=== PATIENT | female | born 1970 | race Caucasian/White ===

== ENCOUNTER 2020-02-21 14:09 | Day surgery (SDC) | payer OTHER, SELFPAY ==
[2020-02-14 09:17] VITALS: BMI 43.8
--- NOTE | 2020-02-20 11:11 | HO.ANESPROP2 ---
Documented by User: Alice Magda 02/20/20 11:12 HPI - Anesthesia Eval Consult details Narrative: 49yo F for EGD PMFSH Past Medical History Medical History Anxiety Arthritis Asthma Cancer GERD (gastroesophageal reflux disease) HTN (hypertension) Hx of renal calculi Irritable bowel syndrome Sleep apnea Surgical History Surgical History H/O ventral hernia repair Hx of bilateral oophorectomy Hx of breast biopsy Hx of section Hx of colonoscopy Hx of esophagogastroduodenoscopy Social History Social History Smoking Status: Never smoker Second Hand Smoke Exposure: No Use of substances other than those prescribed or required for medical reasons: No Advance Directives: No Advance Directives Information Provided: Yes Advance Directives on File: No Meds Allergies Allergy/AdvReac Type Severity Reaction Status Date / Time doxycycline [DOXYCYCLINE] Allergy Severe ESOPHAGITIS Unverified 01/23/20 14:48 Sulfa (Sulfonamide Allergy Severe FACIAL Unverified 01/23/20 14:48 Antibiotics) SWELLING codeine [Codeine] Allergy Intermediate RASH Unverified 01/23/20 14:48 lisinopril [Lisinopril] Allergy Intermediate EXTREMITIES Unverified 01/23/20 14:48 SWELLING benzonatate [BENZONATATE] Allergy Unknown ANAPHYLAXIS Unverified 01/23/20 14:48 meperidine [Demerol] Allergy Unknown Verified 06/15/16 00:00 From Demerol Allergy Severe HALLUCINATIONS, Uncoded 01/23/20 14:48 HYPERVENTALATE Home Medications Medication Instructions Recorded Confirmed Type amlodipine 5 mg PO DAILY 02/14/20 02/21/20 History cholecalciferol (vitamin D3) 25 mcg PO DAILY 02/14/20 02/14/20 History [Vitamin D3] citalopram 40 mg PO DAILY 02/14/20 02/21/20 History clonidine HCl 0.3 mg PO BEDTIME 02/14/20 02/14/20 History docusate sodium [Colace] 100 mg PO DAILY 02/14/20 02/14/20 History loratadine [Claritin] 10 mg PO DAILY 02/14/20 02/14/20 History lorazepam 0.5 mg PO BEDTIME PRN 02/14/20 History montelukast [Singulair] 10 mg PO BEDTIME 02/14/20 02/14/20 History Exam Exam Date and Time: February 20, 2020 1111 Height,Weight and Vital Signs: Height 5 ft 1.5 in Weight 107.048 kg Assessment and Plan Assessment Anesthesia Assessment: Chart Reviewed Documented by User: Anuj Moreau MD 02/21/20 14:32 PMFSH Past Medical History Medical History Anxiety Arthritis Asthma Cancer GERD (gastroesophageal reflux disease) HTN (hypertension) Hx of renal calculi Irritable bowel syndrome Sleep apnea Surgical History Surgical History H/O ventral hernia repair Hx of bilateral oophorectomy Hx of breast biopsy Hx of section Hx of colonoscopy Hx of esophagogastroduodenoscopy Social History Social History Smoking Status: Never smoker Second Hand Smoke Exposure: No Use of substances other than those prescribed or required for medical reasons: No Advance Directives: No Advance Directives Information Provided: Yes Advance Directives on File: No Meds Allergies Allergy/AdvReac Type Severity Reaction Status Date / Time doxycycline [DOXYCYCLINE] Allergy Severe ESOPHAGITIS Unverified 01/23/20 14:48 Sulfa (Sulfonamide Allergy Severe FACIAL Unverified 01/23/20 14:48 Antibiotics) SWELLING codeine [Codeine] Allergy Intermediate RASH Unverified 01/23/20 14:48 lisinopril [Lisinopril] Allergy Intermediate EXTREMITIES Unverified 01/23/20 14:48 SWELLING benzonatate [BENZONATATE] Allergy Unknown ANAPHYLAXIS Unverified 01/23/20 14:48 meperidine [Demerol] Allergy Unknown Verified 06/15/16 00:00 From Demerol Allergy Severe HALLUCINATIONS, Uncoded 01/23/20 14:48 HYPERVENTALATE Home Medications Medication Instructions Recorded Confirmed Type amlodipine 5 mg PO DAILY 02/14/20 02/21/20 History cholecalciferol (vitamin D3) 25 mcg PO DAILY 02/14/20 02/14/20 History [Vitamin D3] citalopram 40 mg PO DAILY 02/14/20 02/21/20 History clonidine HCl 0.3 mg PO BEDTIME 02/14/20 02/14/20 History docusate sodium [Colace] 100 mg PO DAILY 02/14/20 02/14/20 History loratadine [Claritin] 10 mg PO DAILY 02/14/20 02/14/20 History lorazepam 0.5 mg PO BEDTIME PRN 02/14/20 History montelukast [Singulair] 10 mg PO BEDTIME 02/14/20 02/14/20 History Exam Airway Mallampati Class: II TM Dist: >3cm Neck ROM: Full Loose/Missing/Broken Teeth: No Heart: rrr Lungs: [id number] Assessment and Plan Assessment Anesthesia Assessment: Anesthesia Plan Discussed, PAT Visit and Chart Reviewed Final Anesthetic Review NPO: Yes ASA Class: III Final Preanesthetic Review: No Changes in Pt Med Stat, Meds/Allgs Chart Reviewed, Consent Obtained/Reviewed and Anes Risks/Benef Reviewed Patient Risk: Intermediate Procedure Risk: Intermediate Anesthetic Plan Anesthetic Plan: MAC: Disposition: Standard PACU
[2020-02-20 12:08] VITALS: BMI 43.8
[2020-02-21 14:26] VITALS: BP 144/65; PULSE 62; RESP 18; TEMP 36.2; O2SAT 98
[2020-02-21] MEDS: Lactated Ringers 1,000 ML 100 ML IVCONT (14:55)
[2020-02-21 16:00] VITALS: BP 143/83; PULSE 93; RESP 16; TEMP 36.6; O2SAT 95
--- NOTE | 2020-02-21 16:01 | PM.OP ---
Brief Operative Note Date of procedure: 02/21/20 Pre-op diagnosis: Dysphagia, Globus Post-op diagnosis: other (Hiatal hernia, R/O Eosinophilic esophagitis) Procedure: EGD with biopsies Surgeon: Hitesh Reed Anesthesia: MAC Estimated blood loss (mL): 2 Pathology: other (A. EG Junction at 35cm B. Esophagus at 25cm) Condition: stable Disposition: PACU
[2020-02-21 16:16] VITALS: BP 150/67; PULSE 68; RESP 16; O2SAT 98
--- NOTE | 2020-02-21 17:16 | OP_ITS ---
SURGEON: Hitesh Reed MD INDICATIONS: The patient presents for evaluation of intermittent sense of dysphagia and some reflux. Full consent has been obtained from her for this, including risks of bleeding and perforation. PREOPERATIVE DIAGNOSIS: POSTOPERATIVE DIAGNOSIS: PROCEDURE PERFORMED: Esophagogastroduodenoscopy with biopsies. ESTIMATED BLOOD LOSS: COMPLICATIONS: ANESTHESIA: Monitored anesthesia care. ASSISTANTS: SPECIMENS: PREOPERATIVE DIAGNOSES: Intermittent dysphagia and abdominal discomfort. POSTOPERATIVE DIAGNOSES: Intermittent dysphagia and abdominal discomfort, hiatal hernia. Rule out eosinophilic esophagitis. DESCRIPTION OF PROCEDURE: The patient was placed in the left lateral decubitus position. The Olympus video gastroscope was passed in the posterior oropharynx and upper esophagus under direct vision. The scope was passed slowly into the distal esophagus. The gastroesophageal junction appeared at 35 cm. There was a very minimal irregularity, but there was no sign of any esophagitis, stricture, ulceration, mass, nor any gross evidence of Mccurdy's mucosa. The scope was easily entered into the stomach. There was a small hiatal hernia. The scope was advanced to pylorus and the duodenum cannulated to the descending portion. The duodenum including the bulb appeared normal without mass or ulceration. The scope was withdrawn back into the stomach. The gastric antrum and body appeared normal with good peristalsis. The scope was retroflexed visualizing the proximal stomach carefully which appeared normal, without any sign of mass or ulceration. The scope was straightened and withdrawn back into the esophagus. Biopsies were obtained at the EG junction at 35 cm. There was no sign of any esophageal stricture nor ring and therefore, no dilation was performed. The scope was slowly withdrawn through the remainder of the esophagus, which appeared normal. There was no sign of any esophageal rings nor other mucosal abnormalities. Biopsies were obtained to 25 cm to rule out eosinophilic esophagitis. The scope was then withdrawn from the patient. She tolerated the procedure well and was returned to the recovery area in stable condition. IMPRESSION: 1. Hiatal hernia, gastroesophageal reflux. 2. Rule out eosinophilic esophagitis. PLAN: The results of the biopsy will be checked. She does report having started omeprazole last week and I did advise her to continue that for the time being to see if that gives her any improvement and relief from her upper GI complaints. She may be having intermittent episodes of esophageal spasm. She was advised to see me in 2 months for a followup visit. MD FERNIE Harris/MAGDALENA / [id number]
== END 2020-02-21 16:45 | disposition home or self-care (01) ==
PROVIDERS: PCP Internal Medicine; Visit Provider Internal Medicine
PROC: 0DJ08ZZ Inspection of Upper Intestinal Tract, Via Natural or Artificial Opening Endoscopic (ICD-10-PCS; CPT 43235; principal; 2020-02-21 14:50)
DX: K21.9 Gastro-esophageal reflux disease without esophagitis (principal); K22.4 Dyskinesia of esophagus; K44.9 Diaphragmatic hernia without obstruction or gangrene; Z80.0 Family history of malignant neoplasm of digestive organs; I10 Essential (primary) hypertension; J45.909 Unspecified asthma, uncomplicated; Z87.442 Personal history of urinary calculi; Z79.51 Long term (current) use of inhaled steroids; Z79.899 Other long term (current) drug therapy; Z88.2 Allergy status to sulfonamides; Z88.8 Allergy status to other drugs, medicaments and biological substances
CPT/HCPCS: 43239; 88305

== ENCOUNTER 2020-06-07 22:29 | Emergency (ER) | payer OTHER, SELFPAY ==
[2020-06-07 22:43] VITALS: BP 184/78; PULSE 67; RESP 18; TEMP 36.9; O2SAT 97; BMI 37.9
--- NOTE | 2020-06-07 23:42 | XR_ITS ---
EXAMINATION: XR CHEST CLINICAL INFORMATION: Chest pressure COMPARISON: 02/28/2017 TECHNIQUE: 2 views of the chest were obtained. FINDINGS: Lung volumes are symmetric. No focal consolidation is seen. No evidence of pneumothorax, pleural effusion, or pulmonary edema. The cardiomediastinal contour is unremarkable. No acute osseous findings are seen. XR/XR chest 2V IMPRESSION: No acute cardiopulmonary findings.
[2020-06-08] VITALS: BP 140/54; PULSE 70; RESP 13; TEMP 36.9; O2SAT 98
--- NOTE | 2020-06-08 00:18 | ED_ITS ---
HPI - Chest Pain General Chief Complaint: Chest Pain Stated Complaint: Chest pressure Time Seen by Provider: 06/07/20 23:42 Source: patient Mode of arrival: ambulatory History of Present Illness HPI narrative: This is a 49-year-old male with past medical history of anxiety and hypertension who comes in with onset of chest pressure that started approximately 10:00 p.m. this evening with associated tingling into her left arm while she was sitting at rest watching television. This was not associated with any headache, dizziness, nausea, diaphoresis and patient denies any recent fevers, chills, cough, sore throat. She denies any association with deep inspiration or movement but does endorse she has a hiatal hernia. No recent history of long car rides or plane trips, hemoptysis, estrogen supplementation, personal history of cancer, recent surgery or bed bound state, calf pain or calf swelling. Currently, patient states that the feeling has gradually decreased. Related Data Home Medications Medication Instructions Recorded Confirmed amlodipine 5 mg PO DAILY 02/14/20 02/21/20 cholecalciferol (vitamin D3) 25 mcg PO DAILY 02/14/20 02/14/20 [Vitamin D3] citalopram 40 mg PO DAILY 02/14/20 02/21/20 clonidine HCl 0.3 mg PO BEDTIME 02/14/20 02/14/20 docusate sodium [Colace] 100 mg PO DAILY 02/14/20 02/14/20 loratadine [Claritin] 10 mg PO DAILY 02/14/20 02/14/20 lorazepam 0.5 mg PO BEDTIME PRN 02/14/20 montelukast [Singulair] 10 mg PO BEDTIME 02/14/20 02/14/20 Allergies Allergy/AdvReac Type Severity Reaction Status Date / Time doxycycline [DOXYCYCLINE] Allergy Severe ESOPHAGITIS Verified 06/08/20 00:44 Sulfa (Sulfonamide Allergy Severe FACIAL Verified 06/08/20 00:44 Antibiotics) SWELLING codeine [Codeine] Allergy Intermediate RASH Verified 06/08/20 00:44 lisinopril [Lisinopril] Allergy Intermediate EXTREMITIES Verified 06/08/20 00:44 SWELLING benzonatate [BENZONATATE] Allergy Unknown ANAPHYLAXIS Verified 06/08/20 00:44 meperidine [Demerol] Allergy Unknown Rash Verified 06/08/20 00:44 From Demerol Allergy Severe HALLUCINATIONS, Uncoded 06/08/20 00:44 HYPERVENTALATE Review of Systems Review of Systems: Pertinent positives and negatives as stated in HPI and 10 point review of systems is otherwise negative. [facility] Past Medical History Source: nursing notes reviewed Medical History Anxiety Arthritis Asthma Cancer GERD (gastroesophageal reflux disease) HTN (hypertension) Hx of renal calculi Irritable bowel syndrome Sleep apnea Surgical History H/O ventral hernia repair Hx of bilateral oophorectomy Hx of breast biopsy Hx of section Hx of colonoscopy Hx of esophagogastroduodenoscopy Social History Social History Smoking Status: Never smoker Second Hand Smoke Exposure: No Use of substances other than those prescribed or required for medical reasons: No Advance Directives: No Advance Directives Information Provided: No Physical Exam Vital Signs: Vital Signs: Last Vital Signs Temp 98.4 F 06/08/20 04:00 Pulse 66 06/08/20 04:00 Resp 18 06/08/20 04:00 BP 110/72 06/08/20 04:00 Pulse Ox 98 06/08/20 04:00 Body Mass Index 37.9 VITAL SIGNS: Reviewed. GENERAL: Well developed, well nourished, in no acute distress. HEAD: Normocephalic/atraumatic, EYES: PERRLA, EOMI NECK: Supple, no adenopathy LUNGS: Normal breath sounds. No adventitious sounds or accessory muscle use. SpO2<98> CARDIOVASCULAR: Regular rate and rhythm without noted murmurs, no JVD or lower extremity edema. ABDOMEN: Obese, Soft, non-tender, non-distended with bowel sounds. NEUROLOGIC: Alert and oriented x 4. Course Course Course Narrative: This is a 49-year-old female with history and clinical presentation suggestive of possible ACS versus anxiety but doubt PE or pneumonia. All investigations were reviewed and there are no acute findings to suggest ACS, pneumonia, and doubt PE. All results and findings were discussed with patient at bedside and she was discharged home in stable condition with instructions to follow-up with her primary care provider for further evaluation. MDM - Chest Pain Lab Data Result diagrams: 06/08/20 00:15 06/08/20 00:15 Labs: Lab Results 06/08/20 06/08/20 06/08/20 Range/Units 00:15 00:15 00:15 WBC 9.4 (4.8-10.8) X10*3/uL RBC 3.92 L (4.20-5.50) X10*6/uL Hgb 12.5 (12.0-16.0) g/dl Hct 36.8 L (37-47) % MCV 93.9 (80-98) fL MCH 31.9 (27.0-33.0) pg MCHC 34.0 (31.0-35.0) g/dl RDW 11.7 (11.0-16.0) % Plt Count 193 (160-400) X10*3/uL MPV 9.0 L (9.4-12.3) fL Immature Gran % (Auto) 0.1 (0.0-0.4) % Neut % (Auto) 51.1 (45-73) % Lymph % (Auto) 39.6 (20-40) % [place] % (Auto) 6.5 (2-11) % Eos % (Auto) 2.3 (0-4) % Baso % (Auto) 0.4 (0-2) % Lymph # (Auto) 3.7 (1.2-4.9) X10*3/uL [place] # (Auto) 0.6 (0.1-1.2) X10*3/uL Eos # (Auto) 0.2 (0.0-0.4) X10*3/uL Baso # (Auto) 0.0 (0.0-0.2) X10*3/uL Abs Immat Gran (auto) 0.01 (0.00-0.03) X10*3/uL Absolute Neuts (auto) 4.8 (2.0-8.3) X10*3/uL Absolute Nucleated RBC 0.000 (0.0-0.012) X10*3/uL Nucleated RBC % (auto) 0.0 (0.0-0.2) /100WBC Sodium 141 (135-145) mmol/L Potassium 3.7 (3.3-5.1) mmol/L Chloride 104 (96-108) mmol/L Carbon Dioxide 28 (22-29) mmol/L Anion Gap 13 (12-20) BUN 17 H (9-16) mg/dL Creatinine 0.73 (0.5-1.4) mg/dL Estim Creat Clear Calc 112.5 Estimated GFR > 60 Random Glucose 134 H (60-115) mg/dL Calcium 8.9 (8.4-10.2) mg/dL Total Bilirubin 0.2 (0.0-1.0) mg/dL AST 23 (5-31) U/L ALT 23 (0-31) U/L Alkaline Phosphatase 75 (39-117) U/L Troponin I High Sens < 3.5 (<3.5-17.0) ng/L Total Protein 6.8 (6.5-8.0) g/dL Albumin 4.2 (3.5-5.0) g/dL 06/08/20 Range/Units 04:10 WBC (4.8-10.8) X10*3/uL RBC (4.20-5.50) X10*6/uL Hgb (12.0-16.0) g/dl Hct (37-47) % MCV (80-98) fL MCH (27.0-33.0) pg MCHC (31.0-35.0) g/dl RDW (11.0-16.0) % Plt Count (160-400) X10*3/uL MPV (9.4-12.3) fL Immature Gran % (Auto) (0.0-0.4) % Neut % (Auto) (45-73) % Lymph % (Auto) (20-40) % [place] % (Auto) (2-11) % Eos % (Auto) (0-4) % Baso % (Auto) (0-2) % Lymph # (Auto) (1.2-4.9) X10*3/uL [place] # (Auto) (0.1-1.2) X10*3/uL Eos # (Auto) (0.0-0.4) X10*3/uL Baso # (Auto) (0.0-0.2) X10*3/uL Abs Immat Gran (auto) (0.00-0.03) X10*3/uL Absolute Neuts (auto) (2.0-8.3) X10*3/uL Absolute Nucleated RBC (0.0-0.012) X10*3/uL Nucleated RBC % (auto) (0.0-0.2) /100WBC Sodium (135-145) mmol/L Potassium (3.3-5.1) mmol/L Chloride (96-108) mmol/L Carbon Dioxide (22-29) mmol/L Anion Gap (12-20) BUN (9-16) mg/dL Creatinine (0.5-1.4) mg/dL Estim Creat Clear Calc Estimated GFR Random Glucose (60-115) mg/dL Calcium (8.4-10.2) mg/dL Total Bilirubin (0.0-1.0) mg/dL AST (5-31) U/L ALT (0-31) U/L Alkaline Phosphatase (39-117) U/L Troponin I High Sens < 3.5 (<3.5-17.0) ng/L Total Protein (6.5-8.0) g/dL Albumin (3.5-5.0) g/dL ECG Data ECG #1: Attestation: I personally reviewed and interpreted this ECG as follows: Prior ECG tracings: available for review (02/28/2017 no acute changes on comparison) Interpretation: Normal sinus rhythm (not junctional rhythm), HR-63, no evidence of acute ischemia, [place]/QRS/QTC are within normal limits. Discharge Plan Discharge Clinical Impression: Atypical chest pain Patient Disposition: Home, Self-Care Instructions: Chest Pain (ED) Additional Instructions: Please resume all home medications as prescribed. Follow-up with your primary care provider in the next 2-3 days. Do not hesitate to return to the emergency department should you experience any acute worsening of her symptoms. Prescriptions: No Action citalopram 40 mg Tablet 40 mg PO DAILY RF: 0 clonidine HCl 0.3 mg Tablet 0.3 mg PO BEDTIME RF: 0 amlodipine 5 mg Tablet 5 mg PO DAILY RF: 0 lorazepam 0.5 mg Tablet 0.5 mg PO BEDTIME PRN (Reason: Anxiety) RF: 0 docusate sodium [Colace] 100 mg Capsule 100 mg PO DAILY RF: 0 montelukast [Singulair] 10 mg Tablet 10 mg PO BEDTIME RF: 0 loratadine [Claritin] 10 mg Tablet 10 mg PO DAILY RF: 0 cholecalciferol (vitamin D3) [Vitamin D3] 25 mcg (1,000 unit) Tablet 25 mcg PO DAILY RF: 0 Referrals: Justin Lawler MD [Primary Care Provider] - 2 days (Re-evaluation outpatient management for atypical chest pain with 2-troponins and no EKG changes.)
--- NOTE | 2020-06-08 00:23 | ECG_ITS ---
Test Reason : CHEST TUGHTNESS Blood Pressure : / mmHG Vent. Rate : 063 BPM Atrial Rate : 031 BPM P-R Int : 000 ms QRS Dur : 096 ms QT Int : 422 ms P-R-T Axes : 000 016 065 degrees QTc Int : 431 ms Poor data quality Normal sinus rhythm Moderate voltage criteria for LVH, may be normal variant Nonspecific ST and T wave abnormality Abnormal ECG When compared to the previous EKG of No significant changes seen Referred By: Yari Gomez Electronically Signed By:KATLYN KOROMA MD
[2020-06-08 00:24] LABS: Basophils Percent Auto 0.4 % (0-2); Eosinophils Absolute Auto 0.2 X10*3/uL (0.0-0.4); Eosinophils Percent Auto 2.3 % (0-4); Hematocrit 36.8 % (37-47); Hemoglobin 12.5 g/dl (12.0-16.0); Imm Gran Abs Auto 0.01 X10*3/uL (0.00-0.03); Imm Gran Pct Auto 0.1 % (0.0-0.4); Lymphocytes Absolute Auto 3.7 X10*3/uL (1.2-4.9); Lymphocytes Percent Auto 39.6 % (20-40); MANUAL DIFF FLAG NO; Mean Corpuscular Hemoglobin 31.9 pg (27.0-33.0); Mean Corpuscular Volume 93.9 fL (80-98); Monocytes Absolute Auto 0.6 X10*3/uL (0.1-1.2); Monocytes Percent Auto 6.5 % (2-11); Neutrophils Absolute Auto 4.8 X10*3/uL (2.0-8.3); Neutrophils Percent Auto 51.1 % (45-73); Platelet Count 193 X10*3/uL (160-400); Red Blood Count 3.92 X10*6/uL (4.20-5.50); Red Cell Distribution Width 11.7 % (11.0-16.0); White Blood Count 9.4 X10*3/uL (4.8-10.8)
[2020-06-08] MEDS: Aspirin 81 MG TAB.CHEW 324 MG PO (00:45)
[2020-06-08 00:47] LABS: Alanine Aminotransferase 23 U/L (0-31); Albumin Level 4.2 g/dL (3.5-5.0); Alkaline Phosphatase 75 U/L (39-117); Anion Gap 13 (12-20); Aspartate Amino Transferase 23 U/L (5-31); Bilirubin Total 0.2 mg/dL (0.0-1.0); Blood Urea Nitrogen 17 mg/dL (9-16); Calcium 8.9 mg/dL (8.4-10.2); Carbon Dioxide 28 mmol/L (22-29); Chloride 104 mmol/L (96-108); Creatinine Clr Calc Pharmacy 112.5; Estimated Glomerular Filt Rate > 60; Glucose Random 134 mg/dL (60-115); Potassium 3.7 mmol/L (3.3-5.1); Sodium 141 mmol/L (135-145); Total Protein 6.8 g/dL (6.5-8.0)
[2020-06-08 00:57] LABS: Troponin-I High Sensitivity < 3.5 ng/L (<3.5-17.0)
[2020-06-08 02:00] VITALS: BP 107/47; PULSE 61; RESP 17; O2SAT 98
[2020-06-08 04:00] VITALS: BP 110/72; PULSE 66; RESP 18; TEMP 36.9; O2SAT 98
[2020-06-08 04:40] LABS: Troponin-I High Sensitivity < 3.5 ng/L (<3.5-17.0)
== END 2020-06-08 05:52 | disposition home or self-care (01) ==
PROVIDERS: Emergency Provider Student in an Organized Health Care Education/Training Program; PCP Internal Medicine
DX: R07.89 Other chest pain (principal); I10 Essential (primary) hypertension; K21.9 Gastro-esophageal reflux disease without esophagitis; Z85.3 Personal history of malignant neoplasm of breast; Z87.442 Personal history of urinary calculi
CPT/HCPCS: 36415; 71046; 80053; 84484; 85025; 93005; 99283; 99285

== ENCOUNTER 2020-07-03 21:25 | Emergency (ER) | payer OTHER, SELFPAY ==
[2020-07-03 21:38] VITALS: TEMP 36.9
[2020-07-03 21:43] VITALS: BP 126/62; BP 146/86; PULSE 80; PULSE 98; RESP 16; TEMP 36.9; O2SAT 96; BMI 45.3
[2020-07-03 22:00] VITALS: BP 130/70; PULSE 88; RESP 20; O2SAT 97
[2020-07-03] MEDS: Ketorolac Tromethamine 60 MG/2 ML VIAL IM (22:45)
[2020-07-03] MEDS: Cyclobenzaprine HCl 10 MG TABLET PO (22:45)
[2020-07-03] MEDS: Lidocaine 4 % Patch ADH..PATCH 1 PATCH TRANSDERMA (22:46)
--- NOTE | 2020-07-03 23:00 | PC.NURSE ---
PT HAD 1 EPISODE OF ANXIETY W/SOME HYPERVENTIATING STATING SHE COULD NOT MOVE HER LEGS, PT WAS REPOSITIONED BY THIS RN & HAND CLOTH EXAMINER W/GOOD EFFECTS. 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 PRIOR TO D/C PT WAS ABLE TO STAND, AMBULATE SLOWLY AND SIT IN WHEELCHAIR COMFORTABLY.
[2020-07-03] MEDS: LORazepam 1 MG TABLET PO (23:26)
--- NOTE | 2020-07-04 01:08 | ED.BACK ---
HPI - Back Pain/Injury General Chief Complaint: Back Pain/Injury Stated Complaint: NON-TRAUMATIC BACK PAIN Time Seen by Provider: 07/03/20 22:21 Source: EMS Mode of arrival: EMS Limitations: no limitations History of Present Illness HPI Narrative: 49-year-old female who reports past medical history significant for status post breast CA, asthma, hypertension, IBS, anxiety, chronic low back pain in the setting of degenerative disc disease and bulging disc for which she sports and Spine and was Ronald she actually had a recent MRI last week that showed arthritis and she was actually given cortisone injections today in the lower back after she felt good however she was doing some ADLs and did not pay attention and she went to turn and felt a pulling sensation in the back. She otherwise denies any fever or chills. No lower extremity weakness. No fall. No abdominal pain nausea vomiting. Similar Symptoms Previously: Yes Exacerbating factors: none Relieving factors: none Associated symptoms: denies other symptoms Work related injury: No Related Data Home Medications Medication Instructions Recorded Confirmed amlodipine 5 mg PO DAILY 02/14/20 02/21/20 cholecalciferol (vitamin D3) 25 mcg PO DAILY 02/14/20 02/14/20 [Vitamin D3] citalopram 40 mg PO DAILY 02/14/20 02/21/20 clonidine HCl 0.3 mg PO BEDTIME 02/14/20 02/14/20 docusate sodium [Colace] 100 mg PO DAILY 02/14/20 02/14/20 loratadine [Claritin] 10 mg PO DAILY 02/14/20 02/14/20 lorazepam 0.5 mg PO BEDTIME PRN 02/14/20 montelukast [Singulair] 10 mg PO BEDTIME 02/14/20 02/14/20 Previous Rx's Medication Instructions Recorded cyclobenzaprine 5 mg PO TID PRN #14 tab 07/04/20 ibuprofen 800 mg PO Q8H PRN #30 tab 07/04/20 lidocaine 1 patch TOPICAL Q24H PRN #15 ea 07/04/20 Allergies Allergy/AdvReac Type Severity Reaction Status Date / Time doxycycline [DOXYCYCLINE] Allergy Severe ESOPHAGITIS Verified 07/03/20 21:37 Sulfa (Sulfonamide Allergy Severe FACIAL Verified 07/03/20 21:37 Antibiotics) SWELLING codeine [Codeine] Allergy Intermediate RASH Verified 07/03/20 21:37 lisinopril [Lisinopril] Allergy Intermediate EXTREMITIES Verified 07/03/20 21:37 SWELLING benzonatate [BENZONATATE] Allergy Unknown ANAPHYLAXIS Verified 07/03/20 21:37 meperidine [Demerol] Allergy Unknown Rash Verified 07/03/20 21:37 From Demerol Allergy Severe HALLUCINATIONS, Uncoded 06/08/20 00:44 HYPERVENTALATE Review of Systems Review of Systems: Constitutional: No Weight loss, No Fever, No Chills, No Night Sweats, No Fatigue, No Malaise ENT/Mouth: No Hearing loss, No Ear Pain, No Nasal Congestion, No Sinus Pain, No Hoarseness, No sore throat, No Rhinorrhea, No Swallowing Difficulty Eyes: No Eye Pain, No Swelling, No Redness, No Foreign Body, No Discharge, No Vision Changes Cardiovascular: No Chest Pain, No SOB, No Dyspnea on Exertion, No Orthopnea, No Edema, No Palpitations Respiratory: No Cough, No Sputum, No Wheezing, No Smoke Exposure, No Dyspnea Gastrointestinal: No Nausea, No Vomiting, No Diarrhea, No Constipation, No abdominal Pain, No Hematochezia, No Melena Genitourinary: No Dysuria, No Urinary Frequency, No Hematuria, No Urinary Incontinence, No Urgency, No Flank Pain, No Urinary Flow Changes, No Hesitancy Musculoskeletal: No joint pain, No Myalgias, No Joint Swelling, back pain as noted per HPI Skin: No Skin Lesions, No rash Neuro: No Weakness, No Numbness, No Paresthesias, No Loss of Consciousness, No Dizziness, No Headache Psych: No Social Issues Heme/Lymph: No Bruising, No Bleeding,No Lymphadenopathy Endocrine: No Polyuria, No Polydipsia, No Temperature Intolerance Yes all other systems are reviewed and are negative [facility] Past Medical History Medical History Anxiety Arthritis Asthma Cancer GERD (gastroesophageal reflux disease) HTN (hypertension) Hx of renal calculi Irritable bowel syndrome Sleep apnea Surgical History H/O ventral hernia repair Hx of bilateral oophorectomy Hx of breast biopsy Hx of section Hx of colonoscopy Hx of esophagogastroduodenoscopy Social History Social History Smoking Status: Never smoker Second Hand Smoke Exposure: No Advance Directives: No Advance Directives Information Provided: Yes Physical Exam Vital Signs: Vital Signs: Last Vital Signs Temp 98.4 F 07/03/20 21:43 Pulse 80 07/03/20 21:43 Resp 16 07/03/20 21:43 BP 126/62 07/03/20 21:43 Pulse Ox 96 07/03/20 21:43 Body Mass Index 45.3 Reviewed Const: General: cooperative and healthy appearing; No acute distress or intoxicated appearing Nutritional Appearance: average body habitus Orientation/consciousness: patient oriented x3 HENMT: Head: Yes normal to inspection Ears: hearing grossly normal bilaterally Eyes: General: appearance normal, both eyes and all related structures Visual Fleming: normal visual fleming by confrontation Neck: Neck: Yes normal visual inspection, No positive Brudzinski's sign, No positive Kernig's sign and No tender Thyroid: Thyroid normal Chest: Chest palpation & inspection: normal inspection of the chest Resp: Effort & Inspection: normal respiratory effort Auscultation: clear to auscultation bilaterally Cardio: Jugular venous distension: no JVD Rhythm: regular rhythm Heart sounds: S1 normal heart sound present and S2 normal heart sound present GI: Inspection: Yes normal to inspection Percussion: Yes normal to percussion Auscultation: normal bowel sounds : General: Yes no CVA tenderness Back/Spine/Pelvis: Other: Able to bend bilateral extremities at the knee. Neurovascular intact. Leg lift negative. Back: no CVA tenderness Thoracic/Lumbar Spine: paraspinal muscle tenderness on the left Skin: General skin exam: no rashes or lesions noted Neuro: General: patient oriented x3 Extrem: General: Yes normal to inspection Course Course Course Narrative: Feels better after IM Toradol Flexeril and lidocaine. Able to get out of bed and ambulate. AP exam consistent with strain type injury to the lumbar paraspinous muscle region. No low back pain red flags. Will discharge home with short course of NSAIDs, muscle relaxant, return and follow-up instructions. Discharge Plan Discharge Clinical Impression: Strain of lumbar region Qualifiers: Encounter type: initial encounter Qualified Code(s): S39.012A - Strain of muscle, fascia and tendon of lower back, initial encounter Patient Disposition: Home, Self-Care Instructions: Low Back Strain (ED), Core Strengthening Exercises (ED) Additional Instructions: Supportive care as discussed Return if any concerns worsening symptoms Prescriptions: New lidocaine 4 % adhesive patch,medicated 1 patch topical Q24H PRN (Reason: pain) Qty: 15 RF: 0 ibuprofen 800 mg tablet 800 mg PO Q8H PRN (Reason: pain) Qty: 30 RF: 0 cyclobenzaprine 5 mg tablet 5 mg PO TID PRN (Reason: muscle spasm) Qty: 14 RF: 0 No Action citalopram 40 mg Tablet 40 mg PO DAILY RF: 0 clonidine HCl 0.3 mg Tablet 0.3 mg PO BEDTIME RF: 0 amlodipine 5 mg Tablet 5 mg PO DAILY RF: 0 lorazepam 0.5 mg Tablet 0.5 mg PO BEDTIME PRN (Reason: Anxiety) RF: 0 docusate sodium [Colace] 100 mg Capsule 100 mg PO DAILY RF: 0 montelukast [Singulair] 10 mg Tablet 10 mg PO BEDTIME RF: 0 loratadine [Claritin] 10 mg Tablet 10 mg PO DAILY RF: 0 cholecalciferol (vitamin D3) [Vitamin D3] 25 mcg (1,000 unit) Tablet 25 mcg PO DAILY RF: 0 Referrals: Justin Lawler MD [Primary Care Provider] - 2 days
== END 2020-07-04 01:20 | disposition home or self-care (01) ==
PROVIDERS: Emergency Provider Emergency Medicine; PCP Internal Medicine
DX: S39.012A Strain of muscle, fascia and tendon of lower back, initial encounter (principal); X50.1XXA Overexertion from prolonged static or awkward postures, initial encounter; F41.9 Anxiety disorder, unspecified; I10 Essential (primary) hypertension; Y93.9 Activity, unspecified; Y92.019 Unspecified place in single-family (private) house as the place of occurrence of the external cause; Y99.9 Unspecified external cause status; Z85.3 Personal history of malignant neoplasm of breast
CPT/HCPCS: 96372; 99284; J1885

== ENCOUNTER 2020-08-14 07:18 | Outpatient (REF) | payer OTHER, SELFPAY ==
[2020-08-14 07:55] LABS: Hematocrit 38.8 % (37-47); Hemoglobin 12.8 g/dl (12.0-16.0); Mean Corpuscular Hemoglobin 31.8 pg (27.0-33.0); Mean Corpuscular Volume 96.3 fL (80-98); Mean Platelet Volume 8.6 fL (9.4-12.3); Platelet Count 209 X10*3/uL (160-400); Red Blood Count 4.03 X10*6/uL (4.20-5.50); Red Cell Distribution Width 12.1 % (11.0-16.0); White Blood Count 6.7 X10*3/uL (4.8-10.8)
[2020-08-14 07:59] LABS: Estimated Average Glucose 114 mg/dL; Hemoglobin A1c % 5.6 %
[2020-08-14 08:10] LABS: Glucose Urine UA NEG (NEG); Leukocyte Esterase Urine TRACE (NEG); Nitrite Urine NEG (NEG); PH 6.5 (5.0-8.0); Specific Gravity - Urine 1.015 (1.005-1.025); Urine Blood NEG (NEG); Urine Ketones NEG (NEG); Urine Protein NEG (NEG-TRACE)
[2020-08-14 08:11] LABS: Appearance Urine HAZY; Color Urine YELLOW
[2020-08-14 08:15] LABS: Alanine Aminotransferase 27 U/L (0-31); Albumin Level 4.4 g/dL (3.5-5.0); Alkaline Phosphatase 70 U/L (39-117); Anion Gap 12 (12-20); Aspartate Amino Transferase 23 U/L (5-31); Bilirubin Total 0.4 mg/dL (0.0-1.0); Blood Urea Nitrogen 20 mg/dL (9-16); Calcium 9.7 mg/dL (8.4-10.2); Carbon Dioxide 32 mmol/L (22-29); Chloride 100 mmol/L (96-108); Cholesterol 230 mg/dL; Estimated Glomerular Filt Rate > 60; Glucose Fasting 101 mg/dL (60-99); HDL Cholesterol 62 mg/dL; LDL Cholesterol Calculated 146 mg/dl; Potassium 4.1 mmol/L (3.3-5.1); Sodium 140 mmol/L (135-145); Total Protein 7.3 g/dL (6.5-8.0); Triglycerides 114 mg/dL
[2020-08-14 08:23] LABS: RBC Urine 0 /HPF (0); Squamous Epithelial Cell Urine 1+ /LPF
[2020-08-14 08:31] LABS: Creatinine Urine 89.65 mg/dL; Microalbum/Creatinine Ratio Ur 11.1 ug/mg cr
[2020-08-14 08:37] LABS: Vitamin D 25-OH Total 50.6 ng/mL (>30)
== END 2020-08-14 07:19 | disposition home or self-care (01) ==
LOC: HO.LAB 07:18
PROVIDERS: PCP Internal Medicine; Visit Provider Internal Medicine
DX: I10 Essential (primary) hypertension (principal); E04.1 Nontoxic single thyroid nodule; G47.30 Sleep apnea, unspecified
CPT/HCPCS: 36415; 80053; 80061; 81001; 82043; 82306; 83036; 85027

== ENCOUNTER → 2020-09-16 23:13 | Emergency (ER) | payer OTHER, SELFPAY | PROVIDERS: PCP Internal Medicine | DX: L50.0 Allergic urticaria (principal) ==

== ENCOUNTER 2020-09-16 23:29 | Emergency (ER) | payer OTHER, SELFPAY ==
[2020-09-16 23:31] VITALS: BP 162/80; PULSE 82; RESP 20; TEMP 36.5; O2SAT 98; BMI 45.3
--- NOTE | 2020-09-17 00:47 | ED.ALLEREA ---
HPI - Allergic Reaction General Chief complaint: Allergic Reaction Stated complaint: allergic reaction Time Seen by Provider: 09/17/20 00:41 Source: patient Mode of arrival: ambulatory Limitations: no limitations History of Present Illness HPI narrative: Patient comes emergency room complaining of an allergic reaction. Patient states that she is allergic to several medications, but has not taking any of the medications that she is allergic to. Patient states around 945 she started noticing hives in her upper and lower extremities, abdomen and back. Patient took 50 mg of Benadryl for the rash started to get worse therefore she came to the emergency room. Patient states that she has a foreign body sensation in her throat, but she does not feel any swelling, no shortness of breath. MD complaint: allergic reaction and hives Related Data Home Medications Medication Instructions Recorded Confirmed cholecalciferol (vitamin D3) 25 mcg PO DAILY 02/14/20 08/13/20 [Vitamin D3] citalopram 40 mg PO DAILY 02/14/20 08/13/20 docusate sodium [Colace] 100 mg PO DAILY 02/14/20 08/13/20 loratadine [Claritin] 10 mg PO DAILY 02/14/20 08/13/20 lorazepam 0.5 mg PO BEDTIME PRN 02/14/20 08/13/20 montelukast [Singulair] 10 mg PO BEDTIME 02/14/20 08/13/20 gabapentin 300 mg capsule 300 mg PO TID 08/13/20 08/13/20 omeprazole 20 mg capsule,delayed 20 mg PO DAILY 08/13/20 08/13/20 release clobetasol 0.05 % topical ointment 1 appl TOPICAL DAILY 08/17/20 ipratropium bromide 21 mcg (0.03 INTRANASAL 08/17/20 %) nasal spray triamcinolone acetonide 0.1 % appl TOPICAL BID 08/17/20 topical cream tizanidine 2 mg capsule 1 mg PO BEDTIME 09/10/20 Previous Rx's Medication Instructions Recorded ibuprofen 800 mg PO Q8H PRN #30 tab 07/04/20 amlodipine 10 mg tablet 10 mg PO DAILY #30 tab 08/14/20 clonidine HCl 0.2 mg tablet 0.2 mg PO BID #180 tab 09/07/20 losartan 50 mg tablet 50 mg PO DAILY #90 tab 05/03/21 clonidine HCl 0.1 mg tablet 0.1 mg PO BID #60 tab 09/10/20 Allergies Allergy/AdvReac Type Severity Reaction Status Date / Time doxycycline [DOXYCYCLINE] Allergy Severe ESOPHAGITIS Verified 09/16/20 23:39 Sulfa (Sulfonamide Allergy Severe FACIAL Verified 09/16/20 23:39 Antibiotics) SWELLING codeine [Codeine] Allergy Intermediate RASH Verified 09/16/20 23:39 lisinopril [Lisinopril] Allergy Intermediate EXTREMITIES Verified 09/16/20 23:39 SWELLING benzonatate [BENZONATATE] Allergy Unknown ANAPHYLAXIS Verified 09/16/20 23:39 meperidine [Demerol] Allergy Unknown Rash Verified 09/16/20 23:39 losartan AdvReac Intermediate swelling Verified 09/16/20 23:39 of hands, From Demerol Allergy Severe HALLUCINATIONS, Uncoded 09/16/20 23:39 HYPERVENTALATE Review of Systems Review of Systems: Constitutional : No Weight loss, No Fever, No Chills, No Night Sweats, No Fatigue, No Malaise ENT/Mouth : No Hearing loss, No Ear Pain, No Nasal Congestion, No Sinus Pain, mild Hoarseness and foreign body sensation in the throat, No sore throat, No Rhinorrhea, No Swallowing Difficulty Eyes: No Eye Pain, No Swelling, No Redness, No Foreign Body, No Discharge, No Vision Changes Cardiovascular : No Chest Pain, No SOB, No Dyspnea on Exertion, No Orthopnea, No Edema, No Palpitations Respiratory : No Cough, No Sputum, No Wheezing, No Smoke Exposure, No Dyspnea Gastrointestinal : No Nausea, No Vomiting, No Diarrhea, No Constipation, No abdominal Pain, No Hematochezia, No Melena Genitourinary : no irregular bleeding, No Dysuria, No Urinary Frequency, No Hematuria, No Urinary Incontinence, No Urgency, No Flank Pain, No Urinary Flow Changes, No Hesitancy Musculoskeletal : No joint pain, No Myalgias, No Joint Swelling Skin : Hives in upper and lower extremities, abdomen and back Neuro : No Weakness, No Numbness, No Paresthesias, No Loss of Consciousness, No Dizziness, No Headache Psych : No Anxiety/Panic, No Depression, No SI/HI/AH/VH, No Social Issues, Heme/Lymph: No Bruising, No Bleeding,No Lymphadenopathy Endocrine : No Polyuria, No Polydipsia, No Temperature Intolerance PMFSH Past Medical History Medical History Anxiety Arthritis Asthma Cancer Chronic low back pain GERD (gastroesophageal reflux disease) HTN (hypertension) Hx of renal calculi Irritable bowel syndrome Normal colonoscopy Obesity Sleep apnea Thyroid nodule Surgical History H/O ventral hernia repair Hx of bilateral oophorectomy Hx of breast biopsy Hx of section Hx of colonoscopy Hx of esophagogastroduodenoscopy Social History Social History (Updated 08/13/20 @ 13:08 by Mia North MD) Household Members Other:: , unemployed, 2 children () Alcohol intake: never Smoking Status: Never smoker Second Hand Smoke Exposure: No Use of substances other than those prescribed or required for medical reasons: No Advance Directives: No Advance Directives Information Provided: No Physical Exam Vital Signs: Vital Signs: Last Vital Signs Temp 98.6 F 09/17/20 00:55 Pulse 75 09/17/20 00:55 Resp 16 09/17/20 00:55 BP 145/53 H 09/17/20 00:55 Pulse Ox 95 09/17/20 00:55 Body Mass Index 45.3 Appearance: Alert. Oriented X3. No acute distress. Eyes: Pupils equal, round and reactive to light. ENT: Pharynx normal. No angioedema Neck: Normal inspection. Neck supple. No lymph nodes noted. No crepitus CVS: Normal heart rate and rhythm. Pulses normal. Normal S1 and S2 Respiratory: No respiratory distress. Breath sounds normal. No Wheezing. No rales Abdomen: Soft and nontender. No rigidity. No distention. good BS x4 Skin: Skin warm and dry. Hives in upper extremities, abdomen back and in the inguinal area Extremities: No lower extremity edema. No lower extremity edema. No Lacerations. No Rash Neuro: Oriented X 3. No motor deficit. No sensory deficit. Moving all extermities. No slurred speech. Course Course Course Narrative: Patient's has resolved. Patient struck to follow up with primary care physician, she may need to be referred to immunology for a skin scratch test. Discharge Plan Discharge Clinical Impression: Allergic reaction Qualifiers: Encounter type: initial encounter Qualified Code(s): T78.40XA - Allergy, unspecified, initial encounter Patient Disposition: Home, Self-Care Instructions: Allergies (ED) Additional Instructions: Please follow-up with her primary care physician, you may need to be referred to immunology for the screen scratch test. Please follow-up with your primary care physician tomorrow. If you have any worsening or new symptoms, please return to the emergency room or call 911 Prescriptions: No Action amlodipine 10 mg tablet 10 mg PO DAILY Qty: 30 RF: 0 losartan 50 mg tablet 50 mg PO DAILY Qty: 90 RF: 0 clonidine HCl 0.2 mg tablet 0.2 mg PO BID Qty: 180 RF: 0 clonidine HCl 0.1 mg tablet 0.1 mg PO BID Qty: 60 RF: 0 citalopram 40 mg Tablet 40 mg PO DAILY RF: 0 lorazepam 0.5 mg Tablet 0.5 mg PO BEDTIME PRN (Reason: Anxiety) RF: 0 docusate sodium [Colace] 100 mg Capsule 100 mg PO DAILY RF: 0 montelukast [Singulair] 10 mg Tablet 10 mg PO BEDTIME RF: 0 loratadine [Claritin] 10 mg Tablet 10 mg PO DAILY RF: 0 cholecalciferol (vitamin D3) [Vitamin D3] 25 mcg (1,000 unit) Tablet 25 mcg PO DAILY RF: 0 ibuprofen 800 mg tablet 800 mg PO Q8H PRN (Reason: pain) Qty: 30 RF: 0 gabapentin 300 mg capsule 300 mg PO TID RF: 0 omeprazole 20 mg capsule,delayed release(DR/EC) 20 mg PO DAILY RF: 0 clobetasol 0.05 % ointment 1 appl topical DAILY RF: 0 ipratropium bromide 21 mcg (0.03 %) spray,non-aerosol intranasal RF: 0 triamcinolone acetonide 0.1 % cream topical BID RF: 0 tizanidine 2 mg capsule 1 mg PO BEDTIME RF: 0
[2020-09-17 00:55] VITALS: BP 145/53; PULSE 75; RESP 16; TEMP 37; O2SAT 95
[2020-09-17] MEDS: methylPREDNISolone Sod Succ 125 MG/2 ML VIAL IVPUSH (01:21)
[2020-09-17] MEDS: diphenhydrAMINE HCL 50 MG/ML VIAL IVPUSH (01:25)
[2020-09-17] MEDS: Famotidine/PF 20 MG/2 ML VIAL IVPUSH (01:26)
[2020-09-17] MEDS: ondansetron HCL 4 MG/2 ML VIAL IVPUSH (02:00)
== END 2020-09-17 02:31 | disposition home or self-care (01) ==
PROVIDERS: Emergency Provider Emergency Medicine; PCP Internal Medicine
DX: T78.40XA Allergy, unspecified, initial encounter (principal); L50.9 Urticaria, unspecified; X58.XXXA Exposure to other specified factors, initial encounter; I10 Essential (primary) hypertension; Z79.899 Other long term (current) drug therapy
CPT/HCPCS: 96374; 96375; 99284; J1200; J2405; J2930

== ENCOUNTER → 2020-10-12 13:38 | Outpatient (BNVA) | payer OTHER, SELFPAY | PROVIDERS: PCP Internal Medicine; Visit Provider Internal Medicine ==

== ENCOUNTER → 2020-10-13 07:23 | Outpatient (REF) | payer OTHER, SELFPAY ==
--- NOTE | 2020-10-13 07:26 | CA_ITS ---
Transthoracic Echocardiogram Patient (Last, First, Middle): Roma Cortez M Gender: Female Date of : 1970 Age: 50 Procedure Date: 10/13/2020 Procedure Type: Transthoracic Echocardiogram Location: OP Height: 154.94 cm Weight: 112.49 kg BSA: 2.07 m2 Heart Rate: bpm BP: 158 / 80 mmHg Intensive Care Unit Nurse: Wojciech MD: Mia North MD Comfort Filler: Chandu Nash MD Symptoms: R01.1 - Cardiac murmur, unspecified Study Quality: Good ECG Rhythm: Sinus Conclusions: - 1. Normal LV systolic and diastolic function 2. Fibrocalcific aortic valve changes noted with mildly increased gradient across aortic valve suggestive of early aortic stenosis 3. No gross pericardial effusion Findings Left Ventricle Normal left ventricular size, thickness, and systolic function. The visually estimated ejection fraction is between 60-65%. There is no evidence of regional wall motion abnormalities. Spectral Doppler is indicative of a normal filling pattern. Right Ventricle Normal right ventricular cavity size and systolic function. Atria The left atrium is likely dilated. There is no evidence of interatrial shunt. The right atrium is normal in size. Aortic Valve There is mild calcification of the aortic valve. The peak aortic gradient is 17 mmHg.The mean gradient is 9 mmHg. There is no aortic valve regurgitation. Mitral Valve Normal mitral valve structure and function. There is trace mitral valve regurgitation. There is no mitral valve stenosis. Pulmonic Valve The pulmonic valve was not well visualized. Tricuspid Valve Likely normal tricuspid valve structure and function. Tricuspid regurgitation envelope is inadequate for calculation of right ventricular systolic pressure. Great Vessels All visible segments of the aorta are normal in size. The pulmonary artery was not well visualized. Venous The inferior vena cava is normal in size and collapses greater than 50% with inspiration. Pericardium/Pleural There is no evidence of pericardial effusion. Prior Study Comparison No previous study in the last 5 years for comparison Measurements 2D Linear Measurements RVIDd: 3.45 RVIDd Index: 1.67 IVSd: 0.80 0.6-0.9/0.6-1.0 cm LVIDd: 5.39 3.9-5.3/4.2-5.9 cm LVIDd Index: 2.60 2.4-3.2/2.2-3.1 cm/m2 LVIDs: 3.84 2.0-3.6 cm LVPWd: 1.08 0.7-1.1 cm Ao Root: 3.10 2.1-3.5 cm LA Diam: 4.30 2.7-3.8/3.0-4.0 cm LAIDs Index: 2.08 1.5-2.3 cm/m2 LV Mass: 236.59 67-162/88-224 g LV Mass Index: 114.30 43-95/49-115 g/m2 LVOT Diam: 2.00 3.0+(-)1.3 cm 2D Systolic Function EF 4C: 63.60 >55% EF 2C: 55.80 >55% EF BiP: 59.20 >55% Mitral Valve MV Pk E: 0.79 MV PK A: 0.86 MV Decel Time: 212.00 E/A: 0.90 E'Lateral: 9.14 E'Medial: 6.20 E/E' Med: 12.80 E/E' Lat: 8.70 Aortic Valve AoV Pk Sagar: 2.09 AoV Mn Sagar: 1.41 AoV VTI: 0.44 AoV Pk Grad: 17.00 Aov Mn Grad: 9.00 HEIDY Cont.VTI: 2.01 LVOT LVOT Pk Sagar: 1.17 LVOT Mn Sagar: 0.84 LVOT VTI: 0.28 LVOT Pk Grad: 5.00 LVOT Mn Grad: 3.00 LVOT Diam: 2.00 LVOT Area: 3.14 Diastolic Function MV Pk E: 0.79 MV Pk A: 0.86 E/A: 0.90 E'Medial: 6.20 E/E' Med: 12.80 E' Laterial: 9.14 E/E' Lat: 8.70 Tricuspid Valve RA Press: 3.00 Great Vessels Aorta Ao Root-2D: 3.10 2.0-3.7 cm Ao Asc: 3.10 2.1-3.4 cm Ao Arch: 2.90 Updated in Other Vendor System with Status of Final Chandu Nash MD electronically signed on 10/13/2020 5:20:55 PM with status of Final
== END ==
LOC: HO.CARD 07:23
PROVIDERS: Visit Provider Internal Medicine
DX: R01.1 Cardiac murmur, unspecified (principal)
CPT/HCPCS: 93306

== ENCOUNTER 2020-11-16 11:40 | Outpatient (REF) | payer OTHER, SELFPAY ==
[2020-11-16 12:41] LABS: Anion Gap 14 (12-20); Blood Urea Nitrogen 14 mg/dL (9-16); Carbon Dioxide 27 mmol/L (22-29); Chloride 101 mmol/L (96-108); Estimated Glomerular Filt Rate > 60; Glucose Random 125 mg/dL (60-115); Sodium 138 mmol/L (135-145)
[2020-11-16 13:00] LABS: Glucose Urine UA NEG (NEG); Leukocyte Esterase Urine NEG (NEG); Nitrite Urine NEG (NEG); PH 6.5 (5.0-8.0); Specific Gravity - Urine <= 1.005 (1.005-1.025); Urine Blood NEG (NEG); Urine Ketones NEG (NEG); Urine Protein NEG (NEG-TRACE)
[2020-11-16 13:03] LABS: Appearance Urine CLEAR; Color Urine YELLOW
[2020-11-16 13:17] LABS: RBC Urine 0-2 /HPF (0); Squamous Epithelial Cell Urine TRACE /LPF; WBC Urine 0-2 /HPF (0-4)
== END 2020-11-16 11:41 | disposition home or self-care (01) ==
LOC: HO.LAB 11:40
PROVIDERS: PCP Internal Medicine; Visit Provider Internal Medicine
DX: E04.1 Nontoxic single thyroid nodule (principal); G47.30 Sleep apnea, unspecified; I10 Essential (primary) hypertension
CPT/HCPCS: 36415; 80048; 81001

== ENCOUNTER 2020-11-19 12:15 | Outpatient (REF) | payer OTHER, SELFPAY ==
--- NOTE | ~2020-11-19 | XR_ITS ---
EXAMINATION: XR RIBS, LEFT CLINICAL INFORMATION: Pleurodynia. COMPARISON: Chest radiograph dated 06/07/2020 TECHNIQUE: PA view of the chest as well as 3 views of the left ribs. FINDINGS: The lungs are clear. No airspace consolidation. No pleural effusion or pneumothorax. Stable cardiomediastinal silhouette. Acute, mildly displaced lateral left 10th rib fracture. No additional displaced fracture. No lytic or blastic osseous lesion. No abnormal soft tissue calcification. XR/XR ribs LT min 3V w CXR1V IMPRESSION: Mildly displaced lateral left 10th rib fracture.
== END 2020-11-19 12:16 | disposition home or self-care (01) ==
LOC: HO.HMGCX 12:15
PROVIDERS: PCP Internal Medicine; Visit Provider Internal Medicine
DX: R07.81 Pleurodynia (principal); I10 Essential (primary) hypertension; E78.5 Hyperlipidemia, unspecified; R73.9 Hyperglycemia, unspecified
CPT/HCPCS: 71101

== ENCOUNTER → 2020-12-02 20:26 | Outpatient (REF) | payer OTHER, SELFPAY | LOC: HO.SL 20:26 | PROVIDERS: PCP Internal Medicine; Visit Provider Internal Medicine | DX: G47.33 Obstructive sleep apnea (adult) (pediatric) (principal); R06.83 Snoring; E66.9 Obesity, unspecified | CPT/HCPCS: 95811 ==

== ENCOUNTER → 2020-12-04 08:55 | Outpatient (BNVA) | payer OTHER, SELFPAY | PROVIDERS: PCP Internal Medicine; Visit Provider Internal Medicine ==

== ENCOUNTER 2020-12-14 18:42 | Emergency (ER) | payer OTHER, SELFPAY ==
--- NOTE | ~2020-12-14 | CT_ITS ---
EXAMINATION: CT ABDOMEN AND PELVIS WITH CONTRAST CLINICAL INFORMATION: Left lower quadrant pain COMPARISON: 12/07/2018 TECHNIQUE: Multidetector volumetric images were obtained from the superior aspect of the liver through the pubic symphysis following administration 85 mL of Omnipaque 350 intravenous contrast. Sagittal and coronal reformatted images were obtained on the technologist's workstation. Oral contrast: No This CT examination was performed using dose optimization techniques as appropriate, variously including the following: *Automated exposure control *Adjustment of mA and/or kV according to patient size (this includes techniques or standardized protocols for targeted exams where dose is matched to indication/reason for exam; i.e. extremities or head) *Use of iterative reconstruction technique DLP: 868 mGy-cm FINDINGS: LUNG BASES: The visualized lung bases are unremarkable. LIVER, GALLBLADDER, AND BILIARY TREE: The liver is normal in size and shape with decreased attenuation. No focal hepatic lesion or biliary ductal dilatation is present. The gallbladder is unremarkable with no evidence of radiopaque gallstones, gallbladder wall thickening, or obvious pericholecystic inflammatory changes. PANCREAS: Unremarkable. SPLEEN: Unremarkable. ADRENAL GLANDS: Unremarkable. KIDNEYS AND URETERS: The kidneys are normal in size, shape, and attenuation. No hydronephrosis, hydroureter, or calculi seen. No perinephric stranding. BLADDER: Unremarkable. GASTROINTESTINAL TRACT: The stomach is unremarkable. Normal caliber of small bowel. There is no obstruction. Normal appendix. Scattered diverticulosis without diverticulitis. No colonic wall thickening or inflammation. ABDOMINAL WALL: No significant hernia is appreciated. LYMPH NODES: Normal. VASCULAR: Normal caliber aorta with mild atherosclerotic calcification. PELVIC VISCERA: The uterus and adnexa are unremarkable. OSSEOUS STRUCTURES: No acute or suspicious osseous abnormality. CT/CT abdomen pelvis w con IMPRESSION: No acute findings in the abdomen or pelvis. Colonic diverticulosis without diverticulitis.
--- NOTE | ~2020-12-14 | XR_ITS ---
EXAMINATION: XR CHEST, 2 VIEWS CLINICAL INFORMATION: Left rib pain with inhalation. Old left 10th rib fracture. COMPARISON: 06/07/2020 TECHNIQUE: PA and lateral views of the chest were obtained. FINDINGS: Multiple surgical clips overlie the left breast. Lungs are clear. No consolidation, pneumothorax, or pleural effusion. Cardiac and mediastinal contours are normal. Pulmonary vasculature is unremarkable. Trachea is midline. Degenerative disc disease is present in the thoracic spine. No acute rib fractures are identified. XR/XR chest 2V IMPRESSION: No acute pulmonary findings
[2020-12-14 19:01] VITALS: BP 169/99; PULSE 71; RESP 18; TEMP 36.8; O2SAT 96; BMI 47.6
[2020-12-14 21:16] LABS: MANUAL DIFF FLAG NO
[2020-12-14 21:17] LABS: Basophils Absolute Auto 0.1 X10*3/uL (0.0-0.2); Basophils Percent Auto 0.6 % (0-2); Eosinophils Absolute Auto 0.3 X10*3/uL (0.0-0.4); Eosinophils Percent Auto 3.7 % (0-4); Glucose Urine UA NEG (NEG); Hematocrit 37.5 % (37-47); Hemoglobin 12.8 g/dl (12.0-16.0); Imm Gran Abs Auto 0.03 X10*3/uL (0.00-0.03); Imm Gran Pct Auto 0.3 % (0.0-0.4); Leukocyte Esterase Urine 1+ (NEG); Lymphocytes Percent Auto 34.3 % (20-40); Mean Corpuscular HGB Conc 34.1 g/dl (31.0-35.0); Mean Corpuscular Hemoglobin 32.2 pg (27.0-33.0); Mean Corpuscular Volume 94.5 fL (80-98); Mean Platelet Volume 9.1 fL (9.4-12.3); Monocytes Absolute Auto 0.5 X10*3/uL (0.1-1.2); Monocytes Percent Auto 5.7 % (2-11); Neutrophils Absolute Auto 4.9 X10*3/uL (2.0-8.3); Neutrophils Percent Auto 55.4 % (45-73); Nitrite Urine NEG (NEG); Platelet Count 210 X10*3/uL (160-400); Red Blood Count 3.97 X10*6/uL (4.20-5.50); Red Cell Distribution Width 11.9 % (11.0-16.0); Specific Gravity - Urine <= 1.005 (1.005-1.025); UACC Culture Trigger YES; Urine Blood NEG (NEG); Urine Ketones NEG (NEG); Urine Protein NEG (NEG-TRACE); White Blood Count 8.8 X10*3/uL (4.8-10.8)
[2020-12-14 21:19] LABS: Appearance Urine CLEAR; Color Urine YELLOW
[2020-12-14 21:29] LABS: RBC Urine 0-2 /HPF (0); Squamous Epithelial Cell Urine TRACE /LPF; WBC Clumps Urine NOTED
[2020-12-14 21:47] LABS: Alanine Aminotransferase 40 U/L (0-31); Albumin Level 4.7 g/dL (3.5-5.0); Alkaline Phosphatase 78 U/L (39-117); Anion Gap 15 (12-20); Aspartate Amino Transferase 36 U/L (5-31); Bilirubin Total 0.3 mg/dL (0.0-1.0); Blood Urea Nitrogen 13 mg/dL (9-16); Calcium 9.9 mg/dL (8.4-10.2); Carbon Dioxide 27 mmol/L (22-29); Chloride 103 mmol/L (96-108); Creatinine Clr Calc Pharmacy 101.7; Estimated Glomerular Filt Rate > 60; Glucose Random 101 mg/dL (60-115); Potassium 4.2 mmol/L (3.3-5.1); Sodium 141 mmol/L (135-145); Total Protein 7.7 g/dL (6.5-8.0)
--- NOTE | 2020-12-15 01:02 | ED_ITS ---
HPI - Abdominal Pain General Chief Complaint: Abdominal Pain Stated Complaint: DIFF INHALING Time Seen by Provider: 12/15/20 00:41 Source: patient Mode of arrival: ambulatory Limitations: no limitations History of Present Illness HPI narrative: 50-year-old female with a past medical history of hypertension, asthma, sleep apnea, obesity, depression, hyperlipidemia here with complaints of left upper abdominal pain since this morning. No associated nausea, vomiting, diarrhea, fevers, chills, urinary symptoms, shortness of breath or cough. Pain is worsened with deep breathing and position changes. No unilateral leg swelling or pain. Patient did recently travel and the car from [place]. No recent illness. History of left rib fracture diagnosed on x-ray November 19. This was secondary to seeing her chiropractor. No recent falls or injuries Related Data Home Medications Medication Instructions Recorded Confirmed cholecalciferol (vitamin D3) 25 25 mcg PO DAILY 02/14/20 11/19/20 mcg (1,000 unit) tablet (Vitamin D3) docusate sodium 100 mg capsule 100 mg PO DAILY 02/14/20 11/19/20 (Colace) montelukast 10 mg tablet 10 mg PO BEDTIME 02/14/20 11/19/20 (Singulair) gabapentin 300 mg capsule 300 mg PO TID 08/13/20 11/19/20 omeprazole 20 mg capsule,delayed 20 mg PO DAILY 08/13/20 11/19/20 release clobetasol 0.05 % topical ointment 1 appl TOPICAL DAILY 08/17/20 11/19/20 triamcinolone acetonide 0.1 % appl TOPICAL BID 08/17/20 11/19/20 topical cream albuterol sulfate 90 mcg/actuation 2 puff INHALATION Q4H PRN 11/19/20 11/19/20 aerosol inhaler cetirizine 10 mg capsule (Zyrtec) 10 mg PO DAILY PRN 11/19/20 11/19/20 epinephrine 0.3 mg/0.3 mL 0.3 mg IM ONCE PRN 11/19/20 11/19/20 injection, auto-injector Previous Rx's Medication Instructions Recorded ibuprofen 800 mg tablet 800 mg PO Q8H PRN #30 tab 07/04/20 amlodipine 10 mg tablet 10 mg PO DAILY #30 tab 08/14/20 citalopram 40 mg tablet 40 mg PO DAILY #90 tab 10/08/20 lorazepam 0.5 mg tablet 0.5 mg PO BEDTIME PRN #30 tab 10/08/20 pravastatin 20 mg tablet 20 mg PO DAILY #90 tab 11/19/20 triamterene 37.5 1 cap PO DAILY #90 cap 12/02/20 mg-hydrochlorothiazide 25 mg capsule Allergies Allergy/AdvReac Type Severity Reaction Status Date / Time doxycycline [DOXYCYCLINE] Allergy Severe ESOPHAGITIS Verified 12/14/20 19:01 Sulfa (Sulfonamide Allergy Severe FACIAL Verified 12/14/20 19:01 Antibiotics) SWELLING codeine [Codeine] Allergy Intermediate RASH Verified 12/14/20 19:01 lisinopril [Lisinopril] Allergy Intermediate EXTREMITIES Verified 12/14/20 19:01 SWELLING benzonatate [BENZONATATE] Allergy Unknown ANAPHYLAXIS Verified 12/14/20 19:01 meperidine [Demerol] Allergy Unknown Rash Verified 12/14/20 19:01 losartan AdvReac Intermediate swelling Verified 12/14/20 19:01 of hands, Review of Systems Review of Systems Yes all other systems are reviewed and are negative Constitutional: Reports no additional constitutional complaints, Denies body ache(s), Denies chills, Denies fever(s), Denies headache(s) and Denies weakness Eyes: Reports no additional eye complaints and Denies change in vision Reports system reviewed and no additional complaints, except as documented, Denies dizziness, Denies headache(s), Denies nasal congestion, Denies nasal discharge and Denies neck pain Cardiovascular: Reports no additional cardiovascular complaints, Denies chest pain, Denies leg edema and Denies dyspnea Respiratory: Reports no additional respiratory complaints, Denies cough and Denies dyspnea Gastrointestinal: Reports no additional gastrointestinal complaints, Reports abdominal pain, Denies diarrhea, Denies nausea and Denies vomiting Genitourinary: Reports no additional female genitourinary complaints and Denies urinary incontinence Musculoskeletal: Reports no additional musculoskeletal complaints, Denies back pain, Denies arthralgias, Denies joint swelling, Denies neck pain, Denies nu mbness and Denies tingling Skin/Breast: Reports system reviewed and no additional complaints, except as docu and Denies rash Reports system reviewed and no additional complaints, except as documented, Denies dizziness, Denies headache(s), Denies numbness, Denies tingling and Denies weakness Physical Exam Vital Signs: Vital Signs: Last Vital Signs Temp 98.8 F 12/15/20 01:03 Pulse 67 12/15/20 01:03 Resp 18 12/15/20 01:03 BP 142/71 H 12/15/20 01:03 Pulse Ox 96 12/15/20 01:03 Body Mass Index 47.6 Const: General: cooperative, healthy appearing, comfortable and no acute di stress Orientation/consciousness: patient oriented x3 Limitations: no limitations HENMT: Head: Yes normal to inspection Ears: hearing grossly normal bilaterally General nose exam: Normal external nose present Face and sinus : Yes normal facial exam Mouth: Normal oral and palatal mucosa present Throat: Yes posterior oropharynx normal Eyes: General: appearance normal, both eyes and all related structures Pupils: Equal, round and reactive pupils present Neck: Neck: Yes normal visual inspection and Yes no lymphadenopathy Chest: Chest palpation & inspection: normal inspection of the chest Resp: Effort & Inspection: normal respiratory effort Auscultation: clear to auscultation bilaterally Cardio: Rate: regular rate Rhythm: regular rhythm Peripheral pulses: Peripheral pulses 2+ throughout GI: Inspection: Yes normal to inspection Palpation (GI): Soft to palpation and Tenderness to palpation present (GI) (Left upper quadrant, left mid abdomen) Negative for with no rebound tenderness Auscultation: normal bowel sounds Back/Spine/Pelvis: Thoracic/Lumbar Spine: thoracic and lumbar spine normal to inspection Skin: General skin exam: no rashes or lesions noted Neuro: General: patient oriented x3 and moves all extremities Cranial nerves: Yes Equal, round and reactive pupils present Cognition (Neuro): normal cognition Extrem: General: Yes normal to inspection, Yes no pedal edema and Yes no calf tenderness Course Course Course Narrative: 50-year-old female here with complaints of left upper abdominal pain since this morning which is worsened with deep breathing and movement. No other associated symptoms. On exam patient has tenderness the left upper quadrant and over the left mid abdomen with no rebound or guarding. Hemodynamically stable. Will need labs, chest x-ray, EKG. Will place PIV and provide pain control 0150-troponin negative. EKG shows no ischemic changes. Labs are unremarkable with exception of mildly elevated AST and ALT which are likely secondary to fatty liver. Will check CT to rule out underlying diverticulitis 0200-sign out to Dr. Davenport pending above MDM - Abdominal Pain MDM Narrative Medical decision making narrative: PUD, gastritis, PE, diverticulitis Differential Diagnosis Differential diagnosis: Likely pancreatitis Medical Records Attestation: I reviewed the patient's medical records. Lab Data Attestation: I reviewed the patient's lab results. Result diagrams: 12/14/20 21:09 12/14/20 21:09 Labs: Lab Results 12/14/20 12/14/20 12/14/20 Range/Units 21: 21:09 21:09 WBC 8.8 (4.8-10.8) X10*3/uL RBC 3.97 L (4.20-5.50) X10*6/uL Hgb 12.8 (12.0-16.0) g/dl Hct 37.5 (37-47) % MCV 94.5 (80-98) fL MCH 32.2 (27.0-33.0) pg MCHC 34.1 (31.0-35.0) g/dl RDW 11.9 (11.0-16.0) % Plt Count 210 (160-400) X10*3/uL MPV 9.1 L (9.4-12.3) fL Immature Gran % (Auto) 0.3 (0.0-0.4) % Neut % (Auto) 55.4 (45-73) % Lymph % (Auto) 34.3 (20-40) % [place] % (Auto) 5.7 (2-11) % Eos % (Auto) 3.7 (0-4) % Baso % (Auto) 0.6 (0-2) % Lymph # (Auto) 3.0 (1.2-4.9) X10*3/uL [place] # (Auto) 0.5 (0.1-1.2) X10*3/uL Eos # (Auto) 0.3 (0.0-0.4) X10*3/uL Baso # (Auto) 0.1 (0.0-0.2) X10*3/uL Abs Immat Gran (auto) 0.03 (0.00-0.03) X10*3/uL Absolute Neuts (auto) 4.9 (2.0-8.3) X10*3/uL Absolute Nucleated RBC 0.000 (0.0-0.012) X10*3/uL Nucleated RBC % (auto) 0.0 (0.0-0.2) /100WBC PT (9.9-13.0) SEC INR (0.9-1.1) D-Dimer NG/ML Sodium 141 (135-145) mmol/L Potassium 4.2 (3.3-5.1) mmol/L Chloride 103 (96-108) mmol/L Carbon Dioxide 27 (22-29) mmol/L Anion Gap 15 (12-20) BUN 13 (9-16) mg/dL Creatinine 0.76 (0.5-1.4) mg/dL Estim Creat Clear Calc 101.7 Estimated GFR > 60 Random Glucose 101 (60-115) mg/dL Calcium 9.9 (8.4-10.2) mg/dL Total Bilirubin 0.3 (0.0-1.0) mg/dL AST 36 H D (5-31) U/L ALT 40 H (0-31) U/L Alkaline Phosphatase 78 (39-117) U/L Troponin I High Sens (<3.5-17.0) ng/L Total Protein 7.7 (6.5-8.0) g/dL Albumin 4.7 (3.5-5.0) g/dL Lipase (8-78) U/L Urine Color YELLOW Urine Appearance CLEAR Urine pH 6.0 (5.0-8.0) Ur Specific [place] <= 1.005 (1.005-1.025) Urine Protein NEG (NEG-TRACE) MG/DL Urine Glucose (UA) NEG (NEG) MG/DL Urine Ketones NEG (NEG) MG/DL Urine Blood NEG (NEG) Urine Nitrite NEG (NEG) Ur Leukocyte Esterase 1+ H (NEG) Urine RBC 0-2 (0) /HPF Urine WBC 5-9 H (0-4) /HPF Urine WBC Clumps NOTED Ur Squamous Epith Cells TRACE /LPF Urine Bacteria NONE /LPF 12/15/20 12/15/20 12/15/20 Range/Units 01:14 01:14 01:14 WBC (4.8-10.8) X10*3/uL RBC (4.20-5.50) X10*6/uL Hgb (12.0-16.0) g/dl Hct (37-47) % MCV (80-98) fL MCH (27.0-33.0) pg MCHC (31.0-35.0) g/dl RDW (11.0-16.0) % Plt Count (160-400) X10*3/uL MPV (9.4-12.3) fL Immature Gran % (Auto) (0.0-0.4) % Neut % (Auto) (45-73) % Lymph % (Auto) (20-40) % [place] % (Auto) (2-11) % Eos % (Auto) (0-4) % Baso % (Auto) (0-2) % Lymph # (Auto) (1.2-4.9) X10*3/uL [place] # (Auto) (0.1-1.2) X10*3/uL Eos # (Auto) (0.0-0.4) X10*3/uL Baso # (Auto) (0.0-0.2) X10*3/uL Abs Immat Gran (auto) (0.00-0.03) X10*3/uL Absolute Neuts (auto) (2.0-8.3) X10*3/uL Absolute Nucleated RBC (0.0-0.012) X10*3/uL Nucleated RBC % (auto) (0.0-0.2) /100WBC PT 11.9 (9.9-13.0) SEC INR 1.0 (0.9-1.1) D-Dimer < 200 NG/ML Sodium (135-145) mmol/L Potassium (3.3-5.1) mmol/L Chloride (96-108) mmol/L Carbon Dioxide (22-29) mmol/L Anion Gap (12-20) BUN (9-16) mg/dL Creatinine (0.5-1.4) mg/dL Estim Creat Clear Calc Estimated GFR Random Glucose (60-115) mg/dL Calcium (8.4-10.2) mg/dL Total Bilirubin (0.0-1.0) mg/dL AST (5-31) U/L ALT (0-31) U/L Alkaline Phosphatase (39-117) U/L Troponin I High Sens 3.6 (<3.5-17.0) ng/L Total Protein (6.5-8.0) g/dL Albumin (3.5-5.0) g/dL Lipase 11 (8-78) U/L Urine Color Urine Appearance Urine pH (5.0-8.0) Ur Specific [place] (1.005-1.025) Urine Protein (NEG-TRACE) MG/DL Urine Glucose (UA) (NEG) MG/DL Urine Ketones (NEG) MG/DL Urine Blood (NEG) Urine Nitrite (NEG) Ur Leukocyte Esterase (NEG) Urine RBC (0) /HPF Urine WBC (0-4) /HPF Urine WBC Clumps Ur Squamous Epith Cells /LPF Urine Bacteria /LPF Imaging Data Chest x-ray: Attestation: I personally reviewed and interpreted this imaging study as follows: Radiologist's impression: EXAMINATION: XR CHEST, 2 VIEWS CLINICAL INFORMATION: Left rib pain with inhalation. Old left 10th rib fracture. COMPARISON: 06/07/2020 TECHNIQUE: PA and lateral views of the chest were obtained. FINDINGS: Multiple surgical clips overlie the left breast. Lungs are clear. No consolidation, pneumothorax, or pleural effusion. Cardiac and mediastinal contours are normal. Pulmonary vasculature is unremarkable. Trachea is midline. Degenerative disc disease is present in the thoracic spine. No acute rib fractures are identified. XR/XR chest 2V IMPRESSION: No acute pulmonary findings ECG Data Attestation: I personally reviewed and interpreted this ECG as follows: ECG interpretation date: 12/15/20 ECG interpretation time: 01:32 Interpretation: nsr with rate 68, normal pr, normal qrs, normal qtc Discharge Plan Discharge Clinical Impression: Abdominal pain Prescriptions: No Action amlodipine 10 mg tablet 10 mg PO DAILY Qty: 30 RF: 0 triamterene-hydrochlorothiazid 37.5-25 mg capsule 1 cap PO DAILY Qty: 90 RF: 3 docusate sodium [Colace] 100 mg Capsule 100 mg PO DAILY RF: 0 montelukast [Singulair] 10 mg Tablet 10 mg PO BEDTIME RF: 0 cholecalciferol (vitamin D3) [Vitamin D3] 25 mcg (1,000 unit) Tablet 25 mcg PO DAILY RF: 0 ibuprofen 800 mg tablet 800 mg PO Q8H PRN (Reason: pain) Qty: 30 RF: 0 gabapentin 300 mg capsule 300 mg PO TID RF: 0 omeprazole 20 mg capsule,delayed release(DR/EC) 20 mg PO DAILY RF: 0 clobetasol 0.05 % ointment 1 appl topical DAILY RF: 0 triamcinolone acetonide 0.1 % cream topical BID RF: 0 lorazepam 0.5 mg tablet 0.5 mg PO BEDTIME PRN (Reason: Anxiety) Qty: 30 RF: 0 citalopram 40 mg tablet 40 mg PO DAILY Qty: 90 RF: 3 Zyrtec 10 mg capsule 10 mg PO DAILY PRNRF: 0 albuterol sulfate 90 mcg/actuation HFA aerosol inhaler 2 puff inhalation Q4H PRNRF: 0 epinephrine 0.3 mg/0.3 mL auto-injector 0.3 mg IM ONCE PRNRF: 0 pravastatin 20 mg tablet 20 mg PO DAILY Qty: 90 RF: 2 PMFSH Past Medical History Attestation statement: The following information was validated with the patient. Source: old records reviewed and nursing notes reviewed Medical History Anxiety Arthritis Asthma Cancer Chronic low back pain Depression GERD (gastroesophageal reflux disease) Heart murmur HTN (hypertension) Hx of renal calculi Hyperglycemia Hyperlipemia Irritable bowel syndrome Lumbar and sacral spondyloarthritis Morbid obesity Normal colonoscopy Obesity Rib fracture Rib pain on left side Sleep apnea Thyroid nodule Surgical History H/O ventral hernia repair Hx of bilateral oophorectomy Hx of breast biopsy Hx of section Hx of colonoscopy Hx of esophagogastroduodenoscopy Social History Social History Household Members Other:: , unemployed, 2 children () Housing: House Alcohol intake: never Patient Tobacco Use Status: Never used Tobacco e-Cigarette/Vaping Use: Never Used Second Hand Smoke Exposure: No Advance Directives: No Advance Directives Information Provided: No Patient : No service: No Current occupational status: unemployed
[2020-12-15 01:03] VITALS: BP 142/71; PULSE 67; RESP 18; TEMP 37.1; O2SAT 96
--- NOTE | 2020-12-15 01:03 | ECG_ITS ---
Test Reason : ABDOMINAL PAIN Blood Pressure : / mmHG Vent. Rate : 068 BPM Atrial Rate : 068 BPM P-R Int : 156 ms QRS Dur : 098 ms QT Int : 436 ms P-R-T Axes : 039 014 026 degrees QTc Int : 463 ms Normal sinus rhythm Septal infarct , age undetermined Abnormal ECG When compared with ECG of 07-JUN-2020 22:38, ST no longer depressed in Anterior leads Referred By: Jayleen Mills Electronically Signed By:KATLYN KOROMA MD
[2020-12-15] MEDS: Ketorolac Tromethamine 15 MG/ML VIAL 30 MG IVPUSH (01:15)
[2020-12-15 01:29] LABS: Prothrombin Time 11.9 SEC (9.9-13.0)
[2020-12-15 01:34] LABS: D Dimer < 200 NG/ML
[2020-12-15 01:45] LABS: Troponin-I High Sensitivity 3.6 ng/L (<3.5-17.0)
[2020-12-15 01:47] LABS: Lipase 11 U/L (8-78)
[2020-12-15] MEDS: iohexoL 350 MG/ML 100 ML INFUS..BTL 85 ML IV (02:11)
[2020-12-15 02:49] VITALS: BP 114/52; PULSE 71; RESP 16; O2SAT 96
--- NOTE | 2020-12-15 02:50 | PC.NURSE ---
PT RESTING IN BED, ABDOMINAL PAIN 5/10 WHICH HAS IMPTOVED FROM 8/10. NO NAUSEA OR VOMITING. PT AMBULATORY TO BATHROOM WITH STEADY GAIT.
== END 2020-12-15 05:37 | disposition home or self-care (01) ==
PROVIDERS: Nurse Practitioner Family; Emergency Provider Internal Medicine; PCP Internal Medicine
DX: R10.9 Unspecified abdominal pain (principal); K57.92 Diverticulitis of intestine, part unspecified, without perforation or abscess without bleeding; I10 Essential (primary) hypertension; Z79.899 Other long term (current) drug therapy
CPT/HCPCS: 36415; 71046; 74177; 80053; 81001; 83690; 84484; 85025; 85379; 85610; 87086; 93005; 96374; 99284; J1885; Q9967

== ENCOUNTER → 2020-12-21 15:00 | Outpatient (BNVA) | payer OTHER, SELFPAY | PROVIDERS: PCP Internal Medicine; Visit Provider Internal Medicine ==

== ENCOUNTER 2020-12-28 11:39 | Outpatient (REF) | payer OTHER, SELFPAY ==
--- NOTE | ~2020-12-28 | XR_ITS ---
EXAMINATION: XR RIBS, LEFT CLINICAL INFORMATION: Pain anterior left chest underneath breast. Prior history left 10th rib fracture. COMPARISON: CT abdomen 12/15/2020, chest radiographs 12/14/2020, radiographs left ribs 11/19/2020. TECHNIQUE: Frontal view of the chest and 3 views of the left ribs are obtained for a total of 4 views. FINDINGS: The lungs are clear. There is no airspace consolidation, pneumothorax, pleural reaction, or effusion. The costophrenic sulci are well-defined. The heart is normal in size. The hilar and mediastinal contours are normal. There is no free air beneath the diaphragm. Again, there is soft tissue asymmetry in region of left breast with associated surgical clips overlying the left lung base. There are multilevel degenerative changes thoracic spine. There is no visible left rib fracture or rib destructive process. 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 XR/XR ribs LT min 3V w CXR1V IMPRESSION: No acute intrathoracic disease. No visible rib fracture or rib destructive process. Lungs clear.
== END 2020-12-28 11:40 | disposition home or self-care (01) ==
LOC: HO.HMGCX 11:39
PROVIDERS: PCP Internal Medicine; Visit Provider Internal Medicine
DX: S22.39XA Fracture of one rib, unspecified side, initial encounter for closed fracture (principal)
CPT/HCPCS: 71101

== ENCOUNTER 2020-12-30 06:17 | Outpatient (REF) | payer OTHER, SELFPAY ==
--- NOTE | ~2020-12-30 | FL_ITS ---
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 TECHNIQUE: Fluoroscopy performed by Dr. Anuj Moreau. Fluoroscopy time: 0.4 minutes DAP: 7.16 Gycm2 Images: 2 FINDINGS: There are spinal needles overlying the outer right L3, L4, and L5 neural foramen. There is contrast seen in the respective nerve sheaths. Some early transforaminal epidural extension is suggested. No visible vascular communication. FL/FL guidance in treatment room IMPRESSION: Fluoroscopy for pain management procedures.
== END 2020-12-30 06:18 | disposition home or self-care (01) ==
LOC: HO.RADIR 06:17
PROVIDERS: Visit Provider Internal Medicine
DX: M47.817 Spondylosis without myelopathy or radiculopathy, lumbosacral region (principal)
CPT/HCPCS: Q9967

== ENCOUNTER → 2021-01-01 10:20 | Outpatient (BNVA) | payer OTHER, SELFPAY | PROVIDERS: PCP Internal Medicine; Visit Provider Internal Medicine ==

== ENCOUNTER → 2021-01-25 10:18 | Outpatient (BNVA) | payer OTHER, SELFPAY | PROVIDERS: PCP Internal Medicine; Referring Provider Internal Medicine; Visit Provider Internal Medicine ==

== ENCOUNTER → 2021-02-02 09:00 | Outpatient (BNVA) | payer OTHER, SELFPAY | PROVIDERS: PCP Internal Medicine; Visit Provider Internal Medicine ==

== ENCOUNTER 2021-02-09 09:22 | Emergency (ER) | payer OTHER, SELFPAY ==
--- NOTE | ~2021-02-09 | CT_ITS ---
EXAMINATION: CT BRAIN AND CT CERVICAL SPINE WITHOUT CONTRAST. CLINICAL INFORMATION: Posterior head pain. Status post fall. COMPARISON: None TECHNIQUE: 5 mm thin axial and reformatted 2 mm thin sagittal and coronal images of brain were obtained. Subsequently axial 3 mm thin and reformatted 2 mm thin sagittal coronal images of cervical spine were obtained. DLP 1379. FINDINGS: Brain: There is no acute intra-axial, extra-axial bleed, masses, collection or midline shift. There is no acute infarction evolution. Both lateral ventricles are somewhat similar but not enlarged. The harding to white matter differentiation is maintained. Bone windows reveal no calvarial abnormality. There is no scalp soft tissue abnormality. There is mild mucoperiosteal thickening right maxillary sinus. Rest the paranasal sinuses and mastoid air cells are well-aerated. Cervical spine: On sagittal reconstructed images there is normal cervical lordosis. The vertebral heights, alignment and disc heights are normal. The craniovertebral junction and the C1-C2 alignment is normal. There is normal symmetry of SI joints. No visible acute fracture, dislocation or subluxation seen. There is no posterior scalp soft tissue swelling. The prevertebral and paravertebral soft tissues are normal. Bilateral thyroid lobes, submandibular and parotid glands are normal and symmetrical. CT/CT head/brain wo con IMPRESSION: No acute intracranial process seen. Especially no abnormality seen in the posterior head region. No scalp hematoma or fracture. No acute fracture, dislocation or subluxation seen in cervical spine.
--- NOTE | ~2021-02-09 | CT_ITS ---
EXAMINATION: CT BRAIN AND CT CERVICAL SPINE WITHOUT CONTRAST. CLINICAL INFORMATION: Posterior head pain. Status post fall. COMPARISON: None TECHNIQUE: 5 mm thin axial and reformatted 2 mm thin sagittal and coronal images of brain were obtained. Subsequently axial 3 mm thin and reformatted 2 mm thin sagittal coronal images of cervical spine were obtained. DLP 1379. FINDINGS: Brain: There is no acute intra-axial, extra-axial bleed, masses, collection or midline shift. There is no acute infarction evolution. Both lateral ventricles are somewhat similar but not enlarged. The harding to white matter differentiation is maintained. Bone windows reveal no calvarial abnormality. There is no scalp soft tissue abnormality. There is mild mucoperiosteal thickening right maxillary sinus. Rest the paranasal sinuses and mastoid air cells are well-aerated. Cervical spine: On sagittal reconstructed images there is normal cervical lordosis. The vertebral heights, alignment and disc heights are normal. The craniovertebral junction and the C1-C2 alignment is normal. There is normal symmetry of SI joints. No visible acute fracture, dislocation or subluxation seen. There is no posterior scalp soft tissue swelling. The prevertebral and paravertebral soft tissues are normal. Bilateral thyroid lobes, submandibular and parotid glands are normal and symmetrical. CT/CT cervical spine wo con IMPRESSION: No acute intracranial process seen. Especially no abnormality seen in the posterior head region. No scalp hematoma or fracture. No acute fracture, dislocation or subluxation seen in cervical spine.
[2021-02-09 09:48] VITALS: BP 158/80; PULSE 81; RESP 18; TEMP 36.8; O2SAT 98; BMI 45.9
--- NOTE | 2021-02-09 10:24 | ED.HEATRA ---
HPI - Head Injury General Chief complaint: Head Injury Stated complaint: head injury - fall Time Seen by Provider: 02/09/21 10:08 Source: patient Mode of arrival: ambulatory Limitations: no limitations History of Present Illness HPI Narrative: 50-year-old female with history of obesity, vertigo, chronic lower back pain, hypertension, hyperlipidemia, PATRICIA on CPAP, mild aortic stenosis who is presenting to the ER complaining of posterior head pain and swelling as well as forehead pain after she fell while trying to get up out of bed morning. She reports waking up at 06:15 and sitting at the edge of the bed. She when she went to stand up she feels like her left leg did not work and she was pulled to the side as she tried to stand. She fell and hit her head on the floor. Unclear if she lost consciousness. She was slightly dizzy prior to the fall, said it felt like her prior vertigo. Her witnessed the fall and said she looked out of it. Unclear if she lost consciousness. She says she went on with her day on . She continued to have intermittent headaches, dizziness, and pain in the back of her head on the right side. She is not on anticoagulation. She was seen at urgent care this morning who encouraged her to come to the emergency room for further evaluation. MD Complaint: head injury, head pain and fall Onset (ago): day(s) (5) Mechanism of Injury: unsure Place: home Loss of Consciousness: unsure Location of injury: face Severity: moderate Quality: aching Radiation: none Associated symptoms: vertigo and other (Headache) Related Data Home Medications Medication Instructions Recorded Confirmed cholecalciferol (vitamin D3) 25 25 mcg PO DAILY 02/14/20 01/26/21 mcg (1,000 unit) tablet (Vitamin D3) docusate sodium 100 mg capsule 100 mg PO DAILY 02/14/20 01/26/21 (Colace) montelukast 10 mg tablet 10 mg PO BEDTIME 02/14/20 01/26/21 (Singulair) albuterol sulfate 90 mcg/actuation 2 puff INHALATION Q4H PRN 11/19/20 01/26/21 aerosol inhaler epinephrine 0.3 mg/0.3 mL 0.3 mg IM ONCE PRN 11/19/20 01/26/21 injection, auto-injector omeprazole 20 mg capsule,delayed 20 mg PO DAILY PRN 01/25/21 01/26/21 release gabapentin 400 mg capsule 400 mg PO TID 01/26/21 01/26/21 duloxetine 60 mg capsule,delayed 60 mg PO DAILY 02/02/21 release Previous Rx's Medication Instructions Recorded amlodipine 10 mg tablet 10 mg PO DAILY #30 tab 08/14/20 lorazepam 0.5 mg tablet 0.5 mg PO BEDTIME PRN #30 tab 10/08/20 pravastatin 20 mg tablet 20 mg PO DAILY #90 tab 11/19/20 triamterene 37.5 1 cap PO DAILY #90 cap 12/02/20 mg-hydrochlorothiazide 25 mg capsule Allergies Allergy/AdvReac Type Severity Reaction Status Date / Time doxycycline [DOXYCYCLINE] Allergy Severe ESOPHAGITIS Verified 02/09/21 09:48 Sulfa (Sulfonamide Allergy Severe FACIAL Verified 02/09/21 09:48 Antibiotics) SWELLING codeine [Codeine] Allergy Intermediate RASH Verified 02/09/21 09:48 lisinopril [Lisinopril] Allergy Intermediate EXTREMITIES Verified 02/09/21 09:48 SWELLING benzonatate [BENZONATATE] Allergy Unknown ANAPHYLAXIS Verified 02/09/21 09:48 meperidine [Demerol] Allergy Unknown Rash Verified 02/09/21 09:48 losartan AdvReac Intermediate swelling Verified 02/09/21 09:48 of hands, Review of Systems Review of Systems: Constitutional: No Fever, No Chills ENT/Mouth: No sore throat, No Rhinorrhea, No Swallowing Difficulty Eyes: No Eye Pain, No Swelling, No Redness, No vision changes Cardiovascular: No Chest Pain, No SOB, No Orthopnea, No Edema Respiratory: No Cough, No Sputum, No Wheezing, No dyspnea Gastrointestinal: No Nausea, No Vomiting, No Diarrhea, No abdominal Pain Genitourinary: No Dysuria, No Urinary Frequency, No Hematuria Musculoskeletal: No joint pain, No Myalgias Skin: No Skin Lesions, No rash Neuro: + Weakness, No Numbness, + Dizziness, + Headache Psych: + Anxiety/Panic, No Depression Heme/Lymph: No Bruising, No Lymphadenopathy Endocrine: No Polyuria, No Polydipsia PMFSH Past Medical History Medical History (Updated 02/09/21 @ 13:15 by MONICA Sharma) Anxiety Arthritis (aortic stenosis) Asthma Cancer Chronic low back pain Depression GERD (gastroesophageal reflux disease) Heart murmur HTN (hypertension) Hx of renal calculi Hyperglycemia Hyperlipemia Irritable bowel syndrome Lumbar and sacral spondyloarthritis Morbid obesity Morbid obesity Normal colonoscopy Obesity Rib fracture Rib pain on left side Sleep apnea Thyroid nodule Surgical History H/O ventral hernia repair Hx of bilateral oophorectomy Hx of breast biopsy Hx of section Hx of colonoscopy Hx of esophagogastroduodenoscopy Family History Family History (Updated 02/09/21 @ 08:26 by Fatou Saucedo [employer]ESS[employer]) Mother No problems noted. Father No problems noted. Social History Social History Household Members Other:: , unemployed, 2 children () Housing: House Alcohol intake: never Patient Tobacco Use Status: Never used Tobacco e-Cigarette/Vaping Use: Never Used Second Hand Smoke Exposure: No Advance Directives: No Patient : No service: No Current occupational status: unemployed Physical Exam Vital Signs: Vital Signs: Last Vital Signs Temp 98.6 F 02/09/21 13:35 Pulse 88 02/09/21 13:35 Resp 18 02/09/21 13:35 BP 155/84 H 02/09/21 13:35 Pulse Ox 91 L 02/09/21 13:35 Body Mass Index 45.9 Appearance: Alert. Oriented X3. No acute distress. Head: Atraumatic normocephalic, right posterior scalp with some soft tissue tenderness no palpable or appreciated swelling. No palpable skull fracture. Eyes: Pupils equal, round and reactive to light. EOMI, no pain with movement. No nystagmus ENT: Pharynx normal. Neck: Normal inspection. Neck supple. No cervical spinal tenderness CVS: Normal heart rate and rhythm. Systolic murmur noted. Pulses normal. Respiratory: No respiratory distress. Breath sounds normal. Abdomen: obese, soft and nontender. +BS x4 Skin: Skin warm and dry. Normal skin color. Normal skin turgor. No rashes. Extremities: No lower extremity edema. Neuro: Oriented X 3. No motor deficit. No sensory deficit. Slow but steady gait. No dizziness at this time. Normal speech. Equal and symmetrical strength throughout. Course Course Course Narrative: 50-year-old female with multiple medical problems presenting to the ER for evaluation of dizziness and a fall that happened 5 days ago. At this time she has no further dizziness and is neurologically intact. She was sent in for CT scan of the head which has been ordered. If she had a stroke it will be present on CT scan. She is nonfocal on exam at this time. Reevaluation(s) Reevaluation #1: CT scan showed no acute intracranial abnormality. She continues to appear well and has no dizziness at this time and her presentation is not consistent with CVA. Doubt cardiac etiology such as her aortic stenosis as this is mild and her symptoms were dizziness prior to falling. She was not exerting herself. She just saw Dr. Blackmon last month. has no chest pain or shortness of breath. She is stable for discharge home with plan for outpatient follow-up. She has been doing cognitive therapy for ongoing issues and following up with her primary care doctor regularly. Discharge Plan Discharge Clinical Impression: Vertigo Closed head injury Qualifiers: Encounter type: initial encounter Qualified Code(s): S09.90XA - Unspecified injury of head, initial encounter Patient Disposition: Home, Self-Care Instructions: Head Injury (ED), Dizziness (ED) Additional Instructions: Your CT scan today did not show any acute injuries. Recommend following up with your doctor for further workup. Take the prescribed meclizine as needed for vertigo. If you develop feeling like going to pass out where exerting herself, this is concerning for worsening aortic stenosis, and you should call your doctor CHARMAINE or come into the ER for further evaluation. Rest and stay hydrated. When changing positions do so slowly. If you develop new or worsening symptoms call 911 or come back to the ER for further evaluation. Prescriptions: No Action amlodipine 10 mg tablet 10 mg PO DAILY Qty: 30 RF: 0 triamterene-hydrochlorothiazid 37.5-25 mg capsule 1 cap PO DAILY Qty: 90 RF: 3 docusate sodium [Colace] 100 mg Capsule 100 mg PO DAILY RF: 0 montelukast [Singulair] 10 mg Tablet 10 mg PO BEDTIME RF: 0 cholecalciferol (vitamin D3) [Vitamin D3] 25 mcg (1,000 unit) Tablet 25 mcg PO DAILY RF: 0 omeprazole 20 mg capsule,delayed release(DR/EC) 20 mg PO DAILY PRNRF: 0 lorazepam 0.5 mg tablet 0.5 mg PO BEDTIME PRN (Reason: Anxiety) Qty: 30 RF: 0 albuterol sulfate 90 mcg/actuation HFA aerosol inhaler 2 puff inhalation Q4H PRNRF: 0 epinephrine 0.3 mg/0.3 mL auto-injector 0.3 mg IM ONCE PRNRF: 0 pravastatin 20 mg tablet 20 mg PO DAILY Qty: 90 RF: 2 gabapentin 400 mg capsule 400 mg PO TID RF: 0 duloxetine 60 mg capsule,delayed release(DR/EC) 60 mg PO DAILY RF: 0 Interventions: ED Discharge Assessment Last Done: 02/09/21 13:41 Discharge Date/Time: 02/09/21 13:41
[2021-02-09 13:35] VITALS: BP 155/84; PULSE 88; RESP 18; TEMP 37; O2SAT 91
== END 2021-02-09 13:41 | disposition home or self-care (01) ==
PROVIDERS: Emergency Provider Emergency Medicine; PCP Internal Medicine
DX: S09.90XA Unspecified injury of head, initial encounter (principal); R42 Dizziness and giddiness; M54.2 Cervicalgia; G44.309 Post-traumatic headache, unspecified, not intractable; W18.30XA Fall on same level, unspecified, initial encounter; Y93.9 Activity, unspecified; Y92.9 Unspecified place or not applicable; Y99.9 Unspecified external cause status; Z79.899 Other long term (current) drug therapy
CPT/HCPCS: 70450; 72125; 99282; 99283; 99284

== ENCOUNTER 2021-02-18 08:47 | Outpatient (RCR) | payer OTHER, SELFPAY ==
--- NOTE | 2021-02-18 11:25 | MHC.PT.EP ---
[facility] [place] Office [place] Office [place] Office [address] [phone] F: [phone] F: [phone] F: [phone] F: [phone] Physical Therapy Plan of Care Date of Evaluation: Date of Surgery: Diagnosis: vertigo Assessment: The patient was negative for BPPV. She has minor symptoms of vestibular hypofunction. However most notable today the patient was positive during a vertebral artery screen. Maximal right rotation causes dizziness, double vision. right rotation with cervical extension caused disorientation, dizziness, slight nausea, double vision. I immediately brought her back to the middle. I educated her about avoiding right rotation and right extension unless she gets screen properly. The patient was given a HEP for balance and VOR which can be done safely in a corner at home. She was asked to return if her symptoms do not improve. Frequency and Duration: The patient will be seen Short Term Goals: Pt will be referred back to MD for f/u on (+) VBI test. Pt independent with HEP for balance/VOR. Goal met Usp Goals: Treatment Plan: Modalities to reduce pain, spasms and effusion. Manual therapy to restore motion and function. Therapeutic exercise to improve strength and flexibility. Neuromuscular re-education for posture and balance. Therapeutic activities to return to functional activities of daily living. Electronically signed by: Palma Cardoso PT DPT Please sign and return to therapist. Thank you for your referral.
--- NOTE | 2021-09-09 14:23 | MHC.PT.DC ---
[facility] [place] Office [place] Office [place] Office [address] Jose Mercado [address] [phone] F: [phone] F: [phone] F: [phone] F: [phone] Physical Therapy Discharge Report Diagnosis: vertigo Date of Surgery: Date of Evaluation: 02/18/21 Date of Discharge: 09/09/21 Treatments to Date: 1 Cancellations to Date: No Shows to Date: Discharge Status: Discharge Summary: The patient was negative for BPPV. She has minor symptoms of vestibular hypofunction. However most notable today the patient was positive during a vertebral artery screen. Maximal right rotation causes dizziness, double vision. right rotation with cervical extension caused disorientation, dizziness, slight nausea, double vision. I immediately brought her back to the middle. I educated her about avoiding right rotation and right extension unless she gets screen properly. The patient was given a HEP for balance and VOR which can be done safely in a corner at home. She was asked to return if her symptoms do not improve. DC to HEP Electronically signed by: Leonie Rios PT Please sign and return to therapist. Thank you for your referral.
== END 2021-09-09 14:23 | disposition home or self-care (01) ==
LOC: HO.PT 08:47
PROVIDERS: PCP Internal Medicine; Visit Provider Internal Medicine
DX: R42 Dizziness and giddiness (principal)
CPT/HCPCS: 97112; 97162

== ENCOUNTER 2021-03-02 13:45 | Outpatient (REF) | payer OTHER, SELFPAY ==
--- NOTE | ~2021-03-02 | US_ITS ---
EXAMINATION: US EXTRACRANIAL CAROTID DUPLEX, BILATERAL CLINICAL INFORMATION: This is a 50-year-old female with history of dizziness and giddiness. Possible vertebral stenosis or carotid artery disease. COMPARISON: Comparison is made to a report of a study dated 08/05/2010 which appeared normal. TECHNIQUE: Real-time ultrasound and Doppler techniques (integrating B-mode 2-D vascular images, Doppler spectral analysis and color-flow Doppler imaging) were utilized to interrogate the extracranial carotid arteries, the vertebral arteries and proximal subclavian arteries bilaterally. The degree of stenosis is determined by criteria similar to NASCET. FINDINGS: Right Side: 1. There is minimal atherosclerotic plaque seen in the bifurcation/proximal ICA region. 2. The common carotid artery PSV proximally is 99 cm/s and distally 89 cm/s. 3. The proximal internal carotid artery velocities are 65 cm/s systolic and 25 cm/s diastolic. 4. The proximal external carotid artery PSV is 126 cm/s. 5. The vertebral artery shows antegrade flow. 6. The subclavian artery waveforms are normal. Left Side: 1. There is minimal atherosclerotic plaque seen in the bifurcation/proximal ICA region. 2. The common carotid artery PSV proximally is 138 cm/s and distally 80 cm/s. 3. The proximal internal carotid artery velocities are 84 cm/s systolic and 28 cm/s diastolic. 4. The proximal external carotid artery PSV is 115 cm/s. 5. The vertebral artery shows antegrade flow. 6. The subclavian artery waveforms are normal. US/US carotid duplex BI IMPRESSION: 1. RIGHT: Minimal, non-hemodynamically significant stenosis of the proximal right internal carotid artery corresponding to a 0-49% stenosis by velocity criteria. 2. LEFT: Minimal, non-hemodynamically significant stenosis of the proximal left internal carotid artery corresponding to a 0-49% stenosis by velocity criteria. 3. No vertebral artery stenosis is seen. 4. There is increase in the category severity of disease when compared to the previous study dated 08/05/2010.
== END 2021-03-02 13:46 | disposition home or self-care (01) ==
LOC: HO.HMGCX 13:45
PROVIDERS: PCP Internal Medicine; Visit Provider Internal Medicine
DX: R42 Dizziness and giddiness (principal)
CPT/HCPCS: 93880

== ENCOUNTER → 2021-03-29 12:04 | Outpatient (BNVA) | payer OTHER, SELFPAY | PROVIDERS: PCP Internal Medicine; Visit Provider Internal Medicine ==

== ENCOUNTER 2021-03-30 13:57 | Outpatient (REF) | payer OTHER, SELFPAY ==
[2021-03-30 15:24] LABS: Vitamin B12 426 pg/mL (200-900)
== END 2021-03-30 13:58 | disposition home or self-care (01) ==
LOC: HO.LAB 13:57
PROVIDERS: PCP Internal Medicine; Visit Provider Psychiatry & Neurology Neurology
DX: G31.84 Mild cognitive impairment of uncertain or unknown etiology (principal)
CPT/HCPCS: 36415; 82607

== ENCOUNTER 2021-04-29 11:32 | Outpatient (REF) | payer OTHER, SELFPAY ==
--- NOTE | ~2021-04-29 | XR_ITS ---
EXAMINATION: XR BILATERAL HIPS WITH AP PELVIS CLINICAL INFORMATION: Pain in the left hip. COMPARISON: CT dated 12/15/2020 TECHNIQUE: AP and frog-leg lateral views of each hip and an AP view of the pelvis. FINDINGS: No fracture. Mild osteoarthritis in the SI joints bilaterally. Hip joints appear well preserved. Pubic symphysis is normal. No abnormal soft tissue calcifications. XR/XR hip BI w PEL1V IMPRESSION: Mild osteoarthritis in the SI joints. Hip joints are well preserved. No acute osseous findings.
== END 2021-04-29 11:33 | disposition home or self-care (01) ==
LOC: HO.XRAY 11:32
PROVIDERS: PCP Internal Medicine; Visit Provider Internal Medicine
DX: M25.552 Pain in left hip (principal)
CPT/HCPCS: 73521

== ENCOUNTER 2021-05-12 05:51 | Outpatient (REF) | payer OTHER, SELFPAY ==
--- NOTE | ~2021-05-12 | FL_ITS ---
EXAMINATION: XR FL WITH IMAGES CLINICAL INFORMATION: Spondylosis with myelopathy or radiculopathy. COMPARISON: 12/30/2020 TECHNIQUE: Fluoroscopy performed by Nolvia Sarmiento. Fluoroscopy Time: 0.6 minutes. DAP: 6.47 Gycm2. Images: 6. FINDINGS: 6 C-arm intraoperative images available. Niotaze with contrast are seen in the regions of the L4, L5, and S1 pedicle/facets. FL/FL guidance in treatment room IMPRESSION: Spinal injections C4 through S1 bilaterally.
== END 2021-05-12 05:52 | disposition home or self-care (01) ==
LOC: HO.RADIR 05:51
PROVIDERS: Visit Provider Internal Medicine
DX: M47.817 Spondylosis without myelopathy or radiculopathy, lumbosacral region (principal)
CPT/HCPCS: 64493; 64494; 64495; Q9967

== ENCOUNTER → 2021-05-14 09:13 | Outpatient (BNVA) | payer OTHER, SELFPAY | PROVIDERS: PCP Internal Medicine; Visit Provider Internal Medicine ==

== ENCOUNTER 2021-05-26 12:00 | Outpatient (RCR) | payer OTHER, SELFPAY | END 2021-06-17 15:53 | disposition home or self-care (01) | LOC: HO.PT 12:00 | PROVIDERS: PCP Internal Medicine; Visit Provider Internal Medicine | DX: M25.552 Pain in left hip (principal) | CPT/HCPCS: 97110; 97112; 97140; 97162 ==

== ENCOUNTER → 2021-06-02 09:51 | Outpatient (BNVA) | payer OTHER, SELFPAY | PROVIDERS: PCP Internal Medicine; Visit Provider Internal Medicine ==

== ENCOUNTER 2021-07-01 07:42 | Outpatient (REF) | payer OTHER, SELFPAY ==
[2021-07-01 08:37] LABS: Estimated Average Glucose 126 mg/dL
[2021-07-01 08:48] LABS: Alanine Aminotransferase 31 U/L (0-31); Albumin Level 4.3 g/dL (3.5-5.0); Alkaline Phosphatase 69 U/L (39-117); Anion Gap 13 (12-20); Aspartate Amino Transferase 28 U/L (5-31); Bilirubin Total 0.5 mg/dL (0.0-1.0); Blood Urea Nitrogen 16 mg/dL (9-16); Calcium 9.9 mg/dL (8.4-10.2); Carbon Dioxide 30 mmol/L (22-29); Chloride 100 mmol/L (96-108); Cholesterol 170 mg/dL; Estimated Glomerular Filt Rate > 60; Glucose Fasting 107 mg/dL (60-99); HDL Cholesterol 52 mg/dL; LDL Cholesterol Calculated 88 mg/dl; Potassium 4.2 mmol/L (3.3-5.1); Sodium 139 mmol/L (135-145); Total Protein 7.2 g/dL (6.5-8.0); Triglycerides 151 mg/dL
== END 2021-07-01 07:43 | disposition home or self-care (01) ==
LOC: HO.LAB 07:42
PROVIDERS: PCP Internal Medicine; Visit Provider Internal Medicine
DX: E66.01 Morbid (severe) obesity due to excess calories (principal); E78.5 Hyperlipidemia, unspecified; I10 Essential (primary) hypertension; R73.9 Hyperglycemia, unspecified
CPT/HCPCS: 36415; 80053; 80061; 83036

== ENCOUNTER 2021-08-25 19:00 | Emergency (ER) | payer OTHER, SELFPAY ==
--- NOTE | ~2021-08-25 | US_ITS ---
EXAMINATION: US VENOUS ULTRASOUND WITH DOPPLER LOWER EXTREMITY, RIGHT CLINICAL INFORMATION: Calf pain, swelling COMPARISON: None TECHNIQUE: Ultrasound of the deep veins is performed from the hip to the calf with compression sonography and color and pulse Doppler assessment. Spectral analysis with color-flow imaging is performed. FINDINGS: There is normal venous compression and respiratory variation and augmented flow. The visualized common femoral vein, superficial femoral vein, profunda femoral vein, popliteal vein, and the trifurcation region shows no evidence of deep venous thrombosis. There is no significant popliteal fossa cyst. If the patient's symptoms persist, followup ultrasound in 5 days 7 days might be of value to exclude proximal propagation from a non-visualized calf vein. US/US venous duplex LE RT IMPRESSION: No DVT demonstrated in the right lower extremity.
[2021-08-25 19:34] VITALS: BP 181/81; PULSE 80; RESP 20; TEMP 36.7; O2SAT 97; BMI 48.7
[2021-08-25 19:57] LABS: MANUAL DIFF FLAG NO
[2021-08-25 19:58] LABS: Basophils Percent Auto 0.3 % (0-2); Eosinophils Absolute Auto 0.3 X10*3/uL (0.0-0.4); Eosinophils Percent Auto 3.8 % (0-4); Hematocrit 39.3 % (37.0-47.0); Hemoglobin 13.2 g/dl (12.0-16.0); Imm Gran Abs Auto 0.03 X10*3/uL (0.00-0.03); Imm Gran Pct Auto 0.4 % (0.0-0.4); Lymphocytes Absolute Auto 3.4 X10*3/uL (1.2-4.9); Lymphocytes Percent Auto 42.5 % (20-40); Mean Corpuscular HGB Conc 33.6 g/dl (31.0-35.0); Mean Corpuscular Hemoglobin 31.5 pg (27.0-33.0); Mean Corpuscular Volume 93.8 fL (80.0-98.0); Mean Platelet Volume 8.9 fL (9.4-12.3); Monocytes Absolute Auto 0.4 X10*3/uL (0.1-1.2); Monocytes Percent Auto 4.9 % (2-11); Neutrophils Absolute Auto 3.8 x10*3/uL (2.0-8.3); Neutrophils Percent Auto 48.1 % (45-73); Platelet Count 227 X10*3/uL (160-400); Red Blood Count 4.19 X10*6/uL (4.20-5.50); Red Cell Distribution Width 12.4 % (11.0-16.0); White Blood Count 7.9 X10*3/uL (4.8-10.8)
[2021-08-25 20:14] LABS: Alanine Aminotransferase 52 U/L (0-31); Albumin Level 4.3 g/dL (3.5-5.0); Alkaline Phosphatase 81 U/L (39-117); Anion Gap 10 (12-20); Aspartate Amino Transferase 50 U/L (5-31); Bilirubin Total 0.3 mg/dL (0.0-1.0); Blood Urea Nitrogen 13 mg/dL (9-16); Calcium 9.7 mg/dL (8.4-10.2); Carbon Dioxide 31 mmol/L (22-29); Chloride 101 mmol/L (96-108); Creatinine Clr Calc Pharmacy 110.4; Estimated Glomerular Filt Rate > 60; Glucose Random 181 mg/dL (60-115); Potassium 3.4 mmol/L (3.3-5.1); Sodium 139 mmol/L (135-145); Total Protein 7.3 g/dL (6.5-8.0)
[2021-08-25 20:26] LABS: D Dimer High Sensitivity < 150 NG/ML
--- NOTE | 2021-08-25 21:42 | ED.EXTPRO ---
HPI - Extremity Problem General Chief complaint: Extremity Problem Stated complaint: possible blood clot in R calf Time Seen by Provider: 08/25/21 20:36 Source: patient Mode of arrival: ambulatory Limitations: no limitations History of Present Illness HPI Narrative: 50 y/o female presents to the ER for evaluation of a possible blood clot in her leg. She reports being on 4 flights in the last 5 days and having new right calf soreness and swelling that started yesterday. She reports new onset of swelling of both of her lower extremities but only has pain in the right calf that started yesterday. She denies any shortness of breath but she does report some new onset of chest heaviness that started earlier this morning. She denies any radiation of pain, denies any diaphoresis or nausea. She states it is very mild and is associated with generalized fatigue that she attributed to traveling. She denies any fever or chills. No vomiting or abdominal pain. No headaches or vision changes. She rides to the ER interval pressure is elevated 181 systolic. She is on 3 antihypertensives and has been compliant. MD Complaint: extremity pain and extremity swelling Onset (ago): day(s) (1) Pain Consistency: constant Location: right and lower extremity Severity scale (1-10): 3 Radiation: none Relieving factors: immobilization Exacerbating factors: weight bearing and palpation Associated symptoms: denies other symptoms Context: recent travel Related Data Home Medications Medication Instructions Recorded Confirmed cholecalciferol (vitamin D3) 25 25 mcg PO DAILY 02/14/20 07/05/21 mcg (1,000 unit) tablet (Vitamin D3) docusate sodium 100 mg capsule 100 mg PO DAILY 02/14/20 07/05/21 (Colace) albuterol sulfate 90 mcg/actuation 2 puff INHALATION Q4H PRN 11/19/20 07/05/21 aerosol inhaler epinephrine 0.3 mg/0.3 mL 0.3 mg IM ONCE PRN 11/19/20 07/05/21 injection, auto-injector citalopram 10 mg tablet 10 mg PO DAILY 06/02/21 07/05/21 pregabalin 50 mg capsule 50 mg PO BID 06/02/21 07/05/21 Previous Rx's Medication Instructions Recorded lorazepam 0.5 mg tablet 0.5 mg PO BEDTIME PRN #30 tab 10/08/20 triamterene 37.5 1 cap PO DAILY #90 cap 12/02/20 mg-hydrochlorothiazide 25 mg capsule amlodipine 10 mg tablet 10 mg PO DAILY #90 tab 02/24/21 montelukast 10 mg tablet 10 mg PO BEDTIME #90 tab 04/22/21 (Singulair) pravastatin 20 mg tablet 20 mg PO DAILY #90 tab 05/31/21 hydralazine 10 mg tablet 10 mg PO BID #180 tab 07/05/21 Allergies Allergy/AdvReac Type Severity Reaction Status Date / Time doxycycline [DOXYCYCLINE] Allergy Severe ESOPHAGITIS Verified 07/05/21 12:23 Sulfa (Sulfonamide Allergy Severe FACIAL Verified 07/05/21 12:23 Antibiotics) SWELLING codeine [Codeine] Allergy Intermediate RASH Verified 07/05/21 12:23 lisinopril [Lisinopril] Allergy Intermediate EXTREMITIES Verified 07/05/21 12:23 SWELLING benzonatate [BENZONATATE] Allergy Unknown ANAPHYLAXIS Verified 07/05/21 12:23 meperidine [Demerol] Allergy Unknown Rash Verified 07/05/21 12:23 losartan AdvReac Intermediate swelling Verified 07/05/21 12:23 of hands, Review of Systems Review of Systems: Constitutional: No Fever, No Chills, Fatigue ENT/Mouth: No sore throat, No Rhinorrhea, No Swallowing Difficulty Eyes: No vision changes Cardiovascular: + Chest Pain, No SOB, No Orthopnea, + Edema Respiratory: No Cough, No Sputum, No Wheezing, No dyspnea Gastrointestinal: No Nausea, No Vomiting, No Diarrhea, No abdominal Pain Genitourinary: No Dysuria, No Urinary Frequency, No Hematuria Musculoskeletal: No joint pain, No Myalgias Skin: No Skin Lesions, No rash Neuro: No Weakness, No Numbness, No Dizziness, No Headache Psych: + Anxiety/Panic, No Depression Heme/Lymph: No Bruising, No Lymphadenopathy PMFSH Past Medical History Medical History (Updated 08/25/21 @ 22:19 by MONICA Sharma) Anxiety Arthritis (aortic stenosis) Asthma Asthma Cancer Chronic low back pain Depression GERD (gastroesophageal reflux disease) Heart murmur HTN (hypertension) Hx of renal calculi Hyperglycemia Hyperlipemia Irritable bowel syndrome Lumbar and sacral spondyloarthritis Memory deficit Morbid obesity Morbid obesity Normal colonoscopy Obesity Rib fracture Rib pain on left side Sleep apnea Thyroid nodule Surgical History H/O ventral hernia repair Hx of bilateral oophorectomy Hx of breast biopsy Hx of section Hx of colonoscopy Hx of esophagogastroduodenoscopy Family History Family History Mother No problems noted. Father No problems noted. Social History Social History Household Members Other:: , unemployed, 2 children () Housing: House Alcohol intake: current Alcohol intake frequency: holidays/special occasions only Alcohol type: beer Patient Tobacco Use Status: Never used Tobacco e-Cigarette/Vaping Use: Never Used Second Hand Smoke Exposure: No Use of substances other than those prescribed or required for medical reasons: No Advance Directives: No Advance Directives Information Provided: No Patient : No service: No Current occupational status: unemployed Physical Exam Vital Signs: Vital Signs: Last Vital Signs Temp 98.7 F 08/25/21 22:11 Pulse 67 08/25/21 22:11 Resp 17 08/25/21 22:11 BP 150/67 H 08/25/21 22:11 Pulse Ox 95 08/25/21 22:11 BMI result Body Mass Index 48.7 Appearance: Alert. Oriented X3. No acute distress. HEENT: normal external inspection Neck: Normal inspection. Neck supple. CVS: Normal heart rate and rhythm. Pulses normal. Respiratory: No respiratory distress. Breath sounds normal. Abdomen: Obese, Soft and nontender. +BS x4 Skin: Skin warm and dry. Normal skin color. Normal skin turgor. No rashes. Extremities: 2+ lower extremity edema of the lower legs, with calf tenderness on the right only. Feet warm and well perfused, 2+ dp pulses. Neuro: Oriented X 3. No motor deficit. No sensory deficit. Course Course Course Narrative: 50-year-old female presents to the ER with lower extremity swelling and right calf pain that started yesterday. This is in the setting of recent flying to [place]. She denies a history of pitting edema in the past. She denies any shortness of breath but reports slight amount of chest heaviness that started earlier today very mild and is associated with some generalized fatigue that she attributed to traveling. Blood pressure on arrival is elevated 180 systolic. She reports being on 3 antihypertensives at home and she has been compliant. She denies any headache or vision changes. Lab workup and lower extremity Dopplers are pending. Will add EKG and troponin given report of some mild chest discomfort and heaviness. Reevaluation(s) Reevaluation #1: Repeat blood pressure without intervention is 150/67. She was due for her hydralazine this evening which has been ordered. Her lab workup is unremarkable including lower extremity Dopplers that are negative. Still awaiting BNP and troponin. Reevaluation #2: Troponin is 3.6. BNP less than 10. EKG is without ischemic changes. Blood pressure improved 149/77. At this time patient is stable for discharge home with plan to follow up with her doctor. Encourage to repeat ultrasound as an outpatient if she has ongoing right calf pain. She monitor her BP at home and follow-up with her PCP. Stable for DC home. MDM - Extremity (Nontraumatic) Lab Data Result diagrams: 08/25/21 19:52 08/25/21 19:52 Labs: Lab Results 08/25/21 08/25/21 08/25/21 Range/Units 19:52 19:52 19:52 WBC 7.9 (4.8-10.8) X10*3/uL RBC 4.19 L (4.20-5.50) X10*6/uL Hgb 13.2 (12.0-16.0) g/dl Hct 39.3 (37.0-47.0) % MCV 93.8 (80.0-98.0) fL MCH 31.5 (27.0-33.0) pg MCHC 33.6 (31.0-35.0) g/dl RDW 12.4 (11.0-16.0) % Plt Count 227 (160-400) X10*3/uL MPV 8.9 L (9.4-12.3) fL Immature Gran % (Auto) 0.4 (0.0-0.4) % Neut % (Auto) 48.1 (45-73) % Lymph % (Auto) 42.5 H (20-40) % [place] % (Auto) 4.9 (2-11) % Eos % (Auto) 3.8 (0-4) % Baso % (Auto) 0.3 (0-2) % Lymph # (Auto) 3.4 (1.2-4.9) X10*3/uL [place] # (Auto) 0.4 (0.1-1.2) X10*3/uL Eos # (Auto) 0.3 (0.0-0.4) X10*3/uL Baso # (Auto) 0.0 (0.0-0.2) X10*3/uL Abs Immat Gran (auto) 0.03 (0.00-0.03) X10*3/uL Absolute Neuts (auto) 3.8 (2.0-8.3) x10*3/uL Absolute Nucleated RBC 0.000 (0.0-0.012) X10*3/uL Nucleated RBC % (auto) 0.0 (0.0-0.2) /100WBC D-Dimer High Sensitivty < 150 NG/ML Sodium 139 (135-145) mmol/L Potassium 3.4 (3.3-5.1) mmol/L Chloride 101 (96-108) mmol/L Carbon Dioxide 31 H (22-29) mmol/L Anion Gap 10 L (12-20) BUN 13 (9-16) mg/dL Creatinine 0.71 (0.5-1.4) mg/dL Estim Creat Clear Calc 110.4 Estimated GFR > 60 Random Glucose 181 H (60-115) mg/dL Calcium 9.7 (8.4-10.2) mg/dL Total Bilirubin 0.3 (0.0-1.0) mg/dL AST 50 H D (5-31) U/L ALT 52 H (0-31) U/L Alkaline Phosphatase 81 (39-117) U/L Troponin I High Sens (<3.5-17.0) ng/L B-Natriuretic Peptide (<100) pg/mL Total Protein 7.3 (6.5-8.0) g/dL Albumin 4.3 (3.5-5.0) g/dL 08/25/21 Range/Units 19:52 WBC (4.8-10.8) X10*3/uL RBC (4.20-5.50) X10*6/uL Hgb (12.0-16.0) g/dl Hct (37.0-47.0) % MCV (80.0-98.0) fL MCH (27.0-33.0) pg MCHC (31.0-35.0) g/dl RDW (11.0-16.0) % Plt Count (160-400) X10*3/uL MPV (9.4-12.3) fL Immature Gran % (Auto) (0.0-0.4) % Neut % (Auto) (45-73) % Lymph % (Auto) (20-40) % [place] % (Auto) (2-11) % Eos % (Auto) (0-4) % Baso % (Auto) (0-2) % Lymph # (Auto) (1.2-4.9) X10*3/uL [place] # (Auto) (0.1-1.2) X10*3/uL Eos # (Auto) (0.0-0.4) X10*3/uL Baso # (Auto) (0.0-0.2) X10*3/uL Abs Immat Gran (auto) (0.00-0.03) X10*3/uL Absolute Neuts (auto) (2.0-8.3) x10*3/uL Absolute Nucleated RBC (0.0-0.012) X10*3/uL Nucleated RBC % (auto) (0.0-0.2) /100WBC D-Dimer High Sensitivty NG/ML Sodium (135-145) mmol/L Potassium (3.3-5.1) mmol/L Chloride (96-108) mmol/L Carbon Dioxide (22-29) mmol/L Anion Gap (12-20) BUN (9-16) mg/dL Creatinine (0.5-1.4) mg/dL Estim Creat Clear Calc Estimated GFR Random Glucose (60-115) mg/dL Calcium (8.4-10.2) mg/dL Total Bilirubin (0.0-1.0) mg/dL AST (5-31) U/L ALT (0-31) U/L Alkaline Phosphatase (39-117) U/L Troponin I High Sens 3.6 (<3.5-17.0) ng/L B-Natriuretic Peptide < 10 (<100) pg/mL Total Protein (6.5-8.0) g/dL Albumin (3.5-5.0) g/dL ECG Data Attestation EKG: I personally reviewed and interpreted this ECG as follows: ECG interpretation date: 08/25/21 ECG interpretation time: 22:38 Interpretation: Normal sinus rhythm, heart rate 78 beats per minute, normal [place] interval, normal QRS, normal QTC, no ST segment elevations or depressions. Critical Care Time Critical Care Time Critical Care Time: No Discharge Plan Discharge Clinical Impression: Acute pain of right lower extremity, Bilateral edema of lower extremity, Essential hypertension Patient Disposition: Home, Self-Care Instructions: Leg Edema (ED), Hypertension (ED) Additional Instructions: Your ultrasound today was negative for blood clot. Your lab workup was unremarkable. If you have persistent pain in the right calf, recommend follow-up with your primary care doctor to arrange for an outpatient repeat ultrasound in the 7-10 days. Recommend elevating her legs whenever possible. Limit your salt intake as able. Monitor your blood pressure 2 times a day at home and keep track for your primary care doctor. If you develop new or worsening symptoms call 911 or come back to the ER for further evaluation. Prescriptions: No Action triamterene-hydrochlorothiazid 37.5-25 mg capsule 1 cap PO DAILY Qty: 90 3RF amlodipine 10 mg tablet 10 mg PO DAILY Qty: 90 3RF montelukast [Singulair] 10 mg tablet 10 mg PO BEDTIME Qty: 90 3RF pravastatin 20 mg tablet 20 mg PO DAILY Qty: 90 3RF docusate sodium [Colace] 100 mg Capsule 100 mg PO DAILY 0RF cholecalciferol (vitamin D3) [Vitamin D3] 25 mcg (1,000 unit) Tablet 25 mcg PO DAILY 0RF lorazepam 0.5 mg tablet 0.5 mg PO BEDTIME PRN (Reason: Anxiety) Qty: 30 0RF albuterol sulfate 90 mcg/actuation HFA aerosol inhaler 2 puff inhalation Q4H PRN0RF epinephrine 0.3 mg/0.3 mL auto-injector 0.3 mg IM ONCE PRN0RF hydralazine 10 mg tablet 10 mg PO BID Qty: 180 3RF pregabalin 50 mg capsule 50 mg PO BID 0RF citalopram 10 mg tablet 10 mg PO DAILY 0RF Referrals: Mia North MD [Primary Care Provider] - 1 week (Lower extremity edema status post traveling, right calf pain, lower extremity Doppler negative, htn)
--- NOTE | 2021-08-25 21:58 | ECG_ITS ---
Test Reason : LEG SWELLING Blood Pressure : / mmHG Vent. Rate : 078 BPM Atrial Rate : 078 BPM P-R Int : 156 ms QRS Dur : 092 ms QT Int : 406 ms P-R-T Axes : 039 003 014 degrees QTc Int : 462 ms Normal sinus rhythm Moderate voltage criteria for LVH, may be normal variant ( R in aVL , Offerman product ) Borderline ECG When compared with ECG of 15-DEC-2020 01:32, No significant change was found Referred By: Norah Siddiqui Electronically Signed By:KATLYN KOROMA MD
[2021-08-25 22:11] VITALS: BP 150/67; PULSE 67; RESP 17; TEMP 37.1; O2SAT 95
[2021-08-25] MEDS: hydrALAZINE HCl 25 MG TABLET PO (22:15)
[2021-08-25 22:29] LABS: B Type Natriuretic Peptide < 10 pg/mL (<100); Troponin-I High Sensitivity 3.6 ng/L (<3.5-17.0)
== END 2021-08-25 22:57 | disposition home or self-care (01) ==
PROVIDERS: Physician Assistant; Emergency Provider Emergency Medicine Emergency Medical Services; PCP Internal Medicine
DX: M79.604 Pain in right leg (principal); R60.0 Localized edema; I10 Essential (primary) hypertension; J45.909 Unspecified asthma, uncomplicated; Z79.899 Other long term (current) drug therapy
CPT/HCPCS: 36415; 80053; 83880; 84484; 85025; 85379; 93005; 93971; 99284

== ENCOUNTER → 2021-09-17 11:31 | Outpatient (BNVA) | payer OTHER, SELFPAY | PROVIDERS: PCP Internal Medicine; Visit Provider Internal Medicine | DX: Z13.89 Encounter for screening for other disorder (principal) ==

== ENCOUNTER 2021-10-07 15:14 | Outpatient (REF) | payer OTHER, SELFPAY ==
[2021-10-07 16:16] LABS: Rheumatoid Factor 16.5 IU/mL (<15.0)
[2021-10-07 16:25] LABS: Erythrocyte Sedimentation Rate 14 MM/HR (0-20)
[2021-10-07 16:38] LABS: Thyroid Stimulating Hormone 2.12 uIU/mL (0.32-4.0)
[2021-10-09 09:06] LABS: Lyme Abs Screen <0.90 index
[2021-10-11 09:47] LABS: Anti Nuclear Antibody Screen NEGATIVE (NEGATIVE)
== END 2021-10-07 15:15 | disposition home or self-care (01) ==
LOC: HO.LAB 15:14
PROVIDERS: PCP Internal Medicine; Visit Provider Psychiatry & Neurology Neurology
DX: G62.9 Polyneuropathy, unspecified (principal); E66.9 Obesity, unspecified
CPT/HCPCS: 36415; 82550; 84443; 85652; 86038; 86039; 86431; 86617; 86618

== ENCOUNTER 2021-10-14 18:06 | Outpatient (REF) | payer OTHER, SELFPAY ==
--- NOTE | ~2021-10-14 | MR_ITS ---
EXAMINATION: MRI OF THE BRAIN WITH AND WITHOUT IV CONTRAST MRI OF THE CERVICAL SPINE WITHOUT IV CONTRAST MRI OF THE LUMBAR SPINE WITHOUT IV CONTRAST INDICATION: Encephalopathy and spondylosis. COMPARISON: Brain MRI 08/06/2010. Head CT 02/09/2021. TECHNIQUE: Multiplanar multisequence MR imaging of the brain was obtained without and following the administration of 10 mL of Gadavist without complication. Additionally, noncontrast MRI of the cervical and lumbar spine obtained. FINDINGS: BRAIN MRI: There is no pathologic intracranial enhancement. Mild T2 signal changes concentrated within the bifrontal subcortical white matter are nonspecific though can be seen in the setting of migraine headaches. There is no hydrocephalus, extra-axial surface collection, or herniation. The major flow voids at the skull base are preserved. There is no acute infarct on diffusion-weighted imaging. There is no intracranial hemorrhage on the gradient recalled echo acquisition. The midline structures are normal. The cerebellar tonsils are normally positioned. The cerebellum and brainstem are normal. The craniocervical junction is normal. Osseous marrow signal intensity is homogenous. The visualized soft tissues are unremarkable. CERVICAL SPINE MRI: Slight anterior subluxation of C3 on C4 and C4 on C5. Cervical alignment is otherwise normal. The vertebral body heights are maintained. Disc volumes are preserved. There is no bone marrow edema. There are no acute fractures. Craniocervical junction is unremarkable. Cervical arterial flow voids are maintained. There are no significant extraspinal soft tissue findings. There are no cord signal changes. C2-C3: Disc contour is normal. No central canal stenosis and no foraminal stenosis. C3-C4: Slight anterior subluxation. Uncovertebral joint spurring and facet arthropathy result in mild bilateral foraminal encroachment. C4-C5: Slight anterior subluxation. Bilateral facet arthropathy. No central canal stenosis and no foraminal stenosis. C5-C6: Uncovertebral joint spurring and facet arthropathy result in mild left-sided foraminal encroachment. No central canal and no right foraminal stenosis. C6-C7: Disc contour is normal. No central canal stenosis and no foraminal stenosis. C7-T1: Disc contour is normal. No central canal stenosis and no foraminal stenosis. LUMBAR SPINE MRI: There are 5 nonrib-bearing lumbar-type vertebral bodies. There is grade 1 degenerative anterolisthesis of L4 on L5. There is bone marrow edema within the L4 and L5 facets bilaterally that is most likely degenerative or inflammatory. Intraosseous hemangiomas within the T11 and T12 vertebral bodies. No additional bone marrow edema. No acute fractures. Vertebral body heights are maintained. Disc volumes are preserved. Partial disc desiccation at all lumbar levels the exception of L5-S1. The conus terminates at L1. No significant extraspinal soft tissue findings. L1-L2: Disc contour is normal. Mild bilateral facet arthropathy. No central canal stenosis and no foraminal stenosis. L2-L3: Slight annular disc bulge with a superimposed left lateral disc osteophyte protrusion that compresses the exiting left L2 nerve root within the left extraforaminal zone. Moderate bilateral facet arthropathy and ligamentum flavum thickening. Mild to moderate left foraminal stenosis. No central canal and no right foraminal stenosis. L3-L4: Diffuse annular disc bulge and moderate bilateral hypertrophic facet arthropathy and ligamentum flavum thickening. No central canal stenosis and no foraminal stenosis. L4-L5: Grade 1 degenerative anterolisthesis in the setting of severe bilateral hypertrophic facet arthropathy. There is ligamentum flavum thickening. No central canal stenosis. Mild to moderate bilateral foraminal stenosis. L5-S1: Small annular disc bulge and moderate bilateral hypertrophic facet arthropathy. No central canal stenosis. Mild foraminal encroachment bilaterally. MR/MR cervical spine wo con IMPRESSION: - No acute intracranial findings. Mild T2 signal changes concentrated within the bifrontal subcortical white matter are nonspecific though can be seen in the setting of migraine headaches. No pathologic enhancement intracranially. - There is mild cervical spondylosis. No severe central canal stenosis and no severe foraminal stenosis within the cervical spine. - At L2-L3, a left lateral disc osteophyte protrusion compresses the exiting left L2 nerve root within the left extraforaminal zone. - At L4-L5, there is grade 1 degenerative anterolisthesis in the setting of severe bilateral hypertrophic facet arthropathy that along with additional spondylitic changes results in mild to moderate bilateral foraminal stenosis. There is bone marrow edema within the L4-L5 posterior elements bilaterally that is most likely degenerative or inflammatory.
== END 2021-10-14 18:07 | disposition home or self-care (01) ==
LOC: HO.MRI 18:06
PROVIDERS: Visit Provider Internal Medicine
DX: M47.817 Spondylosis without myelopathy or radiculopathy, lumbosacral region (principal); M54.50 Low back pain, unspecified; R29.898 Other symptoms and signs involving the musculoskeletal system; M47.816 Spondylosis without myelopathy or radiculopathy, lumbar region
CPT/HCPCS: 70553; 72141; 72148; A9585

== ENCOUNTER 2021-11-04 08:52 | Outpatient (REF) | payer OTHER, SELFPAY ==
[2021-11-04 09:57] LABS: Hematocrit 36.8 % (37.0-47.0); Hemoglobin 12.5 g/dl (12.0-16.0); Mean Corpuscular Hemoglobin 31.5 pg (27.0-33.0); Mean Corpuscular Volume 92.7 fL (80.0-98.0); Mean Platelet Volume 9.5 fL (9.4-12.3); Platelet Count 200 X10*3/uL (160-400); Red Blood Count 3.97 X10*6/uL (4.20-5.50); Red Cell Distribution Width 12.3 % (11.0-16.0); White Blood Count 6.4 X10*3/uL (4.8-10.8)
[2021-11-04 10:36] LABS: Alanine Aminotransferase 43 U/L (0-31); Albumin Level 4.3 g/dL (3.5-5.0); Alkaline Phosphatase 62 U/L (39-117); Anion Gap 13 (12-20); Aspartate Amino Transferase 35 U/L (5-31); Bilirubin Total 0.4 mg/dL (0.0-1.0); Blood Urea Nitrogen 16 mg/dL (9-16); Calcium 9.5 mg/dL (8.4-10.2); Carbon Dioxide 27 mmol/L (22-29); Chloride 101 mmol/L (96-108); Cholesterol 151 mg/dL; Estimated Glomerular Filt Rate > 60; Glucose Fasting 111 mg/dL (60-99); HDL Cholesterol 34 mg/dL; LDL Cholesterol Calculated 67 mg/dl; Potassium 3.7 mmol/L (3.3-5.1); Sodium 137 mmol/L (135-145); Triglycerides 251 mg/dL
[2021-11-04 10:59] LABS: Vitamin D 25-OH Total 50.1 ng/mL (>30)
== END 2021-11-04 08:53 | disposition home or self-care (01) ==
LOC: HO.LAB 08:52
PROVIDERS: PCP Internal Medicine; Visit Provider Internal Medicine
DX: I10 Essential (primary) hypertension (principal); R73.9 Hyperglycemia, unspecified; E78.5 Hyperlipidemia, unspecified
CPT/HCPCS: 36415; 80053; 80061; 82306; 85027

== ENCOUNTER → 2021-11-05 08:34 | Outpatient (BNVA) | payer OTHER, SELFPAY | PROVIDERS: PCP Internal Medicine; Visit Provider Internal Medicine | DX: M75.101 Unspecified rotator cuff tear or rupture of right shoulder, not specified as traumatic (principal); M47.817 Spondylosis without myelopathy or radiculopathy, lumbosacral region; M54.16 Radiculopathy, lumbar region | CPT/HCPCS: 20610 ==

== ENCOUNTER 2021-11-19 06:10 | Outpatient (REF) | payer OTHER, SELFPAY ==
--- NOTE | ~2021-11-19 | FL_ITS ---
EXAMINATION: XR FLUOROSCOPY WITH IMAGES CLINICAL INFORMATION: Bilateral L3, L4, and L5 branch blocks. COMPARISON: 05/12/2021 TECHNIQUE: Fluoroscopy performed by Dr. Anuj Moreau. FLUOROSCOPY TIME: 26.6 seconds DAP: 20.42 uGy-cm2 FLUOROSCOPIC IMAGES: 1 FINDINGS: Imaging demonstrates needles and contrast bilaterally overlying the region of the L3-C4 and L4-C5 facet joints. FL/FL guidance in treatment room IMPRESSION: Fluoroscopy for pain management procedure.
--- NOTE | ~2021-11-19 | FL_ITS ---
EXAMINATION: XR FLUOROSCOPY WITH IMAGES CLINICAL INFORMATION: Right shoulder injection. COMPARISON: None. TECHNIQUE: Fluoroscopy performed by Dr. Anuj Moreau. FLUOROSCOPY TIME: 26.5 seconds DAP: 10.41 uGy-cm2 FLUOROSCOPIC IMAGES: 1 FINDINGS: There is contrast with the needle positioned medial to the coracoid process. The glenohumeral joint space is not well visualized. No fracture or lytic process. FL/FL guidance in treatment room IMPRESSION: Fluoroscopy guidance was provided to referring physician for right shoulder injection.
== END 2021-11-19 06:11 | disposition home or self-care (01) ==
LOC: HO.RADIR 06:10
PROVIDERS: Visit Provider Internal Medicine
DX: M47.817 Spondylosis without myelopathy or radiculopathy, lumbosacral region (principal); M25.511 Pain in right shoulder
CPT/HCPCS: 64493; 64494; J2795

== ENCOUNTER 2021-11-26 12:04 | Outpatient (REF) | payer OTHER, SELFPAY ==
[2021-11-26 12:33] LABS: Appearance Urine HAZY; Color Urine YELLOW; Glucose Urine UA NEG (NEG); Leukocyte Esterase Urine 3+ (NEG); Nitrite Urine NEG (NEG); Specific Gravity - Urine <= 1.005 (1.005-1.025); UACC Culture Trigger YES; Urine Blood 3+ (NEG); Urine Ketones NEG (NEG); Urine Protein TRACE MG/DL (NEG-TRACE)
[2021-11-26 14:54] LABS: WBC Urine TNTC /HPF (0-4)
[2021-11-26 14:55] LABS: Bacteria Urine 2+ /LPF; RBC Urine 30-49 /HPF (0); Squamous Epithelial Cell Urine TRACE /LPF
== END 2021-11-26 12:05 | disposition home or self-care (01) ==
LOC: HO.LNP 12:04
PROVIDERS: Visit Provider Physician Assistant Medical
DX: R30.0 Dysuria (principal)
CPT/HCPCS: 81001; 87086; 87088; 87186

== ENCOUNTER 2021-11-29 08:23 | Emergency (ER) | payer OTHER, SELFPAY ==
[2021-11-29 08:46] VITALS: BP 168/88; PULSE 89; RESP 18; TEMP 37.7; O2SAT 94; BMI 49.1
[2021-11-29 09:35] LABS: MANUAL DIFF FLAG NO
[2021-11-29 09:36] LABS: Appearance Urine CLEAR; Color Urine YELLOW; Glucose Urine UA NEG (NEG); Leukocyte Esterase Urine NEG (NEG); Nitrite Urine NEG (NEG); Specific Gravity - Urine 1.025 (1.005-1.025); Urine Blood NEG (NEG); Urine Ketones NEG (NEG); Urine Protein TRACE MG/DL (NEG-TRACE)
[2021-11-29 09:37] LABS: Basophils Percent Auto 0.3 % (0-2); Eosinophils Absolute Auto 0.1 X10*3/uL (0.0-0.4); Eosinophils Percent Auto 1.5 % (0-4); Hematocrit 39.6 % (37.0-47.0); Hemoglobin 13.1 g/dl (12.0-16.0); Imm Gran Abs Auto 0.02 X10*3/uL (0.00-0.03); Imm Gran Pct Auto 0.3 % (0.0-0.4); Lymphocytes Absolute Auto 1.3 X10*3/uL (1.2-4.9); Lymphocytes Percent Auto 19.2 % (20-40); Mean Corpuscular HGB Conc 33.1 g/dl (31.0-35.0); Mean Corpuscular Hemoglobin 31.1 pg (27.0-33.0); Mean Corpuscular Volume 94.1 fL (80.0-98.0); Mean Platelet Volume 8.9 fL (9.4-12.3); Monocytes Absolute Auto 0.5 X10*3/uL (0.1-1.2); Monocytes Percent Auto 7.8 % (2-11); Neutrophils Absolute Auto 4.7 x10*3/uL (2.0-8.3); Neutrophils Percent Auto 70.9 % (45-73); Platelet Count 176 X10*3/uL (160-400); Red Blood Count 4.21 X10*6/uL (4.20-5.50); Red Cell Distribution Width 12.3 % (11.0-16.0); White Blood Count 6.7 X10*3/uL (4.8-10.8)
[2021-11-29 10:01] LABS: Alanine Aminotransferase 43 U/L (0-31); Albumin Level 4.4 g/dL (3.5-5.0); Alkaline Phosphatase 77 U/L (39-117); Anion Gap 11 (12-20); Aspartate Amino Transferase 32 U/L (5-31); Bilirubin Direct < 0.2 mg/dL (0.0-0.5); Bilirubin Total < 0.2 mg/dL (0.0-1.0); Blood Urea Nitrogen 16 mg/dL (9-16); Calcium 9.7 mg/dL (8.4-10.2); Carbon Dioxide 30 mmol/L (22-29); Chloride 102 mmol/L (96-108); Creatinine Clr Calc Pharmacy 106.7; Estimated Glomerular Filt Rate > 60; Glucose Random 130 mg/dL (60-115); Lipase 19 U/L (8-78); Potassium 3.7 mmol/L (3.3-5.1); Sodium 139 mmol/L (135-145); Total Protein 7.3 g/dL (6.5-8.0)
--- NOTE | 2021-11-29 12:29 | ED.GENADULT ---
HPI - General Adult General Chief complaint: Abdominal Pain Stated complaint: UTI/Fever Time Seen by Provider: 11/29/21 12:21 Source: patient Mode of arrival: ambulatory Limitations: no limitations History of Present Illness HPI narrative: Patient comes to the emergency room complaining of lower back pain bilaterally. Patient states that she does have chronic back pain, but she was recently diagnosed with a UTI. Patient states that she can not tell if this back pain is new or not. Initially, patient was diagnosed with a UTI, prescribed Macrobid, then her cultures came back, she was told by her PCP that she has resistance to Macrobid, switched to levofloxacin. Patient is on her 2nd dose. Patient states that she feels a bit better, concerned that she had 100.7 fever today. Patient states that the suprapubic discomfort has improved in the last couple of days. Related Data Home Medications Medication Instructions Recorded Confirmed cholecalciferol (vitamin D3) 25 25 mcg PO DAILY 02/14/20 11/10/21 mcg (1,000 unit) tablet (Vitamin D3) docusate sodium 100 mg capsule 100 mg PO DAILY 02/14/20 11/10/21 (Colace) albuterol sulfate 90 mcg/actuation 2 puff inhalation Q4H PRN 11/19/20 11/10/21 aerosol inhaler epinephrine 0.3 mg/0.3 mL 0.3 mg IM ONCE PRN 11/19/20 11/10/21 injection, auto-injector citalopram 20 mg tablet 20 mg PO DAILY 09/07/21 11/10/21 pregabalin 100 mg capsule 100 mg PO BID 11/05/21 11/10/21 Previous Rx's Medication Instructions Recorded lorazepam 0.5 mg tablet 0.5 mg PO BEDTIME PRN Anxiety #30 10/08/20 tabs amlodipine 10 mg tablet 10 mg PO DAILY #90 tabs 02/24/21 montelukast 10 mg tablet 10 mg PO BEDTIME #90 tabs 04/22/21 (Singulair) pravastatin 20 mg tablet 20 mg PO DAILY #90 tabs 05/31/21 hydralazine 25 mg tablet 25 mg PO BID #180 tabs 09/07/21 triamterene 37.5 1 cap PO DAILY #90 caps 10/05/21 mg-hydrochlorothiazide 25 mg capsule nitrofurantoin 100 mg PO Q12H 5 days #10 caps 11/26/21 monohydrate/macrocrystals 100 mg capsule (Macrobid) ondansetron 4 mg disintegrating 4 mg PO Q6H PRN nausea and 11/29/21 tablet vomiting #10 tabs Allergies Allergy/AdvReac Type Severity Reaction Status Date / Time doxycycline [DOXYCYCLINE] Allergy Severe ESOPHAGITIS Verified 11/26/21 08:17 Sulfa (Sulfonamide Allergy Severe FACIAL Verified 11/26/21 08:17 Antibiotics) SWELLING codeine [Codeine] Allergy Intermediate RASH Verified 11/26/21 08:17 lisinopril [Lisinopril] Allergy Intermediate EXTREMITIES Verified 11/26/21 08:17 SWELLING benzonatate [BENZONATATE] Allergy Unknown ANAPHYLAXIS Verified 11/26/21 08:17 meperidine [Demerol] Allergy Unknown Rash Verified 11/26/21 08:17 losartan AdvReac Intermediate swelling Verified 11/26/21 08:17 of hands, Review of Systems Review of Systems: Constitutional : No Weight loss, No Fever, No Chills, No Night Sweats, No Fatigue, No Malaise ENT/Mouth : No Hearing loss, No Ear Pain, No Nasal Congestion, No Sinus Pain, No Hoarseness, No sore throat, No Rhinorrhea, No Swallowing Difficulty Eyes: No Eye Pain, No Swelling, No Redness, No Foreign Body, No Discharge, No Vision Changes Cardiovascular : No Chest Pain, No SOB, No Dyspnea on Exertion, No Orthopnea, No Edema, No Palpitations Respiratory : No Cough, No Sputum, No Wheezing, No Smoke Exposure, No Dyspnea Gastrointestinal : No Nausea, No Vomiting, No Diarrhea, No Constipation, No abdominal Pain, No Hematochezia, No Melena Genitourinary : no irregular bleeding, No Dysuria, No Urinary Frequency, No Hematuria, No Urinary Incontinence, No Urgency, complaining of bilateral flank pain/back pain, patient unsure if this is new versus chronic., No Urinary Flow Changes, No Hesitancy Musculoskeletal : No joint pain, No Myalgias, No Joint Swelling Skin : No Skin Lesions, No rash Neuro : No Weakness, No Numbness, No Paresthesias, No Loss of Consciousness, No Dizziness, No Headache Psych : No Anxiety/Panic, No Depression, No SI/HI/AH/VH, No Social Issues, Heme/Lymph: No Bruising, No Bleeding,No Lymphadenopathy Endocrine : No Polyuria, No Polydipsia, No Temperature Intolerance [facility] Past Medical History Medical History Anxiety Arthritis Asthma Asthma Cancer Chronic low back pain Depression GERD (gastroesophageal reflux disease) Heart murmur HTN (hypertension) Hx of renal calculi Hyperglycemia Hyperlipemia Irritable bowel syndrome Lumbar and sacral spondyloarthritis Memory deficit Morbid obesity Morbid obesity Normal colonoscopy Obesity Rib fracture Rib pain on left side Sleep apnea Thyroid nodule Surgical History H/O ventral hernia repair Hx of bilateral oophorectomy Hx of breast biopsy Hx of section Hx of colonoscopy Hx of esophagogastroduodenoscopy Family History Family History Mother No problems noted. Father No problems noted. Social History Social History Household Members Other:: , unemployed, 2 children () Housing: House Alcohol intake: current Alcohol intake frequency: holidays/special occasions only Alcohol type: beer Patient Tobacco Use Status: Never used Tobacco e-Cigarette/Vaping Use: Never Used Second Hand Smoke Exposure: No service: No Current occupational status: unemployed Cognitive needs: No Hearing needs: No Vision needs: Yes Physical Exam ED Vital Signs: Vital Signs - 24 hr 11/29/21 08:46 Temperature 99.8 F Pulse Rate 89 Respiratory Rate 18 Blood Pressure 168/88 H Pulse Oximetry 94 Oxygen Delivery Method Room Air BMI result Body Mass Index 49.1 Const Other: Appearance: Alert. Oriented X3. No acute distress. Well-appearing Eyes: Pupils equal, round and reactive to light. ENT: Pharynx normal. Neck: Normal inspection. Neck supple. No lymph nodes noted. No crepitus CVS: Normal heart rate and rhythm. Pulses normal. Normal S1 and S2 Respiratory: No respiratory distress. Breath sounds normal. No Wheezing. No rales Abdomen: Soft and nontender. No rigidity. No distention. Back: No CVA tenderness, mild bilateral lower back pain Skin: Skin warm and dry. Normal skin color. Normal skin turgor. Extremities: No lower extremity edema. No Lacerations. No Rash Neuro: Oriented X 3. No motor deficit. No sensory deficit. Moving all extremities. No slurred speech. CN 2 through 12 grossly intact Psych: calm, cooperative, normal affect Course Course Course Narrative: I discussed with the patient that her white blood cell count is normal, urinalysis is negative today. Seems that the levofloxacin that she is taking is working. Patient states that the medication may be making her nauseous, I discussed with the patient that we will go ahead and prescribe her Zofran which can be taken before medication. Medical Decision Making Lab Data Result diagrams: 11/29/21 09:15 11/29/21 09:15 Labs: Lab Results 11/29/21 11/29/21 11/29/21 Range/Units 09:15 09:15 09:15 WBC 6.7 (4.8-10.8) X10*3/uL RBC 4.21 (4.20-5.50) X10*6/uL Hgb 13.1 (12.0-16.0) g/dl Hct 39.6 (37.0-47.0) % MCV 94.1 (80.0-98.0) fL MCH 31.1 (27.0-33.0) pg MCHC 33.1 (31.0-35.0) g/dl RDW 12.3 (11.0-16.0) % Plt Count 176 (160-400) X10*3/uL MPV 8.9 L (9.4-12.3) fL Immature Gran % (Auto) 0.3 (0.0-0.4) % Neut % (Auto) 70.9 (45-73) % Lymph % (Auto) 19.2 L (20-40) % [place] % (Auto) 7.8 (2-11) % Eos % (Auto) 1.5 (0-4) % Baso % (Auto) 0.3 (0-2) % Lymph # (Auto) 1.3 (1.2-4.9) X10*3/uL [place] # (Auto) 0.5 (0.1-1.2) X10*3/uL Eos # (Auto) 0.1 (0.0-0.4) X10*3/uL Baso # (Auto) 0.0 (0.0-0.2) X10*3/uL Abs Immat Gran (auto) 0.02 (0.00-0.03) X10*3/uL Absolute Neuts (auto) 4.7 (2.0-8.3) x10*3/uL Absolute Nucleated RBC 0.000 (0.0-0.012) X10*3/uL Nucleated RBC % (auto) 0.0 (0.0-0.2) /100WBC Sodium 139 (135-145) mmol/L Potassium 3.7 (3.3-5.1) mmol/L Chloride 102 (96-108) mmol/L Carbon Dioxide 30 H (22-29) mmol/L Anion Gap 11 L (12-20) BUN 16 (9-16) mg/dL Creatinine 0.73 (0.5-1.4) mg/dL Estim Creat Clear Calc 106.7 Estimated GFR > 60 Random Glucose 130 H (60-115) mg/dL Calcium 9.7 (8.4-10.2) mg/dL Total Bilirubin < 0.2 (0.0-1.0) mg/dL Direct Bilirubin < 0.2 (0.0-0.5) mg/dL AST 32 H (5-31) U/L ALT 43 H (0-31) U/L Alkaline Phosphatase 77 D (39-117) U/L Total Protein 7.3 (6.5-8.0) g/dL Albumin 4.4 (3.5-5.0) g/dL Lipase 19 (8-78) U/L Urine Color YELLOW Urine Appearance CLEAR Urine pH 6.0 (5.0-8.0) Ur Specific [place] 1.025 (1.005-1.025) Urine Protein TRACE (NEG-TRACE) MG/DL Urine Glucose (UA) NEG (NEG) MG/DL Urine Ketones NEG (NEG) MG/DL Urine Blood NEG (NEG) Urine Nitrite NEG (NEG) Ur Leukocyte Esterase NEG (NEG) Discharge Plan Discharge Clinical Impression: Bilateral flank pain Patient Disposition: Home, Self-Care Instructions: Flank Pain (ED) Additional Instructions: Continue taking levofloxacin as prescribed. Please follow-up with your primary care physician tomorrow. If you have any worsening or new symptoms, please return to the emergency room or call 911 Prescriptions: New ondansetron 4 mg tablet,disintegrating 4 mg PO Q6H PRN (Reason: nausea and vomiting) Qty: 10 0RF No Action amlodipine 10 mg tablet 10 mg PO DAILY Qty: 90 3RF montelukast [Singulair] 10 mg tablet 10 mg PO BEDTIME Qty: 90 3RF pravastatin 20 mg tablet 20 mg PO DAILY Qty: 90 3RF triamterene-hydrochlorothiazid 37.5-25 mg capsule 1 cap PO DAILY Qty: 90 0RF docusate sodium [Colace] 100 mg Capsule 100 mg PO DAILY cholecalciferol (vitamin D3) [Vitamin D3] 25 mcg (1,000 unit) Tablet 25 mcg PO DAILY lorazepam 0.5 mg tablet 0.5 mg PO BEDTIME PRN (Reason: Anxiety) Qty: 30 0RF albuterol sulfate 90 mcg/actuation HFA aerosol inhaler 2 puff inhalation Q4H PRN epinephrine 0.3 mg/0.3 mL auto-injector 0.3 mg IM ONCE PRN citalopram 20 mg tablet 20 mg PO DAILY hydralazine 25 mg tablet 25 mg PO BID Qty: 180 1RF nitrofurantoin monohyd/m-cryst [Macrobid] 100 mg capsule 100 mg PO Q12H 5 Days Qty: 10 0RF Rx Instructions: must administer with a meal/food pregabalin 100 mg capsule 100 mg PO BID
[2021-11-29 12:50] VITALS: BP 158/85; PULSE 83; RESP 20; TEMP 37.1; O2SAT 95
== END 2021-11-29 12:54 | disposition home or self-care (01) ==
PROVIDERS: Emergency Provider Emergency Medicine; PCP Internal Medicine
DX: N39.0 Urinary tract infection, site not specified (principal); R50.9 Fever, unspecified; R10.9 Unspecified abdominal pain; Z79.899 Other long term (current) drug therapy
CPT/HCPCS: 36415; 80048; 80076; 81003; 83690; 85025; 99283

== ENCOUNTER 2022-02-27 18:16 | Emergency (ER) | payer OTHER, SELFPAY ==
--- NOTE | ~2022-02-27 | XR_ITS ---
EXAMINATION: XR RIBS, RIGHT CLINICAL INFORMATION: Pain after fall COMPARISON: X-ray December 2020 TECHNIQUE: 3 views of the right ribs including frontal view of the chest PA were obtained. FINDINGS: Lungs are clear. No consolidation, pneumothorax, or pleural effusion. The cardiomediastinal silhouette and pulmonary vasculature are normal. Osseous structures are unremarkable. Ribs are intact. No fractures are identified. XR/XR ribs RT min 3V w CXR1V IMPRESSION: Unremarkable examination.
--- NOTE | ~2022-02-27 | XR_ITS ---
EXAMINATION: XR HIP, RIGHT pelvis CLINICAL INFORMATION: Pain after fall COMPARISON: Prior x-rays of the pelvis and hips April 2021 TECHNIQUE: Two views of the right hip. FINDINGS: Bones and soft tissues are normal. No fracture. Alignment is anatomic. Hip joint space is maintained. XR/XR hip RT w PEL1V IMPRESSION: Normal right hip.
--- NOTE | ~2022-02-27 | XR_ITS ---
EXAMINATION: XR SHOULDER, RIGHT CLINICAL INFORMATION: Pain after fall COMPARISON: None TECHNIQUE: AP external rotation, Grashey, scapular Y, and axillary views of the right shoulder. FINDINGS: The bones and soft tissues are normal. No fracture. Glenohumeral and acromioclavicular alignment is anatomic with normal joint space. No abnormal soft tissue calcifications. XR/XR shoulder RT min 2V IMPRESSION: Normal right shoulder.
[2022-02-27 19:45] VITALS: BP 163/78; PULSE 84; RESP 20; TEMP 36.9; O2SAT 97; BMI 50.5
[2022-02-27] MEDS: Acetaminophen 325 MG TABLET 650 MG PO (19:55)
[2022-02-27 23:40] VITALS: BP 168/77; PULSE 75; RESP 20; TEMP 36.6; O2SAT 96
--- NOTE | 2022-02-28 00:16 | ED.FALL ---
HPI - Fall General Chief Complaint: Fall Stated Complaint: fall Time Seen by Provider: 02/28/22 00:07 Source: patient Mode of arrival: ambulatory Limitations: no limitations History of Present Illness HPI Narrative: Patient was walking on the street tripped and fell over pylon with hand on right breast complaining of pain in right shoulder right chest which increases on deep breaths able to ambulate also complaining of pain in the right hip area no head injury no loss of consciousness no neck pain Related Data Home Medications Medication Instructions Recorded Confirmed cholecalciferol (vitamin D3) 25 25 mcg PO DAILY 02/14/20 11/10/21 mcg (1,000 unit) tablet (Vitamin D3) docusate sodium 100 mg capsule 100 mg PO DAILY 02/14/20 11/10/21 (Colace) albuterol sulfate 90 mcg/actuation 2 puff inhalation Q4H PRN 11/19/20 11/10/21 aerosol inhaler epinephrine 0.3 mg/0.3 mL 0.3 mg IM ONCE PRN 11/19/20 11/10/21 injection, auto-injector pregabalin 100 mg capsule 150 mg PO DAILY 12/20/21 Previous Rx's Medication Instructions Recorded lorazepam 0.5 mg tablet 0.5 mg PO BEDTIME PRN Anxiety #30 10/08/20 tabs amlodipine 10 mg tablet 10 mg PO DAILY #90 tabs 02/24/21 montelukast 10 mg tablet 10 mg PO BEDTIME #90 tabs 04/22/21 (Singulair) pravastatin 20 mg tablet 20 mg PO DAILY #90 tabs 05/31/21 ondansetron 4 mg disintegrating 4 mg PO Q6H PRN nausea and 11/29/21 tablet vomiting #10 tabs hydralazine 25 mg tablet 25 mg PO BID #180 tabs 01/24/22 triamterene 37.5 1 cap PO DAILY #90 caps 01/24/22 mg-hydrochlorothiazide 25 mg capsule citalopram 20 mg tablet 20 mg PO DAILY #90 tabs 02/08/22 nirmatrelvir 300 mg (150 mg See Rx Instructions PO .COMPLEX 02/16/22 x2)-ritonavir 100 mg tablet,dose #30 ea pack(EUA) (Paxlovid) oxycodone-acetaminophen 5 mg-325 1 tab PO Q6H PRN pain #20 tabs 10/24/22 mg tablet (Percocet) Allergies Allergy/AdvReac Type Severity Reaction Status Date / Time doxycycline [DOXYCYCLINE] Allergy Severe ESOPHAGITIS Verified 02/27/22 19:45 Sulfa (Sulfonamide Allergy Severe FACIAL Verified 02/27/22 19:45 Antibiotics) SWELLING codeine [Codeine] Allergy Intermediate RASH Verified 02/27/22 19:45 lisinopril [Lisinopril] Allergy Intermediate EXTREMITIES Verified 02/27/22 19:45 SWELLING benzonatate [BENZONATATE] Allergy Unknown ANAPHYLAXIS Verified 02/27/22 19:45 meperidine [Demerol] Allergy Unknown Rash Verified 02/27/22 19:45 losartan AdvReac Intermediate swelling Verified 02/27/22 19:45 of hands, Review of Systems Review of Systems: Yes all other systems are reviewed and are negative PMFSH Past Medical History Medical History Anxiety Arthritis Asthma Asthma Cancer Chronic low back pain Depression GERD (gastroesophageal reflux disease) Heart murmur HTN (hypertension) Hx of renal calculi Hyperglycemia Hyperlipemia Irritable bowel syndrome Lumbar and sacral spondyloarthritis Memory deficit Morbid obesity Morbid obesity Normal colonoscopy Obesity Rib fracture Rib pain on left side Sleep apnea Thyroid nodule Surgical History H/O ventral hernia repair Hx of bilateral oophorectomy Hx of breast biopsy Hx of section Hx of colonoscopy Hx of esophagogastroduodenoscopy Family History Family History Mother No problems noted. Father No problems noted. Social History Social History Household Members Other:: , unemployed, 2 children () Housing: House Alcohol intake: current Alcohol intake frequency: holidays/special occasions only Alcohol type: beer Patient Tobacco Use Status: Never used Tobacco e-Cigarette/Vaping Use: Never Used Second Hand Smoke Exposure: No Advance Directives: No Advance Directives Information Provided: No service: No Current occupational status: unemployed Cognitive needs: No Hearing needs: No Vision needs: Yes Physical Exam Vital Signs: Vital Signs: Last Vital Signs Temp 97.9 F 02/27/22 23:40 Pulse 75 02/27/22 23:40 Resp 20 02/27/22 23:40 BP 168/77 H 02/27/22 23:40 Pulse Ox 96 02/27/22 23:40 O2 Del Method 02/27/22 23:40 BMI result Body Mass Index 50.5 Appearance: Alert. Oriented X3. No acute distress. HEENT: Pharynx normal. Oral Mucosa moist atraumatic normocephalic Neck: Normal inspection. Neck supple. No midline tenderness CVS: Normal heart rate and rhythm. Pulses normal. Respiratory: No respiratory distress. Equal air entry bilateral, no wheezing/rales/rhonchi right chest wall tenderness anteriorly no bruising noticed Abdomen: Soft and nontender. Bowel sounds are present, no mass palpable, no CVA tenderness Skin: Skin warm and dry. Normal skin color. Normal skin turgor. Extremities: No lower extremity edema. No calf tenderness pelvis stable Neuro: Oriented X 3. MDM - Fall MDM Narrative Medical decision making narrative: X-ray of right ribs right shoulder pelvis negative for fracture patient ambulate in the ER will discharge patient home on pain management likely has rib contusion Lab Data Attestation: I reviewed the patient's lab results. Discharge Plan Discharge Clinical Impression: Contusion of chest wall Patient Disposition: Home, Self-Care Instructions: Rib Contusion (ED) Additional Instructions: Apply ice pack Pain medication as prescribed Report to ER if increased shortness of breath /worsening of chest pain Prescriptions: New oxycodone-acetaminophen [Percocet] 5-325 mg tablet 1 tab PO Q6H PRN (Reason: pain) Qty: 20 0RF Rx Instructions: Partial Fill upon patient request. No Action amlodipine 10 mg tablet 10 mg PO DAILY Qty: 90 3RF montelukast [Singulair] 10 mg tablet 10 mg PO BEDTIME Qty: 90 3RF pravastatin 20 mg tablet 20 mg PO DAILY Qty: 90 3RF triamterene-hydrochlorothiazid 37.5-25 mg capsule 1 cap PO DAILY Qty: 90 0RF hydralazine 25 mg tablet 25 mg PO BID Qty: 180 1RF citalopram 20 mg tablet 20 mg PO DAILY Qty: 90 3RF Paxlovid (EUA) 300 mg (150 mg x 2)-100 mg tablets,dose pack See Rx Instructions PO .COMPLEX Qty: 30 0RF Rx Instructions: take TWO 150 mg tablets of nirmatrelvir with ONE 100 mg tablet of ritonavir twice daily for 5 days PO docusate sodium [Colace] 100 mg Capsule 100 mg PO DAILY cholecalciferol (vitamin D3) [Vitamin D3] 25 mcg (1,000 unit) Tablet 25 mcg PO DAILY ondansetron 4 mg tablet,disintegrating 4 mg PO Q6H PRN (Reason: nausea and vomiting) Qty: 10 0RF lorazepam 0.5 mg tablet 0.5 mg PO BEDTIME PRN (Reason: Anxiety) Qty: 30 0RF albuterol sulfate 90 mcg/actuation HFA aerosol inhaler 2 puff inhalation Q4H PRN epinephrine 0.3 mg/0.3 mL auto-injector 0.3 mg IM ONCE PRN pregabalin 100 mg capsule 150 mg PO DAILY Interventions: ED Discharge Assessment Last Done: 02/28/22 00:30 Discharge Date/Time: 02/28/22 00:31
[2022-02-28] MEDS: oxyCODONE HCl Immed Release 5 MG TABLET 10 MG PO (00:26)
== END 2022-02-28 00:31 | disposition home or self-care (01) ==
PROVIDERS: Emergency Provider Internal Medicine
DX: S20.213A Contusion of bilateral front wall of thorax, initial encounter (principal); R07.81 Pleurodynia; M25.552 Pain in left hip; M25.551 Pain in right hip; W01.0XXA Fall on same level from slipping, tripping and stumbling without subsequent striking against object, initial encounter; Y93.9 Activity, unspecified; Y92.410 Unspecified street and highway as the place of occurrence of the external cause; Y99.9 Unspecified external cause status; Z79.899 Other long term (current) drug therapy
CPT/HCPCS: 71101; 73030; 73502; 99284

== ENCOUNTER 2022-03-15 07:16 | Inpatient (IN) | payer OTHER, SELFPAY ==
[2022-03-15] VITALS (9 sets, daily range): BP systolic 134–168; BP diastolic 62–85; PULSE 92–111; RESP 16–24; TEMP 37–38.2; O2SAT 88–95; BMI 42.2
--- NOTE | 2022-03-15 | ECG_ITS ---
Test Reason : SOB/CHEST PAIN Blood Pressure : / mmHG Vent. Rate : 112 BPM Atrial Rate : 112 BPM P-R Int : 162 ms QRS Dur : 094 ms QT Int : 328 ms P-R-T Axes : 069 007 067 degrees QTc Int : 447 ms Sinus tachycardia Minimal voltage criteria for LVH, may be normal variant ( [place] product ) Nonspecific ST and T wave abnormality Abnormal ECG When compared with ECG of 15-MAR-2022 07:45, Nonspecific T wave abnormality, worse in Lateral leads Referred By: Annie Hebert Electronically Signed By:RED NAVARRO MD
--- NOTE | 2022-03-15 | ECG_ITS ---
Test Reason : SOB Blood Pressure : / mmHG Vent. Rate : 099 BPM Atrial Rate : 099 BPM P-R Int : 150 ms QRS Dur : 094 ms QT Int : 350 ms P-R-T Axes : 028 002 028 degrees QTc Int : 449 ms Normal sinus rhythm Moderate voltage criteria for LVH, may be normal variant ( R in aVL , [employer] product ) Borderline ECG When compared with ECG of 25-AUG-2021 22:04, Heart rate has increased Referred By: Generic ED Physician Electronically Signed By:RED NAVARRO MD
--- NOTE | ~2022-03-15 | XR_ITS ---
EXAMINATION: XR CHEST CLINICAL INFORMATION: Fever. Bilateral chest pain. COMPARISON: Right rib x-rays including frontal chest 02/27/2022 TECHNIQUE: 2 views of the chest were obtained. FINDINGS: Cardiac silhouette is normal in size. The lungs are well aerated. There is no lobar consolidation. No pleural effusion or pneumothorax. Mild degenerative changes of the spine. Surgical clips of the left breast. XR/XR chest 2V IMPRESSION: No acute pulmonary pathology.
--- NOTE | ~2022-03-15 | CT_ITS ---
EXAMINATION: CT ANGIOGRAM OF THE CHEST WITH CONTRAST (CT PULMONARY ANGIOGRAM FOR PE) CLINICAL INFORMATION: Shortness of breath, tachycardia, hypoxia COMPARISON: CXR from 03/15/2022 TECHNIQUE: Prior to contrast administration, noncontrast localization images were obtained. Subsequently, multidetector volumetric imaging was performed from the thoracic inlet to below the diaphragms following the administration of 65 mL Omnipaque 350 intravenous contrast. No contrast reaction reported. Sagittal, coronal, and MIP oblique sagittal reformatted images were obtained on the CT workstation, uploaded to PACS, and reviewed. This CT examination was performed using dose optimization techniques as appropriate, variously including the following: *Automated exposure control *Adjustment of mA and/or kV according to patient size (this includes techniques or standardized protocols for targeted exams where dose is matched to indication/reason for exam; i.e. extremities or head) *Use of iterative reconstruction technique DLP: Total exam dose-length product 474 mGy-cm FINDINGS: LUNGS AND PLEURA: Lungs are well expanded. Mild atelectasis in dependent aspect of each lower lobe. No focal airspace disease. No evidence of pulmonary edema, pleural effusion or pneumothorax. QUALITY OF STUDY/CONTRAST BOLUS: Satisfactory. CARDIOVASCULAR: The pulmonary arteries are normal in size. No embolic filling defects are identified within the main, lobar or segmental vessels. The heart size is normal. No inward bowing of the interventricular septum. No pericardial effusion. Mild atherosclerotic calcification of the thoracic aorta without aneurysm or dissection. MEDIASTINUM/LOWER NECK: No mediastinal mass. The esophagus is unremarkable. The right thyroid lobe is absent. LYMPHATICS: No pathologic sized axillary, hilar or mediastinal lymph nodes. UPPER ABDOMEN: Diffuse hepatic steatosis. No reflux of contrast into the inferior vena cava. No acute findings in the visualized portion of the upper abdomen. OSSEOUS STRUCTURES: No suspicious bone lesions. Mild multilevel discovertebral degenerative change of the thoracic spine. Surgical clips and scarring in left breast overlying the left pectoralis major muscle. CT/CT angio chest PE protocol IMPRESSION: * No acute pulmonary findings. No evidence of pulmonary embolism. * Diffuse hepatic steatosis.
[2022-03-15] MEDS: Ibuprofen 600 MG TABLET PO (07:52)
[2022-03-15 08:01] LABS: MANUAL DIFF FLAG NO
[2022-03-15 08:03] LABS: Basophils Percent Auto 0.5 % (0-2); Eosinophils Percent Auto 0.1 % (0-4); Hematocrit 36.1 % (37.0-47.0); Hemoglobin 12.3 g/dl (12.0-16.0); Imm Gran Abs Auto 0.02 X10*3/uL (0.00-0.03); Imm Gran Pct Auto 0.3 % (0.0-0.4); Lymphocytes Absolute Auto 1.3 X10*3/uL (1.2-4.9); Lymphocytes Percent Auto 16.6 % (20-40); Mean Corpuscular HGB Conc 34.1 g/dl (31.0-35.0); Mean Corpuscular Hemoglobin 31.6 pg (27.0-33.0); Mean Corpuscular Volume 92.8 fL (80.0-98.0); Mean Platelet Volume 8.7 fL (9.4-12.3); Monocytes Absolute Auto 0.6 X10*3/uL (0.1-1.2); Neutrophils Absolute Auto 5.8 x10*3/uL (2.0-8.3); Neutrophils Percent Auto 74.5 % (45-73); Platelet Count 163 X10*3/uL (160-400); Red Blood Count 3.89 X10*6/uL (4.20-5.50); Red Cell Distribution Width 12.8 % (11.0-16.0); White Blood Count 7.8 X10*3/uL (4.8-10.8)
[2022-03-15 08:19] LABS: IDNOW Serial# 9DB6401D; Influenza A Negative (Negative); Influenza B2 Negative (Negative)
[2022-03-15 08:23] LABS: COVID-19 Test Negative (Negative); IDNOW Serial# 55D5AD1C
[2022-03-15 08:43] LABS: Creatinine Clr Calc Pharmacy 100.4; Estimated Glomerular Filt Rate > 60
[2022-03-15 08:44] LABS: Anion Gap 18 (12-20); Blood Urea Nitrogen 11 mg/dL (9-16); Carbon Dioxide 25 mmol/L (22-29); Chloride 99 mmol/L (96-108); Glucose Random 139 mg/dL (60-115); Sodium 138 mmol/L (135-145)
[2022-03-15 08:45] LABS: Calcium 9.5 mg/dL (8.4-10.2)
--- NOTE | 2022-03-15 09:04 | ED_ITS ---
HPI - General Adult General Chief complaint: General Medical Stated complaint: Fever/Chest pain/Headache Time Seen by Provider: 03/15/22 08:33 Source: patient Mode of arrival: ambulatory Limitations: no limitations History of Present Illness HPI narrative: Patient is a 51-year-old female who presents to the emergency department for evaluation of fever, headache, diffuse body aches, chest pain, mild nausea, without vomiting, and hematuria. She states that her symptoms began yesterday, but she feels significantly worse today. She took Tylenol this morning without significant improvement in her fever or headache. She states that she tested positive for COVID-19 02/16/2022, and had negative testing with resolution of symptoms by 02/20/2022. She reports a history of sepsis in the past due to pyelonephritis. Denies ear pain, nasal congestion, sore throat, cough, vomiting, abdominal pain, diarrhea, constipation, urinary frequency, dysuria, numbness or tingling of her extremities. Related Data Home Medications Medication Instructions Recorded Confirmed cholecalciferol (vitamin D3) 25 25 mcg PO DAILY 02/14/20 03/04/22 mcg (1,000 unit) tablet (Vitamin D3) docusate sodium 100 mg capsule 100 mg PO DAILY 02/14/20 03/04/22 (Colace) albuterol sulfate 90 mcg/actuation 2 puff inhalation Q4H PRN 11/19/20 03/04/22 aerosol inhaler epinephrine 0.3 mg/0.3 mL 0.3 mg IM ONCE PRN 11/19/20 03/04/22 injection, auto-injector pregabalin 100 mg capsule 150 mg PO DAILY 12/20/21 03/04/22 Previous Rx's Medication Instructions Recorded lorazepam 0.5 mg tablet 0.5 mg PO BEDTIME PRN Anxiety #30 10/08/20 tabs amlodipine 10 mg tablet 10 mg PO DAILY #90 tabs 02/24/21 montelukast 10 mg tablet 10 mg PO BEDTIME #90 tabs 04/22/21 (Singulair) pravastatin 20 mg tablet 20 mg PO DAILY #90 tabs 05/31/21 hydralazine 25 mg tablet 25 mg PO BID #180 tabs 01/24/22 triamterene 37.5 1 cap PO DAILY #90 caps 01/24/22 mg-hydrochlorothiazide 25 mg capsule citalopram 20 mg tablet 20 mg PO DAILY #90 tabs 02/08/22 oxycodone-acetaminophen 5 mg-325 1 tab PO Q6H PRN pain #20 tabs 02/28/22 mg tablet (Percocet) meloxicam 15 mg tablet 15 mg PO DAILY #14 tabs 03/04/22 Allergies Allergy/AdvReac Type Severity Reaction Status Date / Time doxycycline [DOXYCYCLINE] Allergy Severe ESOPHAGITIS Verified 03/04/22 11:15 Sulfa (Sulfonamide Allergy Severe FACIAL Verified 03/04/22 11:15 Antibiotics) SWELLING codeine [Codeine] Allergy Intermediate RASH Verified 03/04/22 11:15 lisinopril [Lisinopril] Allergy Intermediate EXTREMITIES Verified 03/04/22 11:15 SWELLING benzonatate [BENZONATATE] Allergy Unknown ANAPHYLAXIS Verified 03/04/22 11:15 meperidine [Demerol] Allergy Unknown Rash Verified 03/04/22 11:15 losartan AdvReac Intermediate swelling Verified 03/04/22 11:15 of hands, Review of Systems Review of Systems: Constitutional: Positive fever. Positive chills. Positive weakness. Positive fatigue. ENT/ Mouth: No Ear Pain, no Nasal Congestion, no sore throat, No Rhinorrhea, No Swallowing Difficulty Skin: No rash or itching. Cardiovascular: No chest pain. No palpitations. Respiratory: No shortness of breath. No cough. No sputum production. Gastrointestinal: Positive nausea. No vomiting. No diarrhea. No abdominal pain. Genitourinary: No burning micturition. No urinary frequency. Positive hematuria, positive urgency Neurologic: Positive headache. No dizziness. No syncope. No numbness or tingling in the extremities. Musculoskeletal: Positive body aches. No back pain. Yes all other systems are reviewed and are negative [facility] Past Medical History Attestation statement: The following information was validated with the patient. Source: old records reviewed Medical History (Updated 03/15/22 @ 16:28 by Fatou Masters CNP) Anxiety Arthritis Asthma Cancer Chronic low back pain Depression GERD (gastroesophageal reflux disease) Heart murmur HTN (hypertension) Hx of renal calculi Hyperglycemia Hyperlipemia Irritable bowel syndrome Lumbar and sacral spondyloarthritis Memory deficit Morbid obesity PATRICIA on CPAP Rib fracture Thyroid nodule Surgical History H/O ventral hernia repair Hx of bilateral oophorectomy Hx of breast biopsy Hx of section Hx of colonoscopy Hx of esophagogastroduodenoscopy Family History Family History Mother No problems noted. Father No problems noted. Social History Social History Household Members Other:: , unemployed, 2 children () Housing: House Alcohol intake: current Alcohol intake frequency: holidays/special occasions only Alcohol type: beer Patient Tobacco Use Status: Never used Tobacco e-Cigarette/Vaping Use: Never Used Second Hand Smoke Exposure: No Advance Directives: No Advance Directives Information Provided: No service: No Current occupational status: unemployed Cognitive needs: No Hearing needs: No Vision needs: Yes Physical Exam ED Vital Signs: Vital Signs - 24 hr 03/15/22 07:40 03/15/22 09:46 03/15/22 10:01 Temperature 100.7 F H 100.4 F Pulse Rate 107 H 101 H Respiratory Rate 22 H 20 Blood Pressure 161/62 H 136/68 Pulse Oximetry 95 88 L Oxygen Delivery Method Room Air Room Air 03/15/22 11:52 03/15/22 12:00 03/15/22 14:53 Temperature 98.6 F 100.2 F Pulse Rate 92 93 Respiratory Rate 24 H 18 20 Blood Pressure 134/67 158/74 H Pulse Oximetry 93 92 Oxygen Delivery Method Room Air Room Air BMI result Body Mass Index 42.2 Appearance: Alert.?Oriented to person, place and time. No acute distress.?Normal affect. Eyes: Pupils equal, round and reactive to light.? EOMI. No nystagmus ENT: Pharynx normal.??TM normal bilaterally Neck: Normal inspection.? Neck supple.??No neck stiffness CVS: Heart sounds normal. Normal heart rate and rhythm.? Pulses normal.?? Respiratory: No respiratory distress.? Lung sounds clear to auscultation bilaterally?? Abdomen: Soft and non-tender. Normoactive bowel sounds. No pulsatile mass. No CVA tenderness?? Skin: Skin warm and dry.? Skin appears pale.? Extremities: No lower extremity edema.? No calf ttp? Neuro: Moves all extremities spontaneously. Sensation intact bilaterally. CN II- XII intact. No focal neuro deficits. Course Course Course Narrative: Patient is a 51-year-old female with a past medical history of obstructive sleep apnea, asthma, history of breast cancer status post lumpectomy on the left and radiation, history of sepsis, hypertension, aortic stenosis, GERD, history of renal calculi, IBS, hyperlipidemia who presents emergency department today for evaluation of fever, headache, body aches. At the time of examination she appears fatigued, pale. She is hypertensive, febrile, tachycardic, tachypneic, without hypoxia. No meningismus, no neck pain or neck stiffness, low suspicion for meningitis. Abdominal examination is benign. Will obtain CBC to evaluate for leukocytosis/ anemia, CMP and lipase to evaluate for abnormal electrolytes /abnormal renal function/ abnormal hepatic/biliary function, EKG and troponin to evaluate for ischemia/ACS. Chest x-ray to evaluate for consolidation/ infiltrate/ mass/ pulmonary congestion and Urinalysis. Patient meeting SIRS criteria, will obtain blood cultures x2, lactic acid, given recent COVID-19 infection, suspect respiratory etiology, although she has had a history of reported urosepsis, will cover with ceftriaxone at this time, and give 1 L normal saline IV fluid. Reevaluation(s) Reevaluation #1: Received report from nursing staff that patient noted to become hypoxic at rest on room air with O2 saturation down to 88%, patient expressing shortness of breath when this was noted. COVID-19 and influenza testing are negative. CBC without leukocytosis, or anemia. CMP is overall unremarkable, there is mildly elevated AST and ALT which is consistent with prior labs. Lactic acid within normal limits 1.2. Troponin 6.5, EKG reveals normal sinus rhythm, without acute ischemic findings. Urinalysis with moderate pyuria, urine bacteria seen as well there is additionally squamous epithelial cells present which may be consistent with urogenital contamination however given her expressed concerns of hematuria and urinary urgency would consider treatment for urinary tract infection and follow culture. Has no CVA tenderness, no abdominal pain, low suspicion for pyelonephritis. Chest x-ray without acute cardiopulmonary process, no pleural effusions or consolidation. Given hypoxia, tachycardia, and tachypnea will obtain CT angio of the chest to exclude pulmonary embolism given recent COVID-19 infection, as well as to further evaluate for potential pneumonia Time: 11:45 Reevaluation #2: CT angio of the chest without acute pulmonary findings, no evidence of pulmonary embolism. Incidental noting of diffuse hepatic steatosis. Discussed the signs patient at this time. Will attempt ambulation trial, to evaluate for hypoxia significant tachycardia or tachypnea. Time: 14:04 Reevaluation #3: Upon ambulation trial, patient with O2 saturation down to 88% at the lowest while on room air, at that time had expressed feeling lightheaded and short of breath. Spoke with hospitalist Service, patient accepted for admission to medicine, Ellen MURRELL, for acute hypoxic respiratory failure with sepsis, and urinary tract infection. Patient understands plan of care and is agreeable. Time: 14:24 Medications Administered Discontinued Medications Generic Name Dose Route Start Last Admin Trade Name Freq PRN Reason Stop Dose Admin Acetaminophen 975 mg 03/15/22 10:05 03/15/22 10:26 Acetaminophen 325 Mg Tablet PO 03/15/22 10:06 975 mg ONCE ONE Administration Diphenhydramine HCl 25 mg 03/15/22 14:36 03/15/22 14:49 Diphenhydramine Hcl 50 Mg/Ml Vial IVPUSH 03/15/22 14:37 25 mg ONCE ONE Administration Ceftriaxone Sodium 1 gm/ 50 mls @ 100 mls/hr 03/15/22 09:26 03/15/22 10:26 Sodium Chloride IV 03/15/22 09:55 Infused ONCE ONE Infusion Sodium Chloride 1,000 mls @ 999 mls/hr 03/15/22 09:30 03/15/22 12:30 Ns IV 03/15/22 10:30 Infused .Q1H1M DIANNA Infusion Ibuprofen 600 mg 03/15/22 07:49 03/15/22 07:52 Ibuprofen 600 Mg Tablet PO 03/15/22 07:50 600 mg ONCE ONE Administration Iohexol 100 ml 03/15/22 12:11 03/15/22 12:11 Iohexol 350 Mg/Ml 100 Ml Infus..Btl IV 03/15/22 12:12 65 ml ONCE ONE Administration Ketorolac Tromethamine 15 mg 03/15/22 14:36 03/15/22 14:49 Ketorolac Tromethamine 15 Mg/Ml Vial IVPUSH 03/15/22 14:37 15 mg ONCE ONE Administration Metoclopramide HCl 10 mg 03/15/22 14:36 03/15/22 14:49 Metoclopramide Hcl 10 Mg/2 Ml Vial IVPUSH 03/15/22 14:37 10 mg ONCE ONE Administration Ondansetron HCl 4 mg 03/15/22 09:35 03/15/22 09:42 Ondansetron Hcl 4 Mg/2 Ml Vial IVPUSH 03/15/22 09:36 4 mg ONCE ONE Administration Medical Decision Making Medical Records Medical records reviewed: Yes I reviewed the patient's medical records. Lab Data Lab results reviewed: Yes I reviewed the patient's lab results. Result diagrams: 03/15/22 07:56 03/15/22 07:56 Labs: Lab Results 03/15/22 03/15/22 03/15/22 Range/Units 07:56 07:56 07:56 WBC 7.8 (4.8-10.8) X10*3/uL RBC 3.89 L (4.20-5.50) X10*6/uL Hgb 12.3 (12.0-16.0) g/dl Hct 36.1 L (37.0-47.0) % MCV 92.8 (80.0-98.0) fL MCH 31.6 (27.0-33.0) pg MCHC 34.1 (31.0-35.0) g/dl RDW 12.8 (11.0-16.0) % Plt Count 163 (160-400) X10*3/uL MPV 8.7 L (9.4-12.3) fL Immature Gran % (Auto) 0.3 (0.0-0.4) % Neut % (Auto) 74.5 H (45-73) % Lymph % (Auto) 16.6 L (20-40) % [place] % (Auto) 8.0 (2-11) % Eos % (Auto) 0.1 (0-4) % Baso % (Auto) 0.5 (0-2) % Lymph # (Auto) 1.3 (1.2-4.9) X10*3/uL [place] # (Auto) 0.6 (0.1-1.2) X10*3/uL Eos # (Auto) 0.0 (0.0-0.4) X10*3/uL Baso # (Auto) 0.0 (0.0-0.2) X10*3/uL Abs Immat Gran (auto) 0.02 (0.00-0.03) X10*3/uL Absolute Neuts (auto) 5.8 (2.0-8.3) x10*3/uL Absolute Nucleated RBC 0.000 (0.0-0.012) X10*3/uL Nucleated RBC % (auto) 0.0 (0.0-0.2) /100WBC Sodium 138 (135-145) mmol/L Potassium 4.0 (3.3-5.1) mmol/L Chloride 99 (96-108) mmol/L Carbon Dioxide 25 (22-29) mmol/L Anion Gap 18 (12-20) BUN 11 (9-16) mg/dL Creatinine 0.68 (0.5-1.4) mg/dL Estim Creat Clear Calc 100.4 Estimated GFR > 60 Random Glucose 139 H (60-115) mg/dL Lactic Acid (0.5-2.0) mmol/L Calcium 9.5 (8.4-10.2) mg/dL Total Bilirubin 0.3 (0.0-1.0) mg/dL Direct Bilirubin < 0.2 (0.0-0.5) mg/dL AST 34 H (5-31) U/L ALT 41 H (0-31) U/L Alkaline Phosphatase 74 (39-117) U/L Troponin I High Sens 6.5 D (<3.5-17.0) ng/L B-Natriuretic Peptide 18 (<100) pg/mL Total Protein 7.2 (6.5-8.0) g/dL Albumin 4.2 (3.5-5.0) g/dL Lipase 13 (8-78) U/L Urine Color Urine Appearance Urine pH (5.0-9.0) Ur Specific [place] (1.005-1.025) Urine Protein (Neg-Trace) mg/dL Urine Glucose (UA) (Negative) mg/dL Urine Ketones (Negative) mg/dL Urine Blood (Negative) Urine Nitrite (Negative) Ur Leukocyte Esterase (Negative) Urine RBC (0-2) /HPF Urine WBC (0-5) /HPF Ur Squamous Epith Cells (0-2) /HPF Urine Bacteria (None Seen) Hyaline Casts (0-2) /LPF COVID-19 (MANA) (Negative) COVID-19 Clin Com Influenza Type A (CONNIE) (Negative) Influenza Type B (CONNIE) (Negative) Influenza A & B Note 03/15/22 03/15/22 03/15/22 Range/Units 07:56 07:56 09:03 WBC (4.8-10.8) X10*3/uL RBC (4.20-5.50) X10*6/uL Hgb (12.0-16.0) g/dl Hct (37.0-47.0) % MCV (80.0-98.0) fL MCH (27.0-33.0) pg MCHC (31.0-35.0) g/dl RDW (11.0-16.0) % Plt Count (160-400) X10*3/uL MPV (9.4-12.3) fL Immature Gran % (Auto) (0.0-0.4) % Neut % (Auto) (45-73) % Lymph % (Auto) (20-40) % [place] % (Auto) (2-11) % Eos % (Auto) (0-4) % Baso % (Auto) (0-2) % Lymph # (Auto) (1.2-4.9) X10*3/uL [place] # (Auto) (0.1-1.2) X10*3/uL Eos # (Auto) (0.0-0.4) X10*3/uL Baso # (Auto) (0.0-0.2) X10*3/uL Abs Immat Gran (auto) (0.00-0.03) X10*3/uL Absolute Neuts (auto) (2.0-8.3) x10*3/uL Absolute Nucleated RBC (0.0-0.012) X10*3/uL Nucleated RBC % (auto) (0.0-0.2) /100WBC Sodium (135-145) mmol/L Potassium (3.3-5.1) mmol/L Chloride (96-108) mmol/L Carbon Dioxide (22-29) mmol/L Anion Gap (12-20) BUN (9-16) mg/dL Creatinine (0.5-1.4) mg/dL Estim Creat Clear Calc Estimated GFR Random Glucose (60-115) mg/dL Lactic Acid 1.2 (0.5-2.0) mmol/L Calcium (8.4-10.2) mg/dL Total Bilirubin (0.0-1.0) mg/dL Direct Bilirubin (0.0-0.5) mg/dL AST (5-31) U/L ALT (0-31) U/L Alkaline Phosphatase (39-117) U/L Troponin I High Sens (<3.5-17.0) ng/L B-Natriuretic Peptide (<100) pg/mL Total Protein (6.5-8.0) g/dL Albumin (3.5-5.0) g/dL Lipase (8-78) U/L Urine Color Urine Appearance Urine pH (5.0-9.0) Ur Specific [place] (1.005-1.025) Urine Protein (Neg-Trace) mg/dL Urine Glucose (UA) (Negative) mg/dL Urine Ketones (Negative) mg/dL Urine Blood (Negative) Urine Nitrite (Negative) Ur Leukocyte Esterase (Negative) Urine RBC (0-2) /HPF Urine WBC (0-5) /HPF Ur Squamous Epith Cells (0-2) /HPF Urine Bacteria (None Seen) Hyaline Casts (0-2) /LPF COVID-19 (MANA) Negative (Negative) COVID-19 Clin Com See Note Influenza Type A (CONNIE) Negative (Negative) Influenza Type B (CONNIE) Negative (Negative) Influenza A & B Note See Note 03/15/22 Range/Units 10:01 WBC (4.8-10.8) X10*3/uL RBC (4.20-5.50) X10*6/uL Hgb (12.0-16.0) g/dl Hct (37.0-47.0) % MCV (80.0-98.0) fL MCH (27.0-33.0) pg MCHC (31.0-35.0) g/dl RDW (11.0-16.0) % Plt Count (160-400) X10*3/uL MPV (9.4-12.3) fL Immature Gran % (Auto) (0.0-0.4) % Neut % (Auto) (45-73) % Lymph % (Auto) (20-40) % [place] % (Auto) (2-11) % Eos % (Auto) (0-4) % Baso % (Auto) (0-2) % Lymph # (Auto) (1.2-4.9) X10*3/uL [place] # (Auto) (0.1-1.2) X10*3/uL Eos # (Auto) (0.0-0.4) X10*3/uL Baso # (Auto) (0.0-0.2) X10*3/uL Abs Immat Gran (auto) (0.00-0.03) X10*3/uL Absolute Neuts (auto) (2.0-8.3) x10*3/uL Absolute Nucleated RBC (0.0-0.012) X10*3/uL Nucleated RBC % (auto) (0.0-0.2) /100WBC Sodium (135-145) mmol/L Potassium (3.3-5.1) mmol/L Chloride (96-108) mmol/L Carbon Dioxide (22-29) mmol/L Anion Gap (12-20) BUN (9-16) mg/dL Creatinine (0.5-1.4) mg/dL Estim Creat Clear Calc Estimated GFR Random Glucose (60-115) mg/dL Lactic Acid (0.5-2.0) mmol/L Calcium (8.4-10.2) mg/dL Total Bilirubin (0.0-1.0) mg/dL Direct Bilirubin (0.0-0.5) mg/dL AST (5-31) U/L ALT (0-31) U/L Alkaline Phosphatase (39-117) U/L Troponin I High Sens (<3.5-17.0) ng/L B-Natriuretic Peptide (<100) pg/mL Total Protein (6.5-8.0) g/dL Albumin (3.5-5.0) g/dL Lipase (8-78) U/L Urine Color Yellow Urine Appearance Clear Urine pH 6.0 (5.0-9.0) Ur Specific [place] 1.020 (1.005-1.025) Urine Protein Trace (Neg-Trace) mg/dL Urine Glucose (UA) Negative (Negative) mg/dL Urine Ketones Negative (Negative) mg/dL Urine Blood Small (1+) H (Negative) Urine Nitrite Negative (Negative) Ur Leukocyte Esterase Moderate (2+) H (Negative) Urine RBC 11-20 H (0-2) /HPF Urine WBC 21-50 H (0-5) /HPF Ur Squamous Epith Cells 3-5 (0-2) /HPF Urine Bacteria 3+ (None Seen) Hyaline Casts 0-2 (0-2) /LPF COVID-19 (MANA) (Negative) COVID-19 Clin Com Influenza Type A (CONNIE) (Negative) Influenza Type B (CONNIE) (Negative) Influenza A & B Note Imaging Data Chest x-ray: Radiologist's impression: XR/XR chest 2V IMPRESSION: No acute pulmonary pathology. CT scan - chest: Radiologist's impression: CT/CT angio chest PE protocol IMPRESSION: *? No acute pulmonary findings. No evidence of pulmonary embolism. *? Diffuse hepatic steatosis. ECG Data Attestation: I personally reviewed and interpreted this ECG as follows: Prior ECG tracings: available for review Interpretation: Rate: 99 Rhythm:? Normal sinus rhythm [place]:? Normal Normal P waves.? Normal AYSHA.?? Normal QRS complex.?? ST T wave :??No ST elevation, no ST depression, no T-wave inversions qTC: 449 prior studies:? August 2021 The study has been interpreted contemporaneously by me. Discharge Plan Discharge Clinical Impression: Acute and chronic respiratory failure with hypoxia, Urinary tract infection Patient Disposition: Admitted As Inpatient
[2022-03-15 09:24] LABS: Lactic Acid 1.2 mmol/L (0.5-2.0)
[2022-03-15 09:35] LABS: Alanine Aminotransferase 41 U/L (0-31); Albumin Level 4.2 g/dL (3.5-5.0); Aspartate Amino Transferase 34 U/L (5-31); Bilirubin Total 0.3 mg/dL (0.0-1.0); Total Protein 7.2 g/dL (6.5-8.0)
[2022-03-15 09:36] LABS: Alkaline Phosphatase 74 U/L (39-117); Lipase 13 U/L (8-78)
[2022-03-15] MEDS: cefTRIAXone sodium 1 GM in 0.9 % Sodium Chloride 50 ML IV (09:41)
[2022-03-15] MEDS: 0.9 % Sodium Chloride 1,000 ML 999 ML IV (09:42)
[2022-03-15] MEDS: ondansetron HCL 4 MG/2 ML VIAL IVPUSH ×2 (09:42→20:40)
[2022-03-15 09:45] LABS: Bilirubin Direct < 0.2 mg/dL (0.0-0.5)
[2022-03-15 09:47] LABS: Troponin-I High Sensitivity 6.5 ng/L (<3.5-17.0)
--- NOTE | 2022-03-15 10:09 | PC.NURSE ---
Pt oxygen between 88-93% at rest. Now on nasal cannula at 2L at 95-96%.
[2022-03-15 10:22] LABS: Appearance Urine Clear; Color Urine Yellow; Glucose Urine UA Negative (Negative); Leukocyte Esterase Urine Moderate (2+) (Negative); Nitrite Urine Negative (Negative); UMIC TRIGGER UACC YES; Urine Blood Small (1+) (Negative); Urine Ketones Negative (Negative); Urine Protein Trace mg/dL (Neg-Trace)
[2022-03-15] MEDS: Acetaminophen 325 MG TABLET 975 MG PO (10:26)
[2022-03-15 10:28] LABS: Bacteria Urine 3+ (None Seen); Hyaline Casts Urine 0-2 /LPF (0-2); UACC Culture Trigger YES; WBC Urine 21-50 /HPF (0-5)
[2022-03-15] MEDS: iohexoL 350 MG/ML 100 ML INFUS..BTL IV (12:11)
[2022-03-15 12:44] LABS: B Type Natriuretic Peptide 18 pg/mL (<100)
[2022-03-15] MEDS: diphenhydrAMINE HCL 50 MG/ML VIAL 25 MG IVPUSH (14:49)
[2022-03-15] MEDS: Ketorolac Tromethamine 15 MG/ML VIAL IVPUSH (14:49)
[2022-03-15] MEDS: Metoclopramide HCl 10 MG/2 ML VIAL IVPUSH (14:49)
--- NOTE | 2022-03-15 14:53 | PC.NURSE ---
Pt continues to complain of 10 out of 10 head pain, medicated per the MAR.
--- NOTE | 2022-03-15 15:06 | PM.IMHP ---
History of Present Illness Date of Service: 03/15/22 Chief Complaint: SOB 51-year-old woman presented to the ER with complaints of worsening shortness of breath especially with dyspnea and dry cough. She reported some discomfort to her chest as well especially when she coughs and feels like she can not take a deep enough breath. She reported fever, chills, nausea. Denied vomiting, diarrhea, sick contacts, recent travel. She was diagnosed with COVID-19 approximately 1 month ago at the same time had the same symptoms. Today she was tested for COVID in fluid for both negative. She also had a CT which was negative for PE or consolidation. She did have some noted low oxygen saturation in the high 80s she was placed on oxygen with good effect. Urinalysis was also noted to be positive, blood cultures pending. The ER she received a dose of ibuprofen, Rocephin, normal saline, Zofran, Tylenol, Toradol, Reglan, Benadryl. She will be admitted for further management and treatment of acute hypoxic respiratory failure with sepsis secondary to UTI Review of Systems Review of Systems: Denies any recent fever chills or decrease in appetite respiratory See HPI cardiovascular Denies chest pain gastrointestinal denies any dysphagia abdominal pain nausea vomiting or diarrhea genitourinary denies any dysuria frequency or hematuria musculoskeletal denies any joint pain or swelling neuropsych denies any weakness or seizures all other systems reviewed are negative [facility] Medical History (Updated 03/15/22 @ 16:28 by Fatou Masters CNP) Anxiety Arthritis Asthma Cancer Chronic low back pain Depression GERD (gastroesophageal reflux disease) Heart murmur HTN (hypertension) Hx of renal calculi Hyperglycemia Hyperlipemia Irritable bowel syndrome Lumbar and sacral spondyloarthritis Memory deficit Morbid obesity PATRICIA on CPAP Rib fracture Thyroid nodule Family History Mother No problems noted. Father No problems noted. Surgical History H/O ventral hernia repair Hx of bilateral oophorectomy Hx of breast biopsy Hx of section Hx of colonoscopy Hx of esophagogastroduodenoscopy Social History Household Members Other:: , unemployed, 2 children () Housing: House Alcohol intake: current Alcohol intake frequency: holidays/special occasions only Alcohol type: beer Patient Tobacco Use Status: Never used Tobacco e-Cigarette/Vaping Use: Never Used Second Hand Smoke Exposure: No Advance Directives: No Advance Directives Information Provided: No service: No Current occupational status: unemployed Cognitive needs: No Hearing needs: No Vision needs: Yes Meds Allergies Allergy/AdvReac Type Severity Reaction Status Date / Time doxycycline [DOXYCYCLINE] Allergy Severe ESOPHAGITIS Verified 03/04/22 11:15 Sulfa (Sulfonamide Allergy Severe FACIAL Verified 03/04/22 11:15 Antibiotics) SWELLING codeine [Codeine] Allergy Intermediate RASH Verified 03/04/22 11:15 lisinopril [Lisinopril] Allergy Intermediate EXTREMITIES Verified 03/04/22 11:15 SWELLING benzonatate [BENZONATATE] Allergy Unknown ANAPHYLAXIS Verified 03/04/22 11:15 meperidine [Demerol] Allergy Unknown Rash Verified 03/04/22 11:15 losartan AdvReac Intermediate swelling Verified 03/04/22 11:15 of hands, Home Medications Medication Instructions Recorded Confirmed Last Taken Type docusate sodium 100 mg capsule 100 mg PO BID 02/14/20 03/15/22 03/14/22 History (Colace) albuterol sulfate 90 mcg/actuation 2 puff inhalation Q4H PRN Wheezing 11/19/20 03/15/22 03/14/22 History aerosol inhaler epinephrine 0.3 mg/0.3 mL 0.3 mg IM ONCE PRN Anaphylaxis 11/19/20 03/15/22 Unknown History injection, auto-injector cholecalciferol (vitamin D3) 125 125 mcg PO DAILY 03/15/22 03/15/22 03/14/22 History mcg (5,000 unit) tablet pregabalin 150 mg capsule 150 mg PO DAILY@2100 03/15/22 03/15/22 03/14/22 History trazodone 50 mg tablet 0.5 - 1 tab PO BEDTIME PRN insomnia 03/15/22 03/15/22 03/14/22 History Physical Exam Vital Signs and Narrative: Vital Signs: Last Vital Signs Temp 100.2 F 03/15/22 14:53 Pulse 93 03/15/22 12:00 Resp 20 03/15/22 14:53 BP 158/74 H 03/15/22 12:00 Pulse Ox 92 03/15/22 12:00 O2 Del Method 03/15/22 12:00 BMI result Body Mass Index 42.2 Appearing in no acute distress head is normocephalic atraumatic eyes pupils are PERRLA sclera is anicteric mouth throat mucous membranes are intact and moist neck is supple no lymphadenopathy, no JVD noted lung sounds are clear to auscultation heart regular rate rhythm, clear S1, S2 positive bowel sounds, abdomen is soft, nontender, obese neuro patient is alert x3, no focal deficits Results Labs CBC and Chem 7: 03/16/22 06:07 03/16/22 06:07 Labs: Laboratory Results - last 24 hr 03/15/22 03/15/22 03/15/22 07:56 07:56 07:56 MCV 92.8 MCH 31.6 MCHC 34.1 RDW 12.8 Plt Count 163 MPV 8.7 L Immature Gran % (Auto) 0.3 Neut % (Auto) 74.5 H Lymph % (Auto) 16.6 L [place] % (Auto) 8.0 Eos % (Auto) 0.1 Baso % (Auto) 0.5 Lymph # (Auto) 1.3 [place] # (Auto) 0.6 Eos # (Auto) 0.0 Baso # (Auto) 0.0 Abs Immat Gran (auto) 0.02 Absolute Neuts (auto) 5.8 Absolute Nucleated RBC 0.000 Nucleated RBC % (auto) 0.0 Anion Gap 18 Estim Creat Clear Calc 100.4 Estimated GFR > 60 Random Glucose 139 H Lactic Acid Calcium 9.5 Total Bilirubin 0.3 Direct Bilirubin < 0.2 AST 34 H ALT 41 H Alkaline Phosphatase 74 Troponin I High Sens 6.5 D B-Natriuretic Peptide 18 Total Protein 7.2 Albumin 4.2 Lipase 13 Urine Color Urine Appearance Urine pH Ur Specific [place] Urine Protein Urine Glucose (UA) Urine Ketones Urine Blood Urine Nitrite Ur Leukocyte Esterase Urine RBC Urine WBC Ur Squamous Epith Cells Urine Bacteria Hyaline Casts COVID-19 (MANA) COVID-19 Clin Com Influenza Type A (CONNIE) Influenza Type B (CONNIE) Influenza A & B Note 03/15/22 03/15/22 03/15/22 07:56 07:56 09:03 MCV MCH MCHC RDW Plt Count MPV Immature Gran % (Auto) Neut % (Auto) Lymph % (Auto) [place] % (Auto) Eos % (Auto) Baso % (Auto) Lymph # (Auto) [place] # (Auto) Eos # (Auto) Baso # (Auto) Abs Immat Gran (auto) Absolute Neuts (auto) Absolute Nucleated RBC Nucleated RBC % (auto) Anion Gap Estim Creat Clear Calc Estimated GFR Random Glucose Lactic Acid 1.2 Calcium Total Bilirubin Direct Bilirubin AST ALT Alkaline Phosphatase Troponin I High Sens B-Natriuretic Peptide Total Protein Albumin Lipase Urine Color Urine Appearance Urine pH Ur Specific [place] Urine Protein Urine Glucose (UA) Urine Ketones Urine Blood Urine Nitrite Ur Leukocyte Esterase Urine RBC Urine WBC Ur Squamous Epith Cells Urine Bacteria Hyaline Casts COVID-19 (MANA) Negative COVID-19 Clin Com See Note Influenza Type A (CONNIE) Negative Influenza Type B (CONNIE) Negative Influenza A & B Note See Note 03/15/22 10:01 MCV MCH MCHC RDW Plt Count MPV Immature Gran % (Auto) Neut % (Auto) Lymph % (Auto) [place] % (Auto) Eos % (Auto) Baso % (Auto) Lymph # (Auto) [place] # (Auto) Eos # (Auto) Baso # (Auto) Abs Immat Gran (auto) Absolute Neuts (auto) Absolute Nucleated RBC Nucleated RBC % (auto) Anion Gap Estim Creat Clear Calc Estimated GFR Random Glucose Lactic Acid Calcium Total Bilirubin Direct Bilirubin AST ALT Alkaline Phosphatase Troponin I High Sens B-Natriuretic Peptide Total Protein Albumin Lipase Urine Color Yellow Urine Appearance Clear Urine pH 6.0 Ur Specific [place] 1.020 Urine Protein Trace Urine Glucose (UA) Negative Urine Ketones Negative Urine Blood Small (1+) H Urine Nitrite Negative Ur Leukocyte Esterase Moderate (2+) H Urine RBC 11-20 H Urine WBC 21-50 H Ur Squamous Epith Cells 3-5 Urine Bacteria 3+ Hyaline Casts 0-2 COVID-19 (MANA) COVID-19 Clin Com Influenza Type A (CONNIE) Influenza Type B (CONNIE) Influenza A & B Note Imaging Radiologist's Impressions: Impressions Chest X-Ray 03/15/22 09:17 IMPRESSION: No acute pulmonary pathology. Chest CTA 03/15/22 12:15 IMPRESSION: * No acute pulmonary findings. No evidence of pulmonary embolism. * Diffuse hepatic steatosis. Assessment and Plan (1) Urinary tract infection: Status: Acute Plan 51-year-old woman admitted with acute respiratory failure and sepsis secondary to UTI Acute hypoxic respiratory failure unknown etiology at this time, possible viral cause Oxygen saturation in the high 80s especially with ambulation better with oxygen Chest CT negative for PE, consolidation no wheezing, negative COVID or flu Check respiratory pathogen panel for possible RSV or other viral illness Sepsis secondary to urinary tract infection Fever, tachycardia, tachypnea, normal lactic acid Continue Rocephin Follow urine culture chest discomfort worse with coughing seems pleuritic negative troponin check EKG Try NSAIDS PATRICIA Likely also has a degree of obesity hypoventilation syndrome May use CPAP at night Hypertension with elevated blood pressure readings Continue home medications Mental health Continue home medications Hyperlipidemia Continue statin Morbid obesity. BMI 42.2 Discussed importance of weight management as this may be contributing to worsening of other comorbidities DVT prophylaxis with Lovenox Attending Dr. Hughes Full code Patient likely requires 2 inpatient midnights in the hospital due to sepsis requiring IV antibiotics, hypoxia requiring oxygen and close monitoring Quality Stroke Does the patient have a stroke diagnosis?: No VTE Prior VTE?: No VTE Risk Level:: Medical - moderate - high VTE Device Contraindication: Treatment Not Indicated VTE Drug Contraindication: N/A - Med Ordered
--- NOTE | 2022-03-15 15:33 | PC.NURSE ---
hospitalist at bedside for evaluation
--- NOTE | 2022-03-15 16:36 | PHA.MEDREC ---
Pharmacy Consult ? Medication Reconciliation Pharmacy has completed the medication reconciliation. OF NOTE: patient has not started trazodone yet.
[2022-03-15] MEDS: 0.9 % Sodium Chloride Flush 3 ML SYRINGE IVFLUSH (17:34)
[2022-03-15] MEDS: Acetaminophen 325 MG TABLET 650 MG PO (20:40)
[2022-03-15] MEDS: Enoxaparin Sodium 40 MG/0.4 ML SYRINGE SUBCUT (20:40)
[2022-03-15] MEDS: Ketorolac Tromethamine 30 MG/ML VIAL IVPUSH (20:40)
[2022-03-15] MEDS: guaiFENesin LA 600 MG TAB.ER.12H PO (20:41)
--- NOTE | 2022-03-15 23:25 | PC.NURSE ---
Hospital bed provided for patient comfort. Patient using own CPAP from home. She is independent with it's use. Hospitalist Dr. Gonzalez aware and will write order for use. Patient states her back pain is improved once off the stretcher.
[2022-03-16] VITALS (7 sets, daily range): BP systolic 107–154; BP diastolic 39–73; PULSE 80–104; RESP 13–24; TEMP 36.9–39.1; O2SAT 91–94
[2022-03-16] MEDS: 0.9 % Sodium Chloride Flush 3 ML SYRINGE IVFLUSH ×4 (01:29→20:13)
[2022-03-16] MEDS: Ibuprofen 600 MG TABLET PO ×3 (02:42→20:11)
[2022-03-16] MEDS: Acetaminophen 325 MG TABLET 650 MG PO ×3 (02:43→17:16)
[2022-03-16] MEDS: traMADoL HCL 50 MG TABLET PO ×2 (04:45→18:16)
--- NOTE | 2022-03-16 05:44 | PC.NURSE ---
Patient up crying off/on during the night d/t intense throbbing headache, medicated (see MAR) several times with minimal effect. Patient was finally able to sleep after dose of tramadol. Patient also spiked a fever at TMAX 102. Ice packs provided at patient request and she applied them to her neck, back and groin. Hospitalist in to evaluate patient x2.
[2022-03-16 06:54] LABS: MANUAL DIFF FLAG NO
[2022-03-16 06:57] LABS: Basophils Percent Auto 0.3 % (0-2); Hematocrit 32.3 % (37.0-47.0); Imm Gran Abs Auto 0.05 X10*3/uL (0.00-0.03); Imm Gran Pct Auto 0.5 % (0.0-0.4); Lymphocytes Absolute Auto 1.8 X10*3/uL (1.2-4.9); Lymphocytes Percent Auto 18.3 % (20-40); Mean Corpuscular HGB Conc 34.1 g/dl (31.0-35.0); Mean Corpuscular Hemoglobin 31.4 pg (27.0-33.0); Mean Corpuscular Volume 92.3 fL (80.0-98.0); Mean Platelet Volume 9.3 fL (9.4-12.3); Monocytes Percent Auto 10.1 % (2-11); Neutrophils Percent Auto 70.8 % (45-73); Platelet Count 148 X10*3/uL (160-400); Red Cell Distribution Width 12.8 % (11.0-16.0); White Blood Count 9.9 X10*3/uL (4.8-10.8)
[2022-03-16 07:12] LABS: Anion Gap 17 (12-20); Blood Urea Nitrogen 11 mg/dL (9-16); Calcium 8.7 mg/dL (8.4-10.2); Carbon Dioxide 26 mmol/L (22-29); Chloride 100 mmol/L (96-108); Creatinine Clr Calc Pharmacy 110.1; Estimated Glomerular Filt Rate > 60; Glucose Random 124 mg/dL (60-115); Potassium 3.3 mmol/L (3.3-5.1); Sodium 140 mmol/L (135-145)
[2022-03-16] MEDS: cefTRIAXone sodium 1 GM in 0.9 % Sodium Chloride 50 ML IV (08:12)
[2022-03-16] MEDS: Docusate Sodium 100 MG CAPSULE PO ×2 (08:13→20:11)
[2022-03-16] MEDS: hydrALAZINE HCl 25 MG TABLET PO (08:13)
[2022-03-16] MEDS: Pravastatin Sodium 20 MG TABLET PO (08:13)
[2022-03-16] MEDS: amLODIPine Besylate 10 MG TABLET PO (08:13)
[2022-03-16] MEDS: guaiFENesin LA 600 MG TAB.ER.12H PO ×2 (08:13→20:11)
[2022-03-16] MEDS: Cholecalciferol (Vitamin D3) 25 MCG TABLET 125 MCG PO (08:15)
[2022-03-16] MEDS: Escitalopram Oxalate 10 MG TABLET PO (08:15)
[2022-03-16] MEDS: Triamterene/HCTZ 37.5/25 TABLET 1 TAB PO (08:22)
[2022-03-16 08:51] LABS: Adenovirus PCR Not Detected (Not Detect.); Bordetella parapertussis PCR Not Detected (Not Detect.); Bordetella pertussis PCR Not Detected (Not Detect.); Chlamydia pneumoniae PCR Not Detected (Not Detect.); Coronavirus 229E PCR Not Detected (Not Detect.); Coronavirus HKU1 PCR Not Detected (Not Detect.); Coronavirus NL63 PCR Not Detected (Not Detect.); Coronavirus OC43 PCR Not Detected (Not Detect.); Human metapneumovirus PCR Not Detected (Not Detect.); Influenza A PCR Not Detected (Not Detect.); Influenza B PCR Not Detected (Not Detect.); Mycoplasma pneumoniae PCR Not Detected (Not Detect.); Parainfluenza 1 PCR Not Detected (Not Detect.); Parainfluenza 2 PCR Not Detected (Not Detect.); Parainfluenza 3 PCR Not Detected (Not Detect.); Parainfluenza 4 PCR Not Detected (Not Detect.); RSV PCR Not Detected (Not Detect.); Rhino/Enterovirus PCR Not Detected (Not Detect.); SARS-CoV-2 PCR Not Detected (Not Detect.)
--- NOTE | 2022-03-16 11:04 | P.PNIM_ITS ---
Subjective Subjective Date of Service: 03/16/22 Interval History: f/u sepsis d/t UTI had a temp of 102 this morning, headache has chronic headache worst with fever Review of Systems +fever, so sob, no urinary symptoms Physical Exam Vital Signs: Vital Signs: Last Vital Signs Temp 98.5 F 03/16/22 07:29 Pulse 83 03/16/22 07:29 Resp 13 03/16/22 07:29 BP 130/56 L 03/16/22 07:29 Pulse Ox 94 03/16/22 07:29 O2 Del Method 03/16/22 07:29 BMI result Body Mass Index 42.2 Const: Other: General: AO X 3, no acute distress Resp: CTA bilateral CVS: S1,S2,RRR GI: +BS, NT, no distention Skin: No rash Neuro: motor grossly intact Psych: appropriate affect Objective Data Active Medications Acetaminophen (Acetaminophen 325 Mg Tablet) 650 mg PO Q6H PRN PRN Reason: Pain, Mild (Pain Scale 1-3) Last Admin: 03/16/22 08:55 Dose: 650 mg Documented By: JOHAN Albuterol Sulfate (Albuterol Sulfate 90 Mcg 8 Gm Inhaler) 2 puff INHALE Q4H PRN PRN Reason: Wheezing Amlodipine Besylate (Amlodipine Besylate 10 Mg Tablet) 10 mg PO DAILY REPLACED BY [facility]; Protocol Last Admin: 03/16/22 08:13 Dose: 10 mg Documented By: JOHAN Docusate Sodium (Docusate Sodium 100 Mg Capsule) 100 mg PO BID REPLACED BY [facility] Last Admin: 03/16/22 08:13 Dose: 100 mg Documented By: JOHAN Enoxaparin Sodium (Enoxaparin Sodium 40 Mg/0.4 Ml Syringe) 40 mg SUBCUT Q24H REPLACED BY [facility] Last Admin: 03/15/22 20:40 Dose: 40 mg Documented By: JAMES Escitalopram Oxalate (Escitalopram Oxalate 10 Mg Tablet) 10 mg PO DAILY REPLACED BY [facility] Last Admin: 03/16/22 08:15 Dose: 10 mg Documented By: JOHAN Guaifenesin (Guaifenesin La 600 Mg Tab.Er.12h) 600 mg PO BID REPLACED BY [facility] Last Admin: 03/16/22 08:13 Dose: 600 mg Documented By: JOHAN Hydralazine HCl (Hydralazine Hcl 25 Mg Tablet) 25 mg PO BID REPLACED BY [facility]; Protocol Last Admin: 03/16/22 08:13 Dose: 25 mg Documented By: JOHAN Ceftriaxone Sodium 1 gm/ (Sodium Chloride) 50 mls @ 100 mls/hr IV Q24H DIANNA Last Admin: 03/16/22 08:12 Dose: 100 mls/hr Documented By: JOHAN Ibuprofen (Ibuprofen 600 Mg Tablet) 600 mg PO Q8H PRN PRN Reason: pain Last Admin: 03/16/22 02:42 Dose: 600 mg Documented By: JAMES Lorazepam (Lorazepam 0.5 Mg Tablet) 0.5 mg PO BEDTIME PRN PRN Reason: Anxiety Montelukast Sodium (Montelukast Sodium 10 Mg Tablet) 10 mg PO BEDTIME DIANNA Ondansetron HCl (Ondansetron Hcl 4 Mg/2 Ml Vial) 4 mg IVPUSH Q8H PRN PRN Reason: Nausea and Vomiting Last Admin: 03/15/22 20:40 Dose: 4 mg Documented By: JAMES Pharmacy Consult (Consult Rx Perform Med Rec) 1 each MISCELLANE ONCE PRN PRN Reason: Consult order Pravastatin Sodium (Pravastatin Sodium 20 Mg Tablet) 20 mg PO DAILY REPLACED BY [facility] Last Admin: 03/16/22 08:13 Dose: 20 mg Documented By: JOHAN Pregabalin (Pregabalin 150 Mg Capsule) 150 mg PO DAILY@2100 REPLACED BY [facility] Sodium Chloride (0.9 % Sodium Chloride Flush 3 Ml Syringe) 3 ml IVFLUSH QSHIFT REPLACED BY [facility] Last Admin: 03/16/22 08:46 Dose: 3 ml Documented By: JOHAN Trazodone HCl (Trazodone Hcl 25 Mg Halftab) 25 mg PO BEDTIME PRN PRN Reason: insomnia Triamterene/Hydrochlorothiazide (Triamterene/Hctz 37.5/25 Tablet) 1 tab PO DAILY REPLACED BY [facility]; Protocol Last Admin: 03/16/22 08:22 Dose: 1 tab Documented By: JOHAN Vitamin D (Cholecalciferol (Vitamin D3) 25 Mcg Tablet) 125 mcg PO DAILY REPLACED BY [facility] Last Admin: 03/16/22 08:15 Dose: 125 mcg Documented By: JOHAN Labs CBC & Chem 7: 03/16/22 06:07 03/16/22 06:07 Labs: Laboratory Results - last 24 hr 11/08/22 11/08/22 11/09/22 07:56 20:26 06:07 MCV 92.3 MCH 31.4 MCHC 34.1 RDW 12.8 Plt Count 148 L MPV 9.3 L Immature Gran % (Auto) 0.5 H Neut % (Auto) 70.8 Lymph % (Auto) 18.3 L [place] % (Auto) 10.1 Eos % (Auto) 0.0 Baso % (Auto) 0.3 Lymph # (Auto) 1.8 [place] # (Auto) 1.0 Eos # (Auto) 0.0 Baso # (Auto) 0.0 Abs Immat Gran (auto) 0.05 H Absolute Neuts (auto) 7.0 Absolute Nucleated RBC 0.000 Nucleated RBC % (auto) 0.0 Anion Gap Estim Creat Clear Calc Estimated GFR Random Glucose Calcium B-Natriuretic Peptide 18 Respiratory Panel [place] See Note Adenovirus (Rapid PCR) Not Detected B.pert (TEM-PCR) Not Detected B.parapertussis DNA PCR Not Detected C. pneumoniae DNA (PCR) Not Detected Coronavirus OC43 (PCR) Not Detected Coronavirus HKU1 (PCR) Not Detected Coronavirus 229E (PCR) Not Detected Coronavirus NL63 (PCR) Not Detected Human Metapneumovir PCR Not Detected Influenza A (RT-PCR) Not Detected Influenza B (RT-PCR) Not Detected M. pneumoniae (PCR) Not Detected Parainfluenza 1 (PCR) Not Detected Parainfluenza 2 (PCR) Not Detected Parainfluenza 3 (PCR) Not Detected Parainfluenza 4 (PCR) Not Detected RSV (PCR) Not Detected Entero/Rhino (PCR) Not Detected SARS-CoV-2 RNA (RT-PCR) Not Detected 03/16/22 06:07 MCV MCH MCHC RDW Plt Count MPV Immature Gran % (Auto) Neut % (Auto) Lymph % (Auto) [place] % (Auto) Eos % (Auto) Baso % (Auto) Lymph # (Auto) [place] # (Auto) Eos # (Auto) Baso # (Auto) Abs Immat Gran (auto) Absolute Neuts (auto) Absolute Nucleated RBC Nucleated RBC % (auto) Anion Gap 17 Estim Creat Clear Calc 110.1 Estimated GFR > 60 Random Glucose 124 H Calcium 8.7 D B-Natriuretic Peptide Respiratory Panel [place] Adenovirus (Rapid PCR) B.pert (TEM-PCR) B.parapertussis DNA PCR C. pneumoniae DNA (PCR) Coronavirus OC43 (PCR) Coronavirus HKU1 (PCR) Coronavirus 229E (PCR) Coronavirus NL63 (PCR) Human Metapneumovir PCR Influenza A (RT-PCR) Influenza B (RT-PCR) M. pneumoniae (PCR) Parainfluenza 1 (PCR) Parainfluenza 2 (PCR) Parainfluenza 3 (PCR) Parainfluenza 4 (PCR) RSV (PCR) Entero/Rhino (PCR) SARS-CoV-2 RNA (RT-PCR) Assessment and Plan (1) Urinary tract infection: Status: Acute (2) Sepsis: Status: Acute Plan 51-year-old woman admitted with acute respiratory failure and sepsis secondary to UTI Acute hypoxic respiratory failure, unclear cause, CXR nl, CTA negative for PE, negative respiratory panel ? hypoventilation vs viral proces, O2 PRN and wean Sepsis secondary to urinary tract infection Fever, tachycardia, tachypnea, normal lactic acid Continue Rocephin D2 Follow urine and blood culture chest discomfort worse with coughing seems pleuritic negative troponin check EKG Try NSAIDS PATRICIA Likely also has a degree of obesity hypoventilation syndrome May use CPAP at night Hypertension with elevated blood pressure readings Continue home medications Mental health Continue home medications Hyperlipidemia Continue statin Morbid obesity. BMI 42.2 Discussed importance of weight management as this may be contributing to worsening of other comorbidities Headache--APAP, ultram or motrin DVT prophylaxis with Lovenox Attending Dr. Hughes Full code Patient likely requires 2 inpatient midnights in the hospital due to sepsis requiring IV antibiotics, hypoxia requiring oxygen and close monitoring Quality Stroke Does the patient have a stroke diagnosis?: No VTE Prior VTE?: No VTE Risk Level:: Medical - moderate - high VTE Device Contraindication: Treatment Not Indicated VTE Drug Contraindication: N/A - Med Ordered
--- NOTE | 2022-03-16 11:40 | MHC.CM.PN ---
Attempted to meet with patient in regards to discharge planning. Patient not in room. No family present. Will attempt to meet again. Continue to monitor for d/c needs.
[2022-03-16] MEDS: ondansetron HCL 4 MG/2 ML VIAL IVPUSH (16:30)
[2022-03-16] MEDS: Enoxaparin Sodium 40 MG/0.4 ML SYRINGE SUBCUT (17:18)
[2022-03-16] MEDS: Pregabalin 150 MG CAPSULE PO (20:11)
[2022-03-16] MEDS: Montelukast Sodium 10 MG TABLET PO (20:11)
[2022-03-17] VITALS: BP 138/75; PULSE 75; RESP 16; TEMP 37; O2SAT 96
[2022-03-17 03:43] VITALS: BP 109/55; PULSE 96; RESP 16; TEMP 37.1; O2SAT 95
[2022-03-17] MEDS: traMADoL HCL 50 MG TABLET PO (04:12)
[2022-03-17] MEDS: polyethylene glycoL 3350 17 GM POWD.PACK PO (06:48)
[2022-03-17 07:43] VITALS: BP 131/63; PULSE 82; RESP 18; TEMP 36.6; O2SAT 92
--- NOTE | 2022-03-17 09:36 | MHC.CM.PN ---
Patient reports that she came [place] [facility] [place] C/O SOB, body aches and pains as well as a headache x 4 days. She lives with her and Son. She is independent with all functional mobility. She uses a CPAP at night. A HCP was documented and paced on the chart. She has received 3 covid vaccinations. DP home no services. Patients will provide transportation home at discharge.
[2022-03-17] MEDS: Escitalopram Oxalate 10 MG TABLET PO (09:51)
[2022-03-17] MEDS: Pravastatin Sodium 20 MG TABLET PO (09:51)
[2022-03-17] MEDS: Cholecalciferol (Vitamin D3) 25 MCG TABLET 125 MCG PO (09:51)
[2022-03-17] MEDS: Triamterene/HCTZ 37.5/25 TABLET 1 TAB PO (09:51)
[2022-03-17] MEDS: amLODIPine Besylate 10 MG TABLET PO (09:51)
[2022-03-17] MEDS: Docusate Sodium 100 MG CAPSULE PO (09:52)
[2022-03-17] MEDS: Ibuprofen 600 MG TABLET PO (09:52)
[2022-03-17] MEDS: hydrALAZINE HCl 25 MG TABLET PO (09:52)
[2022-03-17] MEDS: guaiFENesin LA 600 MG TAB.ER.12H PO (09:52)
[2022-03-17] MEDS: 0.9 % Sodium Chloride Flush 3 ML SYRINGE IVFLUSH ×2 (09:55→15:45)
[2022-03-17 11:17] VITALS: BP 136/72; PULSE 86; RESP 18; TEMP 37.1; O2SAT 89
[2022-03-17] MEDS: cefTRIAXone sodium 1 GM in 0.9 % Sodium Chloride 50 ML IV (11:17)
[2022-03-17] MEDS: Loratadine 10 MG TABLET PO (11:17)
--- NOTE | 2022-03-17 11:54 | MHC.CM.PN ---
Addendum entered by Beatris Spencer 03/17/22 15:18: Patient is discharged today to home selfcare. She will follow up out patient with Dr Lewis. She will discharge with PO ABX for UTI. Patient has arranged for family transport home. Original Note: Per MD rounds Patient may discharge today. AB Infectious disease consult is ordered. She will receive the consult prior to discharge.
--- NOTE | 2022-03-17 13:16 | HO.PM.IMPN ---
Subjective Subjective Date of Service: 03/17/22 Interval History: Seen for follow up on UTI and hypoxia Interval history: Reports constant occipital/bilateral parietal headache pulsing in nature ongoing since admission with associated blurred vision, photophobia, and intermittent nausea. States only thing that has helped headache was migraine cocktail in ED (torodol, reglan, and benadryl). Ibuprofen, tramadol, tylenol not helping. No history migraine headaches. Also still has FARIAS described as breathlessness. No sob at rest. Has been ongoing since COVID 19 dx one month ago. Complaining of fungal rash of abdominal pannus. Has history cutaneous candidiasis in this location. No associated lightheadedness, palps, or chest pain. No diplopia, weakness, paresthesias. Review of Systems Review of Systems: Yes all other systems are reviewed and are negative Physical Exam Vital Signs: Vital Signs: Last Vital Signs Temp 98.7 F 03/17/22 11:17 Pulse 86 03/17/22 11:17 Resp 18 03/17/22 11:17 BP 136/72 03/17/22 11:17 Pulse Ox 89 L 03/17/22 11:17 O2 Del Method 03/17/22 11:17 BMI result Body Mass Index 42.2 Constitutional - Awake and Alert, No apparent distress Eyes - PERRLA, EOMI Cardiovascular - S1S2, RRR, No edema Respiratory - Normal lung expansion, Normal respiratory effort, No respiratory distress, CTA bilaterally Gastrointestinal - NT / ND; +BS; No rebound or guarding Extremities - no calf tenderness bilaterally, no swelling Musculoskeletal - Normal inspection, normal ROM Skin - Warm/Dry. Beefy red patches coalesced under the abdominal pannus. No warmth, fluctuance, purulence Neurological - Alert & oriented x3, CN II-XII in tact, 5/5 strength BUE and BLE Psychological - Appropriate affect Objective Data Active Medications Acetaminophen (Acetaminophen 325 Mg Tablet) 650 mg PO Q6H PRN PRN Reason: Pain, Mild (Pain Scale 1-3) Last Admin: 03/16/22 17:16 Dose: 650 mg Documented By: YUKI Albuterol Sulfate (Albuterol Sulfate 90 Mcg 8 Gm Inhaler) 2 puff INHALE Q4H PRN PRN Reason: Wheezing Amlodipine Besylate (Amlodipine Besylate 10 Mg Tablet) 10 mg PO DAILY DIANNA; Protocol Last Admin: 03/17/22 09:51 Dose: 10 mg Documented By: LINDA Docusate Sodium (Docusate Sodium 100 Mg Capsule) 100 mg PO BID [facility] Last Admin: 03/17/22 09:52 Dose: 100 mg Documented By: LINDA Enoxaparin Sodium (Enoxaparin Sodium 40 Mg/0.4 Ml Syringe) 40 mg SUBCUT Q24H [facility] Last Admin: 03/16/22 17:18 Dose: 40 mg Documented By: YUKI Escitalopram Oxalate (Escitalopram Oxalate 10 Mg Tablet) 10 mg PO DAILY [facility] Last Admin: 03/17/22 09:51 Dose: 10 mg Documented By: LINDA Guaifenesin (Guaifenesin La 600 Mg Tab.Er.12h) 600 mg PO BID [facility] Last Admin: 03/17/22 09:52 Dose: 600 mg Documented By: LINDA Hydralazine HCl (Hydralazine Hcl 25 Mg Tablet) 25 mg PO BID [facility]; Protocol Last Admin: 03/17/22 09:52 Dose: 25 mg Documented By: LINDA Ceftriaxone Sodium 1 gm/ (Sodium Chloride) 50 mls @ 100 mls/hr IV Q24H [facility] Last Infusion: 03/17/22 12:02 Dose: 0 mls/hr Documented By: LINDA Ibuprofen (Ibuprofen 600 Mg Tablet) 600 mg PO Q8H PRN PRN Reason: pain Last Admin: 03/17/22 09:52 Dose: 600 mg Documented By: LINDA Loratadine (Loratadine 10 Mg Tablet) 10 mg PO DAILY [facility] Last Admin: 03/17/22 11:17 Dose: 10 mg Documented By: LINDA Lorazepam (Lorazepam 0.5 Mg Tablet) 0.5 mg PO BEDTIME PRN PRN Reason: Anxiety Montelukast Sodium (Montelukast Sodium 10 Mg Tablet) 10 mg PO BEDTIME [facility] Last Admin: 03/16/22 20:11 Dose: 10 mg Documented By: YUKI Nystatin (Nystatin Powder 15 Gm Bottle) 1 appl TOPICAL TID [facility]; Protocol Ondansetron HCl (Ondansetron Hcl 4 Mg/2 Ml Vial) 4 mg IVPUSH Q8H PRN PRN Reason: Nausea and Vomiting Last Admin: 03/16/22 16:30 Dose: 4 mg Documented By: JACQUELYN Pharmacy Consult (Consult Rx Perform Med Rec) 1 each MISCELLANE ONCE PRN PRN Reason: Consult order Pravastatin Sodium (Pravastatin Sodium 20 Mg Tablet) 20 mg PO DAILY [facility] Last Admin: 03/17/22 09:51 Dose: 20 mg Documented By: LINDA Pregabalin (Pregabalin 150 Mg Capsule) 150 mg PO DAILY@2100 [facility] Last Admin: 03/16/22 20:11 Dose: 150 mg Documented By: YUKI Sodium Chloride (0.9 % Sodium Chloride Flush 3 Ml Syringe) 3 ml IVFLUSH QSHIFT [facility] Last Admin: 03/17/22 09:55 Dose: 3 ml Documented By: LINDA Sumatriptan Succinate (Sumatriptan Succinate 50 Mg Tablet) 50 mg PO DAILY MRX1 PRN PRN Reason: Migraine Headache Tramadol HCl (Tramadol Hcl 50 Mg Tablet) 50 mg PO Q6H PRN PRN Reason: Headache Last Admin: 03/17/22 04:12 Dose: 50 mg Documented By: LAURAORRShon Trazodone HCl (Trazodone Hcl 25 Mg Halftab) 25 mg PO BEDTIME PRN PRN Reason: insomnia Triamterene/Hydrochlorothiazide (Triamterene/Hctz 37.5/25 Tablet) 1 tab PO DAILY [facility]; Protocol Last Admin: 03/17/22 09:51 Dose: 1 tab Documented By: LINDA Vitamin D (Cholecalciferol (Vitamin D3) 25 Mcg Tablet) 125 mcg PO DAILY [facility] Last Admin: 03/17/22 09:51 Dose: 125 mcg Documented By: LINDA Labs CBC & Chem 7: 03/16/22 06:07 03/16/22 06:07 Microbiology Microbiology Results: Microbiology 03/15/22 09:39 Blood Culture - Preliminary Blood - Venous No growth after 48 hours. 03/15/22 09:03 Blood Culture - Preliminary Blood - Venous No growth after 48 hours. 03/15/22 00:00 Urine Culture - Final Urine clean catch - Urine harding top Proteus mirabilis Assessment and Plan (1) Urinary tract infection: Status: Acute (2) Sepsis: Status: Acute Plan 51-year-old woman admitted with acute respiratory failure and sepsis secondary to UTI Acute hypoxic respiratory failure, unclear cause, CXR nl, CTA negative for PE, negative respiratory panel ? hypoventilation vs viral proces, O2 PRN and wean Sepsis secondary to urinary tract infection - resolved Fever, tachycardia, tachypnea, normal lactic acid Urine culture growing proteus sensitive to ceftriaxone Continue Rocephin D3. Acute hypxemic respiratory failure- most likely post COVID dyspnea complicated by obesity related hypoventilation syndrome CXR and CTA chest unremarkable except for bibasilar atelectasis Resp panel negative Ambulated patient during exam with oximetry 90-95% Migraine headache Sumatriptan Intertriginous candidiasis Nystatin powder chest discomfort- resolved worse with coughing seems pleuritic negative troponin check EKG Try NSAIDS PATRICIA Likely also has a degree of obesity hypoventilation syndrome May use CPAP at night Hypertension with elevated blood pressure readings Continue home medications Mental health Continue home medications Hyperlipidemia Continue statin Morbid obesity. BMI 42.2 Discussed importance of weight management as this may be contributing to worsening of other comorbidities Headache--APAP, ultram or motrin DVT prophylaxis with Lovenox Attending Dr. Hughes Full code Reason for continued inpatient stay: UTI with sepsis on IV abx and hypoxia Quality Stroke Does the patient have a stroke diagnosis?: No VTE Prior VTE?: No VTE Risk Level:: Medical - moderate - high VTE Device Contraindication: Treatment Not Indicated VTE Drug Contraindication: N/A - Med Ordered
--- NOTE | 2022-03-17 14:13 | PM.DS ---
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 She reported some discomfort to her chest as well especially when she coughs and feels like she can not take a deep enough breath.? She reported fever, chills, nausea.? Denied vomiting, diarrhea, sick contacts, recent travel.? She was diagnosed with COVID-19 approximately 1 month ago at the same time had the same symptoms.? Today she was tested for COVID in fluid for both negative.? She also had a CT which was negative for PE or consolidation.? She did have some noted low oxygen saturation in the high 80s she was placed on oxygen with good effect.? Urinalysis was also noted to be positive, blood cultures pending.? The ER she received a dose of ibuprofen, Rocephin, normal saline, Zofran, Tylenol, Toradol, Reglan, Benadryl.? She will be admitted for further management and treatment of acute hypoxic respiratory failure with sepsis secondary to UTI Hospital course: Patient admitted for acute hypoxic respiratory failure with URI complaints ongoing since COVID-19 diagnosis one month ago. CTA chest negative, CXR with bibasilar . Patient placed on 2L O2 via NC. Oximetry intermittently dropping to 88%, especially when ambulating. HYpoxia improved with oximetry 90-95% with ambulation today. There was no evidence of focal consolidation and patient was respiratory viral panel was negative. She needs to follow up with pulmonology outpatient for further assessment and management of suspected post-covid dyspnea complicated by obesity hypoventilation syndrome. She was indidentally found to have UTI with UC growing proteus sensitive to ceftriaxone, received 3 doses. pt with migraine headache during admission treated with ketorolac, reglan, and benagryl initially and sumatriptan which she will be discharged with. Discharging with ceftin 250mg BID x 4 days to complete 7 day treatment. Follow up with Dr. Grey in pulmonology and PCP in 1 week. Time spent discussing smoking cessation with patient: more than 10 minutes Time Spent with Patient Time attestation: Total time spent providing and/or coordinating discharge services: Discharge coordination time: Greater than 30 minutes Quality: Safe Use of Opioids Does Pt have an Active Cancer Diagnosis on the Problem List?: No Quality: Stroke Does the patient have a stroke diagnosis?: No Physical Exam Vital Signs: Vital Signs: Last Vital Signs Temp 98.7 F 03/17/22 11:17 Pulse 86 03/17/22 11:17 Resp 18 03/17/22 11:17 BP 136/72 03/17/22 11:17 Pulse Ox 89 L 03/17/22 11:17 O2 Del Method 03/17/22 11:17 BMI result Body Mass Index 42.2 Constitutional - Awake and Alert, No apparent distress Eyes - PERRLA, EOMI Cardiovascular - S1S2, RRR, No edema Respiratory - Normal lung expansion, Normal respiratory effort, No respiratory distress, CTA bilaterally Gastrointestinal - NT / ND; +BS; No rebound or guarding Extremities - no calf tenderness bilaterally, no swelling Musculoskeletal - Normal inspection, normal ROM Skin - Warm/Dry. Beefy red patches coalesced under the abdominal pannus. No warmth, fluctuance, purulence Neurological - Alert & oriented x3, CN II-XII in tact, 5/5 strength BUE and BLE Psychological - Appropriate affect DS: Data Data Completed and Pending Labs on day of discharge: Preliminary micro results at discharge 03/15/22 09:39 Blood Culture - Preliminary Blood - Venous No growth after 48 hours. 03/15/22 09:03 Blood Culture - Preliminary Blood - Venous No growth after 48 hours. Discharge Plan Discharge Anticipated Discharge Date/Time: 03/17/22 13:58 Patient Disposition: Home, Self-Care Discharge Diagnosis: UTI with sepsis, post COVID dyspnea Referrals: Mia North MD [Primary Care Provider] - 1 Week Discharge Medications: New cefuroxime axetil 250 mg tablet 250 mg PO BID Qty: 8 0RF sumatriptan succinate 50 mg tablet 50 mg PO Q2-4H PRN (Reason: migraine headache) Qty: 10 0RF Rx Instructions: do not exceed 4 doses per 24 hrs nystatin 100,000 unit/gram powder 1 appl topical TID 7 Days Qty: 15 0RF Continued amlodipine 10 mg tablet 10 mg PO DAILY Qty: 90 3RF montelukast [Singulair] 10 mg tablet 10 mg PO BEDTIME Qty: 90 3RF pravastatin 20 mg tablet 20 mg PO DAILY Qty: 90 3RF triamterene-hydrochlorothiazid 37.5-25 mg capsule 1 cap PO DAILY Qty: 90 0RF hydralazine 25 mg tablet 25 mg PO BID Qty: 180 1RF citalopram 20 mg tablet 20 mg PO DAILY Qty: 90 3RF docusate sodium [Colace] 100 mg Capsule 100 mg PO BID trazodone 50 mg tablet 0.5 - 1 tab PO BEDTIME PRN (Reason: insomnia) pregabalin 150 mg Capsule 150 mg PO DAILY@2100 cholecalciferol (vitamin D3) 125 mcg (5,000 unit) Tablet 125 mcg PO DAILY cetirizine [Zyrtec] 10 mg Tablet 10 mg PO DAILY lorazepam 0.5 mg tablet 0.5 mg PO BEDTIME PRN (Reason: Anxiety) Qty: 30 0RF albuterol sulfate 90 mcg/actuation HFA aerosol inhaler 2 puff inhalation Q4H PRN (Reason: Wheezing) epinephrine 0.3 mg/0.3 mL auto-injector 0.3 mg IM ONCE PRN (Reason: Anaphylaxis) Discharge Orders: Discharge Order (Routine); Ordered 03/17/22 Ordered By: Amy Paige Diet: Regular diet Activity on Discharge: As tolerated Stand Alone Forms: Patient Portal Discharge page Care Plan Goals: Resolve UTI Improve shortness of breath with exertion Health Concerns: UTI Sepsis- resolved Post COVID dyspnea/hypoxia with obesity hypoventilation syndrome Morbid obesity Intertriginous candidiasis (fungal infection) Plan of Treatment: UTI- continue oral cefuroxime twice daily x5 days without missing doses to complete treatment of UTI Post COVID dyspnea/hypoxia with exertion with probable underlying hypoventilation syndrome related to obesity- follow up with DR. grey outpatient for further assessment and management and possible pulmonary function testing Morbid obesity- work with PCP on weight loss plan with decreased caloric intake with rich sources of lean protein and lower intake of processed foods and carbohydrates. Increase exercise Intertriginous candidiasis (fungal infection)- use nystatin 3 times daily x 1 week and as needed Follow up with PCP in 1 week. Assessment: You were admitted to the hospital due to UTI with sepsis. Sepsis is the immune's system response to severe infection that causes injury to the body's tissues and organs as a result of the response. You were given 3 doses of cetriaxone which is an IV antibiotic, to treat your UTI with good effect. Your fever broke and vital signs normalized. You should continue cefuroxime for the next 4 days to complete treatment for the UTI. You did have intermittent episodes of hypoxia, low oxygen levels, while exerting yourself. This is likely related to post-COVID syndrome with obesity hypoventilation syndrome as discussed. Your should follow up with Dr. Grey and your PCP. Patient Instructions: Cefuroxime (By mouth), Nystatin (On the skin), Sumatriptan (By mouth)
[2022-03-17] MEDS: SUMAtriptan succinate 50 MG TABLET PO ×2 (14:22→16:13)
[2022-03-17] MEDS: Nystatin Powder 15 GM BOTTLE 1 APPL TOPICAL (14:29)
[2022-03-17 15:18] VITALS: BP 126/59; PULSE 73; RESP 18; TEMP 36.7; O2SAT 93
[2022-03-17 16:59] VITALS: BP 145/70; PULSE 75; RESP 20; O2SAT 97
== END 2022-03-17 17:44 | disposition home or self-care (01) | DRG 690 ==
LOC: HO.ED 10:03 → HO.EDOVER 16:14 → HO.IMC 03-16 15:38
PROVIDERS: Nurse Practitioner Family; Admitting Provider Nurse Practitioner Acute Care; Emergency Provider Emergency Medicine Emergency Medical Services; PCP Internal Medicine; Visit Provider Internal Medicine
DX: N39.0 Urinary tract infection, site not specified (principal); E66.2 Morbid (severe) obesity with alveolar hypoventilation; Z68.41 Body mass index [BMI] 40.0-44.9, adult; R31.9 Hematuria, unspecified; Z20.822 Contact with and (suspected) exposure to COVID-19; R06.00 Dyspnea, unspecified; G43.909 Migraine, unspecified, not intractable, without status migrainosus; I10 Essential (primary) hypertension; B37.2 Candidiasis of skin and nail; U09.9 Post COVID-19 condition, unspecified; B96.4 Proteus (mirabilis) (morganii) as the cause of diseases classified elsewhere; Z92.3 Personal history of irradiation; Z85.3 Personal history of malignant neoplasm of breast; Z87.892 Personal history of anaphylaxis; Z88.1 Allergy status to other antibiotic agents; Z88.2 Allergy status to sulfonamides; Z88.8 Allergy status to other drugs, medicaments and biological substances; Z79.899 Other long term (current) drug therapy
CPT/HCPCS: 36415; 71046; 71275; 80048; 80076; 81001; 83605; 83690; 83880; 84484; 85025; 87040; 87086; 87088; 87186; 87502; 87633; 87635; 93005; 99285; J0696; J1200; J1650; J1885; J2405; J2765; Q9967

== ENCOUNTER 2022-03-22 09:03 | Outpatient (REF) | payer OTHER, SELFPAY ==
[2022-03-22 10:46] LABS: Estimated Average Glucose 131 mg/dL; Hemoglobin A1c % 6.2 %
[2022-03-22 11:43] LABS: Alanine Aminotransferase 67 U/L (0-31); Albumin Level 4.4 g/dL (3.5-5.0); Alkaline Phosphatase 83 U/L (39-117); Anion Gap 18 (12-20); Aspartate Amino Transferase 52 U/L (5-31); Bilirubin Total 0.3 mg/dL (0.0-1.0); Blood Urea Nitrogen 11 mg/dL (9-16); Calcium 9.8 mg/dL (8.4-10.2); Carbon Dioxide 25 mmol/L (22-29); Chloride 103 mmol/L (96-108); Cholesterol 144 mg/dL; Estimated Glomerular Filt Rate > 60; Glucose Fasting 110 mg/dL (60-99); HDL Cholesterol 27 mg/dL; LDL Cholesterol Calculated 75 mg/dl; Potassium 4.6 mmol/L (3.3-5.1); Sodium 141 mmol/L (135-145); TSH reflex Free T4 2.67 uIU/mL (0.32-4.0); Total Protein 7.6 g/dL (6.5-8.0); Triglycerides 211 mg/dL
== END 2022-03-22 09:04 | disposition home or self-care (01) ==
LOC: HO.LAB 09:03
PROVIDERS: PCP Internal Medicine; Visit Provider Internal Medicine
DX: Z00.00 Encounter for general adult medical examination without abnormal findings (principal); R73.9 Hyperglycemia, unspecified; E78.5 Hyperlipidemia, unspecified
CPT/HCPCS: 36415; 80053; 80061; 83036; 84443

== ENCOUNTER 2022-03-25 17:00 | Outpatient (REF) | payer OTHER, SELFPAY | END 2022-03-25 17:01 | disposition home or self-care (01) | LOC: HO.LNP 17:00 | PROVIDERS: Visit Provider Internal Medicine | DX: N39.0 Urinary tract infection, site not specified (principal) | CPT/HCPCS: 87086 ==

== ENCOUNTER → 2022-04-08 14:42 | Outpatient (REF) | payer OTHER, SELFPAY ==
--- NOTE | 2022-04-08 14:44 | CA_ITS ---
Transthoracic Echocardiogram Patient (Last, First, Middle): Roma Cortez M Gender: Female Date of : 1970 Age: 51 Procedure Date: 04/08/2022 Procedure Type: Transthoracic Echocardiogram Location: OP Height: 154.94 cm Weight: 115.21 kg BSA: 2.09 m2 Heart Rate: 72 bpm BP: 165 / [address] Attendant: THOMAS Referring MD: Mia North MD Symptoms: I35.0 - Nonrheumatic aortic (valve) stenosis Study Quality: Good ECG Rhythm: Sinus Conclusions: - Normal left ventricular size and systolic function. There is mildly increased left ventricular wall thickness. The visually estimated ejection fraction is between 55-60%. - Normal right ventricular cavity size and systolic function. - There is no aortic valve stenosis. - There is mild dilatation of the ascending aorta measuring 3.40 cm. Findings Left Ventricle Normal left ventricular size and systolic function. There is mildly increased left ventricular wall thickness. The visually estimated ejection fraction is between 55-60%. There is no evidence of regional wall motion abnormalities. Diastolic function is normal for age. Right Ventricle Normal right ventricular cavity size and systolic function. Atria The left atrium is likely dilated. The right atrium is normal in size. Aortic Valve There is a normal trileaflet aortic valve. There is mild calcification of the aortic valve. There is no aortic valve stenosis. The peak aortic velocity is 1.83 m/s. The aortic valve area is 2.62 cm2. There is no aortic valve regurgitation. Mitral Valve The mitral valve appears normal. There is no mitral valve regurgitation. There is no mitral valve stenosis. Pulmonic Valve The pulmonic valve is likely normal. Tricuspid Valve Normal tricuspid valve structure. There is no tricuspid valve regurgitation. Tricuspid regurgitation envelope is inadequate for calculation of right ventricular systolic pressure. Normal right atrial pressure. Great Vessels There is mild dilatation of the ascending aorta measuring 3.40 cm. The visualized portions of the pulmonary artery and branches are normal. Venous The inferior vena cava is normal in size and collapses greater than 50% with inspiration. Pericardium/Pleural There is no evidence of pericardial effusion. Prior Study Comparison Changes noted compared to prior study dated: 10/13/2020. No significant . Mild dilation of ascending aorta. Measurements 2D Linear Measurements IVSd: 1.30 0.6-0.9/0.6-1.0 cm LVIDd: 4.23 3.9-5.3/4.2-5.9 cm LVIDd Index: 2.02 2.4-3.2/2.2-3.1 cm/m2 LVIDs: 2.93 2.0-3.6 cm LVPWd: 1.19 0.7-1.1 cm LA Diam: 4.00 2.7-3.8/3.0-4.0 cm LAIDs Index: 1.91 1.5-2.3 cm/m2 LV Mass: 236.89 67-162/88-224 g LV Mass Index: 113.34 43-95/49-115 g/m2 LVOT Diam: 2.10 3.0+(-)1.3 cm 2D Systolic Function EF 4C: 56.30 >55% EF 2C: 59.60 >55% EF BiP: 57.60 >55% Mitral Valve MV Pk E: 0.90 MV PK A: 1.05 MV Decel Time: 226.00 E/A: 0.90 E'Lateral: 7.18 E'Medial: 7.29 E/E' Med: 12.30 E/E' Lat: 12.50 PHT: 66.00 MVA PHT: 3.33 Decel [place]: 3.97 Aortic Valve AoV Pk Sagar: 1.83 AoV Mn Asgar: 1.31 AoV VTI: 0.41 AoV Pk Grad: 13.00 Aov Mn Grad: 8.00 HEIDY Cont.VTI: 2.62 LVOT LVOT Pk Sagar: 1.40 LVOT Mn Sagar: 0.99 LVOT VTI: 0.31 LVOT Pk Grad: 8.00 LVOT Mn Grad: 4.00 LVOT Diam: 2.10 LVOT Area: 3.46 Diastolic Function MV Pk E: 0.90 MV Pk A: 1.05 E/A: 0.90 E'Medial: 7.29 E/E' Med: 12.30 E' Laterial: 7.18 E/E' Lat: 12.50 Right Ventricle TAPSE (mm): 29.50 TVS' Sagar: 12.40 Tricuspid Valve RA Press: 3.00 Great Vessels Aorta Sinus of Valsalva: 3.10 2.0-3.5 cm Ao Asc: 3.40 2.1-3.4 cm Pulmonary Valve PV Pk Sagar: 1.09 Peak PV Grad: 5.00 Updated in Other Vendor System with Status of Final Howard Mcguire MD electronically signed on 04/10/2022 6:25:41 PM with status of Final
== END ==
LOC: HO.CARD 14:42
PROVIDERS: PCP Internal Medicine; Visit Provider Internal Medicine
DX: I35.0 Nonrheumatic aortic (valve) stenosis (principal)
CPT/HCPCS: 93306

== ENCOUNTER 2022-05-10 15:52 | Outpatient (REF) | payer OTHER, SELFPAY ==
--- NOTE | 2022-05-10 17:40 | PFT_ITS ---
INDICATION: Dyspnea. SPIROMETRY: FEV1 to FVC 86% with an FEV1 of 2.76 L, which is 115% predicted; an FVC of 3.23 L, which is 105% predicted. No significant response to bronchodilators noted. Maximum voluntary ventilation 112% predicted. LUNG VOLUMES: Total lung capacity 106% predicted. DIFFUSION CAPACITY: DLCO 128% predicted. Flow volume loop is completely normal. COMPARISONS: None. INTERPRETATION: No obstructive nor restrictive ventilatory defects identified. No significant response to bronchodilators noted. Normal maximum voluntary ventilation. Lung volumes are normal except for decrease in the expiratory reserve volume secondary to an elevated BMI. The patient also has elevated diffusion capacity, which is reassuring, although need to also consider exogenous exposure to carbon monoxide. Please check home carbon monoxide alarms and also make sure there is not any secondary smoking exposure. Clinical correlation warranted. MD MARCO ANTONIO Deleon/MAGDALENA / [phone]
== END 2022-05-10 15:53 | disposition home or self-care (01) ==
LOC: HO.RESP 15:52
PROVIDERS: PCP Internal Medicine; Visit Provider Internal Medicine
DX: J96.21 Acute and chronic respiratory failure with hypoxia (principal); J45.909 Unspecified asthma, uncomplicated; G47.33 Obstructive sleep apnea (adult) (pediatric); E66.01 Morbid (severe) obesity due to excess calories
CPT/HCPCS: 94060; 94727; 94729

== ENCOUNTER 2022-05-11 06:06 | Outpatient (REF) | payer OTHER, SELFPAY ==
--- NOTE | ~2022-05-11 | FL_ITS ---
EXAMINATION: XR FLUOROSCOPY WITH IMAGES CLINICAL INFORMATION: Spondylosis without myelopathy or radiculopathy COMPARISON: None. TECHNIQUE: Fluoroscopy Supervised By: Nolvia. Fluoroscopy Time: 0.3. Cumulative Dose: 32.2 mGy. DAP: 2.29 Gycm2. Images: 2. FINDINGS: There are needles overlying the L4-L5 and L5-S1 right facet joints. Visualized L4-L5 vertebral heights and intervening disc heights are normal. FL/FL guidance in treatment room IMPRESSION: Fluoroscopy was provided to referrer for pain management.
== END 2022-05-11 06:07 | disposition home or self-care (01) ==
LOC: CF 06:06
PROVIDERS: Visit Provider Internal Medicine
DX: M47.817 Spondylosis without myelopathy or radiculopathy, lumbosacral region (principal)
CPT/HCPCS: 64493; 64494; J1020; J1040; J3301

== ENCOUNTER → 2022-06-21 09:20 | Outpatient (BNVA) | payer OTHER, SELFPAY | PROVIDERS: PCP Internal Medicine; Visit Provider Internal Medicine | DX: Z13.89 Encounter for screening for other disorder (principal) ==

== ENCOUNTER → 2022-07-01 08:44 | Outpatient (BNVA) | payer OTHER, SELFPAY | PROVIDERS: PCP Internal Medicine; Visit Provider Internal Medicine | DX: Z13.89 Encounter for screening for other disorder (principal) ==

== ENCOUNTER 2022-07-22 14:54 | Outpatient (REF) | payer OTHER, SELFPAY ==
--- NOTE | ~2022-07-22 | US_ITS ---
EXAMINATION: US SOFT TISSUE NECK CLINICAL INFORMATION: Localized swelling, mass and lump back of the neck. COMPARISON: None available. TECHNIQUE: Ultrasound imaging through the back of neck was performed FINDINGS: Imaging through the back of the right neck reveals no evidence of mass or lump or cyst. US/US soft tiss head and/or neck IMPRESSION: Imaging through the right posterior neck reveals no focal mass or lesion.
== END 2022-07-22 14:55 | disposition home or self-care (01) ==
LOC: HO.HMGCX 14:54
PROVIDERS: Visit Provider Nurse Practitioner Family
DX: R22.1 Localized swelling, mass and lump, neck (principal)
CPT/HCPCS: 76536

== ENCOUNTER 2022-09-22 14:11 | Outpatient (REF) | payer OTHER, SELFPAY ==
--- NOTE | ~2022-09-22 | US_ITS ---
EXAMINATION: Ultrasound extremity nonvascular CLINICAL INFORMATION: swelling mass or lump left upper arm COMPARISON: None. TECHNIQUE: Grayscale and color evaluation of the soft tissues of the left upper arm FINDINGS: There is a subcutaneous oval shaped isoechoic to hyperechoic mass measuring 4 x 1.5 x 3 cm. This appears avascular. Ultrasound appearance is suggestive of a lipoma. US/US extremity nonvascular IMPRESSION: Left upper arm lipoma.
== END 2022-09-22 14:12 | disposition home or self-care (01) ==
LOC: HO.US 14:11
PROVIDERS: PCP Internal Medicine; Visit Provider Internal Medicine
DX: R22.32 Localized swelling, mass and lump, left upper limb (principal)
CPT/HCPCS: 76882

== ENCOUNTER 2022-10-12 12:39 | Outpatient (REF) | payer OTHER, SELFPAY ==
--- NOTE | ~2022-10-12 | US_ITS ---
EXAMINATION: US VENOUS WITH DOPPLER UPPER EXTREMITY, LEFT CLINICAL INFORMATION: Pain and swelling left upper extremity. Assess for occult DVT. COMPARISON: Nonvascular ultrasound left upper extremity 09/22/2022. TECHNIQUE: Ultrasound of the upper extremity is performed using compression sonography and color and pulse Doppler flow with assessment of augmentation of flow. There is also imaging and Doppler assessment of the jugular and subclavian veins. Spectral analysis with color-flow imaging is performed. FINDINGS: Respiratory variation, normal compression, and augmented flow are noted throughout the upper extremity including the axillary, brachial, cubital, and radial and ulnar veins. There is normal flow in the internal jugular and subclavian veins. There is no visible deep or superficial thrombophlebitis. US/US venous duplex UE LT IMPRESSION: No DVT demonstrated in the left upper extremity
== END 2022-10-12 12:40 | disposition home or self-care (01) ==
LOC: HO.US 12:39
PROVIDERS: PCP Internal Medicine; Visit Provider Physician Assistant
DX: R60.0 Localized edema (principal)
CPT/HCPCS: 93971

== ENCOUNTER 2022-12-12 08:49 | Emergency (ER) | payer OTHER, SELFPAY ==
--- NOTE | ~2022-12-12 | XR_ITS ---
EXAMINATION: XR CHEST CLINICAL INFORMATION: Chest pain. COMPARISON: 03/15/2022 chest radiographs. TECHNIQUE: 2 views of the chest were obtained. FINDINGS: The lungs are clear. There are no pleural effusions. The heart and mediastinal structures are unremarkable. Surgical clips overlie the left inferior chest. XR/XR chest 2V IMPRESSION: No acute cardiopulmonary process.
--- NOTE | 2022-12-12 08:50 | ECG_ITS ---
Test Reason : chest pain Blood Pressure : / mmHG Vent. Rate : 074 BPM Atrial Rate : 074 BPM P-R Int : 164 ms QRS Dur : 094 ms QT Int : 404 ms P-R-T Axes : 033 -07 057 degrees QTc Int : 448 ms Normal sinus rhythm Moderate voltage criteria for LVH, may be normal variant ( R in aVL , Nagi product ) Septal infarct , age undetermined Abnormal ECG When compared with ECG of 15-MAR-2022 17:29, Vent. rate has decreased BY 38 BPM Septal infarct is now Present Referred By: Generic ED Physician Electronically Signed By:Howard Mcguire
[2022-12-12 08:54] VITALS: BP 184/79; PULSE 73; RESP 16; TEMP 35.9; O2SAT 95; BMI 51.0
--- NOTE | 2022-12-12 09:03 | MHC.EDTECH ---
Labs collected and sent
[2022-12-12 09:04] LABS: MANUAL DIFF FLAG NO
[2022-12-12 09:05] LABS: Basophils Absolute Auto 0.1 X10*3/uL (0.0-0.2); Basophils Percent Auto 0.7 % (0-2); Eosinophils Absolute Auto 0.2 X10*3/uL (0.0-0.4); Hematocrit 38.3 % (37.0-47.0); Hemoglobin 13.1 g/dl (12.0-16.0); Imm Gran Abs Auto 0.04 X10*3/uL (0.00-0.03); Imm Gran Pct Auto 0.6 % (0.0-0.4); Lymphocytes Absolute Auto 2.4 X10*3/uL (1.2-4.9); Lymphocytes Percent Auto 34.5 % (20-40); Mean Corpuscular HGB Conc 34.2 g/dl (31.0-35.0); Mean Corpuscular Hemoglobin 31.4 pg (27.0-33.0); Mean Corpuscular Volume 91.8 fL (80.0-98.0); Mean Platelet Volume 8.8 fL (9.4-12.3); Monocytes Absolute Auto 0.5 X10*3/uL (0.1-1.2); Monocytes Percent Auto 6.8 % (2-11); Neutrophils Absolute Auto 3.7 x10*3/uL (2.0-8.3); Neutrophils Percent Auto 54.4 % (45-73); Platelet Count 204 X10*3/uL (160-400); Red Blood Count 4.17 X10*6/uL (4.20-5.50); Red Cell Distribution Width 12.2 % (11.0-16.0); White Blood Count 6.9 X10*3/uL (4.8-10.8)
[2022-12-12 09:27] LABS: Anion Gap 16 (12-20); Blood Urea Nitrogen 13 mg/dL (9-16); Calcium 9.8 mg/dL (8.4-10.2); Carbon Dioxide 24 mmol/L (22-29); Chloride 103 mmol/L (96-108); Creatinine Clr Calc Pharmacy 115.9; Estimated Glomerular Filt Rate > 60; Glucose Random 159 mg/dL (60-115); Potassium 3.8 mmol/L (3.3-5.1); Sodium 139 mmol/L (135-145)
[2022-12-12 09:33] LABS: Troponin-I High Sensitivity 3.3 ng/L (<3.5-17.0)
--- NOTE | 2022-12-12 10:56 | ED_ITS ---
HPI - Chest Pain General Chief Complaint: Chest Pain Stated Complaint: Chest pain Time Seen by Provider: 12/12/22 10:48 Source: patient Mode of arrival: ambulatory Limitations: no limitations History of Present Illness HPI narrative: Patient is a 52-year-old female with history of T2DM, aortic stenosis, PATRICIA treated with BiPAP, asthma, HTN, aortic valve stenosis, HLD presenting to the emergency department with midsternal chest pain radiating to left arm which began upon waking this morning. Reports her pain has been constant since that time, rate currently at 6/10. States she finished a course of cefdinir for a UTI, last dose was last night. Also reports epigastric abdominal pain. Denies nausea, vomiting, diarrhea, constipation. Denies fevers. Denies cough or shortness of breath. Denies lightheadedness/dizziness. Denies calf pain/swelling. MD complaint: chest pain Pertinent past history: asthma Onset (ago): hour(s) Timing of current episode: constant Onset: during rest Pain location: substernal and epigastric Pain radiation: left arm Severity: moderate Pain scale (0-10): 6 Relieving factors: nothing Exacerbating factors: palpation Context: new medications (just finished cefdinir) Treatment prior to arrival: none Related Data Home Medications Medication Instructions Recorded Confirmed docusate sodium 100 mg capsule 100 mg PO BID 02/14/20 07/14/22 (Colace) albuterol sulfate 90 mcg/actuation 2 puff inhalation Q4H PRN Wheezing 11/19/20 07/14/22 aerosol inhaler epinephrine 0.3 mg/0.3 mL 0.3 mg IM ONCE PRN Anaphylaxis 11/19/20 07/14/22 injection, auto-injector cholecalciferol (vitamin D3) 125 125 mcg PO DAILY 03/15/22 07/14/22 mcg (5,000 unit) tablet pregabalin 150 mg capsule 150 mg PO DAILY@2100 03/15/22 07/14/22 cetirizine 10 mg tablet (Zyrtec) 10 mg PO DAILY 03/17/22 07/14/22 Previous Rx's Medication Instructions Recorded lorazepam 0.5 mg tablet 0.5 mg PO BEDTIME PRN Anxiety #30 10/08/20 tabs citalopram 20 mg tablet 20 mg PO DAILY #90 tabs 02/08/22 nystatin 100,000 unit/gram topical 1 appl topical TID 7 days #15 grams 03/17/22 powder sumatriptan succinate 50 mg tablet 50 mg PO Q2-4H PRN migraine 03/17/22 headache #10 tabs amlodipine 10 mg tablet 10 mg PO DAILY #90 tabs 03/18/22 montelukast 10 mg tablet 10 mg PO BEDTIME #90 tabs 05/17/22 (Singulair) pravastatin 20 mg tablet 20 mg PO DAILY #90 tabs 06/30/22 hydralazine 25 mg tablet 25 mg PO BID #180 tabs 08/12/22 triamcinolone acetonide 0.1 % 1 appl topical DAILY #80 grams 10/05/22 topical cream triamterene 37.5 1 cap PO DAILY #90 caps 10/10/22 mg-hydrochlorothiazide 25 mg capsule amoxicillin 875 mg-potassium 1 tab PO BID 10 days #20 tabs 10/12/22 clavulanate 125 mg tablet prednisone 20 mg tablet 40 mg PO DAILY 5 days #10 tabs 10/12/22 Allergies Allergy/AdvReac Type Severity Reaction Status Date / Time doxycycline [DOXYCYCLINE] Allergy Severe ESOPHAGITIS Verified 10/12/22 11:00 Sulfa (Sulfonamide Allergy Severe FACIAL Verified 10/12/22 11:00 Antibiotics) SWELLING codeine [Codeine] Allergy Intermediate RASH Verified 10/12/22 11:00 lisinopril [Lisinopril] Allergy Intermediate EXTREMITIES Verified 10/12/22 11:00 SWELLING benzonatate [BENZONATATE] Allergy Unknown ANAPHYLAXIS Verified 10/12/22 11:00 meperidine [Demerol] Allergy Unknown Rash Verified 10/12/22 11:00 dulaglutide [From Trulicity] AdvReac Intermediate itchy Verified 10/12/22 11:00 throat losartan AdvReac Intermediate swelling Verified 10/12/22 11:00 of hands, Review of Systems Review of Systems: As per HPI. Yes all other systems are reviewed and are negative Constitutional: Constitutional: Reports as per HPI COUNT INCLUDES THE [facility] Past Medical History Medical History Allergic rhinitis Anxiety Arthritis Asthma Cancer Chronic low back pain Depression GERD (gastroesophageal reflux disease) Heart murmur HTN (hypertension) Hx of renal calculi Hyperglycemia Hyperlipemia Irritable bowel syndrome Lumbar and sacral spondyloarthritis Memory deficit Morbid obesity Morbid obesity PATRICIA on CPAP PATRICIA treated with BiPAP Post covid-19 condition, unspecified Rib fracture Thyroid nodule Surgical History H/O ventral hernia repair Hx of bilateral oophorectomy Hx of breast biopsy Hx of section Hx of colonoscopy Hx of esophagogastroduodenoscopy Family History Family History Mother No problems noted. Father No problems noted. Social History Social History Household Members: Family Household Members Other:: , unemployed, 2 children () Housing: House Do you presently have visiting nurse or other home services: No Alcohol intake: current Alcohol intake frequency: holidays/special occasions only Alcohol type: beer Patient Tobacco Use Status: Never used Tobacco e-Cigarette/Vaping Use: Never Used Second Hand Smoke Exposure: No Advance Directives: Yes Advance Directives on File: Yes Advance Directives Date on File: 03/18/22 service: No Current occupational status: unemployed Cognitive needs: No Hearing needs: No Vision needs: Yes Physical Exam Vital Signs: Vital Signs: Last Vital Signs Temp 98.6 F 12/12/22 12:52 Pulse 72 12/12/22 12:52 Resp 16 12/12/22 12:52 BP 144/68 H 12/12/22 12:52 Pulse Ox 96 12/12/22 12:52 O2 Del Method Room Air 12/12/22 12:52 BMI result Body Mass Index 51.0 Vital signs have been reviewed and appear to be correct. Blood pressure elevated. Heart rate normal. Respiratory rate normal. Temperature normal. Oxygen saturation normal. Const: General: cooperative, healthy appearing and no acute distress Or ientation/consciousness: oriented to person, oriented to place, oriented to time and patient oriented x3 Limitations: no limitations HEENT: Head: Yes normocephalic and Yes atraumatic Ears: external ears normal General nose exam: Normal external nose present Face and sinus: Yes face symmetric Mouth: oropharynx normal and moist mucous membranes Throat: Yes uvula midline Eyes: Pupils: Equal, round and reactive pupils present Neck: Neck: Yes normal visual inspection and Yes supple Chest: Chest palpation & inspection: normal inspection of the chest and tenderness sternum Resp: Effort & Inspection: normal respiratory effort and able to speak in complete sentences Auscultation: clear to auscultation bilaterally Cardio: Rate: regular rate Rhythm: regular rhythm Heart sounds: S1 normal heart sound present and S2 normal heart sound present GI: Inspection: Yes normal to inspection Palpation (GI): Soft to palpation and Tenderness to palpation present (GI) in the epigastrum Auscultation: normoactive bowel sounds : General: Yes no CVA tenderness Back/Spine/Pelvis: Back: no CVA tenderness Skin: General skin exam: elasticity normal and turgor normal Neuro: General: oriented to person, oriented to place, oriented to time, patient oriented x3, moves all extremities, no focal motor deficits and CN's II- XI intact bilaterally Cranial nerves: Yes Equal, round and reactive pupils present Cognition (Neuro): normal cognition Extrem: General: Yes full ROM, Yes no pedal edema and Yes no calf tenderness Psych: Mental Status: mental status grossly normal Affect: normal affect Thought process: Normal thought process present Medical Decision Making Medical Decision Making MDM Narrative: Patient is a 52-year-old female with history of T2DM, aortic stenosis, PATRICIA treated with BiPAP, asthma, HTN, aortic valve stenosis, HLD presenting to the emergency department with midsternal chest pain radiating to left arm which began upon waking this morning. On exam patient is awake, A+Ox3, hypertensive, VS otherwise WNL, afebrile, normal neurological exam without focal deficits, RRR, LS CTA throughout, sternum and epigastrum tender to palpation. Given reported symptoms and physical exam findings, initial differential includes ACS, GERD, gastritis related to recent antibiotic use, pneumonia, pneumothorax. Do not suspect sepsis. Unlikely PE, Wells score 0. Unlikely aortic dissection, AAA rupture. 11:15 Labs notable for negative troponin, no leukocytosis, no electrolyte abnormalities. X-ray notable for no acute abnormalities. EKG normal sinus rhythm. HEART score of 4. My interpretation is in agreement with the radiologist's interpretation. Will obtain delta trop as symptoms less than 6 hours. 13:06 No delta on repeat troponin. Feel symptoms are likely related to gastritis as pain is reproducible with palpation, possibly related to recent antibiotics. Advised patient to begin using a probiotic for the next two weeks. Can also use OTC medications such as famotidine or Tums for symptoms. Instructed patient to follow up with PCP. Return precautions discussed at bedside. Patient and verbalized understanding of and agreement with plan. Differential Diagnosis Differential Diagnoses: The differential diagnosis associated with the presentation includes As per MDM. Admission/Observation Consideration of admission/observation: Escalation of care including admission/observation considered Lab Data [facility] Lab Attestation statement: I reviewed the patient's lab results. As per MDM. 12/12/22 09:01 12/12/22 09:01 Labs: Lab Results 12/12/22 12/12/22 12/12/22 Range/Units 09:01 09:01 09:01 WBC 6.9 (4.8-10.8) X10*3/uL RBC 4.17 L (4.20-5.50) X10*6/uL Hgb 13.1 (12.0-16.0) g/dl Hct 38.3 (37.0-47.0) % MCV 91.8 (80.0-98.0) fL MCH 31.4 (27.0-33.0) pg MCHC 34.2 (31.0-35.0) g/dl RDW 12.2 (11.0-16.0) % Plt Count 204 D (160-400) X10*3/uL MPV 8.8 L (9.4-12.3) fL Immature Gran % (Auto) 0.6 H (0.0-0.4) % Neut % (Auto) 54.4 (45-73) % Lymph % (Auto) 34.5 (20-40) % [place] % (Auto) 6.8 (2-11) % Eos % (Auto) 3.0 (0-4) % Baso % (Auto) 0.7 (0-2) % Lymph # (Auto) 2.4 (1.2-4.9) X10*3/uL [place] # (Auto) 0.5 (0.1-1.2) X10*3/uL Eos # (Auto) 0.2 (0.0-0.4) X10*3/uL Baso # (Auto) 0.1 (0.0-0.2) X10*3/uL Abs Immat Gran (auto) 0.04 H (0.00-0.03) X10*3/uL Absolute Neuts (auto) 3.7 (2.0-8.3) x10*3/uL Absolute Nucleated RBC 0.000 (0.0-0.012) X10*3/uL Nucleated RBC % (auto) 0.0 (0.0-0.2) /100WBC Sodium 139 (135-145) mmol/L Potassium 3.8 (3.3-5.1) mmol/L Chloride 103 (96-108) mmol/L Carbon Dioxide 24 (22-29) mmol/L Anion Gap 16 (12-20) BUN 13 (9-16) mg/dL Creatinine 0.68 (0.5-1.4) mg/dL Estim Creat Clear Calc 115.9 Estimated GFR > 60 Random Glucose 159 H (60-115) mg/dL Calcium 9.8 (8.4-10.2) mg/dL Troponin I High Sens 3.3 (<3.5-17.0) ng/L 12/12/22 Range/Units 12:30 WBC (4.8-10.8) X10*3/uL RBC (4.20-5.50) X10*6/uL Hgb (12.0-16.0) g/dl Hct (37.0-47.0) % MCV (80.0-98.0) fL MCH (27.0-33.0) pg MCHC (31.0-35.0) g/dl RDW (11.0-16.0) % Plt Count (160-400) X10*3/uL MPV (9.4-12.3) fL Immature Gran % (Auto) (0.0-0.4) % Neut % (Auto) (45-73) % Lymph % (Auto) (20-40) % [place] % (Auto) (2-11) % Eos % (Auto) (0-4) % Baso % (Auto) (0-2) % Lymph # (Auto) (1.2-4.9) X10*3/uL [place] # (Auto) (0.1-1.2) X10*3/uL Eos # (Auto) (0.0-0.4) X10*3/uL Baso # (Auto) (0.0-0.2) X10*3/uL Abs Immat Gran (auto) (0.00-0.03) X10*3/uL Absolute Neuts (auto) (2.0-8.3) x10*3/uL Absolute Nucleated RBC (0.0-0.012) X10*3/uL Nucleated RBC % (auto) (0.0-0.2) /100WBC Sodium (135-145) mmol/L Potassium (3.3-5.1) mmol/L Chloride (96-108) mmol/L Carbon Dioxide (22-29) mmol/L Anion Gap (12-20) BUN (9-16) mg/dL Creatinine (0.5-1.4) mg/dL Estim Creat Clear Calc Estimated GFR Random Glucose (60-115) mg/dL Calcium (8.4-10.2) mg/dL Troponin I High Sens 3.7 (<3.5-17.0) ng/L Independent Interpretation I performed an independent interpretation of an: EKG and Plain X-Ray Interpretation: EKG: Normal sinus rhythm, rate 74bpm, normal SC and QT intervals CXR: No acute abnormality. Radiology Impression Discussion of test interpretation with radiology: I have reviewed the radiologist's reading. Radiologist Impression: XR/XR chest 2V IMPRESSION: No acute cardiopulmonary process. External Record Review External record reviewed: Inpatient record, Office record and Outpatient record Chronic Conditions Patient?s care impacted by: Diabetes and Hypertension Scores Heart Score History: -0- slightly suspicious ECG: -1- non specific repolarization disturbance Age: -1- >45 - <65 Risk factory: -2- 3 or more risk factors or treated atherosclerosis Troponin: -0- < or = normal limit Score: 4 Risk: 16.6% Discharge Plan Discharge Clinical Impression: Chest pain, Gastritis Patient Disposition: Home, Self-Care Instructions: Chest Pain (DC), Gastritis (DC) Additional Instructions: You were evaluated in the emergency department today for chest pain. Your evaluation has shown no signs of medical conditions requiring emergent intervention at this time, however we recommend that you follow-up with your primary care physician or your engineering operations leader as soon as possible for further testing as an outpatient. Your pain could be related to recent antibiotic use. Please begin using a probiotic for the next 1-2 weeks. You can also use OTC medicines such as famotidine or Tums as needed. Return to the emergency department if you experience worsening or uncontrolled chest pain, shortness of breath, lightheadedness, feeling faint, loss of consciousness, nausea, vomiting, or any other concerning symptoms. Prescriptions: No Action citalopram 20 mg tablet 20 mg PO DAILY Qty: 90 3RF amlodipine 10 mg tablet 10 mg PO DAILY Qty: 90 3RF montelukast [Singulair] 10 mg tablet 10 mg PO BEDTIME Qty: 90 3RF pravastatin 20 mg tablet 20 mg PO DAILY Qty: 90 3RF hydralazine 25 mg tablet 25 mg PO BID Qty: 180 3RF triamcinolone acetonide 0.1 % cream 1 appl topical DAILY Qty: 80 1RF triamterene-hydrochlorothiazid 37.5-25 mg capsule 1 cap PO DAILY Qty: 90 3RF docusate sodium [Colace] 100 mg Capsule 100 mg PO BID pregabalin 150 mg Capsule 150 mg PO DAILY@2100 cholecalciferol (vitamin D3) 125 mcg (5,000 unit) Tablet 125 mcg PO DAILY cetirizine [Zyrtec] 10 mg Tablet 10 mg PO DAILY sumatriptan succinate 50 mg tablet 50 mg PO Q2-4H PRN (Reason: migraine headache) Qty: 10 0RF Rx Instructions: do not exceed 4 doses per 24 hrs nystatin 100,000 unit/gram powder 1 appl topical TID 7 Days Qty: 15 0RF lorazepam 0.5 mg tablet 0.5 mg PO BEDTIME PRN (Reason: Anxiety) Qty: 30 0RF albuterol sulfate 90 mcg/actuation HFA aerosol inhaler 2 puff inhalation Q4H PRN (Reason: Wheezing) epinephrine 0.3 mg/0.3 mL auto-injector 0.3 mg IM ONCE PRN (Reason: Anaphylaxis) amoxicillin-pot clavulanate 875-125 mg tablet 1 tab PO BID 10 Days Qty: 20 0RF prednisone 20 mg tablet 40 mg PO DAILY 5 Days Qty: 10 0RF Referrals: [facility] [Provider Group]
[2022-12-12 11:24] VITALS: BP 138/64; PULSE 68; RESP 16; TEMP 36.7; O2SAT 94
--- NOTE | 2022-12-12 11:47 | PC.NURSE ---
Repeat blood pressure 138/64. Patient denies chest pain.
[2022-12-12 12:52] VITALS: BP 144/68; PULSE 72; RESP 16; TEMP 37; O2SAT 96
[2022-12-12 13:02] LABS: Troponin-I High Sensitivity 3.7 ng/L (<3.5-17.0)
--- NOTE | 2022-12-12 14:04 | PC.NURSE ---
Patient is independent and Ambulatory. Patient is cleared for discharge. Discharge education completed w/ pt. No complaints at discharge.
== END 2022-12-12 13:57 | disposition home or self-care (01) ==
PROVIDERS: Registered Nurse Emergency; Emergency Provider Emergency Medicine; PCP Internal Medicine
DX: R07.9 Chest pain, unspecified (principal); K29.70 Gastritis, unspecified, without bleeding; E11.9 Type 2 diabetes mellitus without complications; I10 Essential (primary) hypertension; E78.5 Hyperlipidemia, unspecified; E66.9 Obesity, unspecified; Z68.43 Body mass index [BMI] 50.0-59.9, adult
CPT/HCPCS: 36415; 71046; 80048; 84484; 85025; 93005; 99283; 99284

== ENCOUNTER → 2022-12-12 08:50 | Outpatient (BNV) | payer OTHER, SELFPAY | PROVIDERS: Emergency Provider Emergency Medicine; PCP Internal Medicine; Visit Provider Internal Medicine Cardiovascular Disease | DX: R94.31 Abnormal electrocardiogram [ECG] [EKG] (principal); R07.9 Chest pain, unspecified | CPT/HCPCS: 93010 ==

== ENCOUNTER 2022-12-29 11:04 | Outpatient (AMB) | payer OTHER, SELFPAY ==
--- NOTE | 2022-12-29 13:01 | MHC.OFFWIV ---
Intake Vital Signs 12/29/22 13:10 Weight 123.377 kg BP 136/80 Blood Pressure Location Rt brachial Position Sitting Pulse 93 Pulse Source Pulse Oximeter Temp 97.7 F Temp Source Temporal Artery Scan Pulse Oximetry (%) 97 Oxygen Delivery Method Room Air Intake Visit Reasons: EP, itchiness all over body [phone] Intake Note: Patient here for bumps on arms and legs which she believes is an allergic reaction-she does have a new hot tub which is the only that is new. Patient Tobacco Use Status: Never used Tobacco Allergies doxycycline [DOXYCYCLINE] Allergy (Severe, Verified 12/29/22 13:02) ESOPHAGITIS Sulfa (Sulfonamide Antibiotics) Allergy (Severe, Verified 12/29/22 13:02) FACIAL SWELLING codeine [Codeine] Allergy (Intermediate, Verified 12/29/22 13:02) RASH lisinopril [Lisinopril] Allergy (Intermediate, Verified 12/29/22 13:02) EXTREMITIES SWELLING benzonatate [BENZONATATE] Allergy (Unknown, Verified 12/29/22 13:02) ANAPHYLAXIS meperidine [Demerol] Allergy (Unknown, Verified 12/29/22 13:02) Rash dulaglutide [From Trulicity] Adverse Reaction (Intermediate, Verified 12/29/22 13:02) itchy throat losartan Adverse Reaction (Intermediate, Verified 12/29/22 13:02) swelling of hands, Do you need a note to return to daycare/school/sports/work: No HPI HPI Comments History of Present Illness Details 1315 52-year-old female presents for evaluation of itchy rash throughout body, patient reports it has been going on for the past few days, to Benadryl with little to no relief. Patient does report that she recently got a hot tub which she uses new chemicals in and she is wondering if this is what she is reacting to. Patient carries an EpiPen for several anaphylactic reactions she has. Patient denies shortness of breath, nausea, vomiting, abdominal pain, headache, vision changes, dizziness, chest pain. Physical exam with maculopapular rash to upper and lower extremities and trunk sparing palms and soles & membranes. Likely irritant contact dermatitis versus allergic reaction. No signs of anaphylaxis, SJS, [place], syphilis, [id number]. Plan Atarax, prednisone. [facility] Medical History Allergic rhinitis Anxiety Arthritis Asthma Cancer Chronic low back pain Depression GERD (gastroesophageal reflux disease) Heart murmur HTN (hypertension) Hx of renal calculi Hyperglycemia Hyperlipemia Irritable bowel syndrome Lumbar and sacral spondyloarthritis Memory deficit Morbid obesity Morbid obesity PATRICIA on CPAP PATRICIA treated with BiPAP Post covid-19 condition, unspecified Rib fracture Thyroid nodule Surgical History H/O ventral hernia repair Hx of bilateral oophorectomy Hx of breast biopsy Hx of section Hx of colonoscopy Hx of esophagogastroduodenoscopy Family History Mother No problems noted. Father No problems noted. Social History Household Members: Family Household Members Other:: , unemployed, 2 children () Housing: House Do you presently have visiting nurse or other home services: No Alcohol intake: current Alcohol intake frequency: holidays/special occasions only Alcohol type: beer Patient Tobacco Use Status: Never used Tobacco e-Cigarette/Vaping Use: Never Used Second Hand Smoke Exposure: No Advance Directives Date on File: 03/18/22 service: No Current occupational status: unemployed Cognitive needs: No Hearing needs: No Vision needs: Yes Review of Systems Const Details: Constitutional : No Weight loss, No Fever, No Chills, No Fatigue, No Malaise ENT/Mouth : No sore throat, No Rhinorrhea Eyes: No Eye Pain, No Swelling, No Redness Cardiovascular : No Chest Pain, No SOB, No Dyspnea on Exertion, No Orthopnea, No Edema, No Palpitations Respiratory : No Cough, No Sputum, No Wheezing Gastrointestinal : No Nausea, No Vomiting, No Diarrhea, No Constipation, No abdominal Pain, No Hematochezia, No Melena Genitourinary : No Dysuria, No Urinary Frequency, No Hematuria, Musculoskeletal : No joint pain, No Myalgias, No Joint Swelling Skin : No Skin Lesions, + rash Neuro : No Weakness, No Numbness, No Dizziness, No Headache Psych : No Anxiety/Panic, No Depression All other systems reviewed and are negative All systems reviewed & are unremarkable except as noted in HPI and below Physical Exam Vital Signs: Last Vital Signs Temp 97.7 F 12/29/22 13:10 Pulse 93 12/29/22 13:10 BP 136/80 12/29/22 13:10 Pulse Ox 97 12/29/22 13:10 Oxygen Delivery Method Room Air 12/29/22 13:10 vss Appearance: Alert.? Oriented X3.? No acute distress.? Head: Normocephalic, atraumatic, no step-offs or deformities Throat: Patent airway uvula midline speaking in full sentences controlling secretions well Eyes: Pupils equal, round and reactive to light.? CVS: Normal heart rate and rhythm.? Pulses normal.? Respiratory: No respiratory distress.? Breath sounds normal.? Abdomen: Soft and nontender.? Skin: Skin warm and dry.? Normal skin color.? Normal skin turgor.?maculopapular rash to upper and lower extremities and trunk sparing palms and soles & membranes. Extremities: No lower extremity edema.? No calf ttp. 5/5 strength to bilateral upper and lower extremities Neuro: Oriented X 3.? No motor deficit.? No sensory deficit. CN 2-12 intact Assessment & Plan Assessment & Plan (1) Allergic reaction: Code(s): T78.40XA - Allergy, unspecified, initial encounter Plan Take your medications as prescribed. If you were prescribed antibiotics today, it is important that you take your medication to their entirety, do not skip any doses, do not finish them early. Follow-up with your primary care provider this week. Return to the emergency department with new or worsening symptoms. Such as fevers, chills, chest pain, shortness of breath, nausea, vomiting, dizziness, headache, vision changes, lethargy In case of emergency call 911 Medications: New prednisone 40 mg (2 x 20 mg) PO DAILY 5 days 10 tabs 0RF hydroxyzine HCl 25 mg PO BID PRN 14 tabs 0RF itching Coding Level of Care Code Est Pt Level 3 (24125) Diagnoses Allergic reaction T78.40XA
[2022-12-29 13:10] VITALS: BP 136/80; PULSE 93; TEMP 36.5; O2SAT 97
== END 2022-12-29 14:05 | disposition home or self-care (01) ==
PROVIDERS: PCP Internal Medicine; Visit Provider Physician Assistant
DX: T78.40XA Allergy, unspecified, initial encounter (principal)
CPT/HCPCS: 99213

== ENCOUNTER → 2023-01-12 08:46 | Outpatient (REF) | payer OTHER, SELFPAY ==
--- NOTE | 2023-01-12 08:48 | CA_ITS ---
Transthoracic Echocardiogram Patient (Last, First, Middle): Roma Cortez M Gender: Female Date of : 1970 Age: 52 Procedure Date: 01/12/2023 Procedure Type: Transthoracic Echocardiogram Location: OP Height: 154.94 cm Weight: 120.66 kg BSA: 2.13 m2 Heart Rate: bpm BP: 150 / 90 mmHg Cold Press Loader: TO Referring MD: Juarez Blackmon MD [employer] Checkout Technician: Chandu Nash MD Symptoms: I35.0 - Nonrheumatic aortic (valve) stenosis Study Quality: Fair ECG Rhythm: Sinus Conclusions: - 1. Normal LV ejection fraction of 60 65% with impaired relaxation filling pattern 2. Fibrocalcific aortic valve changes noted with mildly elevated gradient but without any significant stenosis 3. No gross pericardial effusion Findings Left Ventricle Normal left ventricular size, thickness, and systolic function. The visually estimated ejection fraction is between 60-65%. Spectral Doppler is indicative of an impaired relaxation filling pattern. E/E prime ratio is between 8 and 15 consistent with indeterminate filling pressures. There is mild septal asymmetric hypertrophy. Right Ventricle Normal right ventricular cavity size and systolic function. Atria The left atrium is likely dilated. There is no evidence of interatrial shunt. The right atrium is normal in size. Aortic Valve There is mild calcification of the aortic valve. There is mild thickening of the aortic valve. There is no aortic valve stenosis. There is no aortic valve regurgitation. Mitral Valve There is mild anterior and posterior mitral leaflet thickening. There is trace mitral valve regurgitation. There is no mitral valve stenosis. Pulmonic Valve The pulmonic valve is likely normal. Tricuspid Valve Likely normal tricuspid valve structure and function. Tricuspid regurgitation envelope is inadequate for calculation of right ventricular systolic pressure. Normal right atrial pressure. Great Vessels All visible segments of the aorta are normal in size. The pulmonary artery was not well visualized. Small plaque is seen in the sino tubular ridge. Venous The inferior vena cava is normal in size and collapses greater than 50% with inspiration. Pericardium/Pleural There is no evidence of pericardial effusion. Measurements 2D Linear Measurements IVSd: 1.30 0.6-0.9/0.6-1.0 cm LVIDd: 4.00 3.9-5.3/4.2-5.9 cm LVIDd Index: 1.88 2.4-3.2/2.2-3.1 cm/m2 LVIDs: 2.50 2.0-3.6 cm LVPWd: 1.00 0.7-1.1 cm LA Diam: 4.00 2.7-3.8/3.0-4.0 cm LAIDs Index: 1.88 1.5-2.3 cm/m2 LV Mass: 193.49 67-162/88-224 g LV Mass Index: 90.84 43-95/49-115 g/m2 LVOT Diam: 2.10 3.0+(-)1.3 cm 2D Systolic Function EF 4C: 62.50 >55% EF 2C: 55.20 >55% EF BiP: 59.00 >55% Mitral Valve MV Pk E: 0.54 MV PK A: 0.70 MV Decel Time: 222.00 E/A: 0.80 E'Lateral: 4.79 E'Medial: 5.00 E/E' Med: 10.80 E/E' Lat: 11.30 PHT: 65.00 MVA PHT: 3.38 Decel Mccurtain: 2.43 Aortic Valve AoV Pk Sagar: 1.70 AoV Mn Sagar: 1.29 AoV VTI: 0.34 AoV Pk Grad: 12.00 Aov Mn Grad: 7.00 HEIDY Cont.VTI: 2.54 LVOT LVOT Pk Sagar: 1.17 LVOT Mn Sagar: 0.87 LVOT VTI: 0.25 LVOT Pk Grad: 5.00 LVOT Mn Grad: 3.00 LVOT Diam: 2.10 LVOT Area: 3.46 Diastolic Function MV Pk E: 0.54 MV Pk A: 0.70 E/A: 0.80 E'Medial: 5.00 E/E' Med: 10.80 E' Laterial: 4.79 E/E' Lat: 11.30 Right Ventricle TAPSE (mm): 27.40 TVS' Sagar: 13.60 Great Vessels Aorta Sinus of Valsalva: 3.40 2.0-3.[address] Ridge: 2.40 1.7-3.4 cm Ao Asc: 3.40 2.1-3.4 cm Updated in Other Vendor System with Status of Final Chandu Nash MD electronically signed on 01/13/2023 12:45:24 PM with status of Final
== END ==
LOC: HO.CARD 08:46
PROVIDERS: PCP Internal Medicine; Visit Provider Internal Medicine
DX: I35.0 Nonrheumatic aortic (valve) stenosis (principal)
CPT/HCPCS: 93306

== ENCOUNTER → 2023-01-12 08:48 | Outpatient (BNV) | payer OTHER, SELFPAY | PROVIDERS: PCP Internal Medicine; Visit Provider Internal Medicine Cardiovascular Disease | DX: I35.8 Other nonrheumatic aortic valve disorders (principal); I34.89 Other nonrheumatic mitral valve disorders | CPT/HCPCS: 93306 ==

== ENCOUNTER 2023-01-23 10:03 | Outpatient (AMB) | payer OTHER, SELFPAY ==
[2023-01-23 10:05] VITALS: BP 158/82; PULSE 89; TEMP 37.1; O2SAT 94; BMI 52.1
--- NOTE | 2023-01-23 10:05 | AM.OFFWIN_ITS ---
Intake Vital Signs 01/23/23 10:05 Height 5 ft 1 in Weight 276 lb BMI 52.1 BP 158/82 H Blood Pressure Location Lt brachial Position Sitting Pulse 89 Pulse Source Pulse Oximeter Temp 98.7 F Temp Source Oral Pulse Oximetry (%) 94 Oxygen Delivery Method Room Air Intake Visit Reasons: EP Rash after ?insect Bite Intake Note: Patient is here today for bug bite from last wk, patient states now has a rash all over. Patient Tobacco Use Status: Never used Tobacco Allergies doxycycline [DOXYCYCLINE] Allergy (Severe, Verified 01/23/23 10:47) ESOPHAGITIS Sulfa (Sulfonamide Antibiotics) Allergy (Severe, Verified 01/23/23 10:47) FACIAL SWELLING codeine [Codeine] Allergy (Intermediate, Verified 01/23/23 10:47) RASH lisinopril [Lisinopril] Allergy (Intermediate, Verified 01/23/23 10:47) EXTREMITIES SWELLING benzonatate [BENZONATATE] Allergy (Unknown, Verified 01/23/23 10:47) ANAPHYLAXIS meperidine [Demerol] Allergy (Unknown, Verified 01/23/23 10:47) Rash dulaglutide [From Trulicity] Adverse Reaction (Intermediate, Verified 01/23/23 10:47) itchy throat losartan Adverse Reaction (Intermediate, Verified 01/23/23 10:47) swelling of hands, HPI EP Rash after ?insect Bite HPI Details 52-year-old female presents to the [facility] for a sick visit. Last week patient reports that she could have been bitten. She cannot remember if it was it take or an insect. Patient is now complaining of a rash over abdomen and upper arms. She is reporting symptoms of itchiness and discomfort. Also she is complaining of nonspecific joint pains. No fevers or chills. [facility] Medical History Allergic rhinitis Anxiety Arthritis Asthma Cancer Chronic low back pain Depression GERD (gastroesophageal reflux disease) Heart murmur HTN (hypertension) Hx of renal calculi Hyperglycemia Hyperlipemia Irritable bowel syndrome Lumbar and sacral spondyloarthritis Memory deficit Morbid obesity Morbid obesity PATRICIA on CPAP PATRICIA treated with BiPAP Post covid-19 condition, unspecified Rib fracture Thyroid nodule Surgical History H/O ventral hernia repair Hx of bilateral oophorectomy Hx of breast biopsy Hx of section Hx of colonoscopy Hx of esophagogastroduodenoscopy Family History Mother No problems noted. Father No problems noted. Social History Household Members: Family Household Members Other:: , unemployed, 2 children () Housing: House Do you presently have visiting nurse or other home services: No Alcohol intake: current Alcohol intake frequency: holidays/special occasions only Alcohol type: beer Patient Tobacco Use Status: Never used Tobacco e-Cigarette/Vaping Use: Never Used Second Hand Smoke Exposure: No Advance Directives Date on File: 03/18/22 service: No Current occupational status: unemployed Cognitive needs: No Hearing needs: No Vision needs: Yes Physical Exam Vital Signs: Last Vital Signs Temp 98.7 F 01/23/23 10:05 Pulse 89 01/23/23 10:05 BP 158/82 H 01/23/23 10:05 Pulse Ox 94 01/23/23 10:05 Oxygen Delivery Method Room Air 01/23/23 10:05 BMI result Body Mass Index 52.1 Const General: cooperative and healthy appearing Nutritional Appearance: well nourished Orientation/consciousness: patient oriented x3 Limitations: no limitations HEENT Head: Yes normal to inspection Eyes General: appearance normal, both eyes and all related structures Neck Neck: Yes normal visual inspection Chest Chest palpation & inspection: normal palpation of entire chest wall Resp Effort & Inspection: normal respiratory effort Skin Other: Abdomen: Erythematous rash, scattered papular rash. Few lesions in the upper arms. Neuro General: patient oriented x3 Assessment & Plan Assessment & Plan (1) Rash: Code(s): R21 - Rash and other nonspecific skin eruption Plan: Patient was informed that this rash does not represent Lyme disease. Blood work to confirm the presence of the disease done. If the test is negative, it will be repeated in 3 weeks. Prednisone was offered for treatment and patient refused. Orders: Orders Lyme IgG/IgM w/reflex to WB Today R21 - Rash and other nonspecific skin eruption Erythrocyte Sedimentation Rate Today R21 - Rash and other nonspecific skin eruption Coding Level of Care Code Est Pt Level 3 (33844) Diagnoses Rash R21
== END 2023-01-23 10:45 | disposition home or self-care (01) ==
PROVIDERS: PCP Internal Medicine; Visit Provider Internal Medicine
DX: R21 Rash and other nonspecific skin eruption (principal)
CPT/HCPCS: 99213

== ENCOUNTER 2023-01-23 10:44 | Outpatient (REF) | payer OTHER, SELFPAY ==
[2023-01-23 15:09] LABS: Erythrocyte Sedimentation Rate 20 MM/HR (0-20)
[2023-01-24 22:34] LABS: Lyme Abs Screen <0.90 index
== END 2023-01-23 10:45 | disposition home or self-care (01) ==
LOC: HO.HMGCLDS 10:44
PROVIDERS: PCP Internal Medicine; Visit Provider Internal Medicine
DX: R21 Rash and other nonspecific skin eruption (principal)
CPT/HCPCS: 36415; 85652; 86617; 86618

== ENCOUNTER 2023-01-24 10:26 | Outpatient (AMB) | payer OTHER, SELFPAY ==
[2023-01-24 10:30] VITALS: BP 124/82; PULSE 84; O2SAT 95; BMI 51.0
--- NOTE | 2023-01-24 10:30 | A.OFFVIS_ITS ---
Intake Vital Signs 01/24/23 10:30 Height 5 ft 1 in Weight 270 lb BMI 51.0 BP 124/82 Blood Pressure Location Lt brachial Position Sitting Pulse 84 Pulse Source Pulse Oximeter Pulse Oximetry (%) 95 Oxygen Delivery Method Room Air Intake Visit Reasons: Obstructive sleep apnea Intake Note: pt is here for follow up of PATRICIA and state using cpap everynight and doing well, pt did have covid for 2nd time, no hospital, just home. Fire Code Inspector Required: No Allergies doxycycline [DOXYCYCLINE] Allergy (Severe, Verified 01/24/23 10:47) ESOPHAGITIS Sulfa (Sulfonamide Antibiotics) Allergy (Severe, Verified 01/24/23 10:47) FACIAL SWELLING codeine [Codeine] Allergy (Intermediate, Verified 01/24/23 10:47) RASH lisinopril [Lisinopril] Allergy (Intermediate, Verified 01/24/23 10:47) EXTREMITIES SWELLING benzonatate [BENZONATATE] Allergy (Unknown, Verified 01/24/23 10:47) ANAPHYLAXIS meperidine [Demerol] Allergy (Unknown, Verified 01/24/23 10:47) Rash dulaglutide [From Trulicity] Adverse Reaction (Intermediate, Verified 01/24/23 10:47) itchy throat losartan Adverse Reaction (Intermediate, Verified 01/24/23 10:47) swelling of hands, Medication List - Last Reconciled 01/24/23 by Carlos Lewis MD albuterol sulfate 90 mcg/actuation 2 puffs inhalation Q4H PRN amlodipine 10 mg PO DAILY cetirizine (Zyrtec) 10 mg PO DAILY cholecalciferol (vitamin D3) 125 mcg PO DAILY citalopram 20 mg PO DAILY docusate sodium (Colace) 100 mg PO BID epinephrine 0.3 mg IM ONCE PRN hydralazine 25 mg PO BID hydroxyzine HCl 25 mg PO BID PRN lorazepam 0.5 mg PO BEDTIME PRN montelukast (Singulair) 10 mg PO BEDTIME nystatin 1 appl topical TID 7 days pravastatin 20 mg PO DAILY pregabalin 150 mg PO DAILY@2100 sumatriptan succinate 50 mg PO Q2-4H PRN triamcinolone acetonide 0.1% 1 appl topical DAILY triamterene-hydrochlorothiazid 37.5-25 mg 1 cap PO DAILY Do you need a note to return to daycare/school/sports/work: No HPI Obstructive sleep apnea HPI Details 52 YEARS OLD FEMALE WITH MORBID OBESITY, AND OBSTRUCTIVE SLEEP APNEA, COMES AFTER 6 MONTHS FOR FOLLOW-UP. SHE IS ON BIPAP THERAPY WITH PRESSURE SETTING 18/14 CMs SHE IS TOTALLY DEPENDENT UPON THE BIPAP, CANNOT SLEEP WITHOUT IT. SHE LOVES TO USE IT EVERY NIGHT AND SLEEPS MORE THAN 8 HOURS PER NIGHT. . DENIES ANY DAYTIME SLEEPINESS SHE WAS HAVING SOME AIR LEAK BUT JUST RECENTLY GOT NEW SUPPLIES AND NOW THE MASK FITS BETTER SO THERE IS NOT MUCH AIR LEAK. CPAP DEVICE IS WORKING FINE. TRYING TO LOSE WEIGHT SLOWLY BY HERSELF AND THERE IS EVIDENCE OF ABOUT 6 LB LOSS SINCE LAST VISIT. [facility] Medical History Allergic rhinitis Anxiety Arthritis Asthma Cancer Chronic low back pain Depression GERD (gastroesophageal reflux disease) Heart murmur HTN (hypertension) Hx of renal calculi Hyperglycemia Hyperlipemia Irritable bowel syndrome Lumbar and sacral spondyloarthritis Memory deficit Morbid obesity Morbid obesity PATRICIA on CPAP PATRICIA treated with BiPAP Post covid-19 condition, unspecified Rib fracture Thyroid nodule Surgical History H/O ventral hernia repair Hx of bilateral oophorectomy Hx of breast biopsy Hx of section Hx of colonoscopy Hx of esophagogastroduodenoscopy Family History Mother No problems noted. Father No problems noted. Social History Household Members: Family Household Members Other:: , unemployed, 2 children () Housing: House Do you presently have visiting nurse or other home services: No Alcohol intake: current Alcohol intake frequency: holidays/special occasions only Alcohol type: beer Patient Tobacco Use Status: Never used Tobacco e-Cigarette/Vaping Use: Never Used Second Hand Smoke Exposure: No Advance Directives Date on File: 03/18/22 service: No Current occupational status: unemployed Cognitive needs: No Hearing needs: No Vision needs: Yes Review of Systems Const All systems reviewed & are unremarkable except as noted in HPI and below Eyes Reports no additional complaints ENT Reports nasal congestion (Mild off and on) Card Denies chest pain, Denies irregular heart rhythm and Denies leg edema Resp Reports as per HPI GI Reports no additional complaints Reports no additional complaints Musc Reports back pain Skin/Breast Reports system reviewed and no additional complaints, except as documented Neuro Reports no additional complaints Psych Reports no additional complaints Physical Exam Vital Signs: Last Vital Signs Pulse 84 01/24/23 10:30 BP 124/82 01/24/23 10:30 Pulse Ox 95 01/24/23 10:30 Oxygen Delivery Method Room Air 01/24/23 10:30 BMI result Body Mass Index 51.0 Const General: healthy appearing (EXCEPT FOR BEING OVERWEIGHT), comfortable, no acute distress, alert and awake Orientation/consciousness: patient oriented x3 HEENT Head: Yes normal to inspection General nose exam: No nasal polyps present and No nasal discharge present Face and sinus: Yes sinuses nontender Mouth: oropharynx normal Throat: Yes posterior oropharynx normal Eyes General: appearance normal, both eyes and all related structures Neck Neck: Yes normal visual inspection, Yes no lymphadenopathy, Yes trachea midline and Yes no JVD Thyroid: Thyroid normal Chest Chest palpation & inspection: normal inspection of the chest, normal palpation of entire chest wall and no tenderness Resp Other: Percussion note resonant in the upper parts of the chest and somewhat dull over the basilar areas. Breath sounds are decreased over the basilar areas but equal. On both sides Today she was able to take deep breaths without any cough. No wheezes rhonchi or crepitations are heard. Cardio Palpation: normal PMI Rate: regular rate Rhythm: regular rhythm Heart sounds: no gallops and no murmurs GI Palpation (GI): Soft to palpation, nontender, No hepatosplenomegaly present and no masses Auscultation: normal bowel sounds Back/Spine/Pelvis Thoracic/Lumbar Spine: thoracic and lumbar spine normal to inspection and thoraco-lumbar ROM limited Skin General skin exam: no rashes or lesions noted Neuro General: patient oriented x3 and no focal motor deficits Cranial nerves: Yes CN's II-XII intact bilaterally Extrem General: Yes normal to inspection, Yes no clubbing, cyanosis or edema and Yes no calf tenderness Psych Appearance: grossly normal and well kempt Speech and movement: Normal speech and movement present Results Reviewed Results Reviewed: COMPLIANCE REPORT FOR THE LAST 30 NIGHTS IS REVIEWED. SHE HAS USED 30/30 NIGHTS, 100%. AVERAGE USE PER NIGHT 8 HOURS 43 MINUTES. PRESSURE SETTING 18/14 CM. MILD AIR LEAK MAXIMUM 64. RESIDUAL AHI 3.0 Assessment & Plan Assessment & Plan (1) Morbid obesity: Comment: Patient continues to be Morbidly obese She is fully aware of this issue. She is trying her best to lose weight by watching diet, but cannot do much exercise. . Code(s): E66.01 - Morbid (severe) obesity due to excess calories (2) PATRICIA treated with BiPAP: Comment: Patient does have longstanding history of obstructive sleep apnea with hypoventilation. Currently on BiPAP therapy with pressure 18/14 cm . Compliance is excellent, and she is actually fully dependent on the use of BiPAP at night. No issues noted and she will continue to use BiPAP regularly. Code(s): G47.33 - Obstructive sleep apnea (adult) (pediatric) (3) Allergic rhinitis: Comment: CHRONIC AROUND THE YEAR, NASAL ALLERGIES. FULLY CONTROLLED WITH USE OF ZYRTEC 10 MG DAILY AND SINGULAIR 10 MG DAILY WHICH WILL BE CONTINUED. PULMONARY FUNCTION TEST IS NORMAL, NO EVIDENCE OF BRONCHIAL ASTHMA. Code(s): J30.9 - Allergic rhinitis, unspecified Coding Level of Care Code Est Pt Level 3 (86212) Diagnoses Morbid obesity E66.01 PATRICIA treated with BiPAP G47.33 Allergic rhinitis J30.9
== END 2023-01-24 10:54 | disposition home or self-care (01) ==
PROVIDERS: PCP Internal Medicine; Visit Provider Internal Medicine
DX: E66.01 Morbid (severe) obesity due to excess calories (principal); G47.33 Obstructive sleep apnea (adult) (pediatric); J30.9 Allergic rhinitis, unspecified
CPT/HCPCS: 99213

== ENCOUNTER → 2023-01-24 10:26 | Outpatient (BNVA) | payer OTHER, SELFPAY | PROVIDERS: PCP Internal Medicine; Visit Provider Internal Medicine ==

== ENCOUNTER 2023-02-03 09:56 | Outpatient (AMB) | payer OTHER, SELFPAY ==
--- NOTE | 2023-02-03 10:03 | AM.OFFWIN_ITS ---
Intake Vital Signs 02/03/23 10:04 Height 5 ft 1 in Weight 269 lb 7 oz BMI 50.9 BP 130/70 Blood Pressure Location Rt brachial Position Sitting Pulse 96 Pulse Source Pulse Oximeter Temp 96.2 F L Temp Source Temporal Artery Scan Pulse Oximetry (%) 100 Oxygen Delivery Method Room Air Intake Visit Reasons: EP, cough, congestion ([phone]) Intake Note: Pt is simon c/o bad cough and chest congestion. Patient Tobacco Use Status: Never used Tobacco Allergies doxycycline [DOXYCYCLINE] Allergy (Severe, Verified 02/03/23 10:04) ESOPHAGITIS Sulfa (Sulfonamide Antibiotics) Allergy (Severe, Verified 02/03/23 10:04) FACIAL SWELLING codeine [Codeine] Allergy (Intermediate, Verified 02/03/23 10:04) RASH lisinopril [Lisinopril] Allergy (Intermediate, Verified 02/03/23 10:04) EXTREMITIES SWELLING benzonatate [BENZONATATE] Allergy (Unknown, Verified 02/03/23 10:04) ANAPHYLAXIS meperidine [Demerol] Allergy (Unknown, Verified 02/03/23 10:04) Rash dulaglutide [From Trulicity] Adverse Reaction (Intermediate, Verified 02/03/23 10:04) itchy throat losartan Adverse Reaction (Intermediate, Verified 02/03/23 10:04) swelling of hands, Do you need a note to return to daycare/school/sports/work: No HPI HPI Comments History of Present Illness Details This is a 52-year-old female with a past medical history of hypertension, seasonal allergies and asthma presenting for evaluation of sinus congestion and a cough. Patient states she has had sinus congestion for the past 4 days and developed a cough last night. Patient denies having any fevers, chills, ear pain, sore throat, difficulty swallowing, chest pain or shortness of breath. Patient has not needed to use her albuterol inhaler and has not taken any other medication for treatment of her symptoms. Of note, patient states that she was diagnosed with COVID-19 approximately 4 weeks ago. [facility] Medical History Allergic rhinitis PATRICIA treated with BiPAP Morbid obesity Post covid-19 condition, unspecified Memory deficit Morbid obesity PATRICIA on CPAP Lumbar and sacral spondyloarthritis Rib fracture Hyperglycemia Hyperlipemia Depression Heart murmur Chronic low back pain Thyroid nodule Hx of renal calculi Irritable bowel syndrome Anxiety GERD (gastroesophageal reflux disease) Arthritis Cancer HTN (hypertension) Asthma Surgical History H/O ventral hernia repair Hx of bilateral oophorectomy Hx of breast biopsy Hx of section Hx of colonoscopy Hx of esophagogastroduodenoscopy Family History Mother No problems noted. Father No problems noted. Social History Household Members: Family Household Members Other:: , unemployed, 2 children () Housing: House Do you presently have visiting nurse or other home services: No Alcohol intake: current Alcohol intake frequency: holidays/special occasions only Alcohol type: beer Patient Tobacco Use Status: Never used Tobacco e-Cigarette/Vaping Use: Never Used Second Hand Smoke Exposure: No Advance Directives Date on File: 03/18/22 service: No Current occupational status: unemployed Cognitive needs: No Hearing needs: No Vision needs: Yes Review of Systems Const Denies chills, Denies fatigue, Denies fever(s) and Denies weakness Card Reports as per HPI and Denies dyspnea Resp Reports as per HPI, Reports cough, Denies pain with cough and Denies dyspnea Skin/Breast Reports system reviewed and no additional complaints, except as documented Neuro Denies weakness Endo Denies fatigue Physical Exam Vital Signs: Last Vital Signs Temp 96.2 F L 02/03/23 10:04 Pulse 96 02/03/23 10:04 BP 130/70 02/03/23 10:04 Pulse Ox 100 02/03/23 10:04 Oxygen Delivery Method Room Air 02/03/23 10:04 BMI result Body Mass Index 50.9 Const General: cooperative, healthy appearing, comfortable, no acute distress, alert, awake and other (afebrile) Nutritional Appearance: well nourished Orientation/consciousness: patient oriented x3 Limitations: no limitations HEENT Head: Yes normal to inspection Ears: hearing grossly normal bilaterally, external ears normal and TM's normal bilaterally General nose exam: Normal external nose present Face and sinus: Yes normal facial exam and Yes sinuses nontender Mouth: Normal oral and palatal mucosa present, lip normal, tongue normal and oropharynx normal Throat: Yes posterior oropharynx normal (mild postnasal drip only) Eyes General: appearance normal, both eyes and all related structures Conjunctivae: conjunctivae normal EOM: EOMs intact bilaterally Resp Effort & Inspection: normal respiratory effort, able to speak in complete sentences, no audible wheezes, Actively coughing, not labored and no respiratory distress Auscultation: clear to auscultation bilaterally Cardio Rate: regular rate Rhythm: regular rhythm Skin General skin exam: no rashes or lesions noted Neuro General: patient oriented x3 Psych Appearance: grossly normal Mental Status: mental status grossly normal Insight: Good insight present (Psych) Judgement: Good judgement present (Psych) Assessment & Plan Assessment & Plan (1) Upper respiratory infection: Code(s): J06.9 - Acute upper respiratory infection, unspecified Plan: Patient will take Mucinex [id number] any increase her fluid intake daily. Patient is instructed to return to the walk.in for any shortness of breath or if she develops a fever. Coding Level of Care Code Est Pt Level 3 (81390) Diagnoses Upper respiratory infection J06.9 Time Spent (min) 15
[2023-02-03 10:04] VITALS: BP 130/70; PULSE 96; TEMP 35.7; O2SAT 100; BMI 50.9
== END 2023-02-03 11:31 | disposition home or self-care (01) ==
PROVIDERS: PCP Internal Medicine; Visit Provider Physician Assistant
DX: J06.9 Acute upper respiratory infection, unspecified (principal)
CPT/HCPCS: 99213

== ENCOUNTER 2023-02-14 12:10 | Outpatient (REF) | payer OTHER, SELFPAY ==
[2023-02-16 01:14] LABS: Lyme Abs Screen <0.90 index
== END 2023-02-14 12:11 | disposition home or self-care (01) ==
LOC: HO.LAB 12:10
PROVIDERS: PCP Internal Medicine; Visit Provider Internal Medicine
DX: R21 Rash and other nonspecific skin eruption (principal)
CPT/HCPCS: 36415; 86617; 86618

== ENCOUNTER 2023-02-16 08:35 | Outpatient (AMB) | payer OTHER, SELFPAY ==
[2023-02-16 08:43] VITALS: BP 132/80; PULSE 74; BMI 50.4
--- NOTE | 2023-02-16 08:43 | A.OFFVIS_ITS ---
Intake Vital Signs 02/16/23 08:43 Height 5 ft 1 in Weight 267 lb BMI 50.4 BP 132/80 Blood Pressure Location Lt brachial Position Sitting Pulse 74 Pulse Source Pulse Oximeter Intake Visit Reasons: follow up echo Intake Note: f/u after echo Allergies doxycycline [DOXYCYCLINE] Allergy (Severe, Verified 02/16/23 08:45) ESOPHAGITIS Sulfa (Sulfonamide Antibiotics) Allergy (Severe, Verified 02/16/23 08:45) FACIAL SWELLING codeine [Codeine] Allergy (Intermediate, Verified 02/16/23 08:45) RASH lisinopril [Lisinopril] Allergy (Intermediate, Verified 02/16/23 08:45) EXTREMITIES SWELLING benzonatate [BENZONATATE] Allergy (Unknown, Verified 02/16/23 08:45) ANAPHYLAXIS meperidine [Demerol] Allergy (Unknown, Verified 02/16/23 08:45) Rash dulaglutide [From Trulicity] Adverse Reaction (Intermediate, Verified 02/16/23 08:45) itchy throat losartan Adverse Reaction (Intermediate, Verified 02/16/23 08:45) swelling of hands, Medication List - Last Reconciled 02/16/23 by Jennifer Juares NP-C albuterol sulfate 90 mcg/actuation 2 puffs inhalation Q4H PRN amlodipine 10 mg PO DAILY cetirizine (Zyrtec) 10 mg PO DAILY cholecalciferol (vitamin D3) 125 mcg PO DAILY citalopram 20 mg PO DAILY docusate sodium (Colace) 100 mg PO BID epinephrine 0.3 mg IM ONCE PRN hydralazine 25 mg PO BID lorazepam 0.5 mg PO BEDTIME PRN montelukast (Singulair) 10 mg PO BEDTIME pravastatin 20 mg PO DAILY pregabalin 150 mg PO DAILY@2100 sumatriptan succinate 50 mg PO Q2-4H PRN triamcinolone acetonide 0.1% 1 appl topical DAILY triamterene-hydrochlorothiazid 37.5-25 mg 1 cap PO DAILY HPI follow up echo HPI Details Roma is a 52-year-old female with past medical history of hypertension, hyperlipidemia, obesity, aortic stenosis, obstructive sleep apnea with CPAP use who presents for follow-up after recent echo. Today she reports she has been feeling generally well over the last few years. Her last prior visit to our office was 01/25/2021. She denies any chest discomfort at rest or with activity. No concerning shortness of breath, palpitations, presyncope, syncope, PND, orthopnea. She will get some mild swelling in her legs at times. Her activity is limited by low back pain. She takes her meds as directed. [facility] Medical History Allergic rhinitis PATRICIA treated with BiPAP Morbid obesity Post covid-19 condition, unspecified Memory deficit Morbid obesity PATRICIA on CPAP Lumbar and sacral spondyloarthritis Rib fracture Hyperglycemia Hyperlipemia Depression Heart murmur Chronic low back pain Thyroid nodule Hx of renal calculi Irritable bowel syndrome Anxiety GERD (gastroesophageal reflux disease) Arthritis Cancer HTN (hypertension) Asthma Surgical History H/O ventral hernia repair Hx of bilateral oophorectomy Hx of breast biopsy Hx of section Hx of colonoscopy Hx of esophagogastroduodenoscopy Family History Mother No problems noted. Father No problems noted. Social History Household Members: Family Household Members Other:: , unemployed, 2 children () Housing: House Do you presently have visiting nurse or other home services: No Alcohol intake: current Alcohol intake frequency: holidays/special occasions only Alcohol type: beer Patient Tobacco Use Status: Never used Tobacco e-Cigarette/Vaping Use: Never Used Second Hand Smoke Exposure: No Advance Directives Date on File: 03/18/22 service: No Current occupational status: unemployed Cognitive needs: No Hearing needs: No Vision needs: Yes Review of Systems Const All systems reviewed & are unremarkable except as noted in HPI and below ENT Denies dizziness Card Denies chest pain, Denies chest pain at rest, Denies chest pain with activity, Denies rapid heart rate, Denies pedal edema, Denies edema, Denies leg edema, Denies lightheadedness, Denies palpitations, Denies dyspnea, Denies dyspnea on exertion and Denies orthopnea Resp Denies cough, Denies dyspnea and Denies dyspnea on exertion GI Denies hematochezia and Denies change in stool character Musc Details: Low back pain Denies abnormal gait, Reports limited range of motion, Denies muscle cramps, Denies muscle weakness, Denies numbness, Denies radiating pain into limb, Denies stiffness and Denies tingling Neuro Denies abnormal gait, Denies dizziness, Denies numbness and Denies tingling Endo Denies palpitations Physical Exam Vital Signs: Last Vital Signs Pulse 74 02/16/23 08:43 BP 132/80 02/16/23 08:43 BMI result Body Mass Index 50.4 Const Other: Morbidly obese General: cooperative, comfortable and no acute distress Orientation/consciousness: patient oriented x3 Neck Neck: Yes normal visual inspection Resp Effort & Inspection: normal respiratory effort Auscultation: clear to auscultation bilaterally, no crackles, no rales, no rhonchi and no wheezes Cardio Jugular venous distension: no JVD Rate: regular rate Rhythm: regular rhythm Heart sounds: S1 normal heart sound present, S2 normal heart sound present, Murmur heart sound present (Systolic murmur left sternal border) and no rubs Neuro General: patient oriented x3 Extrem General: Yes normal to inspection Psych Appearance: grossly normal Mental Status: mental status grossly normal Speech and movement: Normal speech and movement present Assessment & Plan Assessment & Plan (1) Aortic stenosis: Comment: Echocardiogram 04/27, mild aortic calcification, started on statin Code(s): I35.0 - Nonrheumatic aortic (valve) stenosis Qualifiers: Cardiac valve disease etiology: nonrheumatic Qualified Code(s): I35.0 - Nonrheumatic aortic (valve) stenosis Plan: Heart murmur present on examination, loudest at left sternal border, systolic. Echocardiogram from 10/2020 showed mild aortic calcification, no stenosis. She was started on statin therapy around that time. Her echocardiogram done 01/12/2023 shows EF 60-65%, fibrocalcific aortic valve with mildly elevated gradient but no significant stenosis. Reviewed findings with her. Continue with good cholesterol control. She is currently on pravastatin and last LDL 75 on 03/22/2022. Orders are in place for repeat lipid profile. Followed by her PCP. Will plan for repeat echocardiogram in 2 years. Cardiology follow-up 2 years, sooner if needed (2) Morbid obesity: Comment: Patient is well aware of this problem and she is trying to lose weight . She has joined weight watchers program. And actually has lost about 10 lb of weight. Code(s): E66.01 - Morbid (severe) obesity due to excess calories Plan: Benefits of weight loss reviewed. She needs to increase physical activity as tolerated. (3) Essential hypertension: Code(s): I10 - Essential (primary) hypertension Plan: Well controlled at present time. No med changes made (4) PATRICIA treated with BiPAP: Comment: Patient does have longstanding history of obstructive sleep apnea with hypoventilation. Currently on BiPAP therapy with pressure 18/14 cm . Compliance is excellent, and she is actually fully dependent on the use of BiPAP at night. No issues noted and she will continue to use BiPAP regularly. Code(s): G47.33 - Obstructive sleep apnea (adult) (pediatric) Plan: She reports nightly compliance with her CPAP. (5) Heart murmur: Code(s): R01.1 - Cardiac murmur, unspecified Plan: Noted on examination Coding Level of Care Code Est Pt Level 3 (91156) Diagnoses Nonrheumatic aortic valve stenosis I35.0 Cardiac valve disease etiology: nonrheumatic Morbid obesity E66.01 Essential hypertension I10 PATRICIA treated with BiPAP G47.33 Heart murmur R01.1 Time Spent (min) 22
== END 2023-02-16 09:17 | disposition home or self-care (01) ==
PROVIDERS: PCP Internal Medicine; Visit Provider Nurse Practitioner Family
DX: I35.0 Nonrheumatic aortic (valve) stenosis (principal); E66.01 Morbid (severe) obesity due to excess calories; I10 Essential (primary) hypertension; G47.33 Obstructive sleep apnea (adult) (pediatric); R01.1 Cardiac murmur, unspecified
CPT/HCPCS: 99213

== ENCOUNTER → 2023-02-16 08:35 | Outpatient (BNVA) | payer OTHER, SELFPAY | PROVIDERS: PCP Internal Medicine; Visit Provider Nurse Practitioner Family ==

== ENCOUNTER 2023-03-16 08:28 | Outpatient (AMB) | payer OTHER, SELFPAY ==
[2023-03-16 08:30] VITALS: BP 126/64; PULSE 73; O2SAT 95; BMI 50.8
--- NOTE | 2023-03-16 08:30 | MHC.PC.OV ---
Vital Signs 03/16/23 08:30 Height 5 ft 1 in Weight 269 lb 2 oz BMI 50.8 BP 126/64 Blood Pressure Location Lt brachial Position Sitting Pulse 73 Pulse Source Pulse Oximeter Pulse Oximetry (%) 95 Oxygen Delivery Method Room Air Intake Visit Reasons: PE Intake Note: Pt is here today for PE. Allergies doxycycline [DOXYCYCLINE] Allergy (Severe, Verified 03/16/23 08:32) ESOPHAGITIS Sulfa (Sulfonamide Antibiotics) Allergy (Severe, Verified 03/16/23 08:32) FACIAL SWELLING codeine [Codeine] Allergy (Intermediate, Verified 03/16/23 08:32) RASH lisinopril [Lisinopril] Allergy (Intermediate, Verified 03/16/23 08:32) EXTREMITIES SWELLING benzonatate [BENZONATATE] Allergy (Unknown, Verified 03/16/23 08:32) ANAPHYLAXIS meperidine [Demerol] Allergy (Unknown, Verified 03/16/23 08:32) Rash dulaglutide [From Trulicity] Adverse Reaction (Intermediate, Verified 03/16/23 08:32) itchy throat losartan Adverse Reaction (Intermediate, Verified 03/16/23 08:32) swelling of hands, Medication List - Last Reconciled 03/16/23 by Mia North MD albuterol sulfate 90 mcg/actuation 2 puffs inhalation Q4H PRN amlodipine 10 mg PO DAILY cetirizine (Zyrtec) 10 mg PO DAILY cholecalciferol (vitamin D3) 125 mcg PO DAILY citalopram 20 mg PO DAILY docusate sodium (Colace) 100 mg PO BID epinephrine 0.3 mg IM ONCE PRN hydralazine 25 mg PO BID lorazepam 0.5 mg PO BEDTIME PRN pravastatin 20 mg PO DAILY pregabalin 150 mg PO DAILY@2100 sumatriptan succinate 50 mg PO Q2-4H PRN triamcinolone acetonide 0.1% 1 appl topical DAILY triamterene-hydrochlorothiazid 37.5-25 mg 1 cap PO DAILY Tobacco use date assessed: 03/16/23 Dental Screening Dental Screen Date: 03/16/23 Did you have a dental visit in the last 12 months?: Yes Did you have a dental problem in the last 6 months where you did not have access to dental care?: No Was dental information given to patient?: Patient has dentist HPI PE HPI Details Pt presents for PE. HTN and hyperlipid, are stable on meds. 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 She follows up with weight management program for morbid obesity. 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 She has been following ADA diet for borderline diabetes. [facility] Medical History (Updated 03/16/23 @ 09:13 by Mia North MD) PATRICIA treated with BiPAP Morbid obesity PATRICIA on CPAP Lumbar and sacral spondyloarthritis Hyperlipemia Depression Thyroid nodule Hx of renal calculi Irritable bowel syndrome GERD (gastroesophageal reflux disease) Arthritis Cancer Surgical History H/O ventral hernia repair Hx of bilateral oophorectomy Hx of breast biopsy Hx of section Hx of colonoscopy Hx of esophagogastroduodenoscopy Family History (Updated 03/16/23 @ 08:35 by Faith Rodriguez [facility]) Mother No problems noted. Father Substance use disorder Brother Substance use disorder Sister Substance use disorder Social History Household Members: Family Household Members Other:: , unemployed, 2 children () Housing: House Do you presently have visiting nurse or other home services: No Alcohol intake: current Alcohol intake frequency: holidays/special occasions only Alcohol type: beer Patient Tobacco Use Status: Never used Tobacco e-Cigarette/Vaping Use: Never Used Second Hand Smoke Exposure: No Advance Directives Date on File: 03/18/22 service: No Current occupational status: unemployed Cognitive needs: No Hearing needs: No Vision needs: Yes Questionnaire Thrive Questionnaire Date Thrive assessed: 07/05/21 I am a: Patient What is your living situation today?: I have a steady place to live Within the past 12 months, did the food you bought not last and you didn't have the money to get more?: Never true Within the past 12 months, did you worry whether your food would run out before you got money to buy more?: Never true Please select the resources that you would like help with: None AUDIT C Alcohol Use Questionnaire (AUDIT-C) 1. How often do you have a drink containing alcohol?: 2-4 times a month 2. How many drinks containing alcohol do you have on a typical day when you are drinking?: 1 or 2 3. How often do you have six or more drinks on one occasion?: Never Total Score: 2 HARRIET-7 AMB Questionnaire HARRIET-7 Date HARRIET - 7 assessed: 07/05/21 Feeling nervous, anxious, or on edge: 1 = Several days Not being able to stop or control worryin = Not at all Worrying too much about different things: 1 = Several days Trouble relaxin = Several days Being so restless that it is hard to sit still: 0 = Not at all Becoming easily annoyed or irritable: 1 = Several days Feeling afraid as if something awful might happen: 0 = Not at all Total HARRIET-7 score (0-4 normal; 5-9 mild; 10-14 moderate; 15-21 severe): 4 Source: Developed by Drs. Hitesh Bowden, Vero Owens, Micheal Cedillo and colleagues, with an educational bert from [employer]. Review of Systems Const All systems reviewed & are unremarkable except as noted in HPI and below Reports no additional complaints Eyes Reports no additional complaints ENT Reports no additional complaints Card Reports no additional complaints Resp Reports no additional complaints GI Reports no additional complaints Reports no additional complaints Physical exam (Primary Care) Vital Signs: Last Vital Signs Pulse 73 03/16/23 08:30 BP 126/64 03/16/23 08:30 Pulse Ox 95 03/16/23 08:30 Oxygen Delivery Method Room Air 03/16/23 08:30 BMI result Body Mass Index 50.8 Tobacco/Smoking Status: Tobacco use Status Tobacco use date assessed 03/16/23 03/16/23 08:36 Patient Tobacco Use Status Never used Tobacco 03/16/23 08:36 e-Cigarette/Vaping Use Never Used 03/16/23 08:36 Thrive Assessment: Date of Thrive Assessment Date Thrive assessed 07/05/21 03/16/23 08:36 Const General: no acute distress HENMT Head: Yes normal to inspection Ears: hearing grossly normal bilaterally General nose exam: Normal external nose present Face and sinus: Yes normal facial exam Throat: Yes posterior oropharynx normal Eyes General: appearance normal, both eyes and all related structures Neck Neck: Yes no lymphadenopathy and Yes supple Resp Effort & Inspection: normal respiratory effort Auscultation: clear to auscultation bilaterally Cardio Rhythm: regular rhythm Heart sounds: S1 normal heart sound present and S2 normal heart sound present GI Inspection: Yes normal to inspection Palpation (GI): Soft to palpation Percussion: Yes normal to percussion Auscultation: normal bowel sounds Office Procedures Flu Questionnaire Does the patient have a severe egg allergy?: No Does the patient have severe life threatening allergies?: No Does the patient have a fever or illness today?: No Has the patient ever had Guillain-[place] Syndrome?: No Has the patient ever had any past reaction to a flu shot?: No Immunizations flu vacc [id number] 6mos up(PF) 60 mcg(15 mcgx4)/0.5 mL IM syringe Performing Provider: Mia North MD Performing Location: [facility] Administered by: EMILIANO Huitron on 03/16/23 08:42 Dose Route Admin Location Dispensed Lot Number Expiration Date [employer] Behavior[employer] Scientist 0.5 mL IM Left Deltoid 0.5 mL [id number] 11/05/23 94812-373-02 [employer] VIS Given Date VIS Provided VIS Publication Date 03/16/23 Single Vaccine 20 Eligibility Eligibility Date Funding Source Not VF Eligible 03/16/23 Private Assessment and Plan Assessment & Plan (1) DM2 (diabetes mellitus, type 2): Comment: A1C 6.2, 2022, diet controlled, intolerant to Trulicity Code(s): E11.9 - Type 2 diabetes mellitus without complications Plan: Continue ADA diet increase physical activity weight loss discussed with the patient she will return for fasting blood work including A1c. If A1c is above 6 patient is willing to start monitoring her fasting blood glucose and will need a glucometer and test strips sent to the pharmacy (2) PATRICIA treated with BiPAP: Comment: Patient does have longstanding history of obstructive sleep apnea with hypoventilation. Currently on BiPAP therapy with pressure 18/14 cm . Compliance is excellent, and she is actually fully dependent on the use of BiPAP at night. Code(s): G47.33 - Obstructive sleep apnea (adult) (pediatric) (3) Morbid obesity: Comment: . Code(s): E66.01 - Morbid (severe) obesity due to excess calories Plan: Weight loss discussed with the patient (4) Annual physical exam: Code(s): Z00.00 - Encounter for general adult medical examination without abnormal findings Plan: Well-balanced diet regular physical activity weight loss discussed with the patient. She is up-to-date with mammogram Pap smear by executive casino host. Patient will be referred to GI for colonoscopy (5) Essential hypertension: Code(s): I10 - Essential (primary) hypertension Plan: Continue current medications (6) Hyperlipemia: Code(s): E78.5 - Hyperlipidemia, unspecified Plan: Continue statin (7) Depression: Comment: Follows up with psychiatrist and counselor Code(s): F32.9 - Major depressive disorder, single episode, unspecified Plan: Continue citalopram. return in 6 months with fasting labs before Orders: Orders Comprehensive Madeline. Panel Fast Today E11.9 - Type 2 diabetes mellitus without complications, J96.21 - Acute and chronic respiratory failure with hypoxia Complete Blood Count Auto Diff Today E11.9 - Type 2 diabetes mellitus without complications, J96.21 - Acute and chronic respiratory failure with hypoxia Hemoglobin A1c Today E11.9 - Type 2 diabetes mellitus without complications, J96.21 - Acute and chronic respiratory failure with hypoxia Comprehensive Madeline. Panel Fast 6 Months E11.9 - Type 2 diabetes mellitus without complications, E78.5 - Hyperlipidemia, unspecified, I10 - Essential (primary) hypertension Complete Blood Count Auto Diff 6 Months E11.9 - Type 2 diabetes mellitus without complications, E78.5 - Hyperlipidemia, unspecified, I10 - Essential (primary) hypertension Lipid Panel 6 Months E11.9 - Type 2 diabetes mellitus without complications, E78.5 - Hyperlipidemia, unspecified, I10 - Essential (primary) hypertension Microalbumin, Random (w Creat) 6 Months E11.9 - Type 2 diabetes mellitus without complications, E78.5 - Hyperlipidemia, unspecified, I10 - Essential (primary) hypertension Influenza [id number] Immunization Today Z23 - Encounter for immunization Lipid Panel Today E11.9 - Type 2 diabetes mellitus without complications, J96.21 - Acute and chronic respiratory failure with hypoxia TSH reflex Free T4 Today E11.9 - Type 2 diabetes mellitus without complications, J96.21 - Acute and chronic respiratory failure with hypoxia Microalbumin, Random (w Creat) Today E11.9 - Type 2 diabetes mellitus without complications, J96.21 - Acute and chronic respiratory failure with hypoxia Hemoglobin A1c 6 Months E11.9 - Type 2 diabetes mellitus without complications, E78.5 - Hyperlipidemia, unspecified, I10 - Essential (primary) hypertension Referrals Gastroenterology Referral Z00.00 - Encounter for general adult medical examination without abnormal findings Coding Level of Care Code Est Pt Prev Care 40-64y(36055) Diagnoses DM2 (diabetes mellitus, type 2) E11.9 PATRICIA treated with BiPAP G47.33 Morbid obesity E66.01 Annual physical exam Z00.00 Essential hypertension I10 Hyperlipemia E78.5 Depression F32.9
== END 2023-03-16 09:05 | disposition home or self-care (01) ==
PROVIDERS: PCP Internal Medicine; Visit Provider Internal Medicine
DX: Z00.00 Encounter for general adult medical examination without abnormal findings (principal); E11.9 Type 2 diabetes mellitus without complications; E66.01 Morbid (severe) obesity due to excess calories; Z68.43 Body mass index [BMI] 50.0-59.9, adult; G47.33 Obstructive sleep apnea (adult) (pediatric); I10 Essential (primary) hypertension; E78.5 Hyperlipidemia, unspecified; F32.9 Major depressive disorder, single episode, unspecified; Z23 Encounter for immunization
CPT/HCPCS: 90471; 90686; 99396

== ENCOUNTER 2023-04-11 09:43 | Outpatient (REF) | payer OTHER, SELFPAY ==
[2023-04-11 10:00] LABS: MANUAL DIFF FLAG NO
[2023-04-11 10:19] LABS: Basophils Percent Auto 0.5 % (0-2); Eosinophils Absolute Auto 0.2 X10*3/uL (0.0-0.4); Hematocrit 38.6 % (37.0-47.0); Hemoglobin 13.1 g/dl (12.0-16.0); Imm Gran Abs Auto 0.01 X10*3/uL (0.00-0.03); Imm Gran Pct Auto 0.2 % (0.0-0.4); Lymphocytes Percent Auto 34.3 % (20-40); Mean Corpuscular HGB Conc 33.9 g/dl (31.0-35.0); Mean Corpuscular Hemoglobin 31.3 pg (27.0-33.0); Mean Corpuscular Volume 92.3 fL (80.0-98.0); Mean Platelet Volume 9.5 fL (9.4-12.3); Monocytes Absolute Auto 0.4 X10*3/uL (0.1-1.2); Monocytes Percent Auto 7.2 % (2-11); Neutrophils Absolute Auto 3.1 x10*3/uL (2.0-8.3); Neutrophils Percent Auto 53.8 % (45-73); Platelet Count 189 X10*3/uL (160-400); Red Blood Count 4.18 X10*6/uL (4.20-5.50); White Blood Count 5.7 X10*3/uL (4.8-10.8)
[2023-04-11 10:30] LABS: Estimated Average Glucose 189 mg/dL; Hemoglobin A1c % 8.2 % (<6.0)
[2023-04-11 11:26] LABS: Alanine Aminotransferase 69 U/L (0-31); Albumin Level 4.2 g/dL (3.5-5.0); Alkaline Phosphatase 91 U/L (39-117); Anion Gap 11 (12-20); Aspartate Amino Transferase 66 U/L (5-31); Bilirubin Total 0.4 mg/dL (0.0-1.0); Blood Urea Nitrogen 14 mg/dL (9-16); Calcium 9.6 mg/dL (8.4-10.2); Carbon Dioxide 28 mmol/L (22-29); Chloride 104 mmol/L (96-108); Cholesterol 139 mg/dL (<200); Estimated Glomerular Filt Rate > 60; Glucose Fasting 190 mg/dL (60-99); HDL Cholesterol 35 mg/dL (>40); LDL Cholesterol Calculated 59 mg/dL (<100); Potassium 3.7 mmol/L (3.3-5.1); Sodium 139 mmol/L (135-145); Total Protein 7.3 g/dL (6.5-8.0); Triglycerides 226 mg/dL (<150)
[2023-04-11 12:41] LABS: Creatinine Urine 164.48 mg/dL; Microalbum/Creatinine Ratio Ur 131.3 ug/mg cr (<30)
== END 2023-04-11 09:44 | disposition home or self-care (01) ==
LOC: HO.LAB 09:43
PROVIDERS: PCP Internal Medicine; Visit Provider Internal Medicine
DX: E11.9 Type 2 diabetes mellitus without complications (principal); J96.21 Acute and chronic respiratory failure with hypoxia
CPT/HCPCS: 36415; 80053; 80061; 82043; 82570; 83036; 84443; 85025

== ENCOUNTER 2023-05-17 15:07 | Outpatient (AMB) | payer OTHER, SELFPAY ==
--- NOTE | 2023-05-17 15:14 | MHC.OFFWIV ---
Intake Vital Signs 05/17/23 15:16 Height 5 ft 1 in Weight 268 lb BMI 50.6 BP 146/90 H Blood Pressure Location Lt brachial Position Sitting Pulse 84 Pulse Source Pulse Oximeter Temp 97.7 F Temp Source Temporal Artery Scan Pulse Oximetry (%) 97 Oxygen Delivery Method Room Air Intake Visit Reasons: EST/right side pain (lobby) Intake Note: Pt is here c/o right side back pain. Patient Tobacco Use Status: Never used Tobacco Allergies doxycycline [DOXYCYCLINE] Allergy (Severe, Verified 05/17/23 15:15) ESOPHAGITIS Sulfa (Sulfonamide Antibiotics) Allergy (Severe, Verified 05/17/23 15:15) FACIAL SWELLING codeine [Codeine] Allergy (Intermediate, Verified 05/17/23 15:15) RASH lisinopril [Lisinopril] Allergy (Intermediate, Verified 05/17/23 15:15) EXTREMITIES SWELLING benzonatate [BENZONATATE] Allergy (Unknown, Verified 05/17/23 15:15) ANAPHYLAXIS meperidine [Demerol] Allergy (Unknown, Verified 05/17/23 15:15) Rash dulaglutide [From Trulicity] Adverse Reaction (Intermediate, Verified 05/17/23 15:15) itchy throat losartan Adverse Reaction (Intermediate, Verified 05/17/23 15:15) swelling of hands, Do you need a note to return to daycare/school/sports/work: No HPI HPI Comments History of Present Illness Details Patient is a 52yo F who presents to office with L flank pain She has hx of stone and pyelonephritis in past She said onset of L flank pain 2 days ago which resolved Pain returned this am Has been constant Worse with palpation and movement No trauma or injury Denies pain radiation No pain scale given Denies associated fever, chills, CP, SOB, cough, abdominal pain She denies urinary symptoms such as dysuria, frequency, urgency, hematuria Has had shingles in past and does not feel similar; denies noting rash Has no improving factors PFSH Medical History (Updated 05/17/23 @ 15:37 by Iwona Carr PA-C) PATRICIA treated with BiPAP Morbid obesity PATRICIA on CPAP Lumbar and sacral spondyloarthritis Hyperlipemia Depression Thyroid nodule Hx of renal calculi Irritable bowel syndrome GERD (gastroesophageal reflux disease) Arthritis Cancer Surgical History H/O ventral hernia repair Hx of bilateral oophorectomy Hx of breast biopsy Hx of section Hx of colonoscopy Hx of esophagogastroduodenoscopy Family History (Updated 03/16/23 @ 08:35 by Faith Rodriguez Blanca) Mother No problems noted. Father Substance use disorder Brother Substance use disorder Sister Substance use disorder Social History Household Members: Family Household Members Other:: , unemployed, 2 children () Housing: House Do you presently have visiting nurse or other home services: No Alcohol intake: current Alcohol intake frequency: holidays/special occasions only Alcohol type: beer Patient Tobacco Use Status: Never used Tobacco e-Cigarette/Vaping Use: Never Used Second Hand Smoke Exposure: No Advance Directives Date on File: 03/18/22 service: No Current occupational status: unemployed Cognitive needs: No Hearing needs: No Vision needs: Yes Review of Systems Const Denies chills, Denies fatigue and Denies fever(s) ENT Denies nasal discharge and Denies sore throat Card Denies chest pain and Denies dyspnea Resp Denies cough and Denies dyspnea GI Denies abdominal pain Denies hematuria, Denies dysuria, Denies urinary hesitancy, Denies urinary urgency, Denies vaginal discharge and Reports other (R flank pain/kidney pain) Musc Reports back pain Endo Denies fatigue Physical Exam Vital Signs: Last Vital Signs Temp 97.7 F 05/17/23 15:16 Pulse 84 05/17/23 15:16 BP 146/90 H 05/17/23 15:16 Pulse Ox 97 05/17/23 15:16 Oxygen Delivery Method Room Air 05/17/23 15:16 BMI result Body Mass Index 50.6 General: Non-toxic, NAD. Speaking full sentences. Skin: Warm dry throughout. No posterior back of flank ecchymosis, rashes or edema Respiratory: CTA bilaterally. No wheezes, rales or rhonchi Cardiac: RRR. No murmur ABdominal: BS present. Abdomen without tenderness or distention. + L CVAT. No rebound or guarding MSK: Full ROM extremities. Neurology: A/O. No aphasia or facial droop. Gait without abnormality Psych: Good mood and affect Results AMB Urinalysis, Automated UA Leukoctes 0 Ra/uL Last Edit by Nani Grubbs CMA on 05/17/23 15:43 UA Nitrite Negative Last Edit by Nani Grubbs, SKY on 05/17/23 15:43 UA Urobilinogen 0.2 mg/dL Last Edit by Nani Grubbs, SKY on 05/17/23 15:43 UA Protein 0 mg/dL Last Edit by Nani Grubbs, SKY on 05/17/23 15:43 UA pH 6.0 Last Edit by Nani Grubbs, SKY on 05/17/23 15:43 UA Blood 0 Emre/uL Last Edit by Nani Grubbs, SKY on 05/17/23 15:43 UA Specific [place] 1.015 Last Edit by Nani Grubbs, SKY on 05/17/23 15:43 UA Ketone Negative Last Edit by Nani Grubbs, SKY on 05/17/23 15:43 UA Bilirubin 0 mg/dL Last Edit by Nani Grubbs, SKY on 05/17/23 15:43 UA Glucose 0 mg/dL Last Edit by Nani Grubbs, SKY on 05/17/23 15:43 Assessment & Plan Assessment & Plan (1) Flank pain: Code(s): R10.9 - Unspecified abdominal pain Plan: Patient seen and evaluated. + L flank pain on exam without acute abdomen U/A: negative for blood, leuks, nitrates, protein glucose. Since no sign of infection, no antibiotics warranted at this time Discussed to monitor for shingles rash Will give muscle relaxant; lethargy. No alcohol or driving. Discussed s/s that warrant ER evaluation and management She will monitor BP F/U with PCP Patient gave verbal understanding and had no additional questions or concerns at time of discharge All questions answered Orders: Orders AMB Urinalysis Automated Today Z13.9 - Encounter for screening, unspecified Medications: New methocarbamol 750 mg PO BEDTIME PRN 14 tabs 0RF pain Coding Level of Care Code Est Pt Level 3 (13381) Diagnoses Flank pain R10.9
[2023-05-17 15:16] VITALS: BP 146/90; PULSE 84; TEMP 36.5; O2SAT 97; BMI 50.6
== END 2023-05-17 16:18 | disposition home or self-care (01) ==
PROVIDERS: PCP Internal Medicine; Visit Provider Physician Assistant
DX: R10.9 Unspecified abdominal pain (principal)
CPT/HCPCS: 81003; 99213

== ENCOUNTER 2023-05-23 10:10 | Outpatient (AMB) | payer OTHER, SELFPAY ==
[2023-05-23 10:12] VITALS: BP 151/73; PULSE 80; O2SAT 95; BMI 54.0
--- NOTE | 2023-05-23 10:12 | MHC.OFFVIS ---
Intake Vital Signs 05/23/23 10:12 Height 5 ft 1 in Weight 286 lb BMI 54.0 BP 151/73 H Blood Pressure Location Lt brachial Position Sitting Pulse 80 Pulse Source Pulse Oximeter Pulse Oximetry (%) 95 Oxygen Delivery Method Room Air Intake Visit Reasons: Colonosocpy screening Intake Note: This patient presents for an assessment for colonoscopy screening. Patient c/o; reports occasional rectal bleeding, reports constipation and diarrhea. Hygiene Coordinator Required: No Accompanied by: Self / Same As Patient Allergies doxycycline [DOXYCYCLINE] Allergy (Severe, Verified 05/23/23 10:16) ESOPHAGITIS Sulfa (Sulfonamide Antibiotics) Allergy (Severe, Verified 05/23/23 10:16) FACIAL SWELLING codeine [Codeine] Allergy (Intermediate, Verified 05/23/23 10:16) RASH lisinopril [Lisinopril] Allergy (Intermediate, Verified 05/23/23 10:16) EXTREMITIES SWELLING benzonatate [BENZONATATE] Allergy (Unknown, Verified 05/23/23 10:16) ANAPHYLAXIS meperidine [Demerol] Allergy (Unknown, Verified 05/23/23 10:16) Rash dulaglutide [From Trulicity] Adverse Reaction (Intermediate, Verified 05/23/23 10:16) itchy throat losartan Adverse Reaction (Intermediate, Verified 05/23/23 10:16) swelling of hands, Medication List - Last Reconciled 05/23/23 by Bozena Stoddard PA-C acetaminophen ER (Tylenol Arthritis Pain) 650 mg PO Q12H albuterol sulfate 90 mcg/actuation 2 puffs inhalation Q4H PRN amlodipine 10 mg PO DAILY blood sugar diagnostic (FreeStyle Lite Strips) 1 qd blood-glucose meter (FreeStyle Lite Meter kit) As directed cetirizine (Zyrtec) 10 mg PO DAILY cholecalciferol (vitamin D3) 125 mcg PO DAILY citalopram 20 mg PO DAILY docusate sodium (Colace) 100 mg PO BID epinephrine 0.3 mg IM ONCE PRN fluticasone propionate 50 mcg/actuation 1 spray intranasal DAILY hydralazine 25 mg PO BID lancets (FreeStyle Lancets) Test blood sugar once a day lorazepam 0.5 mg PO BEDTIME PRN metformin 1,000 mg PO BID methocarbamol 750 mg PO BEDTIME PRN multivitamin 1 tab PO DAILY pravastatin 20 mg PO DAILY pregabalin 150 mg PO DAILY@2100 sumatriptan succinate 50 mg PO Q2-4H PRN triamcinolone acetonide 0.1% 1 appl topical DAILY triamterene-hydrochlorothiazid 37.5-25 mg 1 cap PO DAILY HPI HPI Comments History of Present Illness Details A 52-year-old female referred for screening colonoscopy. Previous colonoscopy done at [facility] 12/25/[address] Vinson Hyperplastic polyp Tubular adenoma Diverticulosis Hemorrhoids Recommended repeat colonoscopy 5 years EGD 2 05/2015 for GERD and chest pain-[facility] Multiple nonbleeding ulcers found in the middle 3rd of the esophagus multiple biopsies were taken Colonoscopy--2018- Dr. Reed No polyps Negative bx diverticulosis hemorrhoids 02/2020- EGD Reed- negative bx HH- omeprazole- sx resolved Alternating stool pattern- worse with metformin- Appetite is good- glucose fluctuates- PFSH Medical History (Updated 05/23/23 @ 11:04 by Bozena Stoddard PA-C) PATRICIA treated with BiPAP Morbid obesity PATRICIA on CPAP Lumbar and sacral spondyloarthritis Hyperlipemia Depression Thyroid nodule Hx of renal calculi Irritable bowel syndrome GERD (gastroesophageal reflux disease) Arthritis Cancer Surgical History H/O ventral hernia repair Hx of bilateral oophorectomy Hx of breast biopsy Hx of section Hx of colonoscopy Hx of esophagogastroduodenoscopy Family History (Updated 05/23/23 @ 10:44 by Bozena Stoddard PA-C) Mother No problems noted. Father Substance use disorder Esophageal cancer Brother Substance use disorder Sister Substance use disorder History of Mccurdy's esophagus Social History Household Members: Family Household Members Other:: , unemployed, 2 children () Housing: House Do you presently have visiting nurse or other home services: No Alcohol intake: current Alcohol intake frequency: holidays/special occasions only Alcohol type: beer Patient Tobacco Use Status: Never used Tobacco e-Cigarette/Vaping Use: Never Used Second Hand Smoke Exposure: No Advance Directives Date on File: 03/18/22 service: No Current occupational status: unemployed Cognitive needs: No Hearing needs: No Vision needs: Yes Review of Systems Const All systems reviewed & are unremarkable except as noted in HPI and below Card Denies chest pain and Denies dyspnea Resp Details: Bipap Denies dyspnea GI Denies abdominal pain, Denies hematochezia, Denies heartburn, Denies nausea and Denies vomiting Physical Exam Vital Signs: Last Vital Signs Pulse 80 05/23/23 10:12 BP 151/73 H 05/23/23 10:12 Pulse Ox 95 05/23/23 10:12 Oxygen Delivery Method Room Air 05/23/23 10:12 BMI result Body Mass Index 54.0 Const General: cooperative, comfortable and no acute distress Nutritional Appearance: overweight Orientation/consciousness: patient oriented x3 Limitations: no limitations Eyes Sclerae: sclerae normal Resp Effort & Inspection: normal respiratory effort and able to speak in complete sentences Auscultation: clear to auscultation bilaterally, no rales, no rhonchi and no wheezes Cardio Rate: regular rate Rhythm: regular rhythm Heart sounds: S1 normal heart sound present, S2 normal heart sound present and Murmur heart sound present GI Palpation (GI): Soft to palpation and nontender Auscultation: normal bowel sounds Skin General skin exam: no rashes or lesions noted Neuro General: patient oriented x3 Extrem General: Yes full ROM Psych Appearance: well kempt Mental Status: mental status grossly normal Speech and movement: Normal speech and movement present and Clear speech present Affect: normal affect Attitude: cooperative Thought process: Normal thought process present Thought content: Normal thought content present Insight: Good insight present (Psych) Judgement: Good judgement present (Psych) Assessment & Plan Assessment & Plan (1) History of adenomatous polyp of colon: Comment: Discussed procedure, rare risks need for escort Code(s): Z86.010 - Personal history of colonic polyps (2) Diverticulosis of colon: Code(s): K57.30 - Diverticulosis of large intestine without perforation or abscess without bleeding Plan: ER protocol (3) Hemorrhoids: Comment: Maintain high-fiber diet Code(s): K64.9 - Unspecified hemorrhoids Plan: HFD no strain (4) PATRICIA treated with BiPAP: Comment: Patient does have longstanding history of obstructive sleep apnea with hypoventilation. Currently on BiPAP therapy with pressure 18/14 cm . Compliance is excellent, and she is actually fully dependent on the use of BiPAP at night. Code(s): G47.33 - Obstructive sleep apnea (adult) (pediatric) Plan colonoscopy- anesthesia consult- bipap- sees pulm and cardiology MG prep Omit metformin rukhsana before as well as a.m. of procedure Orders: Orders Colonoscopy - GI Use Only Today G47.33 - Obstructive sleep apnea (adult) (pediatric), K57.30 - Diverticulosis of large intestine without perforation or abscess without bleeding, K64.9 - Unspecified hemorrhoids, Z86.010 - Personal history of colonic polyps Medications: New bisacodyl (Dulcolax (bisacodyl)) Day before procedure, prep day Take 4 tablets by mouth upon awakening followed by large glass of water 20 mg (4 x 5 mg) PO ONCE 4 tabs 0RF colonoscopy prep 1 day Z12.11 - Encounter for screening for malignant neoplasm of colon polyethylene glycol 3350 (Miralax) Take as directed by mouth the day before your procedure. 238 grams PO ONCE PRN 238 grams 0RF laxative effect 1 day Patient Instructions: Polyp surveillance colonoscopy- anesthesia consult- bipap- sees pulm and cardiology MG prep Omit metformin rukhsana before as well as a.m. of procedure Reviewed diverticulosis/diverticulitis ER protocol Maintain high-fiber diet Avoid straining with hemorrhoid Encouraged to call questions or concerns Coding Level of Care Code New Pt Level 3 (99725) Diagnoses History of adenomatous polyp of colon Z86.010 Diverticulosis of colon K57.30 Hemorrhoids K64.9 PATRICIA treated with BiPAP G47.33 Time Spent (min) 30
== END 2023-05-23 11:15 | disposition home or self-care (01) ==
PROVIDERS: PCP Internal Medicine; Referring Provider Internal Medicine; Visit Provider Physician Assistant
DX: Z86.010 Personal history of colon polyps (principal); K57.30 Diverticulosis of large intestine without perforation or abscess without bleeding; K64.9 Unspecified hemorrhoids; G47.33 Obstructive sleep apnea (adult) (pediatric)
CPT/HCPCS: 99203; 99212

== ENCOUNTER → 2023-05-23 10:10 | Outpatient (BNVA) | payer OTHER, SELFPAY | PROVIDERS: PCP Internal Medicine; Visit Provider Physician Assistant ==

== ENCOUNTER 2023-07-14 06:50 | Outpatient (REF) | payer OTHER, SELFPAY ==
[2023-07-14 07:43] LABS: Estimated Average Glucose 134 mg/dL; Hemoglobin A1C 151.4966 umol/L; Hemoglobin A1c % 6.3 % (<6.0)
[2023-07-14 08:04] LABS: Alanine Aminotransferase 44 U/L (0-31); Albumin Level 4.3 g/dL (3.5-5.0); Alkaline Phosphatase 72 U/L (39-117); Anion Gap 13 (12-20); Aspartate Amino Transferase 38 U/L (5-31); Bilirubin Total 0.4 mg/dL (0.0-1.0); Blood Urea Nitrogen 14 mg/dL (9-16); Calcium 10.2 mg/dL (8.4-10.2); Carbon Dioxide 29 mmol/L (22-29); Chloride 104 mmol/L (96-108); Cholesterol 141 mg/dL (<200); Estimated Glomerular Filt Rate > 60; Glucose Fasting 122 mg/dL (60-99); HDL Cholesterol 37 mg/dL (>40); LDL Cholesterol Calculated 75 mg/dL (<100); Potassium 3.7 mmol/L (3.3-5.1); Sodium 142 mmol/L (135-145); Total Protein 7.2 g/dL (6.5-8.0); Triglycerides 146 mg/dL (<150)
== END 2023-07-14 06:51 | disposition home or self-care (01) ==
LOC: HO.LAB 06:50
PROVIDERS: PCP Internal Medicine; Visit Provider Internal Medicine
DX: E11.9 Type 2 diabetes mellitus without complications (principal)
CPT/HCPCS: 36415; 80053; 80061; 83036

== ENCOUNTER 2023-07-18 13:54 | Outpatient (AMB) | payer OTHER, SELFPAY ==
[2023-07-18 14:18] VITALS: BP 126/72; PULSE 78; O2SAT 95; BMI 48.7
--- NOTE | 2023-07-18 14:18 | MHC.PC.OV ---
Vital Signs 07/18/23 14:18 Height 5 ft 1 in Weight 258 lb BMI 48.7 BP 126/72 Blood Pressure Location Lt brachial Position Sitting Pulse 78 Pulse Source Pulse Oximeter Pulse Oximetry (%) 95 Oxygen Delivery Method Room Air Intake Visit Reasons: 3 month follow up HTN Intake Note: Pt is here today for 3 months follow up visit on HTN. Allergies doxycycline [DOXYCYCLINE] Allergy (Severe, Verified 07/18/23 14:19) ESOPHAGITIS Sulfa (Sulfonamide Antibiotics) Allergy (Severe, Verified 07/18/23 14:19) FACIAL SWELLING codeine [Codeine] Allergy (Intermediate, Verified 07/18/23 14:19) RASH lisinopril [Lisinopril] Allergy (Intermediate, Verified 07/18/23 14:19) EXTREMITIES SWELLING benzonatate [BENZONATATE] Allergy (Unknown, Verified 07/18/23 14:19) ANAPHYLAXIS meperidine [Demerol] Allergy (Unknown, Verified 07/18/23 14:19) Rash dulaglutide [From Trulicity] Adverse Reaction (Intermediate, Verified 07/18/23 14:19) itchy throat losartan Adverse Reaction (Intermediate, Verified 07/18/23 14:19) swelling of hands, Medication List - Last Reconciled 07/18/23 by Mia North MD acetaminophen ER (Tylenol Arthritis Pain) 650 mg PO Q12H albuterol sulfate 90 mcg/actuation 2 puffs inhalation Q4H PRN amlodipine 10 mg PO DAILY bisacodyl (Dulcolax (bisacodyl)) 20 mg (4 x 5 mg) PO ONCE 1 day blood sugar diagnostic (FreeStyle Lite Strips) 1 qd blood-glucose meter (FreeStyle Lite Meter kit) As directed cetirizine (Zyrtec) 10 mg PO DAILY cholecalciferol (vitamin D3) 125 mcg PO DAILY citalopram 20 mg PO DAILY docusate sodium (Colace) 100 mg PO BID epinephrine 0.3 mg IM ONCE PRN fluticasone propionate 50 mcg/actuation 1 spray intranasal DAILY hydralazine 25 mg PO BID lancets (FreeStyle Lancets) Test blood sugar once a day lorazepam 0.5 mg PO BEDTIME PRN metformin 1,000 mg PO BID methocarbamol 750 mg PO BEDTIME PRN multivitamin 1 tab PO DAILY polyethylene glycol 3350 (Miralax) 238 grams PO ONCE PRN 1 day pravastatin 20 mg PO DAILY pregabalin 150 mg PO DAILY@2100 sumatriptan succinate 50 mg PO Q2-4H PRN triamcinolone acetonide 0.1% 1 appl topical DAILY triamterene-hydrochlorothiazid 37.5-25 mg 1 cap PO DAILY Tobacco use date assessed: 07/18/23 Dental Screening Dental Screen Date: 07/18/23 Did you have a dental visit in the last 12 months?: Yes Did you have a dental problem in the last 6 months where you did not have access to dental care?: No Was dental information given to patient?: Patient has dentist HPI 3 month follow up HTN HPI Details Patient presents for the follow-up of type 2 diabetes hypertension hyperlipidemia stable on current medications. She joined [employer] and lost 9 lb. [facility] Medical History (Updated 07/18/23 @ 14:50 by Mia North MD) PATRICIA treated with BiPAP Morbid obesity PATRICIA on CPAP Lumbar and sacral spondyloarthritis Hyperlipemia Depression Thyroid nodule Hx of renal calculi Irritable bowel syndrome GERD (gastroesophageal reflux disease) Arthritis Cancer Surgical History H/O ventral hernia repair Hx of bilateral oophorectomy Hx of breast biopsy Hx of section Hx of colonoscopy Hx of esophagogastroduodenoscopy Family History Mother No problems noted. Father Substance use disorder Esophageal cancer Brother Substance use disorder Sister Substance use disorder History of Mccurdy's esophagus Social History Household Members: Family Household Members Other:: , unemployed, 2 children () Housing: House Do you presently have visiting nurse or other home services: No Alcohol intake: current Alcohol intake frequency: holidays/special occasions only Alcohol type: beer Patient Tobacco Use Status: Never used Tobacco e-Cigarette/Vaping Use: Never Used Second Hand Smoke Exposure: No Advance Directives Date on File: 03/18/22 service: No Current occupational status: unemployed Cognitive needs: No Hearing needs: No Vision needs: Yes Questionnaire PHQ-9 Over the last 2 weeks, how often have you been bothered by any of the following problems? 1. Little interest or pleasure in doing things: several days 2. Feeling down, depressed, or hopeless: several days 3. Trouble falling or staying asleep, or sleeping too much: several days 4. Feeling tired or having little energy: several days 5. Poor appetite or overeating: not at all 6. Feeling bad about yourself - or that you are a failure or have let yourself or your family down: nearly every day 7. Trouble concentrating on things, such as reading the newspaper or watching television: not at all 8. Moving or speaking so slowly that other people could have noticed. Or the opposite - being so fidgety or restless that you have been moving around a lot more than usual: not at all 9. Thoughts that you would be better off or of hurting yourself in some way: not at all Total score: 7 Depression Screening Interpretation: Negative Depression Screening Done: Yes Source: Developed by Drs. Hitesh Bowden, Vero Owens, Micheal Cedillo and colleagues, with an educational bert from [employer]. Thrive Questionnaire Date Thrive assessed: 07/05/21 I am a: Patient What is your living situation today?: I have a steady place to live Within the past 12 months, did the food you bought not last and you didn't have the money to get more?: Never true Within the past 12 months, did you worry whether your food would run out before you got money to buy more?: Never true Do you have trouble paying for medicines?: No Do you have trouble getting transportation to medical appointments?: No Do you have trouble paying your heating and electricity bill?: No Do you have trouble taking care of your child, family member or friend?: No Do you have trouble with day-to-day activities such as bathing, preparing meals, shopping, managing finances, etc.?: No Are you currently unemployed and looking for a job?: No Are you interested in more education?: No Please select the resources that you would like help with: None THRIVE Score: 0 AUDIT C Alcohol Use Questionnaire (AUDIT-C) 1. How often do you have a drink containing alcohol?: Monthly or less 2. How many drinks containing alcohol do you have on a typical day when you are drinking?: 1 or 2 3. How often do you have six or more drinks on one occasion?: Never Total Score: 1 HARRIET-7 AMB Questionnaire HARRIET-7 Date HARRIET - 7 assessed: 07/18/23 Feeling nervous, anxious, or on edge: 2 = More than half the days Not being able to stop or control worryin = More than half the days Worrying too much about different things: 2 = More than half the days Trouble relaxin = More than half the days Being so restless that it is hard to sit still: 0 = Not at all Becoming easily annoyed or irritable: 1 = Several days Feeling afraid as if something awful might happen: 0 = Not at all Total HARRIET-7 score (0-4 normal; 5-9 mild; 10-14 moderate; 15-21 severe): 9 Source: Developed by Drs. Hitesh Bowden, Vero Owens, Micheal Cedillo and colleagues, with an educational betr from [employer]. Review of Systems Const All systems reviewed & are unremarkable except as noted in HPI and below Reports no additional complaints Eyes Reports no additional complaints ENT Reports no additional complaints Card Reports no additional complaints Resp Reports no additional complaints GI Reports no additional complaints Physical exam (Primary Care) Vital Signs: Last Vital Signs Pulse 78 07/18/23 14:18 BP 126/72 07/18/23 14:18 Pulse Ox 95 07/18/23 14:18 Oxygen Delivery Method Room Air 07/18/23 14:18 BMI result Body Mass Index 48.7 Tobacco/Smoking Status: Tobacco use Status Tobacco use date assessed 07/18/23 07/18/23 14:24 Patient Tobacco Use Status Never used Tobacco 07/18/23 14:24 e-Cigarette/Vaping Use Never Used 07/18/23 14:24 PHQ-9: PHQ-9 Score PHQ-9: Total score 7 07/18/23 14:29 Depression Screening Interpretation: Negative Thrive Assessment: Date of Thrive Assessment Date Thrive assessed 07/05/21 07/18/23 14:24 Const General: no acute distress HENMT Head: Yes normal to inspection Neck Neck: Yes supple Resp Effort & Inspection: normal respiratory effort Auscultation: clear to auscultation bilaterally Cardio Rhythm: regular rhythm Heart sounds: S1 normal heart sound present and S2 normal heart sound present GI Inspection: Yes normal to inspection Palpation (GI): Soft to palpation Percussion: Yes normal to percussion Assessment and Plan Assessment & Plan (1) Osteoarthritis of foot, right: Code(s): M19.071 - Primary osteoarthritis, right ankle and foot Plan: Patient follows up with video presentation operator and podiatry (2) DM2 (diabetes mellitus, type 2): Comment: A1C 6.2, 2022, diet controlled, intolerant to Trulicity ( throat swelling) Code(s): E11.9 - Type 2 diabetes mellitus without complications Plan: A1c is down to 6.3, continue metformin ADA diet increase physical activity and weight loss discussed (3) Morbid obesity: Comment: . Code(s): E66.01 - Morbid (severe) obesity due to excess calories Plan: Continue weight watchers for weight loss (4) Hyperlipemia: Code(s): E78.5 - Hyperlipidemia, unspecified Plan: Continue statin (5) Essential hypertension: Comment: Intolerant to ARB or STEVEN inhibitors caused swelling of legs and hands Code(s): I10 - Essential (primary) hypertension Plan: Continue current medications, follow-up in 3 months with a fasting labs before Orders: Orders Comprehensive [place]. Panel Fast 3 Months E11.9 - Type 2 diabetes mellitus without complications, E66.01 - Morbid (severe) obesity due to excess calories, E78.5 - Hyperlipidemia, unspecified, I10 - Essential (primary) hypertension Microalbumin, Random (w Creat) 3 Months E11.9 - Type 2 diabetes mellitus without complications, E66.01 - Morbid (severe) obesity due to excess calories, E78.5 - Hyperlipidemia, unspecified, I10 - Essential (primary) hypertension Hemoglobin A1c 3 Months E11.9 - Type 2 diabetes mellitus without complications, E66.01 - Morbid (severe) obesity due to excess calories, E78.5 - Hyperlipidemia, unspecified, I10 - Essential (primary) hypertension Lipid Panel 3 Months E11.9 - Type 2 diabetes mellitus without complications, E66.01 - Morbid (severe) obesity due to excess calories, E78.5 - Hyperlipidemia, unspecified, I10 - Essential (primary) hypertension Medications: Changed From metformin 1,000 mg PO BID 180 tabs 1RF To metformin 500 mg (1/2 x 1,000 mg) PO BID 180 tabs 1RF Coding Level of Care Code Est Pt Level 4 (10426) Diagnoses Osteoarthritis of foot, right M19.071 DM2 (diabetes mellitus, type 2) E11.9 Morbid obesity E66.01 Hyperlipemia E78.5 Essential hypertension I10
== END 2023-07-18 14:43 | disposition home or self-care (01) ==
PROVIDERS: PCP Internal Medicine; Visit Provider Internal Medicine
DX: E11.9 Type 2 diabetes mellitus without complications (principal); E66.01 Morbid (severe) obesity due to excess calories; Z68.42 Body mass index [BMI] 45.0-49.9, adult; M19.071 Primary osteoarthritis, right ankle and foot; E78.5 Hyperlipidemia, unspecified; I10 Essential (primary) hypertension
CPT/HCPCS: 99214

== ENCOUNTER 2023-08-04 11:18 | Outpatient (REF) | payer OTHER, SELFPAY ==
--- NOTE | ~2023-08-04 | XR_ITS ---
EXAMINATION: XR HIP, RIGHT CLINICAL INFORMATION: Pain. COMPARISON: Radiographs dated 02/27/2022. TECHNIQUE: AP and frog-leg lateral views of the right hip are submitted, together with frontal views of the pelvis. FINDINGS: No fracture. Alignment is anatomic. Hip joint space is maintained. Soft tissues are unremarkable. There are pelvic phleboliths. XR/XR hip RT w PEL1V IMPRESSION: Unremarkable radiographs of the right hip and pelvis.
== END 2023-08-04 11:19 | disposition home or self-care (01) ==
LOC: HO.XRAY 11:18
PROVIDERS: PCP Internal Medicine; Visit Provider Student in an Organized Health Care Education/Training Program
DX: M25.551 Pain in right hip (principal)
CPT/HCPCS: 73502

== ENCOUNTER 2023-09-04 10:47 | Outpatient (AMB) | payer OTHER, SELFPAY ==
[2023-09-04 11:06] VITALS: BP 140/70; PULSE 74; O2SAT 96; BMI 49.3
--- NOTE | 2023-09-04 11:06 | MHC.OFFVIS ---
Vital Signs 09/04/23 11:06 Height 5 ft 1 in Weight 261 lb BMI 49.3 BP 140/70 H Blood Pressure Location Lt brachial Position Sitting Pulse 74 Pulse Source Pulse Oximeter Pulse Oximetry (%) 96 Oxygen Delivery Method Room Air Intake Visit Reasons: Obstructive sleep apnea Intake Note: pt is here for follow up and states she is doing feeling good. Yarn Salvager Required: No Allergies doxycycline [DOXYCYCLINE] Allergy (Severe, Verified 09/04/23 11:27) ESOPHAGITIS Sulfa (Sulfonamide Antibiotics) Allergy (Severe, Verified 09/04/23 11:27) FACIAL SWELLING codeine [Codeine] Allergy (Intermediate, Verified 09/04/23 11:27) RASH lisinopril [Lisinopril] Allergy (Intermediate, Verified 09/04/23 11:27) EXTREMITIES SWELLING benzonatate [BENZONATATE] Allergy (Unknown, Verified 09/04/23 11:27) ANAPHYLAXIS meperidine [Demerol] Allergy (Unknown, Verified 09/04/23 11:27) Rash dulaglutide [From Trulicity] Adverse Reaction (Intermediate, Verified 09/04/23 11:27) itchy throat losartan Adverse Reaction (Intermediate, Verified 09/04/23 11:27) swelling of hands, Medication List - Last Reconciled 09/04/23 by Carlos Lewis MD acetaminophen ER (Tylenol Arthritis Pain) 650 mg PO Q12H albuterol sulfate 90 mcg/actuation 2 puffs inhalation Q4H PRN amlodipine 10 mg PO DAILY bisacodyl (Dulcolax (bisacodyl)) 20 mg (4 x 5 mg) PO ONCE 1 day blood sugar diagnostic (FreeStyle Lite Strips) 1 qd blood-glucose meter (FreeStyle Lite Meter kit) As directed cetirizine (Zyrtec) 10 mg PO DAILY cholecalciferol (vitamin D3) 125 mcg PO DAILY citalopram 20 mg PO DAILY docusate sodium (Colace) 100 mg PO BID epinephrine 0.3 mg IM ONCE PRN fluticasone propionate 50 mcg/actuation 1 spray intranasal DAILY hydralazine 25 mg PO BID lancets (FreeStyle Lancets) Test blood sugar once a day lorazepam 0.5 mg PO BEDTIME PRN metformin 500 mg PO BID methocarbamol 750 mg PO BEDTIME PRN multivitamin 1 tab PO DAILY polyethylene glycol 3350 (Miralax) 238 grams PO ONCE PRN 1 day pravastatin 20 mg PO DAILY pregabalin 150 mg PO DAILY@2100 sumatriptan succinate 50 mg PO Q2-4H PRN triamcinolone acetonide 0.1% 1 appl topical DAILY triamterene-hydrochlorothiazid 37.5-25 mg 1 cap PO DAILY Do you need a note to return to daycare/school/sports/work: No HPI HPI Obstructive sleep apnea: Details: 52 years old female with morbid obesity, and severe obstructive sleep apnea, She is being treated with BiPAP pressure setting 18/14 cm using fullface mask. She is using these mask every night at least for 7 hours and sleeps well. She has no issues with the machine. Or the mask Weight has remained unchanged, recently she was treated with prednisone for leg inflammation and has gained about. 3 lb of weight She has occasional nasal congestion and also occasional wheezing. So uses albuterol only p.r.n. and also Flonase p.r.n.. [facility] Medical History PATRICIA treated with BiPAP Morbid obesity Lumbar and sacral spondyloarthritis Hyperlipemia Depression Thyroid nodule Hx of renal calculi Irritable bowel syndrome GERD (gastroesophageal reflux disease) Arthritis Cancer Surgical History H/O ventral hernia repair Hx of bilateral oophorectomy Hx of breast biopsy Hx of section Hx of colonoscopy Hx of esophagogastroduodenoscopy Family History Mother No problems noted. Father Substance use disorder Esophageal cancer Brother Substance use disorder Sister Substance use disorder History of Mccurdy's esophagus Social History Household Members: Family Household Members Other:: , unemployed, 2 children () Housing: House Do you presently have visiting nurse or other home services: No Alcohol intake: current Alcohol intake frequency: holidays/special occasions only Alcohol type: beer Patient Tobacco Use Status: Never used Tobacco e-Cigarette/Vaping Use: Never Used Second Hand Smoke Exposure: No Advance Directives Date on File: 03/18/22 service: No Current occupational status: unemployed Cognitive needs: No Hearing needs: No Vision needs: Yes Review of Systems Const All systems reviewed & are unremarkable except as noted in HPI and below Eyes Reports no additional complaints ENT Reports nasal congestion (Mild off and on) Card Denies chest pain, Denies irregular heart rhythm and Denies leg edema Resp Reports as per HPI GI Reports no additional complaints Reports no additional complaints Musc Reports back pain Skin/Breast Reports system reviewed and no additional complaints, except as documented Neuro Reports no additional complaints Psych Reports no additional complaints Physical Exam Vital Signs: Last Vital Signs Pulse 74 09/04/23 11:06 BP 140/70 H 09/04/23 11:06 Pulse Ox 96 09/04/23 11:06 Oxygen Delivery Method Room Air 09/04/23 11:06 BMI result Body Mass Index 49.3 Const General: healthy appearing (EXCEPT FOR BEING OVERWEIGHT), comfortable, no acute distress, alert and awake Orientation/consciousness: patient oriented x3 HEENT Head: Yes normal to inspection General nose exam: No nasal polyps present and No nasal discharge present Face and sinus: Yes sinuses nontender Mouth: oropharynx normal Throat: Yes posterior oropharynx normal Eyes General: appearance normal, both eyes and all related structures Neck Neck: Yes normal visual inspection, Yes no lymphadenopathy, Yes trachea midline and Yes no JVD Thyroid: Thyroid normal Chest Chest palpation & inspection: normal inspection of the chest, normal palpation of entire chest wall and no tenderness Resp Other: Percussion note resonant in the upper parts of the chest and somewhat dull over the basilar areas. Breath sounds are decreased over the basilar areas but equal. On both sides Today she was able to take deep breaths without any cough. No wheezes rhonchi or crepitations are heard. Cardio Palpation: normal PMI Rate: regular rate Rhythm: regular rhythm Heart sounds: no gallops and no murmurs GI Palpation (GI): Soft to palpation, nontender, No hepatosplenomegaly present and no masses Auscultation: normal bowel sounds Back/Spine/Pelvis Thoracic/Lumbar Spine: thoracic and lumbar spine normal to inspection and thoraco-lumbar ROM limited Skin General skin exam: no rashes or lesions noted Neuro General: patient oriented x3 and no focal motor deficits Cranial nerves: Yes CN's II-XII intact bilaterally Extrem General: Yes normal to inspection, Yes no clubbing, cyanosis or edema and Yes no calf tenderness Psych Appearance: grossly normal and well kempt Speech and movement: Normal speech and movement present Results Reviewed Results Reviewed: Compliance report for the last 30 nights is reviewed and she has used 30/30 nights,. 100% Average use per night 7 hours 6 minutes. Pressure setting 18/14 cm. There is a mild degree of air leak. Residual AHI only 3.1 Assessment & Plan Assessment & Plan (1) Morbid obesity: Comment: .BMI= 49.3. PATIENT IS AWARE OF BEING MORBIDLY OBESE AND SHE IS TRYING TO RESTRICT DIETARY INTAKE. BUT NOT ABLE TO DO MUCH EXERCISE. Code(s): E66.01 - Morbid (severe) obesity due to excess calories Category: Medical Plan: DISCUSSED ABOUT THE DIET AND NEED TO DO SOME DAILY EXERCISE, SHE HAS JOINED [employer]. (2) PATRICIA treated with BiPAP: Comment: Patient does have longstanding history of obstructive sleep apnea with hypoventilation. Currently on BiPAP therapy with pressure 18/14 cm . Compliance is excellent, and she is actually fully dependent on the use of BiPAP at night. Code(s): G47.33 - Obstructive sleep apnea (adult) (pediatric) Category: Medical Plan: COMMENDED FOR GOOD COMPLIANCE AND ADVISED TO KEEP ON USING THE BIPAP REGULARLY Coding Level of Care Code Est Pt Level 3 (51173) Diagnoses Morbid obesity E66.01 PATRICIA treated with BiPAP G47.33
== END 2023-09-04 11:28 | disposition home or self-care (01) ==
PROVIDERS: PCP Internal Medicine; Visit Provider Internal Medicine
DX: E66.01 Morbid (severe) obesity due to excess calories (principal); G47.33 Obstructive sleep apnea (adult) (pediatric)
CPT/HCPCS: 99213

== ENCOUNTER → 2023-09-04 10:47 | Outpatient (BNVA) | payer OTHER, SELFPAY | PROVIDERS: PCP Internal Medicine; Visit Provider Internal Medicine ==

== ENCOUNTER 2023-09-06 07:41 | Day surgery (SDC) | payer OTHER, SELFPAY ==
[2023-09-04 09:28] VITALS: BMI 54.0
--- NOTE | 2023-09-04 13:17 | P.CONAN_ITS ---
Documented by User: Alice Man NP 09/04/23 13:23 HPI - Anesthesia Eval Consult details Narrative: 52yo F for Colonoscopy Increase airway risk. Dr Durán notified. OR angelica notified. [facility] Active Problems Active Problems: All Active Problems Osteoarthritis of foot, right (Acute) Hemorrhoids (Acute) Diverticulosis of colon (Acute) History of adenomatous polyp of colon (Acute) Flank pain (Acute) DM2 (diabetes mellitus, type 2) (Acute) Annual physical exam (Acute) Lower thoracic back pain (Acute) Essential hypertension (Acute) Nonrheumatic aortic (valve) stenosis (Acute) Normal colonoscopy (Acute) PATRICIA treated with BiPAP (Acute) Morbid obesity (Acute) Lumbar and sacral spondyloarthritis (Acute) Hyperlipemia (Acute) Depression (Acute) Thyroid nodule (Acute) Past Medical History Medical History PATRICIA treated with BiPAP Morbid obesity Lumbar and sacral spondyloarthritis Hyperlipemia Depression Thyroid nodule Hx of renal calculi Irritable bowel syndrome GERD (gastroesophageal reflux disease) Arthritis Cancer Family History Family History Mother No problems noted. Father Substance use disorder Esophageal cancer Brother Substance use disorder Sister Substance use disorder History of Mccurdy's esophagus Surgical History Surgical History H/O ventral hernia repair Hx of bilateral oophorectomy Hx of breast biopsy Hx of section Hx of colonoscopy Hx of esophagogastroduodenoscopy Social History Social History Household Members: Family Household Members Other:: , unemployed, 2 children () Housing: House Do you presently have visiting nurse or other home services: No Alcohol intake: current Alcohol intake frequency: holidays/special occasions only Alcohol type: beer Patient Tobacco Use Status: Never used Tobacco e-Cigarette/Vaping Use: Never Used Second Hand Smoke Exposure: No Are you DNR?: No Advance Directives: No Advance Directives Information Provided: Yes Advance Directives on File: Yes Advance Directives Date on File: 03/18/22 service: No Current occupational status: unemployed Cognitive needs: No Hearing needs: No Vision needs: Yes Meds Allergies Allergy/AdvReac Type Severity Reaction Status Date / Time doxycycline [DOXYCYCLINE] Allergy Severe ESOPHAGITIS Verified 09/04/23 11:27 Sulfa (Sulfonamide Allergy Severe FACIAL Verified 09/04/23 11:27 Antibiotics) SWELLING codeine [Codeine] Allergy Intermediate RASH Verified 09/04/23 11:27 lisinopril [Lisinopril] Allergy Intermediate EXTREMITIES Verified 09/04/23 11:27 SWELLING benzonatate [BENZONATATE] Allergy Unknown ANAPHYLAXIS Verified 09/04/23 11:27 meperidine [Demerol] Allergy Unknown Rash Verified 09/04/23 11:27 dulaglutide [From Trulicity] AdvReac Intermediate itchy Verified 09/04/23 11:27 throat losartan AdvReac Intermediate swelling Verified 09/04/23 11:27 of hands, Home Medications ?Medication ?Instructions ?Recorded ?Confirmed ?Last Taken ?Type docusate sodium 100 mg capsule 100 mg PO BID 02/14/20 09/04/23 03/14/22 History (Colace) albuterol sulfate 90 mcg/actuation 2 puff inhalation Q4H PRN Wheezing 11/19/20 09/04/23 03/14/22 History aerosol inhaler epinephrine 0.3 mg/0.3 mL 0.3 mg IM ONCE PRN Anaphylaxis 11/19/20 09/04/23 Unknown History injection, auto-injector cholecalciferol (vitamin D3) 125 125 mcg PO DAILY 03/15/22 09/04/23 03/14/22 History mcg (5,000 unit) tablet cetirizine 10 mg tablet (Zyrtec) 10 mg PO DAILY 03/17/22 09/04/23 03/14/22 History pregabalin 150 mg capsule 150 mg PO DAILY@2100 03/16/23 09/04/23 Unknown History acetaminophen 650 mg 650 mg PO Q12H 05/23/23 09/04/23 Unknown History tablet,extended release (Tylenol Arthritis Pain) fluticasone propionate 50 1 spray intranasal DAILY 05/23/23 09/04/23 Unknown History mcg/actuation nasal spray,suspension multivitamin 1 tab PO DAILY 05/23/23 09/04/23 Unknown History Exam Height,Weight and Vital Signs: Height 5 ft 1 in Weight 129.727 kg Pertinent Lab Results Pertinent Lab Results: Laboratory Tests 04/11/23 07/14/23 09:58 06:58 WBC 5.7 Hgb 13.1 Hct 38.6 Plt Count 189 Sodium 142 Potassium 3.7 Chloride 104 Carbon Dioxide 29 BUN 14 Creatinine 0.75 Narrative Narrative: ECHO 2022 Conclusions: - 1. Normal LV ejection fraction of 60 65% with impaired relaxation filling pattern 2. Fibrocalcific aortic valve changes noted with mildly elevated gradient but without any significant stenosis 3. No gross pericardial effusion Assessment and Plan Assessment Anesthesia Assessment: Chart Reviewed Documented by User: Heather Durán MD 09/06/23 09:09 PMFSH Past Medical History Medical History PATRICIA treated with BiPAP Morbid obesity Lumbar and sacral spondyloarthritis Hyperlipemia Depression Thyroid nodule Hx of renal calculi Irritable bowel syndrome GERD (gastroesophageal reflux disease) Arthritis Cancer Family History Family History Mother No problems noted. Father Substance use disorder Esophageal cancer Brother Substance use disorder Sister Substance use disorder History of Mccurdy's esophagus Family history of problems with anesthesia: No Surgical History Surgical History H/O ventral hernia repair Hx of bilateral oophorectomy Hx of breast biopsy Hx of section Hx of colonoscopy Hx of esophagogastroduodenoscopy History of Problems with Anesthesia: No Social History Social History Household Members: Family Household Members Other:: , unemployed, 2 children () Housing: House Do you presently have visiting nurse or other home services: No Alcohol intake: current Alcohol intake frequency: holidays/special occasions only Alcohol type: beer Patient Tobacco Use Status: Never used Tobacco e-Cigarette/Vaping Use: Never Used Second Hand Smoke Exposure: No Are you DNR?: No Advance Directives: No Advance Directives Information Provided: Yes Advance Directives on File: Yes Advance Directives Date on File: 03/18/22 service: No Current occupational status: unemployed Cognitive needs: No Hearing needs: No Vision needs: Yes Meds Allergies Allergy/AdvReac Type Severity Reaction Status Date / Time doxycycline [DOXYCYCLINE] Allergy Severe ESOPHAGITIS Verified 09/04/23 11:27 Sulfa (Sulfonamide Allergy Severe FACIAL Verified 09/04/23 11:27 Antibiotics) SWELLING codeine [Codeine] Allergy Intermediate RASH Verified 09/04/23 11:27 lisinopril [Lisinopril] Allergy Intermediate EXTREMITIES Verified 09/04/23 11:27 SWELLING benzonatate [BENZONATATE] Allergy Unknown ANAPHYLAXIS Verified 09/04/23 11:27 meperidine [Demerol] Allergy Unknown Rash Verified 09/04/23 11:27 dulaglutide [From Trulicity] AdvReac Intermediate itchy Verified 09/04/23 11:27 throat losartan AdvReac Intermediate swelling Verified 09/04/23 11:27 of hands, Home Medications ?Medication ?Instructions ?Recorded ?Confirmed ?Last Taken ?Type docusate sodium 100 mg capsule 100 mg PO BID 02/14/20 09/04/23 03/14/22 History (Colace) albuterol sulfate 90 mcg/actuation 2 puff inhalation Q4H PRN Wheezing 11/19/20 09/04/23 03/14/22 History aerosol inhaler epinephrine 0.3 mg/0.3 mL 0.3 mg IM ONCE PRN Anaphylaxis 11/19/20 09/04/23 Unknown History injection, auto-injector cholecalciferol (vitamin D3) 125 125 mcg PO DAILY 03/15/22 09/04/23 03/14/22 History mcg (5,000 unit) tablet cetirizine 10 mg tablet (Zyrtec) 10 mg PO DAILY 03/17/22 09/04/23 03/14/22 History pregabalin 150 mg capsule 150 mg PO DAILY@2100 03/16/23 09/04/23 Unknown History acetaminophen 650 mg 650 mg PO Q12H 05/23/23 09/04/23 Unknown History tablet,extended release (Tylenol Arthritis Pain) fluticasone propionate 50 1 spray intranasal DAILY 05/23/23 09/04/23 Unknown History mcg/actuation nasal spray,suspension multivitamin 1 tab PO DAILY 05/23/23 09/04/23 Unknown History Exam Airway Heart: rrr Lungs: cta Assessment and Plan Assessment Anesthesia Assessment: Anesthesia Plan Discussed Final Anesthetic Review Family History of Problems with Anesthesia: No History of Problems with Anesthesia: No NPO: Yes ASA Class: III Final Preanesthetic Review: No Changes in Pt Med Stat, Meds/Allgs Chart Reviewed, Consent Obtained/Reviewed and Anes Risks/Benef Reviewed Patient Risk: Intermediate (on bipap, morbid obesity super) Procedure Risk: Low Anesthetic Plan Anesthetic Plan: MAC: Disposition: Standard PACU
[2023-09-06 08:30] VITALS: BP 145/69; PULSE 72; RESP 16; TEMP 37.2; O2SAT 96
[2023-09-06 08:37] LABS: Glucose, Whole Blood 145 mg/dL (60-115)
--- NOTE | 2023-09-06 08:42 | MHC.SHP ---
Pre-Procedural Eval Section A - 24 Hr Update-Section A only Date of Service: 09/06/23 Section B - Complete if H&P > 30 days Chief Complaint: Personal history of colonic polyps Relevant Family History (Specify if Yes): No Relevant Social History: None Present Medications: see Short Stay Collaborative assessment Medical History: Significant History (Anxiety Arthritis Asthma Cancer GERD (gastroesophageal reflux disease) HTN (hypertension) Hx of renal calculi Irritable bowel syndrome Sleep apnea) History of Previous Operations: Relevant previous surgery/procedure and date(s) (H/O ventral hernia repair Hx of bilateral oophorectomy Hx of breast biopsy Hx of section Hx of colonoscopy Hx of esophagogastroduodenoscopy) Allergies: Allergies Allergy/AdvReac Type Severity Reaction Status Date / Time doxycycline [DOXYCYCLINE] Allergy Severe ESOPHAGITIS Verified 09/04/23 11:27 Sulfa (Sulfonamide Allergy Severe FACIAL Verified 09/04/23 11:27 Antibiotics) SWELLING codeine [Codeine] Allergy Intermediate RASH Verified 09/04/23 11:27 lisinopril [Lisinopril] Allergy Intermediate EXTREMITIES Verified 09/04/23 11:27 SWELLING benzonatate [BENZONATATE] Allergy Unknown ANAPHYLAXIS Verified 09/04/23 11:27 meperidine [Demerol] Allergy Unknown Rash Verified 09/04/23 11:27 dulaglutide [From Trulicity] AdvReac Intermediate itchy Verified 09/04/23 11:27 throat losartan AdvReac Intermediate swelling Verified 09/04/23 11:27 of hands, Review of Systems Sugical H&P ROS: Negative: Constitution, Cardiovascular, Respiratory, Neurological, Psychiatric, Hem-Onc, Allergic/Immunologic, Gastrointestinal, Genitourinary, Musculoskeletal, Integumentary, Endocrine and Eyes/Ears/Nose/Throat Exam Surgical H&P Exam: Normal: HEENT, Normal: Heart, Normal: Lungs, Normal: Extremities, Normal: Abdomen, Normal: Skin and Normal: Neurological Plan Diagnosis/Plan: Unchanged I have reviewed the history and physical and performed a pertinent physical examination on my patient. No changes have occurred unless specified. Time Spent With Patient Time: Total time managing care of this patient today ____ minutes.
[2023-09-06] MEDS: Lactated Ringers 1,000 ML 100 ML IVCONT (08:43)
--- NOTE | 2023-09-06 08:43 | P.OPN-COLO_ITS ---
Colonoscopy Operative Note Operative Note Date of Service: 09/06/23 Narrative: Operative Information Procedure Description: Colonoscopy Indication: screening, hx of colon polyps Anesthesia: MAC COLONOSCOPY Instrument: Olympus variable stiffness Adult scope 190L Colonoscopy Monitoring: Vital signs and clinical assessment, continuous EKG monitoring, Pulse oximetry, Carbon Dioxide monitoring and blood pressure monitoring were done throughout the procedure. Colon withdrawal time was 10 minutes. Procedure: The patient was placed in the left lateral decubitis position and pre-procedure medications were administered. After a digital rectal examination of the ano-rectum, the video colonoscope was inserted into the rectum and advanced through the colon to the cecum/TI. The colonoscope was slowly withdrawn in a retrograde panoramic fashion and the colon mucosa was carefully examined including a retroflexed view of the rectum. Findings and interventions are described below. Procedure Difficulty: easy Findings: Terminal Ileum-normal Cecum: 5-7 mm sessile polyp removed with cold forceps Ascending Colon: 8-10 mm sessile polyp removed with cold snare with one clip applied for hemostasis Transverse Colon -normal Descending Colon:normal Sigmoid Colon: mild diverticulosis Rectum: Retroflexion with small inflammaed internal hemorrhoids seen, grade I Anorectum - normal Intervention: cold snare and cold forceps polypectomy Colon preparation: [place] Bowel Preparation Scale Right colon; 2 Transverse colon: 2 Left colon; 2 (0 = Unprepared colon segment with mucosa not seen due to solid stool that cannot be cleared. 1 = Portion of mucosa of the colon segment seen, but other areas of the colon segment not well seen due to staining, residual stool and/or opaque liquid. 2 = Minor amount of residual staining, small fragments of stool and/or opaque liquid, but mucosa of colon segment seen well. 3 = Entire mucosa of colon segment seen well with no residual staining, small fragments of stool or opaque liquid) Impression and Post Procedure Diagnosis: diverticulosis colon polyps internal hemorrhoids Plan: High fiber diet leaflet Avoid straining at stool, epsom salts and sitz bath, anusol supps or cream Repeat Colonoscopy in 5 years due to polyps or earlier if clinically indicated Above findings were reviewed with the patient and relevant handouts were provided if indicated.
[2023-09-06 09:15] VITALS: BP 137/70; PULSE 73; RESP 16; TEMP 37.3; O2SAT 98
[2023-09-06 09:30] VITALS: BP 130/68; PULSE 73; RESP 16; TEMP 37.3; O2SAT 95
== END 2023-09-06 09:55 | disposition home or self-care (01) ==
PROVIDERS: PCP Internal Medicine; Visit Provider Internal Medicine Gastroenterology
PROC: 0DJD8ZZ Inspection of Lower Intestinal Tract, Via Natural or Artificial Opening Endoscopic (ICD-10-PCS; CPT 45378; principal; 2023-09-06 09:10)
DX: Z12.11 Encounter for screening for malignant neoplasm of colon (principal); D12.2 Benign neoplasm of ascending colon; K63.5 Polyp of colon; K57.30 Diverticulosis of large intestine without perforation or abscess without bleeding; K64.0 First degree hemorrhoids; Z86.010 Personal history of colon polyps; I10 Essential (primary) hypertension; Z88.1 Allergy status to other antibiotic agents; Z88.2 Allergy status to sulfonamides; Z88.5 Allergy status to narcotic agent; Z88.8 Allergy status to other drugs, medicaments and biological substances
CPT/HCPCS: 45385; 45380; 82947; 88305; J2704

== ENCOUNTER → 2023-09-06 07:41 | Outpatient (BNV) | payer OTHER, SELFPAY | PROVIDERS: PCP Internal Medicine; Visit Provider Internal Medicine Gastroenterology | DX: Z12.11 Encounter for screening for malignant neoplasm of colon (principal); Z86.010 Personal history of colon polyps; K63.5 Polyp of colon; D12.2 Benign neoplasm of ascending colon; K57.30 Diverticulosis of large intestine without perforation or abscess without bleeding; K64.0 First degree hemorrhoids | CPT/HCPCS: 45380; 45385 ==

== ENCOUNTER 2023-12-04 10:02 | Outpatient (REF) | payer OTHER, SELFPAY ==
[2023-12-04 11:09] LABS: Estimated Average Glucose 146 mg/dL; Hemoglobin A1c % 6.7 % (<6.0)
[2023-12-04 11:26] LABS: Alanine Aminotransferase 33 U/L (0-31); Albumin Level 4.1 g/dL (3.5-5.0); Alkaline Phosphatase 76 U/L (39-117); Anion Gap 11 (12-20); Aspartate Amino Transferase 27 U/L (5-31); Bilirubin Total 0.3 mg/dL (0.0-1.0); Blood Urea Nitrogen 12 mg/dL (9-16); Calcium 9.6 mg/dL (8.4-10.2); Carbon Dioxide 30 mmol/L (22-29); Chloride 105 mmol/L (96-108); Cholesterol 153 mg/dL (<200); Estimated Glomerular Filt Rate > 60; Glucose Fasting 121 mg/dL (60-99); HDL Cholesterol 46 mg/dL (>40); LDL Cholesterol Calculated 80 mg/dL (<100); Potassium 3.7 mmol/L (3.3-5.1); Sodium 142 mmol/L (135-145); Total Protein 6.9 g/dL (6.5-8.0); Triglycerides 137 mg/dL (<150)
[2023-12-04 13:38] LABS: Creatinine Urine 295.07 mg/dL; Microalbum/Creatinine Ratio Ur 72.5 ug/mg cr (<30)
== END 2023-12-04 10:03 | disposition home or self-care (01) ==
LOC: HO.LAB 10:02
PROVIDERS: PCP Internal Medicine; Visit Provider Internal Medicine
DX: E11.9 Type 2 diabetes mellitus without complications (principal); E66.01 Morbid (severe) obesity due to excess calories; E78.5 Hyperlipidemia, unspecified; I10 Essential (primary) hypertension
CPT/HCPCS: 36415; 80053; 80061; 82043; 82570; 83036

== ENCOUNTER 2023-12-07 08:51 | Outpatient (AMB) | payer OTHER, SELFPAY ==
--- NOTE | 2023-12-07 08:53 | MHC.PC.OV ---
Vital Signs 12/07/23 08:54 Height 5 ft 1 in Weight 260 lb 4 oz BMI 49.2 BP 124/66 Blood Pressure Location Lt brachial Position Sitting Pulse 74 Pulse Source Pulse Oximeter Pulse Oximetry (%) 97 Oxygen Delivery Method Room Air Intake Visit Reasons: 3 month follow up HTN 10/08 Intake Note: Pt is here today for 3 months follow up visit. Allergies doxycycline [DOXYCYCLINE] Allergy (Severe, Verified 12/07/23 08:54) ESOPHAGITIS Sulfa (Sulfonamide Antibiotics) Allergy (Severe, Verified 12/07/23 08:54) FACIAL SWELLING codeine [Codeine] Allergy (Intermediate, Verified 12/07/23 08:54) RASH lisinopril [Lisinopril] Allergy (Intermediate, Verified 12/07/23 08:54) EXTREMITIES SWELLING benzonatate [BENZONATATE] Allergy (Unknown, Verified 12/07/23 08:54) ANAPHYLAXIS meperidine [Demerol] Allergy (Unknown, Verified 12/07/23 08:54) Rash dulaglutide [From Trulicity] Adverse Reaction (Intermediate, Verified 12/07/23 08:54) itchy throat losartan Adverse Reaction (Intermediate, Verified 12/07/23 08:54) swelling of hands, Medication List - Last Reconciled 12/07/23 by Mia North MD acetaminophen ER (Tylenol Arthritis Pain) 650 mg PO Q12H albuterol sulfate 90 mcg/actuation 2 puffs inhalation Q4H PRN amlodipine 10 mg PO DAILY azithromycin 250 mg PO DAILY 6 days bisacodyl (Dulcolax (bisacodyl)) 20 mg (4 x 5 mg) PO ONCE 1 day blood sugar diagnostic (FreeStyle Lite Strips) 1 qd blood-glucose meter (FreeStyle Lite Meter kit) As directed cetirizine (Zyrtec) 10 mg PO DAILY cholecalciferol (vitamin D3) 125 mcg PO DAILY docusate sodium (Colace) 100 mg PO BID epinephrine 0.3 mg (0.3 mL) IM ONCE PRN fluticasone propionate 50 mcg/actuation 1 spray intranasal DAILY hydralazine 25 mg PO BID lancets (FreeStyle Lancets) Test blood sugar once a day lorazepam 0.5 mg PO BEDTIME PRN meclizine 25 mg PO BID PRN metformin 500 mg PO BID multivitamin 1 tab PO DAILY polyethylene glycol 3350 (Miralax) 238 grams PO ONCE PRN 1 day pravastatin 20 mg PO DAILY pregabalin 200 mg PO DAILY sertraline 75 mg PO DAILY triamcinolone acetonide 0.1% 1 appl topical DAILY triamterene-hydrochlorothiazid 37.5-25 mg 1 cap PO DAILY Tobacco use date assessed: 12/07/23 Dental Screening Dental Screen Date: 07/18/23 HPI 3 month follow up HTN 10/08 HPI Details Pt presents for HTN, hyperlipid, DM 2, stable on meds. Patient has been more physically active and following ADA diet. Patient complains of persistent sinus pressure and pain nasal congestion and positional vertigo for the last 3 weeks. She completed course of Augmentin but still has facial discomfort. Patient denies fever chills purulent nasal discharge. [facility] Medical History PATRICIA treated with BiPAP Morbid obesity Lumbar and sacral spondyloarthritis Hyperlipemia Depression Thyroid nodule Hx of renal calculi Irritable bowel syndrome GERD (gastroesophageal reflux disease) Arthritis Cancer Surgical History H/O ventral hernia repair Hx of bilateral oophorectomy Hx of breast biopsy Hx of section Hx of colonoscopy Hx of esophagogastroduodenoscopy Family History Mother No problems noted. Father Substance use disorder Esophageal cancer Brother Substance use disorder Sister Substance use disorder History of Mccurdy's esophagus Social History Household Members: Family Household Members Other:: , unemployed, 2 children () Housing: House Do you presently have visiting nurse or other home services: No Alcohol intake: current Alcohol intake frequency: holidays/special occasions only Alcohol type: beer Patient Tobacco Use Status: Never used Tobacco e-Cigarette/Vaping Use: Never Used Second Hand Smoke Exposure: No Advance Directives Date on File: 03/18/22 service: No Current occupational status: unemployed Cognitive needs: No Hearing needs: No Vision needs: Yes Questionnaire PHQ-9 Over the last 2 weeks, how often have you been bothered by any of the following problems? 1. Little interest or pleasure in doing things: not at all 2. Feeling down, depressed, or hopeless: not at all 3. Trouble falling or staying asleep, or sleeping too much: several days 4. Feeling tired or having little energy: not at all 5. Poor appetite or overeating: not at all 6. Feeling bad about yourself - or that you are a failure or have let yourself or your family down: not at all 7. Trouble concentrating on things, such as reading the newspaper or watching television: several days 8. Moving or speaking so slowly that other people could have noticed. Or the opposite - being so fidgety or restless that you have been moving around a lot more than usual: not at all 9. Thoughts that you would be better off or of hurting yourself in some way: not at all Total score: 2 Depression Screening Interpretation: Negative Depression Screening Done: Yes Source: Developed by Drs. Hitesh Bowden, Vero Owens, Micheal Cedillo and colleagues, with an educational bert from [employer]. Thrive Questionnaire Date Thrive assessed: 12/07/23 I am a: Patient What is your living situation today?: I have a steady place to live Within the past 12 months, did the food you bought not last and you didn't have the money to get more?: Never true Within the past 12 months, did you worry whether your food would run out before you got money to buy more?: Never true Do you have trouble paying for medicines?: No Do you have trouble getting transportation to medical appointments?: No Do you have trouble paying your heating and electricity bill?: No Do you have trouble taking care of your child, family member or friend?: No Do you have trouble with day-to-day activities such as bathing, preparing meals, shopping, managing finances, etc.?: I choose not to answer this question Are you currently unemployed and looking for a job?: No Are you interested in more education?: No Please select the resources that you would like help with: Housing/Senior Care Currently or been in a relationship where the following occur: No concerns reported THRIVE Score: 0 AUDIT C Alcohol Use Questionnaire (AUDIT-C) 1. How often do you have a drink containing alcohol?: Monthly or less 2. How many drinks containing alcohol do you have on a typical day when you are drinking?: 1 or 2 3. How often do you have six or more drinks on one occasion?: Never Total Score: 1 HARRIET-7 AMB Questionnaire HARRIET-7 Date HARRIET - 7 assessed: 12/07/23 Feeling nervous, anxious, or on edge: 1 = Several days Not being able to stop or control worryin = Several days Worrying too much about different things: 0 = Not at all Trouble relaxin = Several days Being so restless that it is hard to sit still: 0 = Not at all Becoming easily annoyed or irritable: 1 = Several days Feeling afraid as if something awful might happen: 0 = Not at all Total HARRIET-7 score (0-4 normal; 5-9 mild; 10-14 moderate; 15-21 severe): 4 Source: Developed by Drs. Hitesh Bowden, Vero Owens, Micheal Cedillo and colleagues, with an educational bert from [employer]. Review of Systems Const All systems reviewed & are unremarkable except as noted in HPI and below Eyes Reports no additional complaints ENT Reports no additional complaints Card Reports no additional complaints Resp Reports no additional complaints GI Reports no additional complaints Reports no additional complaints Physical exam (Primary Care) Vital Signs: Last Vital Signs Pulse 74 12/07/23 08:54 BP 124/66 12/07/23 08:54 Pulse Ox 97 12/07/23 08:54 Oxygen Delivery Method Room Air 12/07/23 08:54 BMI result Body Mass Index 49.2 Tobacco/Smoking Status: Tobacco use Status Tobacco use date assessed 12/07/23 12/07/23 09:00 Patient Tobacco Use Status Never used Tobacco 12/07/23 09:00 e-Cigarette/Vaping Use Never Used 12/07/23 09:00 PHQ-9: PHQ-9 Score PHQ-9: Total score 2 12/07/23 09:00 Depression Screening Interpretation: Negative Thrive Assessment: Date of Thrive Assessment Date Thrive assessed 12/07/23 12/07/23 09:00 Currently or been in a relationship where the following occur: No concerns reported Const General: no acute distress HENMT Head: Yes normal to inspection Ears: TM's normal bilaterally Face and sinus: Yes sinus tenderness (Maxillary bilaterally) Throat: Yes postnasal drainage Eyes General: appearance normal, both eyes and all related structures Neck Neck: Yes no lymphadenopathy and Yes supple Resp Effort & Inspection: normal respiratory effort Auscultation: clear to auscultation bilaterally Cardio Rhythm: regular rhythm Heart sounds: S1 normal heart sound present and S2 normal heart sound present Assessment and Plan Assessment & Plan (1) DM2 (diabetes mellitus, type 2): Comment: A1C 6.2, 2022, diet controlled, intolerant to Trulicity ( throat swelling) Code(s): E11.9 - Type 2 diabetes mellitus without complications Plan: A1c is 6.7. ADA diet increase exercise weight loss discussed with the patient continue current medications follow-up in 4 months with a fasting labs before (2) Hyperlipemia: Code(s): E78.5 - Hyperlipidemia, unspecified Plan: Continue statin (3) Essential hypertension: Comment: Intolerant to ARB or STEVEN inhibitors caused swelling of legs and hands Code(s): I10 - Essential (primary) hypertension Plan: Continue current medications (4) Benign positional vertigo: Code(s): H81.10 - Benign paroxysmal vertigo, unspecified ear Plan: Meclizine p.r.n. and supportive care discussed with the patient. (5) Sinusitis: Code(s): J32.9 - Chronic sinusitis, unspecified Plan: Z-Mejia as prescribed patient was advised to change Zyrtec to Claritin continue Flonase nasal spray Orders: Orders Comprehensive [place]. Panel Fast 4 Months E11.9 - Type 2 diabetes mellitus without complications, E78.5 - Hyperlipidemia, unspecified, I10 - Essential (primary) hypertension Hemoglobin A1c 4 Months E11.9 - Type 2 diabetes mellitus without complications, E78.5 - Hyperlipidemia, unspecified, I10 - Essential (primary) hypertension Lipid Panel 4 Months E11.9 - Type 2 diabetes mellitus without complications, E78.5 - Hyperlipidemia, unspecified, I10 - Essential (primary) hypertension Complete Blood Count Auto Diff 4 Months E11.9 - Type 2 diabetes mellitus without complications, E78.5 - Hyperlipidemia, unspecified, I10 - Essential (primary) hypertension Microalbumin, Random (w Creat) 4 Months E11.9 - Type 2 diabetes mellitus without complications, E78.5 - Hyperlipidemia, unspecified, I10 - Essential (primary) hypertension Medications: New meclizine 25 mg PO BID PRN 30 tabs 0RF dizziness azithromycin start on day 2 of therapy 250 mg PO DAILY 6 days 6 tabs 0RF Coding Level of Care Code Est Pt Level 4 (89694) Diagnoses DM2 (diabetes mellitus, type 2) E11.9 Hyperlipemia E78.5 Essential hypertension I10 Benign positional vertigo H81.10 Sinusitis J32.9
[2023-12-07 08:54] VITALS: BP 124/66; PULSE 74; O2SAT 97; BMI 49.2
== END 2023-12-07 09:50 | disposition home or self-care (01) ==
PROVIDERS: PCP Internal Medicine; Visit Provider Internal Medicine
DX: E11.9 Type 2 diabetes mellitus without complications (principal); E78.5 Hyperlipidemia, unspecified; I10 Essential (primary) hypertension; H81.10 Benign paroxysmal vertigo, unspecified ear; J32.9 Chronic sinusitis, unspecified
CPT/HCPCS: 99214

== ENCOUNTER 2024-01-22 10:48 | Emergency (ER) | payer OTHER, MEDICARE, SELFPAY ==
--- NOTE | ~2024-01-22 | XR_ITS ---
EXAMINATION: XR CERVICAL SPINE CLINICAL INFORMATION: Neck pain. No history of trauma. COMPARISON: MRI cervical spine October 14, 2021 TECHNIQUE: 4 views of the cervical spine were obtained. FINDINGS: The cervical spine is imaged through C7. Normal sagittal alignment. Vertebral body heights are maintained. Intervertebral disc spaces are preserved. Lateral masses are symmetric. Prevertebral soft tissues are within normal limits. XR/XR cervical spine 3V IMPRESSION: No acute abnormality. Electronically signed by: Papito Pires MD 01/22/2024 12:35 PM EDT
[2024-01-22 11:00] VITALS: BP 151/70; PULSE 73; RESP 18; TEMP 37; O2SAT 97; BMI 52.2
--- NOTE | 2024-01-22 11:04 | ED_ITS ---
HPI - General Adult General Chief complaint: Neck Pain/Injury Stated complaint: Neck Pain Etc No Injury Time Seen by Provider: 01/22/24 12:21 Source: patient Mode of arrival: ambulatory Limitations: no limitations History of Present Illness ED Provider: QUINN MARSHALL PA-C HPI narrative: 53 year old female with pmhx significant for PATRICIA on BIPAP, morbid obesity, depression, HDL, arthritis, lumbosacral spondyloarthritis, IBS, GERD presents to the ED today for evaluation of neck pain x4 days. Neck pain is bilateral however worse on the left side. Reports pain with turning the head left/right and up/ down. Pain is now moving anteriorly and up into her left ear. Reports trialing advil, aspercreme, and ice at home with minimal relief. Denies recent heavy lifting. Denies injury/ blunt trauma/ falls. Denies headache, dizziness, vision changes, fever, chills, sore throat, chest pain, palpiations, sob, numbness/tingling/weakness down the UEs, back pain. Related Data Home Medications ?Medication ?Instructions ?Recorded ?Confirmed docusate sodium 100 mg capsule 100 mg PO BID 02/14/20 12/07/23 (Colace) albuterol sulfate 90 mcg/actuation 2 puff inhalation Q4H PRN Wheezing 11/19/20 12/07/23 aerosol inhaler cholecalciferol (vitamin D3) 125 125 mcg PO DAILY 03/15/22 12/07/23 mcg (5,000 unit) tablet cetirizine 10 mg tablet (Zyrtec) 10 mg PO DAILY 03/17/22 12/07/23 acetaminophen 650 mg 650 mg PO Q12H 05/23/23 12/07/23 tablet,extended release (Tylenol Arthritis Pain) fluticasone propionate 50 1 spray intranasal DAILY 05/23/23 12/07/23 mcg/actuation nasal spray,suspension multivitamin 1 tab PO DAILY 05/23/23 12/07/23 pregabalin 150 mg capsule 200 mg PO DAILY 12/07/23 12/07/23 sertraline 50 mg tablet 75 mg PO DAILY 12/07/23 12/07/23 Previous Rx's ?Medication ?Instructions ?Recorded lorazepam 0.5 mg tablet 0.5 mg PO BEDTIME PRN Anxiety #30 06/03/21 tabs triamcinolone acetonide 0.1 % 1 appl topical DAILY #80 grams 10/05/22 topical cream amlodipine 10 mg tablet 10 mg PO DAILY #90 tabs 03/24/23 blood sugar diagnostic (FreeStyle #100 ea 04/14/23 Lite Strips) blood-glucose meter (FreeStyle #1 ea 04/14/23 Lite Meter kit) bisacodyl 5 mg tablet,delayed 20 mg (4 x 5 mg) PO ONCE 05/23/23 release (Dulcolax (bisacodyl)) colonoscopy prep 1 day #4 tabs polyethylene glycol 3350 17 238 g PO ONCE PRN laxative effect 05/23/23 gram/dose oral powder (Miralax) 1 day #238 grams pravastatin 20 mg tablet 20 mg PO DAILY #90 tabs 07/05/23 hydralazine 25 mg tablet 25 mg PO BID #180 tabs 07/30/23 triamterene 37.5 1 cap PO DAILY #90 caps 09/22/23 mg-hydrochlorothiazide 25 mg capsule lancets 28 gauge (FreeStyle #100 ea 10/17/23 Lancets) epinephrine 0.3 mg/0.3 mL 0.3 mg (0.3 mL) IM ONCE PRN 11/21/23 injection, auto-injector Anaphylaxis #2 ea azithromycin 250 mg tablet 250 mg PO DAILY 6 days #6 tabs 12/07/23 meclizine 25 mg tablet 25 mg PO BID PRN dizziness #30 tabs 12/07/23 metformin 500 mg tablet 500 mg PO BID #180 tabs 01/12/24 cyclobenzaprine 5 mg tablet 5 mg PO Q8H #7 tabs 01/22/24 lidocaine 5 % topical patch 1 patch topical DAILY #15 ea 01/22/24 (Lidoderm) Allergies Allergy/AdvReac Type Severity Reaction Status Date / Time doxycycline [DOXYCYCLINE] Allergy Severe ESOPHAGITIS Verified 01/22/24 11:07 Sulfa (Sulfonamide Allergy Severe FACIAL Verified 01/22/24 11:07 Antibiotics) SWELLING codeine [Codeine] Allergy Intermediate RASH Verified 01/22/24 11:07 lisinopril [Lisinopril] Allergy Intermediate EXTREMITIES Verified 01/22/24 11:07 SWELLING benzonatate [BENZONATATE] Allergy Unknown ANAPHYLAXIS Verified 01/22/24 11:07 meperidine [Demerol] Allergy Unknown Rash Verified 01/22/24 11:07 dulaglutide [From Trulicity] AdvReac Intermediate itchy Verified 01/22/24 11:07 throat losartan AdvReac Intermediate swelling Verified 01/22/24 11:07 of hands, Review of Systems Review of Systems: Constitutional: No fever, chills, fatigue, night sweats, weight changes ENT/Mouth: No ear pain, hearing loss, nasal congestion, sinus pain, rhinorrhea, sore throat Eyes: No eye pain, swelling, redness, vision changes, discharge Cardio: No chest pain, palpitations, FARIAS, orthopnea, peripheral edema Pulm: No SOB, cough, sputum, wheezing, dyspnea, hemoptysis GI: No nausea, vomiting, hematemesis, abdominal pain, diarrhea, constipation, hematochezia, melena : No irregular bleeding, dysuria, frequency, urgency, hesitancy, hematuria, flank pain, urinary flow changes, urinary incontinence or retention MSK: +neck pain, No back pain, joint pain, myalgias Skin: No lesions, rashes Neuro: No weakness, numbness, paresthesias, LOC, dizziness, headache All other systems reviewed and are negative. [facility] Past Medical History Attestation statement: The following information was validated with the patient. Source: old records reviewed and nursing notes reviewed Medical History PATRICIA treated with BiPAP Morbid obesity Lumbar and sacral spondyloarthritis Hyperlipemia Depression Thyroid nodule Hx of renal calculi Irritable bowel syndrome GERD (gastroesophageal reflux disease) Arthritis Cancer Surgical History H/O ventral hernia repair Hx of bilateral oophorectomy Hx of breast biopsy Hx of section Hx of colonoscopy Hx of esophagogastroduodenoscopy Family History Family History Mother No problems noted. Father Substance use disorder Esophageal cancer Brother Substance use disorder Sister Substance use disorder History of Mccurdy's esophagus Social History Social History Household Members: Family Household Members Other:: , unemployed, 2 children () Housing: House Do you presently have visiting nurse or other home services: No Alcohol intake: current Alcohol intake frequency: holidays/special occasions only Alcohol type: beer Patient Tobacco Use Status: Never used Tobacco e-Cigarette/Vaping Use: Never Used Second Hand Smoke Exposure: No Advance Directives: Yes Advance Directives Information Provided: Yes Advance Directives on File: No Advance Directives Date on File: 03/18/22 Do you have a plan to hurt others: No Plan service: No Current occupational status: unemployed Cognitive needs: No Hearing needs: No Vision needs: Yes Physical Exam ED Vital Signs: Vital Signs - 24 hr 01/22/24 11:00 01/22/24 12:51 01/22/24 13:02 Temperature 98.6 F 97.6 F 97.6 F Pulse Rate 73 68 68 Respiratory Rate 18 20 20 Blood Pressure 151/70 H 184/78 H 184/78 H Pulse Oximetry 97 97 97 Oxygen Delivery Method Room Air Room Air Room Air BMI result Body Mass Index 52.2 hypertensive, vitals otherwise wnl. General: Well appearing, in no acute distress. Skin: Warm, dry, intact. No rashes or lesions. Head: Normocephalic, atraumatic. EENT: Hearing is intact b/l. Conjunctiva clear. PERRLA. Moist mucous membranes.? Neck: Supple without LAD. no midline cervical spinous tenderness or step off deformity. palpable spasm over left cervical paraspinal mm extending over trapezius with noted torticollis. Cardiac: Chest wall symmetric. RRR. No MRG. No JVD. Lungs: Normal respiratory effort without accessory muscle use. CTA bilaterally. Back: No midline spinous or paraspinal tenderness. No step off deformity. Ext: Upper and lower extremities atraumatic, without tenderness, deformity, swelling or erythema. Full ROM throughout. Neuro: AOx3. Normal speech. Ambulating with steady gait. Psych: Appropriate mood and affect. Responds appropriately to questions. Course Course Course Narrative: This is a Rapid Medical Examination (RME) performed by Daniel Marshall PA-C in triage. Full HPI, ROS, assessment and treatment plan per primary provider in the Main ED. 53 yo female hx of PATRICIA on BIPAP. HDL, GERD, arthritis, lumbosacral spondyloarthritis for eval of neck pain (L>R) x4 days. pain worse with moving head down/ touching chin to her chest. reports decreased ROM to the left. pain has now moved into her left ear. no injury. no heavy lifting. has tried advil, aspercream, and ice without relief. + palpable spasm over left cervical paraspinal mm extending over trap. +torticollis Plan: xr Reevaluation(s) Reevaluation #1: 1255 -- cervical xr unremarkable. exam consistent with muscle spams. will send flexeril/ lido patches to pharmacy for treatment. Patient has remained stable throughout ED visit today. Discussed worrisome signs and symptoms and when to r eturn to the ED. All questions answered at this time. Patient is agreeable with disposition and stable for discharge. Medical Decision Making Medical Decision Making MDM Narrative: 53 year old female with pmhx significant for PATRICIA on BIPAP, morbid obesity, depression, HDL, arthritis, lumbosacral spondyloarthritis, IBS, GERD presents to the ED today for evaluation of neck pain x4 days. Hypertensive to 151/70, vitals otherwise wnl. Afebrile. She is nontoxic appearing and in NAD. There is no midline cervical spinous tenderness or step off deformity. palpable spasm over left cervical paraspinal mm extending over trapezius with noted torticollis. rom intact w/ some discomfort. perrla. aox3. no focal neuro deficits. Differential diganosis includes cervical mm spasm, torticollis, MSK sprain/strain, fracture, subluxation, disc herniation. Exam not consistent w/ cord compression, cauda equina, Guillain-Magnolia, epidural abscess, dissection. Plan for imaging, pain control, and disposition. Differential Diagnosis Differential Diagnoses: The differential diagnosis associated with the presentation includes as above Admission/Observation Not indicated. Independent Interpretation I performed an independent interpretation of an: Plain X-Ray Interpretation: XR cervical spine without fracture or subluxation, agree with radiologist's interpretation. Radiology Impression Discussion of test interpretation with radiology: I have reviewed the radiologist's reading. Radiologist Impression: EXAMINATION: XR CERVICAL SPINE CLINICAL INFORMATION: Neck pain. No history of trauma. COMPARISON: MRI cervical spine October 14, 2021 TECHNIQUE: 4 views of the cervical spine were obtained. FINDINGS: The cervical spine is imaged through C7. Normal sagittal alignment. Vertebral body heights are maintained. Intervertebral disc spaces are preserved. Lateral masses are symmetric. Prevertebral soft tissues are within normal limits. XR/XR cervical spine 3V IMPRESSION: No acute abnormality. Electronically signed by: Papito Pires MD 01/22/2024 12:35 PM EDT External Record Review External record reviewed: Inpatient record Prescription Management I considered prescription management with: Pain Medication and Other (flexeril, lido patch) Social Determinants Patient?s care significantly limited by Social Determinants of Health including: Other Social Determinant of Health Critical Care Time Critical Care Time Critical Care Time: No Discharge Plan Discharge Clinical Impression: Cervical paraspinal muscle spasm Patient Disposition: Home, Self-Care Instructions: Muscle Spasm (ED) Additional Instructions: You were evaluated in the Emergency Department today for your back pain.? Your evaluation did not show signs of medical conditions requiring emergent intervention at this time. Use ice several times per day for 20 minutes at a time for the next 48 hours and then change to heat. We recommend you take 600mg ibuprofen every 6 hours or tylenol 650mg every 6 hours as needed for pain. If needed, you can alternate these medications so that you take one medication every 3 hours. For example, at noon take ibuprofen, then at 3pm take tylenol, then at 6pm take ibuprofen. Flexeril is a muscle relaxer. Take this at night as it makes you drowsy. Do not drive, drink alcohol, or operate machinery while taking it. You may also purchase over the counter lidocaine patches to apply to painful areas. Please schedule an appointment for follow-up with your primary care provider this week for further evaluation of your symptoms. Return to the Emergency Department if you experience worsening back pain, diff iculty walking, fevers, numbness, tingling, incontinence, or any other concerning symptoms. In the case of an emergency call 911. Prescriptions: New cyclobenzaprine 5 mg tablet 5 mg PO Q8H Qty: 7 0RF lidocaine [Lidoderm] 5 % adhesive patch,medicated 1 patch topical DAILY Qty: 15 0RF Rx Instructions: leave on most painful area for up to 12 hrs No Action triamcinolone acetonide 0.1 % cream 1 appl topical DAILY Qty: 80 1RF amlodipine 10 mg tablet 10 mg PO DAILY Qty: 90 3RF (DME) FreeStyle Lite Strips Strip See Rx Instructions .Route Qty: 100 3RF Rx Instructions: 1 qd (DME) blood-glucose meter [FreeStyle Lite Meter] Kit See Rx Instructions .Route Qty: 1 0RF Rx Instructions: As directed pravastatin 20 mg tablet 20 mg PO DAILY Qty: 90 3RF hydralazine 25 mg tablet 25 mg PO BID Qty: 180 3RF triamterene-hydrochlorothiazid 37.5-25 mg capsule 1 cap PO DAILY Qty: 90 3RF (DME) lancets [FreeStyle Lancets] 28 gauge misc See Rx Instructions .Route Qty: 100 1RF Rx Instructions: Test blood sugar once a day epinephrine 0.3 mg/0.3 mL auto-injector 0.3 mg IM ONCE PRN (Reason: Anaphylaxis) Qty: 2 1RF metformin 500 mg tablet 500 mg PO BID Qty: 180 1RF docusate sodium [Colace] 100 mg Capsule 100 mg PO BID cholecalciferol (vitamin D3) 125 mcg (5,000 unit) Tablet 125 mcg PO DAILY cetirizine [Zyrtec] 10 mg Tablet 10 mg PO DAILY pregabalin 150 mg capsule 200 mg PO DAILY lorazepam 0.5 mg tablet 0.5 mg PO BEDTIME PRN (Reason: Anxiety) Qty: 30 0RF albuterol sulfate 90 mcg/actuation HFA aerosol inhaler 2 puff inhalation Q4H PRN (Reason: Wheezing) sertraline 50 mg tablet 75 mg PO DAILY meclizine 25 mg tablet 25 mg PO BID PRN (Reason: dizziness) Qty: 30 0RF azithromycin 250 mg tablet 250 mg PO DAILY 6 Days Qty: 6 0RF Rx Instructions: start on day 2 of therapy multivitamin Tablet 1 tab PO DAILY fluticasone propionate 50 mcg/actuation spray,suspension 1 spray intranasal DAILY Rx Instructions: administer into each nostril acetaminophen [Tylenol Arthritis Pain] 650 mg tablet extended release 650 mg PO Q12H bisacodyl [Dulcolax (bisacodyl)] 5 mg tablet,delayed release (DR/EC) 20 mg PO ONCE 1 Days Qty: 4 0RF Rx Instructions: Day before procedure, prep day Take 4 tablets by mouth upon awakening followed by large glass of water polyethylene glycol 3350 [Miralax] 17 gram/dose powder 238 g PO ONCE PRN (Reason: laxative effect) 1 Days Qty: 238 0RF Rx Instructions: Take as directed by mouth the day before your procedure. Interventions: ED Discharge Assessment Last Done: 01/22/24 13:02 Discharge Date/Time: 01/22/24 13:03 Print Language: Jordanian
[2024-01-22 12:51] VITALS: BP 184/78; PULSE 68; RESP 20; TEMP 36.4; O2SAT 97
[2024-01-22 13:02] VITALS: BP 184/78; PULSE 68; RESP 20; TEMP 36.4; O2SAT 97
== END 2024-01-22 13:03 | disposition home or self-care (01) ==
PROVIDERS: Emergency Provider Emergency Medicine; PCP Internal Medicine
DX: M54.2 Cervicalgia (principal); H92.02 Otalgia, left ear; M62.838 Other muscle spasm; Z79.899 Other long term (current) drug therapy
CPT/HCPCS: 72040; 99283

== ENCOUNTER 2024-02-02 13:12 | Outpatient (AMB) | payer OTHER, SELFPAY ==
--- NOTE | 2024-02-02 13:18 | MHC.PC.OV ---
Vital Signs 02/02/24 13:19 Height 5 ft Weight 265 lb 2 oz BMI 51.8 BP 126/72 Blood Pressure Location Lt brachial Position Sitting Pulse 71 Pulse Source Pulse Oximeter Pulse Oximetry (%) 97 Oxygen Delivery Method Room Air Intake Visit Reasons: Flank pain Intake Note: Pt is here today for a sick visit. Pt c/o lower back/kidney pain that comes and goes. Pt denies any urinary problems. Pt also states that she went to the ER also due to neck pain. Allergies doxycycline [DOXYCYCLINE] Allergy (Severe, Verified 02/02/24 13:25) ESOPHAGITIS Sulfa (Sulfonamide Antibiotics) Allergy (Severe, Verified 02/02/24 13:25) FACIAL SWELLING codeine [Codeine] Allergy (Intermediate, Verified 02/02/24 13:25) RASH lisinopril [Lisinopril] Allergy (Intermediate, Verified 02/02/24 13:25) EXTREMITIES SWELLING benzonatate [BENZONATATE] Allergy (Unknown, Verified 02/02/24 13:25) ANAPHYLAXIS meperidine [Demerol] Allergy (Unknown, Verified 02/02/24 13:25) Rash dulaglutide [From Trulicity] Adverse Reaction (Intermediate, Verified 02/02/24 13:25) itchy throat losartan Adverse Reaction (Intermediate, Verified 02/02/24 13:25) swelling of hands, Medication List - Last Reconciled 02/02/24 by Mia North MD acetaminophen ER (Tylenol Arthritis Pain) 650 mg PO Q12H albuterol sulfate 90 mcg/actuation 2 puffs inhalation Q4H PRN amlodipine 10 mg PO DAILY bisacodyl (Dulcolax (bisacodyl)) 20 mg (4 x 5 mg) PO ONCE 1 day blood sugar diagnostic (FreeStyle Lite Strips) 1 qd blood-glucose meter (FreeStyle Lite Meter kit) As directed cetirizine (Zyrtec) 10 mg PO DAILY cholecalciferol (vitamin D3) 125 mcg PO DAILY docusate sodium (Colace) 100 mg PO BID epinephrine 0.3 mg (0.3 mL) IM ONCE PRN fluticasone propionate 50 mcg/actuation 1 spray intranasal DAILY hydralazine 25 mg PO BID lancets (FreeStyle Lancets) Test blood sugar once a day lidocaine 5% (Lidoderm) 1 patch topical DAILY lorazepam 0.5 mg PO BEDTIME PRN meclizine 25 mg PO BID PRN metformin 500 mg PO BID multivitamin 1 tab PO DAILY polyethylene glycol 3350 (Miralax) 238 grams PO ONCE PRN 1 day pravastatin 20 mg PO DAILY pregabalin 200 mg PO DAILY sertraline 75 mg PO DAILY triamcinolone acetonide 0.1% 1 appl topical DAILY triamterene-hydrochlorothiazid 37.5-25 mg 1 cap PO DAILY Tobacco use date assessed: 02/02/24 Dental Screening Dental Screen Date: 07/18/23 HPI Flank pain HPI Details Pt c/o R midback and flank pain for 2 weeks dull ache lasting 1-2 hr on and off, not related to position no radiation, patient denies nausea vomiting fever chills dysuria change in bowel habits hematuria. She has a history of nephrolithiasis and pyelonephritis. Patient complains of chronic left-sided neck pain worse when turning her head to the side. There is no pain radiating to extremities or weakness numbness in extremities. Patient has been taking muscle relaxant with some relief. Hypertension and type 2 diabetes are controlled on current medications. [facility] Medical History PATRICIA treated with BiPAP Morbid obesity Lumbar and sacral spondyloarthritis Hyperlipemia Depression Thyroid nodule Hx of renal calculi Irritable bowel syndrome GERD (gastroesophageal reflux disease) Arthritis Cancer Surgical History H/O ventral hernia repair Hx of bilateral oophorectomy Hx of breast biopsy Hx of section Hx of colonoscopy Hx of esophagogastroduodenoscopy Family History Mother No problems noted. Father Substance use disorder Esophageal cancer Brother Substance use disorder Sister Substance use disorder History of Mccurdy's esophagus Social History Household Members: Family Household Members Other:: , unemployed, 2 children () Housing: House Do you presently have visiting nurse or other home services: No Alcohol intake: current Alcohol intake frequency: holidays/special occasions only Alcohol type: beer Patient Tobacco Use Status: Never used Tobacco e-Cigarette/Vaping Use: Never Used Second Hand Smoke Exposure: No Advance Directives Date on File: 03/18/22 service: No Current occupational status: unemployed Cognitive needs: No Hearing needs: No Vision needs: Yes Questionnaire Thrive Questionnaire Date Thrive assessed: 12/07/23 I am a: Patient What is your living situation today?: I have a steady place to live Within the past 12 months, did the food you bought not last and you didn't have the money to get more?: Never true Within the past 12 months, did you worry whether your food would run out before you got money to buy more?: Never true Do you have trouble paying for medicines?: No Do you have trouble getting transportation to medical appointments?: No Do you have trouble paying your heating and electricity bill?: No Do you have trouble taking care of your child, family member or friend?: No Do you have trouble with day-to-day activities such as bathing, preparing meals, shopping, managing finances, etc.?: I choose not to answer this question Are you currently unemployed and looking for a job?: No Are you interested in more education?: No Please select the resources that you would like help with: None Currently or been in a relationship where the following occur: No concerns reported THRIVE Score: 0 HARRIET-7 AMB Questionnaire HARRIET-7 Date HARRIET - 7 assessed: 12/07/23 Source: Developed by Drs. Hitesh Bowden, Vero Owens, Micheal Cedillo and colleagues, with an educational bert from [employer]. Review of Systems Const All systems reviewed & are unremarkable except as noted in HPI and below ENT Reports no additional complaints Card Reports no additional complaints Resp Reports no additional complaints GI Reports no additional complaints Reports no additional complaints Physical exam (Primary Care) Vital Signs: Last Vital Signs Pulse 71 02/02/24 13:19 BP 126/72 02/02/24 13:19 Pulse Ox 97 02/02/24 13:19 Oxygen Delivery Method Room Air 02/02/24 13:19 BMI result Body Mass Index 51.8 Tobacco/Smoking Status: Tobacco use Status Tobacco use date assessed 02/02/24 02/02/24 13:27 Patient Tobacco Use Status Never used Tobacco 02/02/24 13:19 e-Cigarette/Vaping Use Never Used 02/02/24 13:19 Thrive Assessment: Date of Thrive Assessment Date Thrive assessed 12/07/23 02/02/24 13:19 Currently or been in a relationship where the following occur: No concerns reported Const General: no acute distress Neck Other: There is decreased range of motion in C-spine paraspinal tenderness left more than right. Resp Effort & Inspection: normal respiratory effort Auscultation: clear to auscultation bilaterally Cardio Rhythm: regular rhythm Heart sounds: S1 normal heart sound present and S2 normal heart sound present GI Inspection: Yes normal to inspection Palpation (GI): Soft to palpation Percussion: Yes normal to percussion Auscultation: normal bowel sounds Back/Spine/Pelvis Other: There is a tenderness in the right mid lumbar paraspinal region and right flank, straight leg rising 90 degrees bilaterally Assessment and Plan Assessment & Plan (1) Flank pain: Code(s): R10.9 - Unspecified abdominal pain Plan: Check UA and culture obtain renal ultrasound to evaluate for nephrolithiasis (2) DM2 (diabetes mellitus, type 2): Comment: A1C 6.2, 2022, diet controlled, intolerant to Trulicity ( throat swelling) Code(s): E11.9 - Type 2 diabetes mellitus without complications Plan: Continue current medications and ADA diet (3) Right flank pain: Code(s): R10.9 - Unspecified abdominal pain (4) Neck pain on left side: Code(s): M54.2 - Cervicalgia Plan: Referred to physical therapy continue muscle relaxant as needed Orders: Orders UA w Microscopic Today E11.9 - Type 2 diabetes mellitus without complications, M54.2 - Cervicalgia, R10.9 - Unspecified abdominal pain Urine Culture Today E11.9 - Type 2 diabetes mellitus without complications, M54.2 - Cervicalgia, R10.9 - Unspecified abdominal pain US renal BI Today R10.9 - Unspecified abdominal pain PT Evaluation and Treatment Today M54.2 - Cervicalgia Medications: New baclofen 10 mg PO BEDTIME 30 tabs 0RF Changed From metformin 500 mg PO BID 180 tabs 1RF To metformin 500 mg orally 1 in AM and 2 q PM; 270 tabs 1RF Coding Level of Care Code Est Pt Level 4 (08394) Diagnoses Flank pain R10.9 DM2 (diabetes mellitus, type 2) E11.9 Right flank pain R10.9 Neck pain on left side M54.2
[2024-02-02 13:19] VITALS: BP 126/72; PULSE 71; O2SAT 97; BMI 51.8
== END 2024-02-02 14:09 | disposition home or self-care (01) ==
PROVIDERS: PCP Internal Medicine; Visit Provider Internal Medicine
DX: R10.9 Unspecified abdominal pain (principal); E11.9 Type 2 diabetes mellitus without complications; M54.2 Cervicalgia

== ENCOUNTER → 2024-02-02 13:12 | Outpatient (BNVA) | payer OTHER, SELFPAY | PROVIDERS: PCP Internal Medicine; Visit Provider Internal Medicine ==

== ENCOUNTER 2024-02-02 14:27 | Outpatient (REF) | payer OTHER, SELFPAY ==
--- NOTE | ~2024-02-02 | US_ITS ---
EXAMINATION: US RETROPERITONEAL LIMITED (RENAL ONLY) CLINICAL INFORMATION: Abdominal pain. COMPARISON: CT abdomen/pelvis 12/15/2020. TECHNIQUE: Real-time imaging of the kidneys. FINDINGS: RIGHT KIDNEY: 12.3 x 4.4 x 6.1 cm (SAG x AP x TRV). The kidney is normal in size, contour, and echogenicity. Renal cortical thickness is normal. No calculi or focal parenchymal lesions. No hydronephrosis. LEFT KIDNEY: 12.8 x 6.9 x 5.1 cm (SAG x AP x TRV). The kidney is normal in size, contour, and echogenicity. Renal cortical thickness is normal. No calculi or focal parenchymal lesions. No hydronephrosis. ADDITIONAL FINDINGS: Partially seen increased echogenicity of the liver. US/US renal BI IMPRESSION: 1. Normal sonographic appearance of the kidneys. 2. Incidental note is made of increased echogenicity of the liver, which could be seen with hepatic steatosis or hepatocellular disease. Electronically signed by: Brielle Kunz MD 02/03/2024 12:41 PM EDT
[2024-02-02 16:48] LABS: Appearance Urine Clear; Color Urine Yellow; Glucose Urine UA Negative (Negative); Leukocyte Esterase Urine Negative (Negative); Nitrite Urine Negative (Negative); Urine Blood Negative (Negative); Urine Ketones Negative (Negative); Urine Protein Negative (Neg-Trace)
[2024-02-02 16:55] LABS: Bacteria Urine None Seen (None Seen); Hyaline Casts Urine 0-2 /LPF (0-2); RBC Urine 0-2 /HPF (0-2); Squamous Epithelial Cell Urine 0-2 /HPF (0-2); WBC Urine 0-5 /HPF (0-5)
== END 2024-02-02 14:28 | disposition home or self-care (01) ==
LOC: HO.HMGCX 14:27
PROVIDERS: PCP Internal Medicine; Visit Provider Internal Medicine
DX: R10.9 Unspecified abdominal pain (principal); E11.9 Type 2 diabetes mellitus without complications; M54.2 Cervicalgia
CPT/HCPCS: 76775; 81001; 87086

== ENCOUNTER 2024-02-04 23:28 | Emergency (ER) | payer OTHER, SELFPAY ==
[2024-02-04 23:34] VITALS: BMI 102.2
--- NOTE | 2024-02-04 23:38 | ED_ITS ---
HPI - Allergic Reaction General Chief complaint: Allergic Reaction Stated complaint: Allergic reaction to meds Time Seen by Provider: 02/04/24 23:36 Source: patient, family and old records reviewed Mode of arrival: ambulatory Limitations: no limitations History of Present Illness ED Provider: PABLO LIPSCOMB narrative: 53 yo female with PMH of reactive airway disease, HTN, DM, prior anaphylaxis carries epi pen but she doesn't feel comfortable using it took baclofen for neck spasm for the first time tonight and then about 30 minutes later started with sensation of dry cough, difficulty breathing and throat closing. They rushed into the ED after taking 50mg of benadryl. complaint: allergic reaction Onset (ago): minute(s) (30) Exposure: medication Symptoms: difficulty breathing and hoarseness Severity: moderate Treatment prior to arrival: benadryl Previous Allergic Reaction History: prior ED visit(s) and anaphylaxis Related Data Home Medications ?Medication ?Instructions ?Recorded ?Confirmed docusate sodium 100 mg capsule 100 mg PO BID 02/14/20 02/02/24 (Colace) albuterol sulfate 90 mcg/actuation 2 puff inhalation Q4H PRN Wheezing 11/19/20 02/02/24 aerosol inhaler cholecalciferol (vitamin D3) 125 125 mcg PO DAILY 03/15/22 02/02/24 mcg (5,000 unit) tablet cetirizine 10 mg tablet (Zyrtec) 10 mg PO DAILY 03/17/22 02/02/24 acetaminophen 650 mg 650 mg PO Q12H 05/23/23 02/02/24 tablet,extended release (Tylenol Arthritis Pain) fluticasone propionate 50 1 spray intranasal DAILY 05/23/23 02/02/24 mcg/actuation nasal spray,suspension multivitamin 1 tab PO DAILY 05/23/23 02/02/24 pregabalin 150 mg capsule 200 mg PO DAILY 12/07/23 02/02/24 sertraline 50 mg tablet 75 mg PO DAILY 12/07/23 02/02/24 Previous Rx's ?Medication ?Instructions ?Recorded lorazepam 0.5 mg tablet 0.5 mg PO BEDTIME PRN Anxiety #30 10/08/20 tabs triamcinolone acetonide 0.1 % 1 appl topical DAILY #80 grams 10/05/22 topical cream amlodipine 10 mg tablet 10 mg PO DAILY #90 tabs 03/24/23 blood sugar diagnostic (FreeStyle #100 ea 04/14/23 Lite Strips) blood-glucose meter (FreeStyle #1 ea 04/14/23 Lite Meter kit) bisacodyl 5 mg tablet,delayed 20 mg (4 x 5 mg) PO ONCE 05/23/23 release (Dulcolax (bisacodyl)) colonoscopy prep 1 day #4 tabs polyethylene glycol 3350 17 238 g PO ONCE PRN laxative effect 05/23/23 gram/dose oral powder (Miralax) 1 day #238 grams pravastatin 20 mg tablet 20 mg PO DAILY #90 tabs 07/05/23 hydralazine 25 mg tablet 25 mg PO BID #180 tabs 07/30/23 triamterene 37.5 1 cap PO DAILY #90 caps 09/22/23 mg-hydrochlorothiazide 25 mg capsule lancets 28 gauge (FreeStyle #100 ea 10/17/23 Lancets) epinephrine 0.3 mg/0.3 mL 0.3 mg (0.3 mL) IM ONCE PRN 11/21/23 injection, auto-injector Anaphylaxis #2 ea meclizine 25 mg tablet 25 mg PO BID PRN dizziness #30 tabs 12/07/23 lidocaine 5 % topical patch 1 patch topical DAILY #15 ea 01/22/24 (Lidoderm) baclofen 10 mg tablet 10 mg PO BEDTIME #30 tabs 02/02/24 metformin 500 mg tablet 500 mg PO .COMPLEX #270 tabs 02/02/24 prednisone 20 mg tablet 20 mg PO DAILY 3 days #3 tabs 02/05/24 Allergies Allergy/AdvReac Type Severity Reaction Status Date / Time doxycycline [DOXYCYCLINE] Allergy Severe ESOPHAGITIS Verified 02/04/24 23:35 Sulfa (Sulfonamide Allergy Severe FACIAL Verified 02/04/24 23:35 Antibiotics) SWELLING codeine [Codeine] Allergy Intermediate RASH Verified 02/04/24 23:35 lisinopril [Lisinopril] Allergy Intermediate EXTREMITIES Verified 02/04/24 23:35 SWELLING benzonatate [BENZONATATE] Allergy Unknown ANAPHYLAXIS Verified 02/04/24 23:35 meperidine [Demerol] Allergy Unknown Rash Verified 02/04/24 23:35 dulaglutide [From Trulicity] AdvReac Intermediate itchy Verified 02/04/24 23:35 throat losartan AdvReac Intermediate swelling Verified 02/04/24 23:35 of hands, Review of Systems Review of Systems: Constitutional : No Fever, No Chills ENT/Mouth : no oral swelling, pos Hoarseness, pos Swallowing Difficulty Eyes: No Eye Pain, No Swelling, No Redness Cardiovascular : No Chest Pain, No SOB Respiratory : pos Cough, No Sputum, No Wheezing, pos Dyspnea Gastrointestinal : No Nausea, No Vomiting, No Diarrhea, No abdominal Pain Genitourinary : No Dysuria, No Urinary Frequency, No Hematuria Musculoskeletal : No joint pain, No Myalgias, No Joint Swelling Skin : No Skin Lesions, positive rash Neuro : No Weakness, No Numbness, No Headache Psych : No Anxiety/Panic, No Depression All other systems reviewed and are negative PMFSH Past Medical History Attestation statement: The following information was validated with the patient. Source: old records reviewed Medical History PATRICIA treated with BiPAP Morbid obesity Lumbar and sacral spondyloarthritis Hyperlipemia Depression Thyroid nodule Hx of renal calculi Irritable bowel syndrome GERD (gastroesophageal reflux disease) Arthritis Cancer Surgical History H/O ventral hernia repair Hx of bilateral oophorectomy Hx of breast biopsy Hx of section Hx of colonoscopy Hx of esophagogastroduodenoscopy Family History Family History Mother No problems noted. Father Substance use disorder Esophageal cancer Brother Substance use disorder Sister Substance use disorder History of Mccurdy's esophagus Social History Social History Household Members: Family Household Members Other:: , unemployed, 2 children () Housing: House Do you presently have visiting nurse or other home services: No Unable to assess alcohol history related to: Unable to respond Alcohol intake: current Alcohol intake frequency: holidays/special occasions only Alcohol type: beer Patient Tobacco Use Status: Never used Tobacco e-Cigarette/Vaping Use: Never Used Second Hand Smoke Exposure: No Use of substances other than those prescribed or required for medical reasons: Unable to respond Advance Directives: No Advance Directives Information Provided: Yes Advance Directives Date on File: 03/18/22 Do you have a plan to hurt others: No Plan Patient : No service: No Current occupational status: unemployed Cognitive needs: No Hearing needs: No Vision needs: Yes Physical Exam ED Vital Signs: Vital Signs - 24 hr 02/04/24 23:41 02/04/24 23:44 02/04/24 23:44 Temperature 98.3 F Pulse Rate 83 79 82 Respiratory Rate 18 17 Blood Pressure 147/83 H 147/83 H 147/83 H Pulse Oximetry 99 98 Oxygen Delivery Method Room Air Room Air Oxygen Flow Rate 02/04/24 23:51 02/05/24 00:00 02/05/24 01:21 Temperature 98.2 F Pulse Rate 74 93 93 Respiratory Rate 22 H 22 H 18 Blood Pressure 131/63 106/58 L Pulse Oximetry 94 94 Oxygen Delivery Method Room Air Nasal Cannula Oxygen Flow Rate 2 BMI result Body Mass Index 102.2 Appearance: Alert. Oriented X3. dry cough hoarse voice mild acute distress. Eyes: Pupils equal, round and reactive to light. ENT: Pharynx normal. no signs of angioedema Neck: Normal inspection. Neck supple. CVS: Normal heart rate and rhythm. Pulses normal. Respiratory: No respiratory distress. Breath sounds diminished no stridor but hacking dry cough Abdomen: Soft and non-tender. Skin: Skin warm and dry. Normal skin color. Extremities: No lower extremity edema. Neuro: Oriented X 3. No motor deficit. No sensory deficit. Course Course Course Narrative: still coughing no swelling noted no hypoxia given IM epi and racemic she is very anxious will try dose of IV ativan Reevaluation(s) Reevaluation #1: doing better after IV ativan Reevaluation #2: patient on bipap at night that is why she is using the NC here, is very reliable and he states he is more than capable of setting it up and getting her on it at home. she feels much better and they both feel safe to go home observed with no rebound in ED after 2 hours and 50 minutes Medications Administered Discontinued Medications Generic Name Dose Route Start Last Admin Trade Name Freq PRN Reason Stop Dose Admin Albuterol Sulfate 2.5 mg/ 0 mg 02/04/24 23:47 02/04/24 23:50 Albuterol/Ipratropium 3 ml INHALE 02/04/24 23:48 5 dose ONCE ONE Administration Epinephrine 0.3 mg 02/04/24 23:36 02/04/24 23:41 Epinephrine 1 Mg/Ml Vial IM 02/04/24 23:37 0.3 mg STAT STA Administration Epinephrine 0.5 ml 02/04/24 23:47 02/04/24 23:50 Racepinephrine Hcl 0.5 Ml Vial.Neb INHALE 02/04/24 23:48 0.5 ml ONCE ONE Administration Lorazepam 1 mg 02/05/24 00:03 02/05/24 00:06 Lorazepam 2 Mg/Ml Vial IVPUSH 02/05/24 00:04 1 mg STAT STA Administration Methylprednisolone Sodium Succinate 125 mg 02/04/24 23:33 02/04/24 23:41 Methylprednisolone Sod Succ 125 Mg/2 Ml Vial IVPUSH 02/04/24 23:34 125 mg ONCE ONE Administration Medical Decision Making Medical Decision Making MDM Narrative: 53 yo female with PMH of reactive airway disease, HTN, DM, prior anaphylaxis here with c/o throat closing, dry cough, hoarse voice after taking baclofen for the first time at this time will need IV steroids, IM epi she denies hx of CAD - will monitor for 2 hours she has epi pen at home. She knows not to take baclofen anymore. Bronch protocol ordered. Differential Diagnosis Differential Diagnoses: The differential diagnosis associated with the presentation includes adverse reaction, anaphylaxis, allergic reaction Admission/Observation Consideration of admission/observation: Escalation of care including admission/observation considered Independent Historian Clinical information obtained from an independent historian. History obtained from or confirmed by: Spouse External Record Review External record reviewed: Office record Prescription Management I considered prescription management with: Other Critical Care Time Critical Care Time Critical Care Time: Yes Total Critical Care Time: 45 Attestation: IM epi, repeat assessments I attest to this time spent taking care of the patient Discharge Plan Discharge Clinical Impression: Anaphylaxis Qualifiers: Encounter type: initial encounter Qualified Code(s): T78.2XXA - Anaphylactic shock, unspecified, initial encounter Allergic reaction Qualifiers: Encounter type: initial encounter Qualified Code(s): T78.40XA - Allergy, unspecified, initial encounter Patient Disposition: Home, Self-Care Instructions: General Allergic Reaction (ED) Additional Instructions: carry epi pen with you do not take baclofen return for any worsening symptoms or concerns prednisone is going to make your blood sugars go high please monitor Prescriptions: New prednisone 20 mg tablet 20 mg PO DAILY 3 Days Qty: 3 0RF No Action triamcinolone acetonide 0.1 % cream 1 appl topical DAILY Qty: 80 1RF amlodipine 10 mg tablet 10 mg PO DAILY Qty: 90 3RF (DME) FreeStyle Lite Strips Strip See Rx Instructions .Route Qty: 100 3RF Rx Instructions: 1 qd (DME) blood-glucose meter [FreeStyle Lite Meter] Kit See Rx Instructions .Route Qty: 1 0RF Rx Instructions: As directed pravastatin 20 mg tablet 20 mg PO DAILY Qty: 90 3RF hydralazine 25 mg tablet 25 mg PO BID Qty: 180 3RF triamterene-hydrochlorothiazid 37.5-25 mg capsule 1 cap PO DAILY Qty: 90 3RF (DME) lancets [FreeStyle Lancets] 28 gauge misc See Rx Instructions .Route Qty: 100 1RF Rx Instructions: Test blood sugar once a day epinephrine 0.3 mg/0.3 mL auto-injector 0.3 mg IM ONCE PRN (Reason: Anaphylaxis) Qty: 2 1RF docusate sodium [Colace] 100 mg Capsule 100 mg PO BID cholecalciferol (vitamin D3) 125 mcg (5,000 unit) Tablet 125 mcg PO DAILY cetirizine [Zyrtec] 10 mg Tablet 10 mg PO DAILY pregabalin 150 mg capsule 200 mg PO DAILY lidocaine [Lidoderm] 5 % adhesive patch,medicated 1 patch topical DAILY Qty: 15 0RF Rx Instructions: leave on most painful area for up to 12 hrs lorazepam 0.5 mg tablet 0.5 mg PO BEDTIME PRN (Reason: Anxiety) Qty: 30 0RF albuterol sulfate 90 mcg/actuation HFA aerosol inhaler 2 puff inhalation Q4H PRN (Reason: Wheezing) sertraline 50 mg tablet 75 mg PO DAILY meclizine 25 mg tablet 25 mg PO BID PRN (Reason: dizziness) Qty: 30 0RF multivitamin Tablet 1 tab PO DAILY fluticasone propionate 50 mcg/actuation spray,suspension 1 spray intranasal DAILY Rx Instructions: administer into each nostril acetaminophen [Tylenol Arthritis Pain] 650 mg tablet extended release 650 mg PO Q12H bisacodyl [Dulcolax (bisacodyl)] 5 mg tablet,delayed release (DR/EC) 20 mg PO ONCE 1 Days Qty: 4 0RF Rx Instructions: Day before procedure, prep day Take 4 tablets by mouth upon awakening followed by large glass of water polyethylene glycol 3350 [Miralax] 17 gram/dose powder 238 g PO ONCE PRN (Reason: laxative effect) 1 Days Qty: 238 0RF Rx Instructions: Take as directed by mouth the day before your procedure. metformin 500 mg tablet 500 mg PO .COMPLEX Qty: 270 1RF Rx Instructions: 500 mg orally 1 in AM and 2 q PM; baclofen 10 mg tablet 10 mg PO BEDTIME Qty: 30 0RF Print Language: Amharic
[2024-02-04 23:41] VITALS: BP 147/83; PULSE 83
[2024-02-04] MEDS: methylPREDNISolone Sod Succ 125 MG/2 ML VIAL IVPUSH (23:41)
[2024-02-04] MEDS: EPINEPHrine 1 MG/ML VIAL 0.3 MG IM (23:41)
[2024-02-04 23:44] VITALS: BP 147/83; PULSE 79; PULSE 82; RESP 17; RESP 18; TEMP 36.8; O2SAT 98; O2SAT 99
[2024-02-04] MEDS: Racepinephrine HCL 0.5 ML VIAL.NEB INHALE (23:50)
[2024-02-04] MEDS: Albuterol Sulfate 2.5 MG, Albuterol/Iprat 2.5/0.5MG 3 ML 3 ML INHALE (23:50)
[2024-02-04 23:51] VITALS: PULSE 74; RESP 22; O2SAT 98
[2024-02-05] VITALS: BP 131/63; PULSE 93; RESP 22; O2SAT 94
[2024-02-05] MEDS: LORazepam 2 MG/ML VIAL 1 MG IVPUSH (00:06)
[2024-02-05 01:21] VITALS: BP 106/58; PULSE 93; RESP 18; TEMP 36.8; O2SAT 94
[2024-02-05 02:28] VITALS: BP 106/58; PULSE 93; RESP 18; TEMP 36.8; O2SAT 94
== END 2024-02-05 02:29 | disposition home or self-care (01) ==
PROVIDERS: Emergency Provider Emergency Medicine; PCP Internal Medicine
DX: T78.2XXA Anaphylactic shock, unspecified, initial encounter (principal); T42.8X5A Adverse effect of antiparkinsonism drugs and other central muscle-tone depressants, initial encounter; Y92.9 Unspecified place or not applicable; R06.00 Dyspnea, unspecified; R21 Rash and other nonspecific skin eruption; R05.9 Cough, unspecified; E11.9 Type 2 diabetes mellitus without complications; I10 Essential (primary) hypertension; E78.5 Hyperlipidemia, unspecified
CPT/HCPCS: 94640; 96372; 96374; 96375; 99284; 99285; J0171; J2060; J2919

== ENCOUNTER 2024-02-13 10:14 | Outpatient (REF) | payer OTHER, SELFPAY ==
[2024-02-13 13:03] LABS: HBS Num1 35.37 mIU/mL (0-7.99); HBc Num1 0.11 S/CO (0.00-0.79); HBsAGNum1 0.36 S/CO (0.00-0.99); Hepatitis B Core Antibody Nonreactive (Nonreactive); Hepatitis B Surface Antigen Negative (Negative); ~HepC Num1 0.07 S/CO (0.00-0.79); ~Hepatitis B Surface Antibody REACTIVE (Nonreactive); ~Hepatitis C Antibody Nonreactive (Nonreactive)
== END 2024-02-13 10:15 | disposition home or self-care (01) ==
LOC: HO.LAB 10:14
PROVIDERS: PCP Internal Medicine; Visit Provider Internal Medicine
DX: K76.0 Fatty (change of) liver, not elsewhere classified (principal)
CPT/HCPCS: 36415; 86704; 86706; 86803; 87340

== ENCOUNTER 2024-02-26 10:20 | Outpatient (AMB) | payer OTHER, SELFPAY ==
[2024-02-26 10:29] VITALS: BP 138/78; PULSE 77; O2SAT 97; BMI 45.7
--- NOTE | 2024-02-26 10:29 | MHC.OFFVIS ---
Vital Signs 02/26/24 10:29 Height 5 ft 4 in Weight 266 lb BMI 45.7 BP 138/78 Blood Pressure Location Lt brachial Position Sitting Pulse 77 Pulse Source Pulse Oximeter Pulse Oximetry (%) 97 Oxygen Delivery Method Room Air Intake Visit Reasons: Obstructive sleep apnea Intake Note: pt is here for follow up of PATRICIA, and doing fine. Blood Bank Coordinator Required: No Allergies doxycycline [DOXYCYCLINE] Allergy (Severe, Verified 02/26/24 10:44) ESOPHAGITIS Sulfa (Sulfonamide Antibiotics) Allergy (Severe, Verified 02/26/24 10:44) FACIAL SWELLING codeine [Codeine] Allergy (Intermediate, Verified 02/26/24 10:44) RASH lisinopril [Lisinopril] Allergy (Intermediate, Verified 02/26/24 10:44) EXTREMITIES SWELLING benzonatate [BENZONATATE] Allergy (Unknown, Verified 02/26/24 10:44) ANAPHYLAXIS meperidine [Demerol] Allergy (Unknown, Verified 02/26/24 10:44) Rash baclofen Adverse Reaction (Severe, Verified 02/26/24 10:44) Anaphylaxis dulaglutide [From Trulicity] Adverse Reaction (Intermediate, Verified 02/26/24 10:44) itchy throat losartan Adverse Reaction (Intermediate, Verified 02/26/24 10:44) swelling of hands, Medication List - Last Reconciled 02/26/24 by Carlos Lewis MD acetaminophen ER (Tylenol Arthritis Pain) 650 mg PO Q12H albuterol sulfate 90 mcg/actuation 2 puffs inhalation Q4H PRN amlodipine 10 mg PO DAILY baclofen 10 mg PO BEDTIME bisacodyl (Dulcolax (bisacodyl)) 20 mg (4 x 5 mg) PO ONCE 1 day blood sugar diagnostic (FreeStyle Lite Strips) 1 qd blood-glucose meter (FreeStyle Lite Meter kit) As directed cetirizine (Zyrtec) 10 mg PO DAILY cholecalciferol (vitamin D3) 125 mcg PO DAILY cyclobenzaprine 5 mg PO .qhs docusate sodium (Colace) 100 mg PO BID epinephrine 0.3 mg (0.3 mL) IM ONCE PRN fluticasone propionate 50 mcg/actuation 1 spray intranasal DAILY hydralazine 25 mg PO BID lancets (FreeStyle Lancets) Test blood sugar once a day lidocaine 5% (Lidoderm) 1 patch topical DAILY lorazepam 0.5 mg PO BEDTIME PRN meclizine 25 mg PO BID PRN metformin 500 mg orally 1 in AM and 2 q PM; multivitamin 1 tab PO DAILY polyethylene glycol 3350 (Miralax) 238 grams PO ONCE PRN 1 day pravastatin 20 mg PO DAILY prednisone 20 mg PO DAILY 3 days pregabalin 200 mg PO DAILY sertraline 75 mg PO DAILY triamcinolone acetonide 0.1% 1 appl topical DAILY triamterene-hydrochlorothiazid 37.5-25 mg 1 cap PO DAILY Do you need a note to return to daycare/school/sports/work: No HPI HPI Obstructive sleep apnea: Details: This 54 years old very pleasant female is a case of morbid obesity and obstructive sleep apnea. She is a regular user of bilevel CPAP, for 7-8 hours every night. Sleeps good , and denies any daytime sleepiness. Does have some air leak during the night when her wakes her up, but overall the CPAP device has been working well. Her main issue is that she is not able to lose weight, even though he is in the weight Watchers program. Breathing gonzalez she is okay except for getting short of breath if she walks fast or and down hills.. Patient does have mild to moderate depression which is controlled with sertraline. [facility] Medical History PATRICIA treated with BiPAP Morbid obesity Lumbar and sacral spondyloarthritis Hyperlipemia Depression Thyroid nodule Hx of renal calculi Irritable bowel syndrome GERD (gastroesophageal reflux disease) Arthritis Cancer Surgical History H/O ventral hernia repair Hx of bilateral oophorectomy Hx of breast biopsy Hx of section Hx of colonoscopy Hx of esophagogastroduodenoscopy Family History Mother No problems noted. Father Substance use disorder Esophageal cancer Brother Substance use disorder Sister Substance use disorder History of Mccurdy's esophagus Social History Household Members: Family Household Members Other:: , unemployed, 2 children () Housing: House Do you presently have visiting nurse or other home services: No Unable to assess alcohol history related to: Unable to respond Alcohol intake: current Alcohol intake frequency: holidays/special occasions only Alcohol type: beer Patient Tobacco Use Status: Never used Tobacco e-Cigarette/Vaping Use: Never Used Second Hand Smoke Exposure: No Advance Directives Date on File: 03/18/22 service: No Current occupational status: unemployed Cognitive needs: No Hearing needs: No Vision needs: Yes Review of Systems Const All systems reviewed & are unremarkable except as noted in HPI and below Eyes Reports no additional complaints ENT Reports nasal congestion (Mild off and on) Card Denies chest pain, Denies irregular heart rhythm and Denies leg edema Resp Reports as per HPI GI Reports no additional complaints Reports no additional complaints Musc Reports back pain Skin/Breast Reports system reviewed and no additional complaints, except as documented Neuro Reports no additional complaints Psych Reports no additional complaints Physical Exam Const General: healthy appearing (EXCEPT FOR BEING OVERWEIGHT), comfortable, no acute distress, alert and awake Orientation/consciousness: patient oriented x3 HEENT Head: Yes normal to inspection General nose exam: No nasal polyps present and No nasal discharge present Face and sinus: Yes sinuses nontender Mouth: oropharynx normal Throat: Yes posterior oropharynx normal Eyes General: appearance normal, both eyes and all related structures Neck Neck: Yes normal visual inspection, Yes no lymphadenopathy, Yes trachea midline and Yes no JVD Thyroid: Thyroid normal Chest Chest palpation & inspection: normal inspection of the chest, normal palpation of entire chest wall and no tenderness Resp Other: Percussion note resonant in the upper parts of the chest and somewhat dull over the basilar areas. Breath sounds are decreased over the basilar areas but equal. On both sides Today she was able to take deep breaths without any cough. No wheezes rhonchi or crepitations are heard. Cardio Palpation: normal PMI Rate: regular rate Rhythm: regular rhythm Heart sounds: no gallops and no murmurs GI Palpation (GI): Soft to palpation, nontender, No hepatosplenomegaly present and no masses Auscultation: normal bowel sounds Back/Spine/Pelvis Thoracic/Lumbar Spine: thoracic and lumbar spine normal to inspection and thoraco-lumbar ROM limited Skin General skin exam: no rashes or lesions noted Neuro General: patient oriented x3 and no focal motor deficits Cranial nerves: Yes CN's II-XII intact bilaterally Extrem General: Yes normal to inspection, Yes no clubbing, cyanosis or edema and Yes no calf tenderness Psych Appearance: grossly normal and well kempt Speech and movement: Normal speech and movement present Results Reviewed Results Reviewed: Compliance report for the last. 30 nights is reviewed Her usage is 30/30 nights, 100%. Average use it per night 7 hours 26 minutes. Pressure setting 18/14 cm. There is a mild air leak maximum 61.9 L per minute. Residual AHI 4.2 Assessment & Plan Assessment & Plan (1) Morbid obesity: Comment: CASE OF CHRONIC MORBID OBESITY. .BMI= 45.7 PATIENT IS AWARE OF BEING MORBIDLY OBESE AND SHE IS TRYING TO RESTRICT DIETARY INTAKE. BUT NOT ABLE TO DO MUCH EXERCISE. Code(s): E66.01 - Morbid (severe) obesity due to excess calories Category: Medical Plan: CONTINUE TO PARTICIPATE IN WEIGHT WATCHERS PROGRAM (2) PATRICIA treated with BiPAP: Comment: Patient does have longstanding history of obstructive sleep apnea with hypoventilation. Currently on BiPAP therapy with pressure 18/14 cm . Compliance is excellent, and she is actually fully dependent on the use of BiPAP at night. Code(s): G47.33 - Obstructive sleep apnea (adult) (pediatric) Category: Medical Plan: COMMENDED FOR GOOD COMPLIANCE AND CONTINUE TO USE THE BILEVEL CPAP EVERY NIGHT Coding Level of Care Code Est Pt Level 3 (00150) Diagnoses Morbid obesity E66.01 PATRICIA treated with BiPAP G47.33
== END 2024-02-26 10:45 | disposition home or self-care (01) ==
PROVIDERS: PCP Internal Medicine; Visit Provider Internal Medicine
DX: E66.01 Morbid (severe) obesity due to excess calories (principal); G47.33 Obstructive sleep apnea (adult) (pediatric)
CPT/HCPCS: 99213

== ENCOUNTER → 2024-02-26 10:20 | Outpatient (BNVA) | payer OTHER, SELFPAY | PROVIDERS: PCP Internal Medicine; Visit Provider Internal Medicine ==

== ENCOUNTER 2024-04-09 06:50 | Outpatient (REF) | payer OTHER, SELFPAY ==
[2024-04-09 07:03] LABS: MANUAL DIFF FLAG NO
[2024-04-09 07:32] LABS: Basophils Absolute Auto 0.1 X10*3/uL (0.0-0.2); Basophils Percent Auto 0.7 % (0-2); Eosinophils Absolute Auto 0.3 X10*3/uL (0.0-0.4); Eosinophils Percent Auto 3.8 % (0-4); Hematocrit 38.2 % (37.0-47.0); Hemoglobin 12.7 g/dl (12.0-16.0); Imm Gran Abs Auto 0.03 X10*3/uL (0.00-0.03); Imm Gran Pct Auto 0.4 % (0.0-0.4); Lymphocytes Absolute Auto 2.5 X10*3/uL (1.2-4.9); Lymphocytes Percent Auto 33.8 % (20-40); Mean Corpuscular HGB Conc 33.2 g/dl (31.0-35.0); Mean Corpuscular Hemoglobin 30.4 pg (27.0-33.0); Mean Corpuscular Volume 91.4 fL (80.0-98.0); Mean Platelet Volume 8.9 fL (9.4-12.3); Monocytes Absolute Auto 0.6 X10*3/uL (0.1-1.2); Monocytes Percent Auto 8.5 % (2-11); Neutrophils Absolute Auto 3.9 x10*3/uL (2.0-8.3); Neutrophils Percent Auto 52.8 % (45-73); Platelet Count 247 X10*3/uL (160-400); Red Blood Count 4.18 X10*6/uL (4.20-5.50); White Blood Count 7.4 X10*3/uL (4.8-10.8)
[2024-04-09 07:43] LABS: Estimated Average Glucose 140 mg/dL; Hemoglobin A1C 154.5535 umol/L; Hemoglobin A1c % 6.5 % (<6.0); Total Hemoglobin (HGBA1C) 3223.9506 umol/L
[2024-04-09 07:50] LABS: Alanine Aminotransferase 36 U/L (0-31); Albumin Level 4.1 g/dL (3.5-5.0); Alkaline Phosphatase 94 U/L (39-117); Anion Gap 13 (12-20); Aspartate Amino Transferase 40 U/L (5-31); Bilirubin Total 0.2 mg/dL (0.0-1.0); Blood Urea Nitrogen 13 mg/dL (9-16); Calcium 9.7 mg/dL (8.4-10.2); Carbon Dioxide 28 mmol/L (22-29); Chloride 104 mmol/L (96-108); Cholesterol 150 mg/dL (<200); Estimated Glomerular Filt Rate > 60; Glucose Fasting 135 mg/dL (60-99); HDL Cholesterol 42 mg/dL (>40); LDL Cholesterol Calculated 82 mg/dL (<100); Potassium 3.6 mmol/L (3.3-5.1); Sodium 141 mmol/L (135-145); Triglycerides 131 mg/dL (<150)
[2024-04-09 08:03] LABS: Microalbum/Creatinine Ratio Ur 117.5 ug/mg cr (<30)
== END 2024-04-09 06:51 | disposition home or self-care (01) ==
LOC: HO.LAB 06:50
PROVIDERS: PCP Internal Medicine; Visit Provider Internal Medicine
DX: E78.5 Hyperlipidemia, unspecified (principal); I10 Essential (primary) hypertension; E11.9 Type 2 diabetes mellitus without complications
CPT/HCPCS: 36415; 80053; 80061; 82043; 82570; 83036; 85025

== ENCOUNTER 2024-04-11 08:24 | Outpatient (AMB) | payer OTHER, SELFPAY ==
--- NOTE | 2024-04-11 08:34 | A.OFFPC_ITS ---
Vital Signs 04/11/24 08:37 Height 5 ft 4 in Weight 266 lb BMI 45.7 BP 126/74 Blood Pressure Location Lt brachial Position Sitting Pulse 85 Pulse Source Pulse Oximeter Pulse Oximetry (%) 97 Oxygen Delivery Method Room Air Intake Visit Reasons: PE Intake Note: Pt is here today for PE. Allergies doxycycline [DOXYCYCLINE] Allergy (Severe, Verified 04/11/24 08:40) ESOPHAGITIS Sulfa (Sulfonamide Antibiotics) Allergy (Severe, Verified 04/11/24 08:40) FACIAL SWELLING codeine [Codeine] Allergy (Intermediate, Verified 04/11/24 08:40) RASH lisinopril [Lisinopril] Allergy (Intermediate, Verified 04/11/24 08:40) EXTREMITIES SWELLING benzonatate [BENZONATATE] Allergy (Unknown, Verified 04/11/24 08:40) ANAPHYLAXIS meperidine [Demerol] Allergy (Unknown, Verified 04/11/24 08:40) Rash baclofen Adverse Reaction (Severe, Verified 04/11/24 08:40) Anaphylaxis dulaglutide [From Trulicity] Adverse Reaction (Intermediate, Verified 04/11/24 0 8:40) itchy throat losartan Adverse Reaction (Intermediate, Verified 04/11/24 08:40) swelling of hands, Medication List - Last Reconciled 04/11/24 by Mia North MD acetaminophen ER (Tylenol Arthritis Pain) 650 mg PO Q12H albuterol sulfate 90 mcg/actuation 2 puffs inhalation Q4H PRN amlodipine 10 mg PO DAILY baclofen 10 mg PO BEDTIME bisacodyl (Dulcolax (bisacodyl)) 20 mg (4 x 5 mg) PO ONCE 1 day blood sugar diagnostic (FreeStyle Lite Strips) 1 qd blood-glucose meter (FreeStyle Lite Meter kit) As directed cetirizine (Zyrtec) 10 mg PO DAILY cholecalciferol (vitamin D3) 125 mcg PO DAILY cyclobenzaprine 5 mg PO .qhs docusate sodium (Colace) 100 mg PO BID epinephrine 0.3 mg (0.3 mL) IM ONCE PRN fluticasone propionate 50 mcg/actuation 1 spray intranasal DAILY hydralazine 25 mg PO BID lancets (FreeStyle Lancets) Test blood sugar once a day lidocaine 5% (Lidoderm) 1 patch topical DAILY lorazepam 0.5 mg PO BEDTIME PRN meclizine 25 mg PO BID PRN metformin 500 mg orally 1 in AM and 2 q PM; multivitamin 1 tab PO DAILY polyethylene glycol 3350 (Miralax) 238 grams PO ONCE PRN 1 day pravastatin 20 mg PO DAILY prednisone 20 mg PO DAILY 3 days pregabalin 200 mg PO DAILY sertraline 75 mg PO DAILY triamcinolone acetonide 0.1% 1 appl topical DAILY triamterene-hydrochlorothiazid 37.5-25 mg 1 cap PO DAILY Tobacco use date assessed: 04/11/24 Dental Screening Dental Screen Date: 07/18/23 HPI PE HPI Details Pt presents for PE. PFSH Medical History PATRICIA treated with BiPAP Morbid obesity Lumbar and sacral spondyloarthritis Hyperlipemia Depression Thyroid nodule Hx of renal calculi Irritable bowel syndrome GERD (gastroesophageal reflux disease) Arthritis Cancer Surgical History (Updated 04/11/24 @ 09:23 by Mia North MD) H/O ventral hernia repair Hx of bilateral oophorectomy Hx of breast biopsy Hx of section Hx of colonoscopy Hx of esophagogastroduodenoscopy Family History Mother No problems noted. Father Substance use disorder Esophageal cancer Brother Substance use disorder Sister Substance use disorder History of Mccurdy's esophagus Social History Household Members: Family Household Members Other:: , unemployed, 2 children () Housing: House Do you presently have visiting nurse or other home services: No Unable to assess alcohol history related to: Unable to respond Alcohol intake: current Alcohol intake frequency: holidays/special occasions only Alcohol type: beer Patient Tobacco Use Status: Never used Tobacco e-Cigarette/Vaping Use: Never Used Second Hand Smoke Exposure: No Advance Directives Date on File: 03/18/22 service: No Current occupational status: unemployed Cognitive needs: No Hearing needs: No Vision needs: Yes Questionnaire Thrive Questionnaire Date Thrive assessed: 12/07/23 I am a: Patient What is your living situation today?: I have a steady place to live Within the past 12 months, did the food you bought not last and you didn't have the money to get more?: Never true Within the past 12 months, did you worry whether your food would run out before you got money to buy more?: Never true Do you have trouble paying for medicines?: No Do you have trouble getting transportation to medical appointments?: No Do you have trouble paying your heating and electricity bill?: No Do you have trouble taking care of your child, family member or friend?: No Do you have trouble with day-to-day activities such as bathing, preparing meals, shopping, managing finances, etc.?: I choose not to answer this question Are you currently unemployed and looking for a job?: No Are you interested in more education?: No Please select the resources that you would like help with: None Currently or been in a relationship where the following occur: No concerns reported THRIVE Score: 0 HARRIET-7 AMB Questionnaire HARRIET-7 Date HARRIET - 7 assessed: 12/07/23 Source: Developed by Drs. Hitesh Bowden, Vero Owens, Micheal Cedillo and colleagues, with an educational bert from [employer]. Review of Systems Const All systems reviewed & are unremarkable except as noted in HPI and below Eyes Reports no additional complaints ENT Reports no additional complaints Card Reports no additional complaints Resp Reports no additional complaints GI Reports no additional complaints Reports no additional complaints Physical exam (Primary Care) Vital Signs: Last Vital Signs Pulse 85 04/11/24 08:37 BP 126/74 04/11/24 08:37 Pulse Ox 97 04/11/24 08:37 Oxygen Delivery Method Room Air 04/11/24 08:37 BMI result Body Mass Index 45.7 Tobacco/Smoking Status: Tobacco use Status Tobacco use date assessed 04/11/24 04/11/24 08:43 Patient Tobacco Use Status Never used Tobacco 04/11/24 08:35 e-Cigarette/Vaping Use Never Used 04/11/24 08:35 Thrive Assessment: Date of Thrive Assessment Date Thrive assessed 12/07/23 04/11/24 08:35 Currently or been in a relationship where the following occur: No concerns reported Const General: no acute distress HENMT Head: Yes normal to inspection Ears: hearing grossly normal bilaterally General nose exam: Normal external nose present Mouth: Normal oral and palatal mucosa present Throat: Yes posterior oropharynx normal Eyes General: appearance normal, both eyes and all related structures Neck Neck: Yes supple Resp Effort & Inspection: normal respiratory effort Auscultation: clear to auscultation bilaterally Cardio Rhythm: regular rhythm Heart sounds: S1 normal heart sound present and S2 normal heart sound present GI Inspection: Yes normal to inspection Palpation (GI): Soft to palpation Percussion: Yes normal to percussion Auscultation: normal bowel sounds Coding Level of Care Code Est Pt Prev Care 40-64y(25564) Diagnoses Nonalcoholic hepatosteatosis K76.0 DM2 (diabetes mellitus, type 2) E11.9 Annual physical exam Z00.00 Morbid obesity E66.01 Hyperlipemia E78.5 Assessment & Plan Assessment & Plan (1) Nonalcoholic hepatosteatosis: Code(s): K76.0 - Fatty (change of) liver, not elsewhere classified Category: Medical Plan: weight loss, low simple carb diet, (2) DM2 (diabetes mellitus, type 2): Comment: A1C 6.2, 2022, diet controlled, intolerant to Trulicity ( throat swelling) Code(s): E11.9 - Type 2 diabetes mellitus without complications Category: Medical Plan: A1c is 6.5, ADA diet increase exercise weight loss discussed with the patient. Farxiga 5 mg daily will be added to metformin. Follow-up in 3 months with a fasting labs before (3) Annual physical exam: Code(s): Z00.00 - Encounter for general adult medical examination without abnormal findings Category: Medical Plan: Well-balanced diet regular exercise weight loss discussed with the patient she is up-to-date with mammogram Pap smear and colonoscopy (4) Morbid obesity: Comment: CASE OF CHRONIC MORBID OBESITY. .BMI= 45.7 PATIENT IS AWARE OF BEING MORBIDLY OBESE AND SHE IS TRYING TO RESTRICT DIETARY INTAKE. BUT NOT ABLE TO DO MUCH EXERCISE. Code(s): E66.01 - Morbid (severe) obesity due to excess calories Category: Medical Plan: Increase physical activity decrease caloric intake weight loss discussed with the patient (5) Hyperlipemia: Code(s): E78.5 - Hyperlipidemia, unspecified Category: Medical Plan: Continue statin Orders: Orders Comprehensive [place]. Panel Fast 3 Months E11.9 - Type 2 diabetes mellitus without complications, I10 - Essential (primary) hypertension, Z00.00 - Encounter for general adult medical examination without abnormal findings Hemoglobin A1c 3 Months E11.9 - Type 2 diabetes mellitus without complications, I10 - Essential (primary) hypertension, Z00.00 - Encounter for general adult medical examination without abnormal findings Lipid Panel 3 Months E11.9 - Type 2 diabetes mellitus without complications, I10 - Essential (primary) hypertension, Z00.00 - Encounter for general adult medical examination without abnormal findings Microalbumin, Random (w Creat) 3 Months E11.9 - Type 2 diabetes mellitus without complications, I10 - Essential (primary) hypertension, Z00.00 - Encounter for general adult medical examination without abnormal findings Medications: New citalopram 30 mg PO DAILY 90 caps 0RF Farxiga (dapagliflozin propanediol) 5 mg PO DAILY 90 tabs 1RF NS Discontinued prednisone Discontinued Reason: Doctor's Order 20 mg PO DAILY 3 days 3 tabs 0RF
[2024-04-11 08:37] VITALS: BP 126/74; PULSE 85; O2SAT 97; BMI 45.7
--- OUTSIDE RECORDS SUMMARY | 2024-04-16 23:57 | XMS_ITS ---
Author Organization [facility] Address [address] [place] [address] Care Team Providers Care Crabber Name Role Phone Mia North MD Primary Care Provider UnavailHitesh Torres [phone] REASON FOR VISIT rectal bleeding Encounters Encounter Location Date Provider Diagnosis [facility] Outpatient [address] [place] [id number] 10/17/2022 Hitesh Reed PLAN OF TREATMENT No Information
--- OUTSIDE RECORDS SUMMARY | 2024-04-16 23:57 | XMS_ITS ---
Author Organization [facility] Address [address] [place] [address] Care Team Providers Care Pound Attendant Name Role Phone Mia North MD Primary Care Provider Dinesh Smith Unavailable [phone] Allergies Allergen (clinical drug ingredient) Drug/Non Drug Allergy documented on EMR Reaction Allergy Type Onset Date Status benzonatate Benzonatate anaphylaxis Drug Allergy A ctive meperidine Demerol Unknown Drug Allergy Active lisinopril Lisinopril swelling Drug Allergy Activ e codeine Codeine rash Drug Allergy Active doxycycline Doxycycline Unknown Drug Allergy Act emily losartan Losartan Unknown Drug Allergy Active Substance with sulfonamide structure and antibacterial mechanism of action (substance) Sulfa Antibiotics Unknown Drug Allergy Active REASON FOR VISIT Foot pain Medications Medication SIG (Take, Route, Frequency, Duration) Notes Start Date End Date Status flovent HFA Not-Taki ng Spironolactone 50 MG 1 tablet Orally Once a day Not-Taking Omeprazole Not-Takin g Lipitor 40 MG 1 tablet Orally Once a day Not-Taking Tamoxifen Citrate 20 MG Orally Not-Taking hydroCHLOROthiazide 25 MG 1 tablet Orall y Once a day Not-Taking Extra Depth Orthopedic Shoes (1 Pair) with Customized Heat Molded Multidensity Innersoles (3 Pair) as directed Dx: NIDDM (E11.9), Hammertoe Foot Deformity (M20.41,M20.42), Preulcerative Skin Lesion(s) (L85.1) 10/06/2015 Not-Taking Gabapentin Not-Takin g metFORMIN HCl 1000 MG 1 tablet with meal s Orally Twice a day Not-Taking cloNIDine HCl Not-Ta DULoxetine HCl Not-T aking Vitamin D Active Singulair 10 MG 1 tablet in the evening Orally Once a day Not-Taking Triamterene-HCTZ Act emily Tylenol Arthritis Pain Active Pravastatin Sodium A ctive Magnesium Active Multivitamin Active Colace Active Lorazepam prn Active Claritin 10 MG 1 capsule Orally Once a day Active Citalopram & Diet Manage Prod Active Amlodipine & Diet Manage Prod Active Calcium Active Pregabalin 50 MG 1 capsule Orally Twice a day Active metFORMIN HCl 500 MG 1 tablet with a meal Orally Once a day Active hydrALAZINE HCl 10 MG 1 tablet with food Orally Four times a day for 30 day(s) twice a day Active iron Not-Taking Nasonex Not-Taking Social History Tobacco Use: Social History Observation Description Date Details (start date - stop date) Never Smoker NA - NA Tobacco Use/Smoking Question Answer Notes Are you a: nonsmoker Additional Findings: Tobacco Non-User Current no n-smoker Alcohol Screen Question Answer Notes Did you have a drink containing alcohol in the p ast year? No Points 0 Interpretation Negative Tobacco use other than smoking: Question Answer Notes Are you an other tobacco user? No Problems Problem Type SNOMED Code ICD Code Onset Dates Problem Status W/U Status Risk Notes Problem Osteoarthritis of midtarsal joint of left foot ([id number] ) Osteoarthritis of midtarsal joint of left foot (M19.072) Active confirmed Vital Signs Height 5 ft 2 in in 06/27/2023 Weight 261 lbs 06/27/2023 BMI 47.73 kg/m2 06/27/2023 Encounters Encounter Location Date Provider Diagnosis [facility] [address] [place] [address] 06/27/2023 Dinesh Tom Pain in left foot M79.672 ; Pain in left ankle and joints of left foot M25.572 ; Bursitis of left foot M77.52 and Osteoarthritis of midtarsal joint of left foot M19.072 Assessments Encounter Date Diagnosis (ICD Code) Assessment Notes Treatment Notes Treatment Clinical Notes Section Notes 06/27/2023 Pain in left foot (ICD-10 - M79.672) 06/27/2023 Pain in left ankle and joints of left foot (ICD-10 - M25.572) 06/27/2023 Bursitis of left foot (ICD-10 - M77.52) 06/27/2023 Osteoarthritis of midtarsal joint of left foot (ICD-10 - M19.072) Plan Of Treatment Pending Test Test Name Order Date X ray : Foot, left 3V 06/27/2023 Next Appt Details Follow Up: prn, Reason: Progress Notes * Roma ARANDA MDOB:[birth year] (52 yo F)Acc No.[id number]:06/27/2023 Progress Note Patient:?EulaliakevinNeldady Sharon Provider:?Dinesh Santos DPM :1970???Age:52 Y???Sex:Female D ate:06/27/2023 Address:[address] [place] [address] [place], [id number] Pcp:Mia North MD Subjective: * Chief Complaints: * ???Foot pain * HPI: ???Foot Pain:?Nature:?aching, stiffness, swelling, throbbing.?Location:?Top, Midfoot, LEFT.?Duration:?2 months.?Onset:?unknown , denies trauma.?Course:?worse.?Treatments:?rest/alter normal daily activity , ice, medication ( Tylenol).? * ROS:?General/Constitutional:?Nausea?denies.?Vomiting?denies.?Hunger Thirst?denies.?Loss appetite?denies.?Chills?denies.?Fatigue?admits.?Fever?denies.?Night Sweats?denies.?Unexplained weight loss?admits.?Ophthalmologic:?Blurred vision?denies.?Red eye?denies.?HEENTM:?Dentures?denies.?Dizziness?admits.?Glasses/contacts?admits.?Retinopathy?de nies.?Blurred/double vision?denies.?TMJ?denies.?Discharge/drainage?denies.?Implants?denies.?Hard of hearing denies.?Difficulty chewing/swallowing/speaking?denies.?Nose bleeds?denies.?Sore mouth?denies.?Swollen glands?denies.?Respiratory:?On Oxygen?denies.?Pneumonia/pleurisy?denies.?Bronchitis?admits.?Emphysema?denies.?C oughing?denies.?Cough blood?denies.?Shortness of breath?denies.?Wheezing?denies.?Cardiovascular:?Pacemaker?denies.?MVP?denies.?WPW?denies.?CHF?denies.?Heart attack?denies.?Septal defect?denies.?Rapid beat?denies.?Chest pain ?denies.?Atrial Fib.?denies.?Murmur/Palpitations?admits.?Gastrointestinal:?Hemorrhoids?denies.?Stomach/Abdominal pain?denies.?Dark blood stool?denies.?Irritable bowel ?denies.?Constipation?denies.?Diarrhea?denies.?Vomiting?denies.?Hematology:?Swelling?admits.?Bruising?denies.?Bleeding problem?denies.?Genitourinary:?Blood urine?denies.?Frequent/Painfu/urination/bladder control?denies.?Kidney stones?denies.?Infection (UTI)?denies.?Nephropathy?denies.?Musculoskeletal:?Hammertoes?denies.?Bunions?admits.?Scoliosis/kyphosis?denies.?Muscle cramps / walking?admits.?Generalized aches and pains?admits.?Weakness?denies.?Integ.:?Mistry?denies.?Scars?admits.?Corns/calluses?admits.?Ingrown nails?denies.?Painful nails?denies.?Rashes?admits.?Neurologic:?Difficulty sleeping?denies.?Bipolar?denies.?Brain disorder?admits.?Balance trouble?denies.?Confusion?denies.?Fainting/blackouts?admits.?Headache?denies.?Tr emors?denies.? * Medical History:? * Surgical History:? epigastir chernia 1973cesarean section 02/08/1995 -02/27/1998lumpectomy 2x 12/2011salpingo-oophorectomy 02/2014Enchondromal biopsy 2005sx to remove infection 01/2012Thyroid Surgery 10/19/20 * Hospitalization/Major Diagno stic Procedure:?Patient admitted to [facility] for chest pain and dizziness. 05/2015[facility] - Hypertention 02/28/17[facility]- back pain 07/2020 * Family History:?Mother: geri e, kidney disease, diagnosed with Family history of arthritis, Unspecified essential hypertension, Other malignant neoplasm of unspecified site.?Father: , diagnosed with Unspecified essential hypertension, Other malignant neoplasm of unspecified site.?Paternal Grand Mother: arthritis.?Paternal Grand Father: arthritis.?Maternal Grand Mother: arthritis. Maternal Grand Father: arthritis.?Maternal aunt: diabetes.?Siblings: arthritis.?Spouse: alive.? * Social History:?Tobacco Use:?Tobacco Use/Smoking?Are you a:?nonsmoker ?Additional Findings: Tobacco Non-User?Current non-smoker ?Tobacco use other than smoking?Are you an other tobacco user??No ???Drugs/Alcohol:?Drugs?Have you used drugs other than those for medical reasons in the past 12 months??No ?Alcohol Screen?Did you have a drink containing alcohol in the past year??No ?Points?0 ?Interpretation?Negative ???Miscellaneous:?Caffeine: 1-2 cups per day. ?Children: yes. ?Exercise: yes, rarely. ?Marital status: . 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 * Medications:?TakingmetFORMIN HCl 500 MG Tablet 1 tablet with a meal Orally Once a dayhydrALAZINE HCl 10 MG Tablet 1 tablet with food Orally Four times a day, Notes: twice a dayPregabalin 50 MG Capsule 1 capsule Orally Twice a dayAmlodipine & Diet Manage Prod Calcium Claritin 10 MG Capsule 1 capsule Orally Once a dayCitalopram & Diet Manage Prod Colace Lorazepam , Notes: prnMagnesium Multivitamin Pravastatin Sodium Triamterene-HCTZ Tylenol Arthritis Pain Vitamin D Taking metFORMIN HCl 500 MG Tablet 1 tablet with a meal Orally Once a dayTaking hydrALAZINE HCl 10 MG Tablet 1 tablet with food Orally Four times a day, Notes: twice a dayTaking Pregabalin 50 MG Capsule 1 capsule Orally Twice a dayTaking Amlodipine & Diet Manage Prod Taking Calcium Taking Claritin 10 MG Capsule 1 capsule Orally Once a dayTaking Citalopram & Diet Manage Prod Taking Colace Taking Lorazepam , Notes: prnTaking Magnesium Taking Multivitamin Taking Pravastatin Sodium Taking Triamterene-HCTZ Taking Tylenol Arthritis Pain Taking Vitamin D Not-Taking/PRNSingulair 10 MG Tablet 1 tablet in the evening Orally Once a dayDULoxetine HCl cloNIDine HCl Gabapentin metFORMIN HCl 1000 MG Tablet 1 tablet with meals Orally Twice a dayhydroCHLOROthiazide 25 MG Tablet 1 tablet Orally Once a dayExtra Depth Orthopedic Shoes (1 Pair) with Customized Heat Molded Multidensity Innersoles (3 Pair) as directed Dx: NIDDM (E11.9), Hammertoe Foot Deformity (M20.41,M20.42), Preulcerative Skin Lesion(s) (L85.1)Tamoxifen Citrate 20 MG Tablet Orally Omeprazole Lipitor 40 MG Tablet 1 tablet Orally Once a dayflovent HFA Spironolactone 50 MG Tablet 1 tablet Orally Once a dayiron Nasonex Medication List reviewed and reconciled with the patientNot-Taking/PRN Singulair 10 MG Tablet 1 tablet in the evening Orally Once a dayNot-Taking/PRN DULoxetine HCl Not- Taking/PRN cloNIDine HCl Not-Taking/PRN Gabapentin Not-Taking/PRN metFORMIN HCl 1000 MG Tablet 1 tablet with meals Orally Twice a dayNot-Taking/PRN hydroCHLOROthiazide 25 MG Tablet 1 tablet Orally Once a dayNot-Taking/PRN Extra Depth Orthopedic Shoes (1 Pair) with Customized Heat Molded Multidensity Innersoles (3 Pair) as directed Dx: NIDDM (E11.9), Hammertoe Foot Deformity (M20.41,M20.42), Preulcerative Skin Lesion(s) (L85.1)Not-Taking/PRN Tamoxifen Citrate 20 MG Tablet Orally Not-Taking/PRN Omeprazole Not-Taking/PRN Lipitor 40 MG Tablet 1 tablet Orally Once a dayNot-Taking/PRN flovent HFA Not-Taking/PRN Spironolactone 50 MG Tablet 1 tablet Orally Once a dayNot-Taking/PRN iron Not-Taking/PRN Nasonex Medication List reviewed and reconciled with the patient * Allergies:?Lisinopril: swell ingBenzonatate: anaphylaxisSulfa AntibioticsCodeine: rashDemerolLosartanDoxycyclineyes[Allergies Verified] Objective: * Vitals:?Ht:5 ft 2 in, Wt:261 , BMI:47.73, Shoe size:8.5-9, BS:130, Ht-cm: 157.48 cm, Wt-k.39 kg. * ???Past Orders: ???Lab:HEMOGLOBIN A1C (GLYCO HEMOGLOBIN) (Order Date - 06/27/2023) (Collection Date - 03/08/2023) ? Value Reference Range ?HEMOGLOBIN A1C (HH) 8.1 * Examination: ???Orthopedic: ?MUSCLE STRENGTH:?5/5 all groups in a symmetrical fashion , B/L.?FOOT MORPHOLOGY:? Prominent, painful 1st Met-Cuneiform joint without inflammation, LEFT.?X-Rays - IMAGING REPORT: ?Clinical Indication(s):? Evaluate for Fracture, Evaluate Biomechanical Deformity.?Views:? 3 views of Foot, AP, LAT, LO, LEFT.?Findings:?normal bone and soft tissue density consistent for patients age and sex, eburnation dorsal 1st MT/Cun. jt, dorsal degenerative changes of the tarsal joints.?Fracture:?Negative fractures identified.?Dermatologic: ?SKIN FINDINGS:?Skin exam reveals normal texture, elasticity, and turgor. There are no masses. The interspaces are clear.?Vascular: ?DP PULSES:?3/4, B/L.?PT PULSES:?3/4, B/L.?CAPILLARY FILL TIME:?immediate, all digits, B/L.?SKIN TEMPERTURE GRADIENT OF THE LOWER EXTERMITIES:?warm to cool, proximal to distal, B/L.?HAIR GROWTH/TEXTURE/ELASTICITY/TURGOR:?normal, B/L.?PIGMENTATION:?normal, B/L.?EDEMA:?absent, B/L.?Neurological: ?SENSORY:?Neurological exam reveals intact sensorium, pain sensation normal, vibration sensation intact, pinprick sensation is normal in the lower extremities, Pt denies, anesthesia, burning, paresthesia, tingling, B/L.?TINEL'S COMPRESSION:? Negative, Medial dorsal cutaneous nerve distribution, Intermediate dorsal cutaneous nerve distribution, Deep peroneal nerve distribution, Left.?DEEP TENDON REFLEXES:?Achilles, 2/4, B/L.?General Examination: ?GENERAL APPEARANCE:?Reveals a pleasant, alert, well-nourished, well- developed, well hydrated individual, who demonstrates proper attention to hygiene/body habitus, and is in no acute distress, Pt serves as own?historian for office visit today.?ORIENTED:?person, place, and time.? Assessment: * Assessment: 1.?Pain in left foot - M79.6 72 (Primary)?2.?Pain in left ankle and joints of left foot - M25.572?3.?Bursitis of left foot - M77.52?4.?Osteoarthritis of midtarsal joint of left foot - M19.072? Plan: * Treatment: * Procedure Codes:?02008 X-RAY EXAM OF LEFT FOOT 3V, Modifiers: 26 , LT * Preventive Medicine:? ??Counseling:?Discussion:?-14: Office or other outpatient visit for the evaluation and management of an established patient, which required a medically appropriate history and/or examination and MODERATE level of DECISION MAKING for: 1 OR MORE CHRONIC PROBLEM(S) THATS WORSENING, 2 STABLE CHRONIC PROBLEMS, A NEWLY DIAGNOSED PROBLEM WITH UNCERTAIN PROGNOSIS, AN ACUTE COMPLICATED INJURY WITH MULTIPLE TREATMENT OPTIONS, OR AN ACUTE PROBLEM WITH ACCOMPANYING SYSTEMIC SYMPTOMS, THAT POSE(S) A MODERATE RISK OF MORBIDITY. THIS CONDITION MAY ALSO INCLUDE RX DRUG MANAGEMENT, OR A DECISON FOR MINOR SURGERY. The visit on the day of the encounter encompassed interpreting the data and educating the patient as to the nature of their condition, treatment options available according to their individual PMH, meds, allergies, and overall health/living conditions, as well as any potential risks or complications that may occur from a failure to adhere to, and participate in, the recommended course of therapy. The discussion included a complete verbal, and/or written explanation of the examination results, any x-rays taken, the proposed diagnosis, and outline of the treatment plan. A schedule for future care needs was also explained. The patient verbalized an understanding of the instructions at this time and agreed to be an active participant in their treatment. If the patient should think of any questions or concerns after the visit, I have encouraged the patient to call the office.?Arthritis:?The patient was counseled on the various etiologies for their Arthritis including genetic, history of injury or trauma, abnormal foot biomechanics leading to excessive joint wear, and use/overuse. We discussed the various treatment options from no treatment, to topical analgesics such as Biofreeze gel, Aspercream, Voltaren gel, Lidoderm patches, CBD oils, THC creams, and Custom-compounded topical cream preparations to natural oral products such as Glucosamine Sulfate/Chondroitin/MSM/Collegen to analgesic Tylenol, to anti-inflammatory medications such as Ibuprofen/Naproxen, and the use of oral steroids if needed. Cardiac, Kidney, and GI issues were discussed RE: potential complications of oral anti-inflammatories. We discussed several other treatment options consisting of accom shoes, supportive innersoles, AFO bracing/support, cortisone injection therapy, and surgical resection of the arthritic joint(s) or fusion reconstruction if necessary. We discussed the advantages and disadvantages of conservative (vs) surgical treamtents including pain relief, improved function/activities of daily life, return to exercise to failure, expense, systemic complications, infection, [id number], prolongued postop course. Patient questions re: the various treatment options available, their successes and potential failures, and continuous churn buttermaker effects were discussed and the answers were verbally confirmed understood.?Orthotics:?I explained to the patient the benefits of OT use. I explained that orthoses are medically necessary to decrease the foot pain through proper mechanical control, support of their foot.?P.R.I.C.E.:?The patient was counseled on the use of P.R.I.C.E. and XS Tylenol to aid in the recovery from their painful condition.?Podiatric Surgery Counseling:?Surgical procedures to treat the patients foot problem were discussed. We reviewed the risks of the procedure (described below) vs not having the procedure (persistent pain, deformity, risk for skin ulceration/infection, loss of toe). We discussed the potential procedure complications including, but not limited to: pain, swelling, bleeding, scarring, numbness, infection, delayed/non healing, floppy/unstable/shorthened toe, recurrence, failure of the procedure, overcorrection leading to plantarflexed/downward positioned toe, recurrence, need for further surgery, as well as the possibility for loss of the toe itself. We discussed the use of IV/Local anesthesia, and the usual post-op course for healing. No guarentees were given. The patient verbally indicated a full understanding of the above conversation, and any other of their questions were answered to their satisfaction.?Shoe Gear Counseling:?The patient and I reviewed the types of shoes they should be wearing. My recommendation included obtaining a well-fitted shoe with a good supportive, non-foldable nor twistable sole, plenty of toe/room for the forefoot, and proper arch support. Based on todays examination, I recommended the patient look for new shoes, by having their feet professionally measured. We discussed that generally the best time of the day for a shoe fitting is the afternoon. Different shoes types and brands to best match the patients occupation and vocation were discussed. Specific brand selection will be up to the patient, their individual foot condition/deformities, and fit. The patient and I reviewed the standard new shoe break in period by wearing them for a few hours a day while checking for redness or sores as wear time is increased. The patient verbally confirmed to understanding the information discussed.? * Follow Up:?prn * Images: * Sign off status: Completed true * Provider:?Dinesh Santos DPM Date:?2023 Generated for Pablo anguiano/Angela/Beatriz on:?04/16/2024 11:57 PM EST History and Physical Notes * HPI (History of Present Illness) Category Sub-Category Detail Notes Category Not es Foot Pain Nature: aching, stiffness, swelling, throbbing Location: Top, Midfoot, LEFT Duration: 2 months Onset: unknown , denies tra romain Course: worse Treatments: rest/alter normal da kun activity , ice, medication ( Tylenol) Examination Category Sub-Category Detail Notes Category Not es Neurological SENSORY: Neurological exa m reveals intact sensorium, pain sensation normal, vibration sensation intact, pinprick sensation is normal in the lower extremities, Pt denies, anesthesia, burning, paresthesia, tingling, B/L TINEL'S COMPRESSION: Negative, Medial do rsal cutaneous nerve distribution, Intermediate dorsal cutaneous nerve distribution, Deep peroneal nerve distribution, Left DEEP TENDON REFLEXES: Achilles, 2/4, B/L Dermatologic SKIN FINDINGS: Skin exam reveal s normal texture, elasticity, and turgor. There are no masses. The interspaces are clear Orthopedic FOOT MORPHOLOGY: Prominent, pain ful 1st Met-Cuneiform joint without inflammation, LEFT MUSCLE STRENGTH: 5/5 all groups in a symmetrical fashion , B/L General Examination GENERAL APPEARANCE: Reveals a pleasant, alert, well- nourished, well-developed, well hydrated individual, who demonstrates proper attention to hygiene/body habitus, and is in no acute distress, Pt serves as own historian for office visit today ORIENTED: person, place, and t kate Vascular DP PULSES(B): 3/4, B/L PT PULSES(B): 3/4, B/L CAPILLARY FILL TIME: immediate, all digi ts, B/L TEMPERTURE GRADIENT(C): warm to cool, pr oximal to distal, B/L TROPHIC CONDITION-TEXTURE/ELASTICITY/TURGOR/HAIR GROWTH(B): normal, B/L EDEMA(C): absent, B/L PIGMENTATION: normal, B/L X-Rays - IMAGING REPORT Findings: normal b one and soft tissue density consistent for patients age and sex, eburnation dorsal 1st MT/Cun. jt, dorsal degenerative changes of the tarsal joints Fracture: Negative fractures i dentified Views: 3 views of Foot, AP, LAT, LO, LEFT Clinical Indication(s): Evaluate for Fra cture, Evaluate Biomechanical Deformity
--- OUTSIDE RECORDS SUMMARY | 2024-04-16 23:57 | XMS_ITS ---
Author Organization [facility] Address [address] [place] [address] Care Team Providers Care Home Aide Name Role Phone Mia North MD Primary Care Provider UnavailHitesh Torres [phone] REASON FOR VISIT rectal bleeding Encounters Encounter Location Date Provider Diagnosis [facility] [address] [facility] [place] [phone] [facility]/14/[facility] Hitesh Reed PLAN OF TREATMENT No Information
--- OUTSIDE RECORDS SUMMARY | 2024-04-16 23:57 | XMS_ITS | Patient Health Record ---
Author Organization [facility] Address [address] [place] [address] Care Team Providers Care Accounts Collector Name Role Phone Mia North MD Primary Care Provider Hitesh Santiago Unavailable [phone] ALLERGIES Allergen (clinical drug ingredient) Drug/Non Drug Allergy documented on EMR Reaction Allergy Type Onset Date Status Tessalon Perles Unknown Drug Allergy A ctive Listerine Antiseptic Unknown Drug Allergy Active lisinopril Lisinopril Unknown Drug Allergy Activ e meperidine Demerol Unknown Drug Allergy Active codeine Codeine Sulfate Unknown Drug Allergy A ctive losartan Losartan Unknown Drug Allergy Active doxycycline Doxycycline Unknown Drug Allergy Act emily Sulfa Unknown Drug Allergy Active REASON FOR REFERRAL No Information MEDICATIONS Medication SIG (Take, Route, Frequency, Duration) Notes Start Date End Date Status Citalopram Hydrobromide 20 MG 0.5 tablet Orally Once a day Active Multivitamin Active Singulair 10 MG 1 tablet in the even ing Orally Once a day Active Calcium 500 MG Orally Activ e Vitamin D 1000 UNIT 1 tablet Orally Once a day Active Triamterene-HCTZ 37.5-25 MG 1 tablet in the morning Orally Once a day for 30 day(s) Active hydrALAZINE HCl 25 MG 1 tablet with food Orally Three times a day for 30 day(s) Active amLODIPine Besylate 10 MG 1 tablet Orall y Once a day Active Ibuprofen 800 MG Orally rarely Act emily Stool Softener 100 MG 1 capsule as neede d Orally Once a day Active Magnesium 500 MG Orally Act emily Claritin 10 MG 1 tablet Orally Once a day Active Zinc 50 MG Orally Active Pregabalin 150 MG 1 capsule Orally Onc e a day Active Tylenol Arthritis Pain Active Pravastatin Sodium 20 MG 1 tablet Orally Once a day for 30 day(s) Active Lorazepam as needed Active Vitamin D 25 MCG (1000 UT) Orally 4x a day Active IMMUNIZATIONS Vaccine Route Administration Date Status Comme nts Influenza Unknown 02/19/2020 Administered Influenza Unknown 03/30/2021 Administered SOCIAL HISTORY Tobacco Use: Social History Observation Description Date Details (start date - stop date) Never Smoker NA - NA Sex Assigned At : Social History Observation Description Sex Assigned At Unknown Tobacco Use/Smoking Question Answer Notes Patient is a nonsmoker Alcohol Screen Question Answer Notes Did you have a drink contain ing alcohol in the past year? Yes How often did you have a dri nk containing alcohol in the past year? Monthly or less (1 point) How many drinks did you have on a typical day when you were drinking in the past year? 1 or 2 drinks (0 point) How often did you have 6 or more drinks on one occasion in the past year? Never (0 point) Points 1 Interpretation Negative PROBLEMS Problem Type ICD Code Onset Dates Problem Status W/U Status Risk SNOMED Code Notes Problem Gastroesophageal reflux disease, esophagitis presence not specified (K21.9) Active confirmed 043633005 Problem Irritable bowel syndrome with diarrhea (K58.0) Active confirmed 250849332 Problem History of adenomatous polyp of colon (Z86.010) Active confirmed 702637129 Problem Blood in stool (K92.1) Active confirmed 14754745 Problem Diarrhea, unspecified type (R19.7) Active confirmed 56083643 Problem Esophageal spasm (K22.4) Active confirmed 528625710 Problem Hiatal hernia (K44.9) Active confirmed Hiatal hernia (35142276) Problem GERD (gastroesophageal reflux disease) (K21.9) Active confirmed Gastroesophagea l reflux disease (736932072) Problem Dysphagia, pharyngeal phase (R13.13) Active confirmed Oropharyngeal dysphagia (46000611) Problem Rectal bleeding (K62.5) Active confirmed Rectal bleeding (83592715) Problem Irritable bowel syndrome with both constipation and diarrhea (K58.0) Active confirmed Irritable b owel syndrome (13919414) PLAN OF TREATMENT Pending Test Test Name Order Date CELIAC PANEL #10 03/01/2017 Future Test Test Name Order Date COLONOSCOPY 03/01/2017 UPPER GI ENDOSCOPY 01/30/2020 COLONOSCOPY 01/06/2022 Insurance Providers Payer Name Payer Address Payer Phone Subscriber Number Group Number Insured Name Patient Relationship to Insured Coverage Start Date Coverage End Date [facility] [address] [address] [place] [address] [id number] CAMILLA ARANDA Self - patient is the insured MEDICAL (GENERAL) HISTORY Medical History History ICD Code Asthma Hypertension Breast cancer Personal history of polyps-1 tubular adenoma and a hyperplastic polyp removed via a colonoscopy with [facility] GI; Most recent one was in 06/[address] Brooks--but incomplete to the transverse colon due to poor prep--she was noted to have diverticulosis Denies [place],CVA,renal disease Sleep apnea GERD--EGD in 2015--history o f pill-induced esophagitis from doxycycline---biopsies were negative for Mccurdy's esophagus Arthritis Anxiety Irritable bowel syndrome--fl exible sigmoidoscopy in 2014 was normal, including biopsies from the descending colon--this was done for evaluation of some worsening diarrhea and bleeding; negative laboratories for celiac disease in 2018 Endoscopic ultrasound in 201 4 was negative for any sign of pancreatic or biliary disease--this was done at [facility] Neg. colonoscopy in 05/2017--bx neg for m icroscopic colitis, no polyps Kidney stones with infection at [facility] in 2 018 Lichen sclerosus EGD in 02/2020--small hiatal hernia, no esophagitis, no evidence of esophageal stricture nor ring and therefore no dilation was performed, biopsies were negative for Mccurdy's esophagus and negative for eosinophilic esophagitis Thyroid nodules undergoing b iopsies with [facility] endocrinology as of the 07/08/2020 office visit Back pain--receiving cortiso ne injections and treatments as of the 07/08/2020 OV Mild aortic stenosis-Echocardiograms e very 2 years-sees Dr. Blackmon Chronic back pain Surgical History Surgery Date(Month/Year) Lumpectomy x2--DCIS--sees Dr. Jack x 2 [id number] Bilateral oopherectomy 2014 Abdominal wall hernia repair 1976 Partial thyroidectomy 2021 Trigger fingers x 4 on right hand schedu led for 01/11/2022
--- OUTSIDE RECORDS SUMMARY | 2024-04-16 23:57 | XMS_ITS | Patient Health Record ---
Author Organization [facility] Address [address] [place] [address] Care Team Providers Care Mold Shaker Name Role Phone Mia North MD Primary Care Provider Dinesh Smith Unavailable [phone] Allergies Allergen (clinical drug ingredient) Drug/Non Drug [...] (substance) Sulfa Antibiotics Unknown Drug Allergy Active Results Component Value Reference Range Notes HEMOGLOBIN A1C (GLYCOHEMOGLO BIN) Reviewed date:06/27/2023 09:36:46 AM Interpretation: Performing Lab: Notes/Report: HEMOGLOBIN A1C (HH) 8.1 Reason For Referral No Information Medications Medication SIG (Take, Route, Frequency, Duration) Notes Start Date End Date Status metFORMIN HCl 500 MG 1 tablet with a meal Orally Once a day Active hydrALAZINE HCl 10 MG 1 tablet with food Orally Four times a day for 30 day(s) twice a day Active hydroCHLOROthiazide 25 MG 1 tablet Orall y Once a day Not-Taking Extra Depth Orthopedic Shoes (1 Pair) with Customized Heat Molded Multidensity Innersoles (3 Pair) as directed Dx: NIDDM (E11.9), Hammertoe Foot Deformity (M20.41,M20.42), Preulcerative Skin Lesion(s) (L85.1) 10/06/2015 Not-Taking Gabapentin Not-Takin g metFORMIN HCl 1000 MG 1 tablet with meal s Orally Twice a day Not-Taking DULoxetine HCl Not-T aking cloNIDine HCl Not-Ta tammi Vitamin D Active Singulair 10 MG 1 tablet in the evening Orally Once a day Not-Taking Triamterene-HCTZ Act emily Tylenol Arthritis Pain Active Pravastatin Sodium A ctive Magnesium Active Multivitamin Active Colace Active Lorazepam prn Active Claritin 10 MG 1 capsule Orally Once a day Active iron Not-Taking Citalopram & Diet Manage Prod Active Nasonex Not-Taking Amlodipine & Diet Manage Prod Active flovent HFA Not-Taki ng Calcium Active Spironolactone 50 MG 1 tablet Orally Once a day Not-Taking Omeprazole Not-Takin g Pregabalin 50 MG 1 capsule Orally Twice a day Active Lipitor 40 MG 1 tablet Orally Once a day Not-Taking Tamoxifen Citrate 20 MG Orally Not-Taking Immunizations Vaccine Route Administration Date Status Comme nts COVID-19 Moderna Vaccine Unknown 03/22/2021 Administere d 1st 05/21/2020 2nd 06/18/2020 Influenza Unknown 02/19/2015 Administered Influenza Unknown 02/15/2021 Administered Pneumococcal Unknown 05/20/2015 Administered Social History Tobacco Use: Social History Observation [...] Osteoarthritis of midtarsal joint of left foot (3773125995819819 ) Osteoarthritis of midtarsal joint of left foot (M19.072) Active confirmed Vital Signs Height 5 ft 2 in in 06/27/2023 Weight 261 lbs 06/27/2023 BMI 47.73 kg/m2 06/27/2023 Encounters Encounter Location Date Provider Diagnosis [facility] [address] [place] [address] 06/27/2023 Dinesh Tom Pain in left foot [...] X ray : Foot, left 3V 06/27/2023 X ray : Foot, right 3V 06/23/2021 62556, [id number]/[id number], JOINT/BURSA 0 07/16/2015 43958, [id number]/[id number], JOINT/BURSA 0 10/13/2015 71325,[id number] TENDON SHEATH/LIGAMENT 0 11/17/2017 32367,[id number] TENDON SHEATH/LIGAMENT 1 06/21/2020 12051,[id number] TENDON SHEATH/LIGAMENT 0 06/23/2021 04384,[id number] TENDON SHEATH/LIGAMENT 0 07/29/2021 Insurance Providers Payer Name Payer Address Payer Phone Subscriber Number Group Number Insured Name Patient Relationship to Insured Coverage Start Date Coverage End Date [facility] [address] [address] [place] [phone] [id number] Roma Urrutia Self - patient is the insured Medical (General) History Medical History History ICD Code Anemia Anxiety Arthritis asthma Back,Hip,and Knee pain Broken bones Cancer Headaches Migraines High blood pressure Neuropathy sinusitis Chicken pox type II diabetes - Resolved with weight loss Reflux Surgical History Surgery Date(Month/Year) epigastirchernia 1973 section 02/08/1995 -02/27/19 98 lumpectomy 2x 12/2011 salpingo-oophorectomy 02/2014 Enchondromal biopsy 2005 sx to remove infection 01/2012 Thyroid Surgery 10/19/20 Hospitalization History Reason Date(Month/Year) Patient admitted to [facility] for chest p ain and dizziness. 05/2015 [facility] - Hypertention 02/28/17 [facility]- back pain 07/2020
== END 2024-04-11 09:20 | disposition home or self-care (01) ==
PROVIDERS: PCP Internal Medicine; Visit Provider Internal Medicine
DX: Z00.00 Encounter for general adult medical examination without abnormal findings (principal); E11.9 Type 2 diabetes mellitus without complications; E66.01 Morbid (severe) obesity due to excess calories; Z68.42 Body mass index [BMI] 45.0-49.9, adult; K76.0 Fatty (change of) liver, not elsewhere classified; E78.5 Hyperlipidemia, unspecified

== ENCOUNTER 2024-05-20 15:08 | Outpatient (AMB) | payer OTHER, SELFPAY ==
[2024-05-20 15:16] VITALS: BP 140/80; PULSE 86; BMI 46.3
--- NOTE | 2024-05-20 15:16 | MHC.OFFVIS ---
Vital Signs 05/20/24 15:16 Height 5 ft 4 in Weight 270 lb BMI 46.3 BP 140/80 H Blood Pressure Location Lt radial Position Sitting Pulse 86 Pulse Source Monitor Intake Visit Reasons: 1 Year Follow up Intake Note: 1 yr f/up Channel Machine Operator Required: No Accompanied by: Self / Same As Patient Allergies doxycycline [DOXYCYCLINE] Allergy (Severe, Verified 04/11/24 08:40) ESOPHAGITIS Sulfa (Sulfonamide Antibiotics) Allergy (Severe, Verified 04/11/24 08:40) FACIAL SWELLING codeine [Codeine] Allergy (Intermediate, Verified 04/11/24 08:40) RASH lisinopril [Lisinopril] Allergy (Intermediate, Verified 04/11/24 08:40) EXTREMITIES SWELLING benzonatate [BENZONATATE] Allergy (Unknown, Verified 04/11/24 08:40) ANAPHYLAXIS meperidine [Demerol] Allergy (Unknown, Verified 04/11/24 08:40) Rash baclofen Adverse Reaction (Severe, Verified 04/11/24 08:40) Anaphylaxis dulaglutide [From Trulicity] Adverse Reaction (Intermediate, Verified 04/11/24 08:40) itchy throat losartan Adverse Reaction (Intermediate, Verified 04/11/24 08:40) swelling of hands, Medication List - Last Reconciled 05/20/24 by STEVE PardoC acetaminophen ER (Tylenol Arthritis Pain) 650 mg PO Q12H amlodipine 10 mg PO DAILY bisacodyl (Dulcolax (bisacodyl)) 20 mg (4 x 5 mg) PO ONCE 1 day blood sugar diagnostic (FreeStyle Lite Strips) 1 qd blood-glucose meter (FreeStyle Lite Meter kit) As directed cetirizine (Zyrtec) 10 mg PO DAILY cholecalciferol (vitamin D3) 125 mcg PO DAILY citalopram 10 mg PO DAILY citalopram 20 mg PO DAILY cyclobenzaprine 5 mg PO .qhs docusate sodium (Colace) 100 mg PO BID epinephrine 0.3 mg (0.3 mL) IM ONCE PRN fluticasone propionate 50 mcg/actuation 1 spray intranasal DAILY hydralazine 25 mg PO BID lancets (FreeStyle Lancets) Test blood sugar once a day lorazepam 0.5 mg PO BEDTIME PRN meclizine 25 mg PO BID PRN metformin 500 mg orally 1 in AM and 2 q PM; multivitamin 1 tab PO DAILY polyethylene glycol 3350 (Miralax) 238 grams PO ONCE PRN 1 day pravastatin 20 mg PO DAILY pregabalin 200 mg PO DAILY triamcinolone acetonide 0.1% 1 appl topical DAILY triamterene-hydrochlorothiazid 37.5-25 mg 1 cap PO DAILY HPI HPI 1 Year Follow up: Details: Roma is a 52-year-old female with past medical history of hypertension, hyperlipidemia, obesity, aortic valve sclerosis, obstructive sleep apnea with CPAP use who presents for follow-up. Today she reports she has been feeling well since her last visit 02/2023. She says she has been under high stress with the care of elderly family members. She has been gaining weight and blood pressure is not optimally controlled. She has been noticing pulsation in her head at times. No vision changes noted. She has not been checking blood pressures at home. She is taking meds as directed. No chest discomfort at rest or with activity. No concerning shortness of breath, PND, orthopnea or edema. No palpitations, presyncope, syncope. She has chronic back pain which limits her physical activity. She is sensitive to multiple medications with anaphylaxis. [facility] Medical History PATRICIA treated with BiPAP Morbid obesity Lumbar and sacral spondyloarthritis Hyperlipemia Depression Thyroid nodule Hx of renal calculi Irritable bowel syndrome GERD (gastroesophageal reflux disease) Arthritis Cancer Surgical History H/O ventral hernia repair Hx of bilateral oophorectomy Hx of breast biopsy Hx of section Hx of colonoscopy Hx of esophagogastroduodenoscopy Family History Mother No problems noted. Father Substance use disorder Esophageal cancer Brother Substance use disorder Sister Substance use disorder History of Mccurdy's esophagus Social History Household Members: Family Household Members Other:: , unemployed, 2 children () Housing: House Do you presently have visiting nurse or other home services: No Unable to assess alcohol history related to: Unable to respond Alcohol intake: current Alcohol intake frequency: holidays/special occasions only Alcohol type: beer Patient Tobacco Use Status: Never used Tobacco e-Cigarette/Vaping Use: Never Used Second Hand Smoke Exposure: No Advance Directives Date on File: 03/18/22 service: No Current occupational status: unemployed Cognitive needs: No Hearing needs: No Vision needs: Yes Review of Systems Const Details: pulsation in head at times All systems reviewed & are unremarkable except as noted in HPI and below Denies chills, Denies fatigue, Denies fever(s), Denies frequent falls, Denies weakness, Denies weight gain and Denies weight loss ENT Denies dizziness Card Denies chest pain, Denies leg edema, Denies lightheadedness, Denies palpitations, Denies dyspnea and Denies dyspnea on exertion Resp Denies cough, Denies dyspnea and Denies dyspnea on exertion GI Denies hematochezia Musc Denies abnormal gait, Denies muscle weakness, Denies numbness, Denies radiating pain into limb and Denies tingling Neuro Denies abnormal gait, Denies dizziness, Denies frequent falls, Denies numbness, Denies tingling and Denies weakness Endo Denies fatigue and Denies palpitations Physical Exam Vital Signs: Last Vital Signs Pulse 86 05/20/24 15:16 BP 140/80 H 05/20/24 15:16 BMI result Body Mass Index 46.3 Const Other: Morbidly obese General: cooperative, comfortable and no acute distress Orientation/consciousness: patient oriented x3 Neck Neck: Yes normal visual inspection Resp Effort & Inspection: normal respiratory effort Auscultation: clear to auscultation bilaterally, no crackles, no rales, no rhonchi and no wheezes Cardio Jugular venous distension: no JVD Rate: regular rate Rhythm: regular rhythm Heart sounds: S1 normal heart sound present, S2 normal heart sound present, Murmur heart sound present (Systolic murmur faint) and no rubs Neuro General: patient oriented x3 Extrem General: Yes normal to inspection Psych Appearance: grossly normal Mental Status: mental status grossly normal Speech and movement: Normal speech and movement present Office Procedures EKG Details: Today read by me, normal sinus rhythm, nonspecific ST and T-wave abnormality, rate 86 [id number], Complete Assessment & Plan Assessment & Plan (1) Aortic valve sclerosis: Code(s): I35.8 - Other nonrheumatic aortic valve disorders Category: Medical Plan: Faint Heart murmur present on examination. She had being followed periodic echoes. She has aortic sclerosis but no stenosis. She is on statin therapy. Labs done 04/09/2024 showed LDL 82. Last echo 01/12/2023 showing normal EF and fibrocalcific aortic valve changes, mildly elevated gradient. Will plan for repeat echo prior to her next visit in 1 year. (2) Essential hypertension: Comment: Intolerant to ARB or STEVEN inhibitors caused swelling of legs and hands Code(s): I10 - Essential (primary) hypertension Category: Medical Plan: Blood pressure initially 140/80, recheck done by me 152/82. She is on amlodipine, hydralazine and hydrochlorothiazide/triamterene. She tolerates these medications. She has been noticing periodic pulsation in her head which is likely a symptom of elevated blood pressure readings. Will increase her hydralazine to 50 mg b.i.d.. She has a follow-up with her PCP in July 2024. Blood pressure can be rechecked at that time. She also has a cuff at home and will be periodically checking her readings. Low-salt diet reviewed. Discuss the benefits of weight loss and increasing physical activity as tolerated. (3) Morbid obesity: Code(s): E66.01 - Morbid (severe) obesity due to excess calories Category: Medical Plan: Benefits of weight loss reviewed. She needs to increase physical activity as tolerated. (4) PATRICIA treated with BiPAP: Comment: Patient does have longstanding history of obstructive sleep apnea with hypoventilation. Currently on BiPAP therapy with pressure 18/14 cm . Compliance is excellent, and she is actually fully dependent on the use of BiPAP at night. Code(s): G47.33 - Obstructive sleep apnea (adult) (pediatric) Category: Medical Plan: She reports nightly compliance with her CPAP. (5) Heart murmur: Code(s): R01.1 - Cardiac murmur, unspecified Category: Medical Plan: Noted on examination Plan Time spent on chart review, documentation, interview and assessment Orders: Orders CA echo transthoracic complete 05/05/25 I35.8 - Other nonrheumatic aortic valve disorders Medications: New hydralazine dose increased 50 mg PO BID 180 tabs 1RF Discontinued hydralazine Discontinued Reason: Doctor's Order 25 mg PO BID 180 tabs 3RF Coding Level of Care Code Est Pt Level 4 (34885) Complex EM visit Add On G2211 Diagnoses Aortic valve sclerosis I35.8 Essential hypertension I10 Morbid obesity E66.01 PATRICIA treated with BiPAP G47.33 Heart murmur R01.1 CPT Codes EKG - CPT: 43364-Yihhvndpytrxnxegi, Complete ([id number]) Time Spent (min) 30
--- OUTSIDE RECORDS SUMMARY | 2024-05-20 19:05 | XMS_ITS ---
Author Organization [facility] Address [address] [place] [address] Care Team Providers Care Supervising Deputy Name Role Phone Mia North MD Primary Care Provider UnavailHitesh Torres [phone] REASON FOR VISIT rectal bleeding Encounters Encounter Location Date Provider Diagnosis [facility] [address] [facility] [place] [id number] 12/14/2022 Hitesh Reed PLAN OF TREATMENT No Information
--- OUTSIDE RECORDS SUMMARY | 2024-05-20 19:05 | XMS_ITS | Patient Health Record ---
Author Organization [facility] Address [address] [place] [address] Care Team Providers Care Cushion Filler Name Role Phone Mia North MD Primary Care Provider Hitesh Santiago Unavailable [phone] ALLERGIES Allergen (clinical drug ingredient) Drug/Non Drug [...] esophagitis presence not specified (K21.9) Active confirmed 399418739 Problem Irritable bowel syndrome with diarrhea (K58.0) Active confirmed 141249704 Problem History of adenomatous polyp of colon (Z86.010) Active confirmed 294851427 Problem Blood in stool (K92.1) Active confirmed 88340990 Problem Diarrhea, unspecified type (R19.7) Active confirmed 80843425 Problem Esophageal spasm (K22.4) Active confirmed 178260644 Problem Hiatal hernia (K44.9) Active confirmed Hiatal hernia (86988831) Problem GERD (gastroesophageal reflux disease) (K21.9) Active confirmed Gastroesophagea l reflux disease (185855227) Problem Dysphagia, pharyngeal phase (R13.13) Active confirmed Oropharyngeal dysphagia (91029600) Problem Rectal bleeding (K62.5) Active confirmed Rectal bleeding (89888371) Problem Irritable bowel syndrome with both constipation and diarrhea (K58.0) Active confirmed Irritable b owel syndrome (75409192) PLAN OF TREATMENT Pending Test Test Name Order Date CELIAC PANEL #10 03/01/2017 Future Test Test Name Order Date COLONOSCOPY 03/01/2017 UPPER GI ENDOSCOPY 01/30/2020 COLONOSCOPY 01/06/2022 Insurance Providers Payer Name Payer Address Payer Phone Subscriber Number Group Number Insured Name Patient Relationship to Insured Coverage Start Date Coverage End Date [facility] [address] [address] [place] [address] [id number] CAMILLA ARANDA Self - patient is the insured MEDICAL (GENERAL) HISTORY Medical History History ICD Code Asthma Hypertension Breast cancer Personal history of polyps-1 tubular adenoma and a hyperplastic polyp removed via a colonoscopy with [facility] GI; Most recent one was in 06/[address] Brooks--but incomplete to the transverse colon due to poor prep--she was noted to have diverticulosis Denies [place],CVA,renal disease Sleep apnea GERD--EGD in 2015--history o [...] pancreatic or biliary disease--this was done at [facility] Neg. colonoscopy in 05/2017--bx neg for m icroscopic colitis, no polyps Kidney stones with infection [place] [facility] [place] 2 018 Lichen sclerosus EGD in 02/2020--small hiatal hernia, no esophagitis, no evidence of esophageal stricture nor ring and therefore no dilation was performed, biopsies were negative for Mccurdy's esophagus and negative for eosinophilic esophagitis Thyroid nodules undergoing b iopsies with [facility] endocrinology as of the 07/08/2020 office visit Back pain--receiving cortiso ne injections and treatments as of the 07/08/2020 OV Mild aortic stenosis-Echocardiograms e very 2 years-sees Dr. Blackmon Chronic back pain Surgical History Surgery Date(Month/Year) Lumpectomy x2--DCIS--sees Dr. Jack x 2 0256-1854 Bilateral oopherectomy 2014 Abdominal wall hernia repair 1976 Partial thyroidectomy 2021 Trigger fingers x 4 on right hand schedu led for 01/11/2022
--- OUTSIDE RECORDS SUMMARY | 2024-05-20 19:05 | XMS_ITS ---
Author Organization [facility] Address [address] [place] [address] Care Team Providers Care Superintendent Measurement Name Role Phone Mia North MD Primary Care Provider Dinesh Smith Unavailable [phone] Allergies Allergen (clinical drug ingredient) Drug/Non Drug [...] Osteoarthritis of midtarsal joint of left foot (3111160689892267 ) Osteoarthritis of midtarsal joint of left foot (M19.072) Active confirmed Vital Signs Height 5 ft 2 in in 06/27/2023 Weight 261 lbs 06/27/2023 BMI 47.73 kg/m2 06/27/2023 Encounters Encounter Location Date Provider Diagnosis [facility] [address] [place] [address] 06/27/2023 Dinesh Tom Pain in left foot [...] * Roma ARANDA MDOB:[birth year] (52 yo F)Acc No.[id number]:06/27/2023 Progress Note Patient:?EulaliakevinNeldady Sharon Provider:?Dinesh Santos DPM :1970???Age:52 Y???Sex:Female D ate:06/27/2023 Address:[address] [place] [address] Mary Mercado, [id number] Pcp:Mia North MD Subjective: * Chief Complaints: [...] * Hospitalization/Major Diagno stic Procedure:?Patient admitted to [facility] for chest pain and dizziness. 05/2015[facility] - Hypertention 02/28/17[facility]- back pain 07/2020 * Family History:?Mother: [...] ?Exercise: yes, rarely. ?Marital status: . 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 * Medications:?TakingmetFORMIN HCl 500 MG Tablet 1 [...] - M19.072? Plan: * Treatment: * Procedure Codes:?95088 X-RAY EXAM OF LEFT FOOT 3V, Modifiers: [...] exercise to failure, expense, systemic complications, infection, [id number], prolongued postop course. Patient questions re: the various treatment options available, their successes and potential failures, and ocean transportation intermediary effects were discussed and the answers were [...] Santos DPM Date:?2023 Generated for Pablo anguiano/Angela/Beatriz on:?05/20/2024 07:05 PM EST History and Physical Notes * [...] person, place, and t kate Vascular DP PULSES (B): 3/4, B/L PT PULSES (B): 3/4, B/L CAPILLARY FILL TIME: immediate, all digi ts, B/L TEMPERTURE GRADIENT (C): warm to cool, p roximal to distal, B/L TROPHIC CONDITION-TEXTURE/ELASTICITY/TURGOR/HAIR GROWTH (B): normal, B/L EDEMA (C): absent, B/L PIGMENTATION: normal, B/L X-Rays - [...]
--- OUTSIDE RECORDS SUMMARY | 2024-05-20 19:06 | XMS_ITS | Patient Health Record ---
Author Organization [facility] Address [address] [place] [address] Care Team Providers Care Recordings Librarian Name Role Phone Mia North MD Primary Care Provider Dinesh Smith Unavailable [phone] Allergies Allergen (clinical drug ingredient) Drug/Non Drug [...] Osteoarthritis of midtarsal joint of left foot ([id number] ) Osteoarthritis of midtarsal joint of left foot (M19.072) Active confirmed Vital Signs Height 5 ft 2 in in 06/27/2023 Weight 261 lbs 06/27/2023 BMI 47.73 kg/m2 06/27/2023 Encounters Encounter Location Date Provider Diagnosis [facility] [place] [address] [place] [address] 06/27/2023 Dinesh Tom Pain in left foot [...] X ray : Foot, right 3V 06/23/2021 [id number], [id number]/INJECT, JOINT/BURSA 0 07/16/2015 77898, [id number]/INJECT, JOINT/BURSA 0 10/13/2015 [id number] TENDON SHEATH/LIGAMENT 0 11/17/2017 [id number],[id number] TENDON SHEATH/LIGAMENT 1 06/21/2020 [id number] TENDON SHEATH/LIGAMENT 0 06/23/2021 [id number] TENDON SHEATH/LIGAMENT 0 07/29/2021 Insurance Providers Payer Name Payer Address Payer Phone Subscriber Number Group Number Insured Name Patient Relationship to Insured Coverage Start Date Coverage End Date [facility] re-[id number] [address] [address] [place] [phone] [id number] Roma Urrutia Self - patient is the [...] Hospitalization History Reason Date(Month/Year) Patient admitted to [facility] for chest p ain and dizziness. 05/2015 [facility] ER - Hypertention 02/28/17 [facility] ER- back pain 07/2020
== END 2024-05-20 15:58 | disposition home or self-care (01) ==
PROVIDERS: PCP Internal Medicine; Visit Provider Nurse Practitioner Family
DX: I35.8 Other nonrheumatic aortic valve disorders (principal); I10 Essential (primary) hypertension; E66.01 Morbid (severe) obesity due to excess calories; G47.33 Obstructive sleep apnea (adult) (pediatric); R01.1 Cardiac murmur, unspecified
CPT/HCPCS: 93010; 99214

== ENCOUNTER → 2024-05-20 15:08 | Outpatient (BNVA) | payer OTHER, SELFPAY | PROVIDERS: PCP Internal Medicine; Visit Provider Nurse Practitioner Family | DX: I35.8 Other nonrheumatic aortic valve disorders (principal); I10 Essential (primary) hypertension; R01.1 Cardiac murmur, unspecified; E66.01 Morbid (severe) obesity due to excess calories; Z68.42 Body mass index [BMI] 45.0-49.9, adult; G47.33 Obstructive sleep apnea (adult) (pediatric); Z79.899 Other long term (current) drug therapy | CPT/HCPCS: 93005 ==

== ENCOUNTER 2024-06-12 09:41 | Outpatient (AMB) | payer OTHER, SELFPAY ==
[2024-06-12 09:46] VITALS: BP 130/70; PULSE 86; TEMP 37; O2SAT 97; BMI 44.3
--- NOTE | 2024-06-12 09:46 | MHC.PC.OV ---
Vital Signs 06/12/24 09:46 Height 5 ft 4 in Weight 258 lb BMI 44.3 BP 130/70 Blood Pressure Location Lt brachial Position Sitting Pulse 86 Pulse Source Pulse Oximeter Temp 98.6 F Temp Source Oral Pulse Oximetry (%) 97 Oxygen Delivery Method Room Air Intake Visit Reasons: Follow up after pneumonia Intake Note: Pt is here today for a follow up visit on pneumonia. Allergies doxycycline [DOXYCYCLINE] Allergy (Severe, Verified 04/11/24 08:40) ESOPHAGITIS Sulfa (Sulfonamide Antibiotics) Allergy (Severe, Verified 04/11/24 08:40) FACIAL SWELLING codeine [Codeine] Allergy (Intermediate, Verified 04/11/24 08:40) RASH lisinopril [Lisinopril] Allergy (Intermediate, Verified 04/11/24 08:40) EXTREMITIES SWELLING benzonatate [BENZONATATE] Allergy (Unknown, Verified 04/11/24 08:40) ANAPHYLAXIS meperidine [Demerol] Allergy (Unknown, Verified 04/11/24 08:40) Rash baclofen Adverse Reaction (Severe, Verified 04/11/24 08:40) Anaphylaxis dulaglutide [From Trulicity] Adverse Reaction (Intermediate, Verified 04/11/24 08:40) itchy throat losartan Adverse Reaction (Intermediate, Verified 04/11/24 08:40) swelling of hands, Medication List - Last Reconciled 06/12/24 by Mia North MD acetaminophen ER (Tylenol Arthritis Pain) 650 mg PO Q12H amlodipine 10 mg PO DAILY bisacodyl (Dulcolax (bisacodyl)) 20 mg (4 x 5 mg) PO ONCE 1 day blood sugar diagnostic (FreeStyle Lite Strips) 1 qd blood-glucose meter (FreeStyle Lite Meter kit) As directed cetirizine (Zyrtec) 10 mg PO DAILY cholecalciferol (vitamin D3) 125 mcg PO DAILY citalopram 10 mg PO DAILY citalopram 20 mg PO DAILY cyclobenzaprine 5 mg PO .qhs docusate sodium (Colace) 100 mg PO BID epinephrine 0.3 mg (0.3 mL) IM ONCE PRN fluticasone propionate 50 mcg/actuation 1 spray intranasal DAILY hydralazine 50 mg PO BID lancets (FreeStyle Lancets) Test blood sugar once a day lorazepam 0.5 mg PO BEDTIME PRN meclizine 25 mg PO BID PRN metformin 500 mg orally 1 in AM and 2 q PM; multivitamin 1 tab PO DAILY polyethylene glycol 3350 (Miralax) 238 grams PO ONCE PRN 1 day pravastatin 20 mg PO DAILY pregabalin 200 mg PO DAILY triamcinolone acetonide 0.1% 1 appl topical DAILY triamterene-hydrochlorothiazid 37.5-25 mg 1 cap PO DAILY Tobacco use date assessed: 06/12/24 Dental Screening Dental Screen Date: 06/12/24 Did you have a dental visit in the last 12 months?: Yes Did you have a dental problem in the last 6 months where you did not have access to dental care?: No Was dental information given to patient?: Patient has dentist HPI Follow up after pneumonia HPI Details Patient presents for the follow-up of urgent care visit for upper respiratory infection she was treated with Augmentin and is feeling better. Patient denies cough shortness or breath fever chills or night sweats. She has been taking higher dose of hydralazine for one month without significant improvement in the blood pressure readings. Patient denies chest pain shortness or breath. she has started a 28 day challenge to lose weight and follows up with with [employer] and and will be starting working out with senior animal trainer online. [facility] Medical History PATRICIA treated with BiPAP Morbid obesity Lumbar and sacral spondyloarthritis Hyperlipemia Depression Thyroid nodule Hx of renal calculi Irritable bowel syndrome GERD (gastroesophageal reflux disease) Arthritis Cancer Surgical History H/O ventral hernia repair Hx of bilateral oophorectomy Hx of breast biopsy Hx of section Hx of colonoscopy Hx of esophagogastroduodenoscopy Family History Mother No problems noted. Father Substance use disorder Esophageal cancer Brother Substance use disorder Sister Substance use disorder History of Mccurdy's esophagus Social History Household Members: Family Household Members Other:: , unemployed, 2 children () Housing: House Do you presently have visiting nurse or other home services: No Unable to assess alcohol history related to: Unable to respond Alcohol intake: current Alcohol intake frequency: holidays/special occasions only Alcohol type: beer Patient Tobacco Use Status: Never used Tobacco e-Cigarette/Vaping Use: Never Used Second Hand Smoke Exposure: No Advance Directives Date on File: 03/18/22 service: No Current occupational status: unemployed Cognitive needs: No Hearing needs: No Vision needs: Yes Questionnaire PHQ-9 Over the last 2 weeks, how often have you been bothered by any of the following problems? 1. Little interest or pleasure in doing things: not at all 2. Feeling down, depressed, or hopeless: not at all 3. Trouble falling or staying asleep, or sleeping too much: several days 4. Feeling tired or having little energy: not at all 5. Poor appetite or overeating: not at all 6. Feeling bad about yourself - or that you are a failure or have let yourself or your family down: not at all 7. Trouble concentrating on things, such as reading the newspaper or watching television: several days 8. Moving or speaking so slowly that other people could have noticed. Or the opposite - being so fidgety or restless that you have been moving around a lot more than usual: not at all 9. Thoughts that you would be better off or of hurting yourself in some way: not at all Total score: 2 Depression Screening Interpretation: Negative Depression Screening Done: Yes 90929 - PHQ-9 Billing: Yes Source: Developed by Drs. Hitesh Bowden, Vero Owens, Micheal Cedillo and colleagues, with an educational bert from [employer]. Thrive Questionnaire Date Thrive assessed: 06/12/24 I am a: Patient What is your living situation today?: I have a steady place to live Within the past 12 months, did the food you bought not last and you didn't have the money to get more?: Never true Within the past 12 months, did you worry whether your food would run out before you got money to buy more?: Never true Do you have trouble paying for medicines?: No Do you have trouble getting transportation to medical appointments?: No Do you have trouble paying your heating and electricity bill?: No Do you have trouble taking care of your child, family member or friend?: No Do you have trouble with day-to-day activities such as bathing, preparing meals, shopping, managing finances, etc.?: I choose not to answer this question Are you currently unemployed and looking for a job?: No Are you interested in more education?: No Please select the resources that you would like help with: None Currently or been in a relationship where the following occur: No concerns reported THRIVE Score: 0 AUDIT C Alcohol Use Questionnaire (AUDIT-C) 1. How often do you have a drink containing alcohol?: Monthly or less 2. How many drinks containing alcohol do you have on a typical day when you are drinking?: 1 or 2 3. How often do you have six or more drinks on one occasion?: Never Total Score: 1 HARRIET-7 AMB Questionnaire HARRIET-7 Date HARRIET - 7 assessed: 06/12/24 Feeling nervous, anxious, or on edge: 1 = Several days Not being able to stop or control worryin = Several days Worrying too much about different things: 0 = Not at all Trouble relaxin = Not at all Being so restless that it is hard to sit still: 0 = Not at all Becoming easily annoyed or irritable: 1 = Several days Feeling afraid as if something awful might happen: 0 = Not at all Total HARRIET-7 score (0-4 normal; 5-9 mild; 10-14 moderate; 15-21 severe): 3 Source: Developed by Drs. Hitesh Bowden, Vero Owens, Micheal Cedillo and colleagues, with an educational bert from [employer]. HARRIET-7 Assessment Billing HARRIET-7 Assessment Tool: HARRIET-7 Assessment 73768 Review of Systems Const All systems reviewed & are unremarkable except as noted in HPI and below Eyes Reports no additional complaints ENT Reports no additional complaints Card Reports no additional complaints Resp Reports no additional complaints GI Reports no additional complaints Reports no additional complaints Physical exam (Primary Care) Vital Signs: Last Vital Signs Temp 98.6 F 06/12/24 09:46 Pulse 86 06/12/24 09:46 BP 130/70 06/12/24 09:46 Pulse Ox 97 06/12/24 09:46 Oxygen Delivery Method Room Air 06/12/24 09:46 BMI result Body Mass Index 44.3 Tobacco/Smoking Status: Tobacco use Status Tobacco use date assessed 06/12/24 06/12/24 09:52 Patient Tobacco Use Status Never used Tobacco 06/12/24 09:46 e-Cigarette/Vaping Use Never Used 06/12/24 09:46 PHQ-9: PHQ-9 Score PHQ-9: Total score 2 06/12/24 09:52 Depression Screening Interpretation: Negative Thrive Assessment: Date of Thrive Assessment Date Thrive assessed 06/12/24 06/12/24 09:52 Currently or been in a relationship where the following occur: No concerns reported Const General: no acute distress HENMT Head: Yes normal to inspection Face and sinus: Yes normal facial exam Eyes General: appearance normal, both eyes and all related structures Resp Effort & Inspection: normal respiratory effort Auscultation: clear to auscultation bilaterally Cardio Rhythm: regular rhythm Heart sounds: S1 normal heart sound present and S2 normal heart sound present Coding Level of Care Code Est Pt Level 3 (79602) Diagnoses DM2 (diabetes mellitus, type 2) E11.9 Morbid obesity E66.01 Essential hypertension I10 Additional Codes HARRIET-7 Assessment Billing - HARRIET-7 Assessment Tool: HARRIET-7 Assessment 70914 ([id number]) PHQ-9 - 83107 - PHQ-9 Billing: Yes ([id number]) Assessment & Plan Assessment & Plan (1) DM2 (diabetes mellitus, type 2): Comment: A1C 6.2, 2022, diet controlled, intolerant to Trulicity ( throat swelling) Code(s): E11.9 - Type 2 diabetes mellitus without complications Category: Medical Plan: Continue ADA diet increase physical activity and weight loss (2) Morbid obesity: Comment: CASE OF CHRONIC MORBID OBESITY. .BMI= 45.7 PATIENT IS AWARE OF BEING MORBIDLY OBESE AND SHE IS TRYING TO RESTRICT DIETARY INTAKE. BUT NOT ABLE TO DO MUCH EXERCISE. Code(s): E66.01 - Morbid (severe) obesity due to excess calories Category: Medical Plan: Continue weight loss program (3) Essential hypertension: Comment: Intolerant to ARB or STEVEN inhibitors caused swelling of legs and hands Code(s): I10 - Essential (primary) hypertension Category: Medical Plan: Increase hydralazine to 50 mg 3 times a day follow-up next month Medications: Changed From hydralazine dose increased 50 mg PO BID 180 tabs 1RF To hydralazine dose increased 50 mg PO TID 270 tabs 1RF
--- OUTSIDE RECORDS SUMMARY | 2024-06-12 10:15 | XMS_ITS | Clinical Summary ---
Author Organization [facility] Address [address] [place] [address] Care Team Providers Care Health Information Manager Name Role Phone Unavailable Primary Care Provider Unavailabl e Social History Tobacco Use Types Packs/Day Years Used Date Smoking Tobacco: Never Assessed Sex and Gender Information Value Date Recorded Sex Assigned at Not on file Gender Identity Not on file Sexual Orientation Not on file Plan of Treatment Health Maintenance Due Date Last Done Comments Hepatitis C Virus Screening 1970 HIV Screening 1981 DTaP/Tdap/Td Vaccines (1 - Tdap) 09/22/1987 Hepatitis B Vaccines (1 of 3 - 19+ 3-dose series) 09/22/1987 Pneumococcal Vaccines 50+ (1 of 1 - PCV) 2018 Zoster (Shingles) Vaccine (1 of 2) 2018 COVID-19 Vaccine ( - 2023-2 5 season) 2024 Pneumococcal Vaccine: Pediat helga (0-5 Years) and At-Risk Patients (6 to 49 Years) Aged Out No longer eligible b ased on patient's age to complete this topic
== END 2024-06-12 10:20 | disposition home or self-care (01) ==
PROVIDERS: PCP Internal Medicine; Visit Provider Internal Medicine
DX: E11.9 Type 2 diabetes mellitus without complications (principal); E66.01 Morbid (severe) obesity due to excess calories; Z68.41 Body mass index [BMI] 40.0-44.9, adult; I10 Essential (primary) hypertension

== ENCOUNTER → 2024-06-12 09:41 | Outpatient (BNVA) | payer OTHER, SELFPAY | PROVIDERS: PCP Internal Medicine; Visit Provider Internal Medicine | DX: E11.9 Type 2 diabetes mellitus without complications (principal); E66.01 Morbid (severe) obesity due to excess calories; Z68.41 Body mass index [BMI] 40.0-44.9, adult; I10 Essential (primary) hypertension; Z79.899 Other long term (current) drug therapy | CPT/HCPCS: 96127 ==

== ENCOUNTER 2024-07-07 11:52 | Emergency (ER) | payer OTHER, SELFPAY ==
--- NOTE | ~2024-07-07 | CT_ITS ---
CLINICAL HISTORY: headache CT head without contrast. COMPARISON: CT head dated 02/09/21 at 11:29 EDT FINDINGS: The visualized paranasal sinuses are clear. Small amount of fluid present within the base of the right mastoid air cells posteriorly. No temporal bone fracture identified. No calvarial fracture. No evidence for mass or mass effect. No intracranial hemorrhage or abnormal extra-axial fluid collection. No evidence of hydrocephalus. The basilar cisterns are patent. Posterior fossa appears unremarkable. IMPRESSION: 1. No acute intracranial findings. 2. Small amount of fluid present within the right mastoid air cells, nonspecific but can be associated with mastoiditis. No evidence of mastoid air cell coalescence. This document has been electronically signed by: Andres Tuttle MD on 07/07/2024 14:13:36
--- NOTE | ~2024-07-07 | CT_ITS ---
CLINICAL HISTORY: posterior right ear pain. mastoiditis CT temporal bone. COMPARISON: None FINDINGS: Fluid present within the lateral base of the right mastoid air cells. No temporal bone fracture identified. No evidence of mastoid air cell coalescence. No evidence of cortical breakthrough or extension into the overlying soft tissues. Left mastoid air cells are clear. Bilaterally middle ears are clear with ossicles in normal position and morphology. Regions of the round and oval windows are normal bilaterally. Cochlea are normal in morphology. Vestibular structures and semicircular canals are unremarkable. No CT evidence of semicircular canal dehiscence or enlarged vestibular aqueduct bilaterally. Seventh nerve canals are normal bilaterally. Bilateral internal auditory and external auditory canals are normal. Tympanic membranes are normal bilaterally. Bilateral distal internal carotid arteries and bilateral internal jugular veins occupy the normal expected anatomic positions and are without evidence of dehiscence. No osseous erosions or destructive changes in the mastoid or visualized portions of the skull. The visualized extracranial structures are unremarkable. IMPRESSION: 1. Small amount of fluid present at the base of the right mastoid air cells. Nonspecific finding can be associated with noncoalescent right-sided mastoiditis. No evidence of abscess. This document has been electronically signed by: Andres Tuttle MD on 07/07/2024 14:15:19
--- NOTE | ~2024-07-07 | CT_ITS ---
CLINICAL HISTORY: psoterior neck pain CT cervical spine without contrast. COMPARISON: None FINDINGS: Normal vertebral body alignment. Vertebral body heights are maintained. Skull base and intracranial structures appear normal. Diminutive or absent right lobe of the thyroid. Surgical clips present along the right thyroid bed. Calcified plaque present at the carotid bulbs bilaterally. No significant degenerative changes. IMPRESSION: 1. No evidence of acute injury to the cervical spine. This document has been electronically signed by: Andres Tuttle MD on 07/07/2024 14:07:41
[2024-07-07 12:02] VITALS: BP 167/73; PULSE 83; RESP 16; TEMP 36.7; O2SAT 96; BMI 47.8
--- NOTE | 2024-07-07 12:06 | ED_ITS ---
HPI - General Adult General Chief complaint: General Medical Stated complaint: lump behind abdul Time Seen by Provider: 07/07/24 15:25 Source: patient and RN notes reviewed Mode of arrival: ambulatory Limitations: no limitations History of Present Illness ED Provider: Yany Jones PA-C HPI narrative: This is a 53-year-old female, with a past medical history of aortic valve stenosis, type 2 diabetes, hypertension, PATRICIA on BiPAP, hyperlipidemia, hypertension, who presents emergency department for evaluation of pain to posterior ear. Patient states that at the end of May she traveled to [place] [facility] and she became sick with pneumonia. She was treated with Augmentin on June 04. Patient states that her symptoms improved but then developed right ear pain and was treated with azithromycin and ofloxacin which she completed full course of. She states that her symptoms resolved up until July 04 where she started to develop achiness surrounding her right ear. She states that this pain has now spread posteriorly, and has traveled slightly down into her right jaw. She states that she made an appointment with an urgent care facility today and was told to report to the emergency room for rule out of mastoiditis. She does endorse subjective fevers and chills. She takes Tylenol daily therefore she was unable to discern whether not she has had true fevers. She also reports she had an episode of palpitations yesterday. She denies any shortness of breath, chest pain, abdominal pain, nausea, vomiting or profound diarrhea. Patient does report that she has had occasional loose stool which she attributes to her new dietary changes. She does report slight headache as well. No other complaints or concerns at this time. MD complaint: Right posterior ear pain Onset (ago): day(s) Radiation: non-radiation Severity: moderate Quality: aching Pain Consistency: constant Relieving factors: none Exacerbating factors: other (Palpation) Associated symptoms: denies other symptoms Treatments prior to arrival: none Related Data Home Medications ?Medication ?Instructions ?Recorded ?Confirmed docusate sodium 100 mg capsule 100 mg PO BID 02/14/20 06/12/24 (Colace) cholecalciferol (vitamin D3) 125 125 mcg PO DAILY 03/15/22 06/12/24 mcg (5,000 unit) tablet cetirizine 10 mg tablet (Zyrtec) 10 mg PO DAILY 11/10/22 02/05/25 acetaminophen 650 mg 650 mg PO Q12H 05/23/23 06/12/24 tablet,extended release (Tylenol Arthritis Pain) fluticasone propionate 50 1 spray intranasal DAILY 05/23/23 06/12/24 mcg/actuation nasal spray,suspension multivitamin 1 tab PO DAILY 05/23/23 06/12/24 pregabalin 150 mg capsule 200 mg PO DAILY 12/07/23 06/12/24 Previous Rx's ?Medication ?Instructions ?Recorded lorazepam 0.5 mg tablet 0.5 mg PO BEDTIME PRN Anxiety #30 10/08/20 tabs triamcinolone acetonide 0.1 % 1 appl topical DAILY #80 grams 10/05/22 topical cream blood sugar diagnostic (FreeStyle #100 ea 04/14/23 Lite Strips) blood-glucose meter (FreeStyle #1 ea 04/14/23 Lite Meter kit) bisacodyl 5 mg tablet,delayed 20 mg (4 x 5 mg) PO ONCE 05/23/23 release (Dulcolax (bisacodyl)) colonoscopy prep 1 day #4 tabs polyethylene glycol 3350 17 238 g PO ONCE PRN laxative effect 05/23/23 gram/dose oral powder (Miralax) 1 day #238 grams pravastatin 20 mg tablet 20 mg PO DAILY #90 tabs 07/05/23 triamterene 37.5 1 cap PO DAILY #90 caps 09/22/23 mg-hydrochlorothiazide 25 mg capsule lancets 28 gauge (FreeStyle #100 ea 10/17/23 Lancets) epinephrine 0.3 mg/0.3 mL 0.3 mg (0.3 mL) IM ONCE PRN 11/21/23 injection, auto-injector Anaphylaxis #2 ea meclizine 25 mg tablet 25 mg PO BID PRN dizziness #30 tabs 12/07/23 metformin 500 mg tablet 500 mg PO .COMPLEX #270 tabs 02/02/24 citalopram 10 mg tablet 10 mg PO DAILY #90 tabs 04/17/24 citalopram 20 mg tablet 20 mg PO DAILY #90 tabs 04/17/24 amlodipine 10 mg tablet 10 mg PO DAILY #90 tabs 05/10/24 cyclobenzaprine 5 mg tablet 5 mg PO .qhs #30 tabs 05/21/24 hydralazine 50 mg tablet 50 mg PO TID #270 tabs 06/12/24 cefuroxime axetil 500 mg tablet 500 mg PO BID 7 days #14 tabs 07/07/24 clindamycin HCl 300 mg capsule 300 mg PO TID 7 days #21 caps 07/07/24 Allergies Allergy/AdvReac Type Severity Reaction Status Date / Time doxycycline [DOXYCYCLINE] Allergy Severe ESOPHAGITIS Verified 07/07/24 12:05 Sulfa (Sulfonamide Allergy Severe FACIAL Verified 07/07/24 12:05 Antibiotics) SWELLING codeine [Codeine] Allergy Intermediate RASH Verified 07/07/24 12:05 lisinopril [Lisinopril] Allergy Intermediate EXTREMITIES Verified 07/07/24 12:05 SWELLING benzonatate [BENZONATATE] Allergy Unknown ANAPHYLAXIS Verified 07/07/24 12:05 meperidine [Demerol] Allergy Unknown Rash Verified 07/07/24 12:05 baclofen AdvReac Severe Anaphylaxis Verified 07/07/24 12:05 dulaglutide [From Trulicity] AdvReac Intermediate itchy Verified 07/07/24 12:05 throat losartan AdvReac Intermediate swelling Verified 07/07/24 12:05 of hands, Review of Systems 2 Review of Systems: Yes all other systems are reviewed and are negative Constitutional: Constitutional: Reports as per [facility] Past Medical History Medical History PATRICIA treated with BiPAP Morbid obesity Lumbar and sacral spondyloarthritis Hyperlipemia Depression Thyroid nodule Hx of renal calculi Irritable bowel syndrome GERD (gastroesophageal reflux disease) Arthritis Cancer Surgical History H/O ventral hernia repair Hx of bilateral oophorectomy Hx of breast biopsy Hx of section Hx of colonoscopy Hx of esophagogastroduodenoscopy Family History Family History Mother No problems noted. Father Substance use disorder Esophageal cancer Brother Substance use disorder Sister Substance use disorder History of Mccurdy's esophagus Social History Social History Household Members: Family Household Members Other:: , unemployed, 2 children () Housing: House Do you presently have visiting nurse or other home services: No Unable to assess alcohol history related to: Unable to respond Alcohol intake: current Alcohol intake frequency: holidays/special occasions only Alcohol type: beer Patient Tobacco Use Status: Never used Tobacco e-Cigarette/Vaping Use: Never Used Second Hand Smoke Exposure: No Advance Directives: No Advance Directives Information Provided: Yes Advance Directives Date on File: 03/18/22 service: No Current occupational status: unemployed Cognitive needs: No Hearing needs: No Vision needs: Yes Physical Exam ED Vital Signs: Vital Signs - 24 hr 07/07/24 20:27 Temperature 98.9 F Pulse Rate 62 Respiratory Rate 19 Blood Pressure 148/68 H Pulse Oximetry 98 Oxygen Delivery Method Room Air BMI result Body Mass Index 47.8 Const General: cooperative, comfortable and no acute distress Orientation/consciousness: patient oriented x3 Limitations: no limitations HENMT Other: Right TM is slightly erythematous, nonedematous, TM appears to be intact, no auditory canal edema. Tenderness palpation overlying the mastoid, no fluctuance or erythema noted, she does have slight edema extending into her occiput. Left TM unremarkable. Head: Yes normal to inspection, Yes normocephalic and Yes atraumatic Ears: hearing grossly normal bilaterally General nose exam: Normal external nose present Face and sinus: Yes normal facial exam Mouth: Normal oral and palatal mucosa present, oropharynx normal and moist mucous membranes Throat: Yes posterior oropharynx normal Eyes General: appearance normal, both eyes and all related structures Eyelids: Yes eyelids normal Conjunctivae: conjunctivae normal Sclerae: sclerae normal Pupils: Equal, round and reactive pupils present EOM: EOMs intact bilaterally Neck Other: No nuchal rigidity, full ROM of the neck. Neck: Yes normal visual inspection, Yes full ROM and Yes no lymphadenopathy Lymphatic: no lymphadenopathy noted Chest Chest palpation & inspection: normal inspection of the chest Resp Effort & Inspection: normal respiratory effort and able to speak in complete sentences Auscultation: clear to auscultation bilaterally, no crackles, no rales, no rhonchi and no wheezes Cardio Rate: regular rate Rhythm: regular rhythm Heart sounds: S1 normal heart sound present and S2 normal heart sound present GI Inspection: Yes normal to inspection Skin General skin exam: no rashes or lesions noted Trauma: no lacerations or abrasions Wounds: no wounds Neuro General: patient oriented x3 and moves all extremities Cranial nerves: Yes Equal, round and reactive pupils present Extrem General: Yes normal to inspection Right upper extremity: normal to inspection Left upper extremity: normal to inspection Right lower extremity: normal to inspection Left lower extremity: normal to inspection Course Course Course Narrative: MIESHA: 53-year-old female presents to ED for right posterior ear pain radiating to head and neck. Patient recently diagnosed with infection completed antibiotic treatment last night started having severe right posterior ear pain without any trauma. Patient was referred for urgent care for CT scan. Neuro exam intact. NIH score is 0. Positive for mastoid tenderness on palpation without any palpable mass. Positive for cervical spine tenderness. Imaging ordered Reevaluation(s) Reevaluation #1: Patient with no leukocytosis, stable H&H, chemistry with no significant electrolyte derangement, ESR and CRP - ESR 11, CRP .43, troponin 3 - she has no chest pain or shortness for breath, does not require repeat. AST and ALT slightly elevated with an AST of 36, ALT of 34. Time: 17:42 Reevaluation #2: Discussed case with Dr. Maldonado, ENT from [facility]. Reviewed case, as well as CT scan report, he states that this is not mastoiditis and a normal finding for an ongoing ear infection. Patient recommending outpatient p.o. antibiotics and follow-up with research group director. I reviewed this case with my attending physician, Dr. Hylton. We will discharged on Ceftin and clindamycin for broad-spectrum coverage and MRSA coverage. Advised patient to follow-up in 48 hours to ensure that her symptoms have improved. Advised to either return back here or follow-up with ENT if she was able to be seen. She understands and agrees with plan. Patient stable for discharge. Medications Administered Discontinued Medications Generic Name Dose Route Start Last Admin Trade Name Freq PRN Reason Stop Dose Admin Piperacillin Sod/Tazobactam 100 mls @ 200 mls/hr 07/07/24 16:07/07/24 17:40 Sod 4.5 gm/ Sodium Chloride IV 07/07/24 16:32 Infused ONCE ONE Infusion Vancomycin HCl 2,000 mg in 500 mls @ 250 mls/hr 07/07/24 16:07/07/24 17:47 Vancomycin/Ns IV 07/07/24 18:02 250 mls/hr ONCE ONE Administration Sodium Chloride 1,000 mls @ 500 mls/hr 07/07/24 16:34 07/07/24 16:48 Ns IVCONT 07/07/24 18:33 500 mls/hr .Q2H ONE Administration Acetaminophen 1,000 mg in 100 mls @ 400 mls/hr 07/07/24 18:45 07/07/24 19:08 Ofirmev IV 07/07/24 18:59 400 mls/hr ONCE ONE Administration Ondansetron HCl 4 mg 07/07/24 16:53 07/07/24 16:56 Ondansetron Hcl 4 Mg/2 Ml Vial IVPUSH 07/07/24 16:54 4 mg ONCE ONE Administration Medical Decision Making Medical Decision Making [facility] Narrative: This is a 53-year-old female who presents emergency department for evaluation of posterior ear pain which started several days ago. She had an ear infection several weeks ago which she was treated with azithromycin and ofloxacin. Prior to that she had pneumonia, which was treated with Augmentin. On arrival, patient mildly hypertensive at 167/73, all other vital signs within normal limits. She was afebrile, speaking full sentences under no acute distress. CT scans were ordered prior to my assessment, she does have a small amount of fluid present at the base of the right mastoid air cells, nonspecific finding can be associated with non call us and right sided mastoiditis, there is no evidence of abscess. CT head and neck show no acute injury. On physical examination, patient has tenderness palpation along the mastoid as well as the pre-auricular lymph node, she does have tenderness extending into her occiput region with slight edema noted, no erythema noted. Neck is supple, no meningeal signs. Plan: Labs to rule out leukocytosis or any electrolyte derangement, inflammatory markers also be ordered for assessment, she was also reporting palpitations therefore EKG and troponin also ordered. Patient declines pain medication at this time. We will continue to closely monitor Differential Diagnosis Differential Diagnoses: The differential diagnosis associated with the presentation includes Mastoiditis, otitis media, otitis externa, chronic otalgia, TMJ Admission/Observation Consideration of admission/observation: Escalation of care including admission/observation considered Consult Healthcare Provider Management of the patient was discussed with: Hospitalist Lab Data MDM Lab Attestation statement: I reviewed the patient's lab results. No leukocytosis, H&H within normal ranges, chemistry with no significant electrolyte derangement, slight elevation in AST and ALT, troponin is 3, inflammatory markers within normal limits. 07/07/24 16:28 07/07/24 16:28 Labs: Lab Results 07/07/24 Range/Units 16:28 WBC 7.8 (4.8-10.8) X10*3/uL RBC 4.44 (4.20-5.50) X10*6/uL Hgb 13.2 (12.0-16.0) g/dl Hct 39.0 (37.0-47.0) % MCV 87.8 (80.0-98.0) fL MCH 29.7 (27.0-33.0) pg MCHC 33.8 (31.0-35.0) g/dl RDW 13.2 (11.0-16.0) % Plt Count 243 (160-400) X10*3/uL MPV 8.9 L (9.4-12.3) fL Immature Gran % (Auto) 0.1 (0.0-0.4) % Neut % (Auto) 46.1 (45-73) % Lymph % (Auto) 43.8 H (20-40) % [place] % (Auto) 6.7 (2-11) % Eos % (Auto) 2.4 (0-4) % Baso % (Auto) 0.9 (0-2) % Lymph # (Auto) 3.4 (1.2-4.9) X10*3/uL [place] # (Auto) 0.5 (0.1-1.2) X10*3/uL Eos # (Auto) 0.2 (0.0-0.4) X10*3/uL Baso # (Auto) 0.1 (0.0-0.2) X10*3/uL Abs Immat Gran (auto) 0.01 (0.00-0.03) X10*3/uL Absolute Neuts (auto) 3.6 (2.0-8.3) x10*3/uL Absolute Nucleated RBC 0.000 (0.0-0.012) X10*3/uL Nucleated RBC % (auto) 0.0 (0.0-0.2) /100WBC ESR 11 (0-20) MM/HR Sodium 142 (135-145) mmol/L Potassium 3.7 (3.3-5.1) mmol/L Chloride 105 (96-108) mmol/L Carbon Dioxide 24 (22-29) mmol/L Anion Gap 17 (12-20) BUN 12 (9-16) mg/dL Creatinine 0.65 (0.5-1.4) mg/dL Estim Creat Clear Calc 115.0 Estimated GFR > 60 Random Glucose 89 (60-115) mg/dL Lactic Acid 1.4 (0.5-2.0) mmol/L Calcium 10.0 (8.4-10.2) mg/dL Magnesium 1.8 (1.6-2.6) mg/dL Total Bilirubin 0.2 (0.0-1.0) mg/dL Direct Bilirubin < 0.2 (0.0-0.5) mg/dL AST 36 H (5-31) U/L ALT 34 H (0-31) U/L Alkaline Phosphatase 79 (39-117) U/L Troponin I High Sens 3.0 (<3.5-17.0) ng/L C-Reactive Protein 0.43 (< or = 0.50) mg/dL Total Protein 7.8 (6.5-8.0) g/dL Albumin 4.4 (3.5-5.0) g/dL Radiology Impression Discussion of test interpretation with radiology: I have reviewed the radiologist's reading. Radiologist Impression: CT temporal bone. COMPARISON: None FINDINGS: Fluid present within the lateral base of the right mastoid air cells. No temporal bone fracture identified. No evidence of mastoid air cell coalescence. No evidence of cortical breakthrough or extension into the overlying soft tissues. Left mastoid air cells are clear. Bilaterally middle ears are clear with ossicles in normal position and morphology. Regions of the round and oval windows are normal bilaterally. Cochlea are normal in morphology. Vestibular structures and semicircular canals are unremarkable. No CT evidence of semicircular canal dehiscence or enlarged vestibular aqueduct bilaterally. Seventh nerve canals are normal bilaterally. Bilateral internal auditory and external auditory canals are normal. Tympanic membranes are normal bilaterally. Bilateral distal internal carotid arteries and bilateral internal jugular veins occupy the normal expected anatomic positions and are without evidence of dehiscence. No osseous erosions or destructive changes in the mastoid or visualized portions of the skull. The visualized extracranial structures are unremarkable. IMPRESSION: 1. Small amount of fluid present at the base of the right mastoid air cells. Nonspecific finding can be associated with noncoalescent right-sided mastoiditis. No evidence of abscess. This document has been electronically signed by: Andres Tuttle MD on 07/07/2024 14:15:19 Dictated By: Andres Tuttle MD Signed By: <Electronically signed by Andres Tuttle MD in OV> Report Number: [id number]: Total DLP = 644.31 mGy-cm CLINICAL HISTORY: headache CT head without contrast. COMPARISON: CT head dated 02/09/21 at 11:29 EDT FINDINGS: The visualized paranasal sinuses are clear. Small amount of fluid present within the base of the right mastoid air cells posteriorly. No temporal bone fracture identified. No calvarial fracture. No evidence for mass or mass effect. No intracranial hemorrhage or abnormal extra-axial fluid collection. No evidence of hydrocephalus. The basilar cisterns are patent. Posterior fossa appears unremarkable. IMPRESSION: 1. No acute intracranial findings. 2. Small amount of fluid present within the right mastoid air cells, nonspecific but can be associated with mastoiditis. No evidence of mastoid air cell coalescence. This document has been electronically signed by: Andres Tuttle MD on 07/07/2024 14:13:36 Dictated By: Andres Tuttle MD Report Number: [id number]: Total DLP = 538.07 mGy-cm CLINICAL HISTORY: psoterior neck pain CT cervical spine without contrast. COMPARISON: None FINDINGS: Normal vertebral body alignment. Vertebral body heights are maintained. Skull base and intracranial structures appear normal. Diminutive or absent right lobe of the thyroid. Surgical clips present along the right thyroid bed. Calcified plaque present at the carotid bulbs bilaterally. No significant degenerative changes. IMPRESSION: 1. No evidence of acute injury to the cervical spine. This document has been electronically signed by: Andres Tuttle MD on 07/07/2024 14:07:41 Dictated By: Andres Tuttle MD Discharge Plan Discharge Clinical Impression: Mastoid pain Patient Disposition: Home, Self-Care Instructions: Earache (ED), Mastoiditis (ED) Additional Instructions: You were seen in the emergency department due to pain and behind your right ear. Your blood work was reassuring. Your overall workup today was reviewed by an research group director who is not concern for mastoiditis. I am placing you on 2 different types of antibiotics, Ceftin and clindamycin. I am giving your referral to the research group director at [facility]. Call tomorrow to make an appointment. Please be re-evaluated in 48 hours, you may return here, or the research group director. If any new or worsening symptoms occur including but not limited to worsening pain, swelling, fevers, chills, please seek emergent care. [facility] [phone] Prescriptions: New clindamycin HCl 300 mg capsule 300 mg PO TID 7 Days Qty: 21 0RF cefuroxime axetil 500 mg tablet 500 mg PO BID 7 Days Qty: 14 0RF No Action triamcinolone acetonide 0.1 % cream 1 appl topical DAILY Qty: 80 1RF (DME) FreeStyle Lite Strips Strip See Rx Instructions .Route Qty: 100 3RF Rx Instructions: 1 qd (DME) blood-glucose meter [FreeStyle Lite Meter] Kit See Rx Instructions .Route Qty: 1 0RF Rx Instructions: As directed pravastatin 20 mg tablet 20 mg PO DAILY Qty: 90 3RF triamterene-hydrochlorothiazid 37.5-25 mg capsule 1 cap PO DAILY Qty: 90 3RF (DME) lancets [FreeStyle Lancets] 28 gauge misc See Rx Instructions .Route Qty: 100 1RF Rx Instructions: Test blood sugar once a day epinephrine 0.3 mg/0.3 mL auto-injector 0.3 mg IM ONCE PRN (Reason: Anaphylaxis) Qty: 2 1RF citalopram 20 mg tablet 20 mg PO DAILY Qty: 90 3RF Rx Instructions: take with citalopram 10 mg citalopram 10 mg tablet 10 mg PO DAILY Qty: 90 3RF Rx Instructions: take with citalopram 20 mg amlodipine 10 mg tablet 10 mg PO DAILY Qty: 90 3RF cyclobenzaprine 5 mg tablet 5 mg PO .qhs Qty: 30 0RF docusate sodium [Colace] 100 mg Capsule 100 mg PO BID cholecalciferol (vitamin D3) 125 mcg (5,000 unit) Tablet 125 mcg PO DAILY cetirizine [Zyrtec] 10 mg Tablet 10 mg PO DAILY pregabalin 150 mg capsule 200 mg PO DAILY lorazepam 0.5 mg tablet 0.5 mg PO BEDTIME PRN (Reason: Anxiety) Qty: 30 0RF meclizine 25 mg tablet 25 mg PO BID PRN (Reason: dizziness) Qty: 30 0RF multivitamin Tablet 1 tab PO DAILY fluticasone propionate 50 mcg/actuation spray,suspension 1 spray intranasal DAILY Rx Instructions: administer into each nostril acetaminophen [Tylenol Arthritis Pain] 650 mg tablet extended release 650 mg PO Q12H bisacodyl [Dulcolax (bisacodyl)] 5 mg tablet,delayed release (DR/EC) 20 mg PO ONCE 1 Days Qty: 4 0RF Rx Instructions: Day before procedure, prep day Take 4 tablets by mouth upon awakening followed by large glass of water polyethylene glycol 3350 [Miralax] 17 gram/dose powder 238 g PO ONCE PRN (Reason: laxative effect) 1 Days Qty: 238 0RF Rx Instructions: Take as directed by mouth the day before your procedure. hydralazine 50 mg tablet 50 mg PO TID Qty: 270 1RF Rx Instructions: dose increased metformin 500 mg tablet 500 mg PO .COMPLEX Qty: 270 1RF Rx Instructions: 500 mg orally 1 in AM and 2 q PM; Referrals: Chai Montelongo [Physician] - Interventions: ED Discharge Assessment Last Done: 07/07/24 20:27 Discharge Date/Time: 07/07/24 20:27 Print Language: Austrian
--- NOTE | 2024-07-07 15:48 | ECG_ITS ---
Test Reason : palpitations Blood Pressure : */* mmHG Vent. Rate : 66 BPM Atrial Rate : 66 BPM P-R Int : 172 ms QRS Dur : 96 ms QT Int : 426 ms P-R-T Axes : 53 2 34 degrees QTcB Int : 446 ms Normal sinus rhythm Moderate voltage criteria for LVH, may be normal variant ( R in aVL , [place] product ) Nonspecific T wave abnormality Abnormal ECG When compared with ECG of 12-Dec-2022 08:52, No significant change was found Referred By: Yany Jones Electronically Signed By: KATLYN KOROMA MD
--- OUTSIDE RECORDS SUMMARY | 2024-07-07 16:17 | XMS_ITS ---
Author Organization 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 Machine Shop Name Role Phone Mia North MD Primary Care Provider Dinesh Smith Unavailable [phone] Allergies Allergen (clinical drug ingredient) Drug/Non Drug Allergy documented on EMR Reaction Allergy Type Onset Date Status benzonatate Benzonatate anaphylaxis Drug Allergy A ctive meperidine Demerol Unknown Drug Allergy Active Lisinopril swelling Drug Allergy Active codeine Codeine rash Drug Allergy Active doxycycline [...] Twice a day Not-Taking cloNIDine HCl Not-Ta tammi DULoxetine HCl Not-T aking Vitamin D Active [...] Osteoarthritis of midtarsal joint of left foot (8670741588923204 ) Osteoarthritis of midtarsal joint of left foot (M19.072) Active confirmed Vital Signs Height 5 ft 2 in in 06/27/2023 Weight 261 lbs 06/27/2023 BMI 47.73 kg/m2 06/27/2023 Encounters Encounter Location Date Provider Diagnosis [facility] [address] [place] [address] 06/27/2023 Dinesh Tom Pain in left foot [...] * Roma ARANDA MDOB:[birth year] (52 yo F)Acc No.[id number]:06/27/2023 Progress Note Patient:?Roma Aranda Provider:?Dinesh Santos DPM :1970???Age:52 Y???Sex:Female D ate:06/27/2023 Address:[address] [place] [address] [place], [id number] Pcp:Mia North MD Subjective: * Chief Complaints: [...] * Hospitalization/Major Diagno stic Procedure:?Patient admitted to [facility] for chest pain and dizziness. [place] [place] * Family History:?Mother: alibailey e, kidney disease, diagnosed with Family history [...] ?Exercise: yes, rarely. ?Marital status: . 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 * Medications:?TakingmetFORMIN HCl 500 MG Tablet 1 [...] - M19.072? Plan: * Treatment: * Procedure Codes:?38768 X-RAY EXAM OF LEFT FOOT 3V, Modifiers: [...] exercise to failure, expense, systemic complications, infection, [id number], prolongued postop course. Patient questions re: the various treatment options available, their successes and potential failures, and shelter effects were discussed and the answers were [...] Provider:?Dinesh Santos DPM Date:?2023 Generated for Pablo anguiano/Angeal/Gurvinderitting on:?07/07/2024 04:17 PM EST History and Physical Notes * [...]
--- OUTSIDE RECORDS SUMMARY | 2024-07-07 16:17 | XMS_ITS | Clinical Summary ---
Author Organization [facility] Address [address] [place] [address] Care Team Providers Care Mineral Surveying Technician Name Role Phone Unavailable Primary Care Provider [...]
[2024-07-07 16:36] LABS: MANUAL DIFF FLAG NO
[2024-07-07 16:38] LABS: Basophils Absolute Auto 0.1 X10*3/uL (0.0-0.2); Basophils Percent Auto 0.9 % (0-2); Eosinophils Absolute Auto 0.2 X10*3/uL (0.0-0.4); Eosinophils Percent Auto 2.4 % (0-4); Hemoglobin 13.2 g/dl (12.0-16.0); Imm Gran Abs Auto 0.01 X10*3/uL (0.00-0.03); Imm Gran Pct Auto 0.1 % (0.0-0.4); Lymphocytes Absolute Auto 3.4 X10*3/uL (1.2-4.9); Lymphocytes Percent Auto 43.8 % (20-40); Mean Corpuscular HGB Conc 33.8 g/dl (31.0-35.0); Mean Corpuscular Hemoglobin 29.7 pg (27.0-33.0); Mean Corpuscular Volume 87.8 fL (80.0-98.0); Mean Platelet Volume 8.9 fL (9.4-12.3); Monocytes Absolute Auto 0.5 X10*3/uL (0.1-1.2); Monocytes Percent Auto 6.7 % (2-11); Neutrophils Absolute Auto 3.6 x10*3/uL (2.0-8.3); Neutrophils Percent Auto 46.1 % (45-73); Platelet Count 243 X10*3/uL (160-400); Red Blood Count 4.44 X10*6/uL (4.20-5.50); Red Cell Distribution Width 13.2 % (11.0-16.0); White Blood Count 7.8 X10*3/uL (4.8-10.8)
[2024-07-07] MEDS: 0.9 % Sodium Chloride 1,000 ML 500 ML IVCONT (16:48)
[2024-07-07] MEDS: Piperacillin Sodium/Tazobactam 4.5 GM in 0.9 % Sodium Chloride 100 ML IV (16:54)
[2024-07-07 16:56] LABS: Lactic Acid 1.4 mmol/L (0.5-2.0)
[2024-07-07] MEDS: ondansetron HCL 4 MG/2 ML VIAL IVPUSH (16:56)
[2024-07-07 16:58] LABS: Alanine Aminotransferase 34 U/L (0-31); Albumin Level 4.4 g/dL (3.5-5.0); Alkaline Phosphatase 79 U/L (39-117); Anion Gap 17 (12-20); Aspartate Amino Transferase 36 U/L (5-31); Bilirubin Direct < 0.2 mg/dL (0.0-0.5); Bilirubin Total 0.2 mg/dL (0.0-1.0); Blood Urea Nitrogen 12 mg/dL (9-16); C Reactive Protein 0.43 mg/dL (< or = 0.50); Carbon Dioxide 24 mmol/L (22-29); Chloride 105 mmol/L (96-108); Estimated Glomerular Filt Rate > 60; Glucose Random 89 mg/dL (60-115); Magnesium 1.8 mg/dL (1.6-2.6); Potassium 3.7 mmol/L (3.3-5.1); Sodium 142 mmol/L (135-145); Total Protein 7.8 g/dL (6.5-8.0)
[2024-07-07 17:15] VITALS: BP 148/68; PULSE 62; RESP 19; TEMP 37.2; O2SAT 98
[2024-07-07 17:39] LABS: Erythrocyte Sedimentation Rate 11 MM/HR (0-20)
[2024-07-07] MEDS: vancomycin/NS 2,000 MG/500 ML PLAST..BAG 250 MG IV (17:47)
[2024-07-07] MEDS: Acetaminophen 1,000 MG/100 ML PIGGYBACK 400 MG IV (19:08)
[2024-07-07 20:27] VITALS: BP 148/68; PULSE 62; RESP 19; TEMP 37.2; O2SAT 98
== END 2024-07-07 20:27 | disposition home or self-care (01) ==
PROVIDERS: Physician Assistant Medical; Emergency Provider Emergency Medicine; PCP Internal Medicine
DX: R00.2 Palpitations (principal); R94.31 Abnormal electrocardiogram [ECG] [EKG]; M54.2 Cervicalgia; R51.9 Headache, unspecified; Z79.899 Other long term (current) drug therapy
CPT/HCPCS: 36415; 70450; 70481; 72125; 80048; 80076; 83605; 83735; 84484; 85025; 85652; 86140; 87040; 93005; 96365; 96375; 99284; J0131; J2405; J2543; J3370

== ENCOUNTER → 2024-07-07 12:05 | Outpatient (BNV) | payer OTHER, SELFPAY | PROVIDERS: PCP Internal Medicine; Visit Provider Radiology Diagnostic Radiology | DX: R51.9 Headache, unspecified (principal); M54.2 Cervicalgia; H70.001 Acute mastoiditis without complications, right ear | CPT/HCPCS: 70450; 70481; 72125 ==

== ENCOUNTER → 2024-07-07 15:48 | Outpatient (BNV) | payer OTHER, SELFPAY | PROVIDERS: Emergency Provider Emergency Medicine; PCP Internal Medicine; Visit Provider Internal Medicine Cardiovascular Disease | DX: R94.31 Abnormal electrocardiogram [ECG] [EKG] (principal); R00.2 Palpitations | CPT/HCPCS: 93010 ==

== ENCOUNTER 2024-07-15 10:41 | Outpatient (REF) | payer OTHER, SELFPAY ==
[2024-07-15 11:52] LABS: Estimated Average Glucose 131 mg/dL; Hemoglobin A1c % 6.2 % (<6.0)
--- OUTSIDE RECORDS SUMMARY | 2024-07-15 12:04 | XMS_ITS | Patient Health Record ---
Author Organization [facility] Address [address] [place] [address] Care Team Providers Care Screed Person Name Role Phone Mia North MD Primary Care Provider Dinesh Smith Unavailable [phone] Allergies Allergen (clinical drug ingredient) Drug/Non Drug [...] (substance) Sulfa Antibiotics Unknown Drug Allergy Active Reason For Referral No Information Medications Medication [...] Osteoarthritis of midtarsal joint of left foot (5843095245961698 ) Osteoarthritis of midtarsal joint of left foot (M19.072) Active confirmed Plan Of Treatment Pending Test Test Name Order Date X ray : Foot, left 3V 06/27/2023 X ray : Foot, right 3V 06/23/2021, [id number]/INJECT, JOINT/BURSA 0 07/16/201556042, [id number]-EBAOU/INJECT, JOINT/BURSA 0 10/13/201546284,[id number] TENDON SHEATH/LIGAMENT 0 11/17/201798402,N8784-XOX TENDON SHEATH/LIGAMENT 1 06/21/202055094,[id number] TENDON SHEATH/LIGAMENT 0 06/23/202150904,N3560-LRA TENDON SHEATH/LIGAMENT 0 07/29/2021 Insurance Providers Payer Name Payer Address Payer Phone Subscriber Number Group Number Insured Name Patient Relationship to Insured Coverage Start Date Coverage End Date [facility] [address] [address] [place] [address] [id number] Roma Urrutia Self - patient is the [...] Hospitalization History Reason Date(Month/Year) Patient admitted to [facility] for chest p ain and dizziness. 05/2015 [facility] [facility] [place] 02[place]28[place] [facility] [facility]
--- OUTSIDE RECORDS SUMMARY | 2024-07-15 12:04 | XMS_ITS | Patient Health Record ---
Author Organization [facility] Address [address] [place] [address] Care Team Providers Care Sample Room Supervisor Name Role Phone Mia North MD Primary Care Provider Hitesh Santiago Unavailable [phone] Allergies Allergen (clinical drug ingredient) Drug/Non Drug Allergy documented on EMR Reaction Allergy Type Onset Date Status Listerine Antiseptic Unknown Drug Allergy Active Lisinopril Unknown Drug Allergy Active meperidine Demerol Unknown Drug Allergy Active codeine Codeine Sulfate Unknown Drug Allergy A ctive losartan Losartan Unknown Drug Allergy Active doxycycline Doxycycline Unknown Drug Allergy Act emily Sulfa Unknown Drug Allergy Active Tessalon Perles Unknown Drug Allergy A ctive Reason For Referral No Information Medications Medication [...] (1000 UT) Orally 4x a day Active Immunizations Vaccine Route Administration Date Status Comme nts Influenza Unknown 02/19/2020 Administered Influenza Unknown 03/30/2021 Administered Social History Tobacco Use: Social History Observation Description Date Details (start date - stop date) Never Smoker NA - NA Tobacco Use/Smoking Question Answer Notes Patient is [...] Never (0 point) Points 1 Interpretation Negative Section Notes: Nonsmoker; no sig alcohol Nonsmoker; no sig alcohol Nonsmoker; no sig alcohol Problems Problem Type SNOMED Code ICD Code Onset Dates Problem Status W/U Status Risk Notes Problem Rectal bleeding (46162065) Rectal bleeding (K62.5) Active confirmed Problem 117830605 History of adenomatous polyp of colon (Z86.010) Active confirmed Problem 102879758 Irritable bowel syndrome with diarrhea (K58.0) Active confirmed Problem Oropharyngeal dysphagia (21510337) Dysphagia, pharyngeal phase (R13.13) Active confirmed Problem 24028937 Blood in stool (K92.1) Active confirmed Problem 836626074 Gastroesophageal reflux disease, esophagitis presence not specified (K21.9) Active confirmed Problem Hiatal hernia (52432384) Hiatal hernia (K44.9) Active confirmed Problem 846720213 Esophageal spasm (K22.4) Active confirmed Problem Gastroesophageal reflux disease (416084749) GERD (gastroesophageal reflux disease) (K21.9) Active confirmed Problem 23003333 Diarrhea, unspecified type (R19.7) Active confirmed Problem Irritable bowel syndrome (03088650) Irritable bowel syndrome with both constipation and diarrhea (K58.0) Active confirmed Plan Of Treatment Pending Test Test Name Order Date CELIAC PANEL #10 03/01/2017 Future Test Test Name Order Date COLONOSCOPY 03/01/2017 UPPER GI ENDOSCOPY 01/30/2020 COLONOSCOPY 01/06/2022 Insurance Providers Payer Name Payer Address Payer Phone Subscriber Number Group Number Insured Name Patient Relationship to Insured Coverage Start Date Coverage End Date [facility] [address] [address] [place] [address] [id number] CAMILLA ARANDA Self - patient is the insured Medical (General) History Medical History History ICD Code Asthma Hypertension Breast cancer Personal history of polyps-1 tubular adenoma and a hyperplastic polyp removed via a colonoscopy with [facility]; Most recent one was in 06/[address] Brooks--but incomplete to the transverse colon due to poor prep--she was noted to have diverticulosis Denies IN,CVA,renal disease Sleep apnea GERD--EGD in 2015--history o [...] pancreatic or biliary disease--this was done at [facility] Neg. colonoscopy in 05/2017--bx neg for m icroscopic colitis, no polyps Kidney stones with infection at [facility] in 2 018 Lichen sclerosus EGD in 02/2020--small hiatal hernia, no esophagitis, no evidence of esophageal stricture nor ring and therefore no dilation was performed, biopsies were negative for Mccurdy's esophagus and negative for eosinophilic esophagitis Thyroid nodules undergoing b iopsies with [facility] endocrinology as of the 07/08/2020 office visit Back pain--receiving cortiso ne injections and treatments as of the 07/08/2020 OV Mild aortic stenosis-Echocardiograms e very 2 years-sees Dr. Blackmon Chronic back pain Surgical History Surgery Date(Month/Year) Lumpectomy x2--DCIS--sees Dr. Jack x 2 2157-0699 Bilateral oopherectomy 2014 Abdominal wall hernia repair 1976 Partial thyroidectomy 2021 Trigger fingers x 4 on right hand schedu led for 01/11/2022
--- OUTSIDE RECORDS SUMMARY | 2024-07-15 12:05 | XMS_ITS | Clinical Summary ---
Author Organization [facility] Address [address] [place] [address] Care Team Providers Care Tack Welder Name Role Phone Unavailable Primary Care Provider Unavailabl e Social History Tobacco Use Types Packs/Day Years Used Date Smoking Tobacco: Never Assessed Sex and Gender Information Value Date Recorded Sex Assigned at Not on file Gender Identity Not on file Sexual Orientation Not on file Plan of Treatment Upcoming Encounters Date Type Department Care Team ([facility] st Contact Info) Description 08/20/2024 9:45 AM EDT Office Visit [facility] [address], [place] [address] Phoenix Ricardo MD [address] [place] [address] [phone] Health Maintenance Due Date Last Done Comments Hepatitis C Virus Screening 1970 HIV Screening 1981 DTaP/Tdap/Td Vaccines (1 - Tdap) 09/22/1987 Hepatitis B Vaccines (1 of 3 - 19+ 3-dose series) 09/05 Pap Smear (Ages 21-65) 1989 Mammogram 2008 Colonoscopy 2013 Pneumococcal Vaccines 50+ (1 of 1 - PCV) 2018 Zoster (Shingles) Vaccine (1 of 2) 2018 Influenza Vaccine 12/07/2023 COVID-19 Vaccine ( - 2023- season) 2024
--- OUTSIDE RECORDS SUMMARY | 2024-07-15 12:05 | XMS_ITS ---
Author Organization [facility] Address [address] [place] [address] Care Team Providers Care Thermal Cutting Tracer Machine Operator Name Role Phone Mia North MD Primary Care Provider Dinesh Smith Unavailable [phone] Allergies Allergen (clinical drug ingredient) Drug/Non Drug [...] Osteoarthritis of midtarsal joint of left foot (4527075107964949 ) Osteoarthritis of midtarsal joint of left foot (M19.072) Active confirmed Vital Signs Height 5 ft 2 in in 06/27/2023 Weight 261 lbs 06/27/2023 BMI 47.73 kg/m2 06/27/2023 Encounters Encounter Location Date Provider Diagnosis [facility] [address] [place] [address] 06/27/2023 Dinesh Tom Pain in left foot [...] * Roma ARANDA MDOB:[birth year] (52 yo F)Acc No.[id number]:06/27/2023 Progress Note Patient:?Roma Aranda Provider:?Dinesh Santos DPM :1970???Age:52 Y???Sex:Female D ate:06/27/2023 Address:[address] [place] [address] [place], [id number] Pcp:Mia North MD Subjective: * Chief Complaints: [...] * Hospitalization/Major Diagno stic Procedure:?Patient admitted to [facility] for chest pain and dizziness. 05/2015[facility] [place] [facility] [place]pert[place] 02/28/17[facility] [place] [facility] pain 07/2020 * Family [...] ?Exercise: yes, rarely. ?Marital status: . 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 * Medications:?TakingmetFORMIN HCl 500 MG Tablet [...] - M19.072? Plan: * Treatment: * Procedure Codes:?09217 X-RAY EXAM OF LEFT FOOT 3V, Modifiers: [...] exercise to failure, expense, systemic complications, infection, [id number], prolongued postop course. Patient questions re: the various treatment options available, their successes and potential failures, and keno terminal operator effects were discussed and the answers were [...] Provider:?Dinesh Santos DPM Date:?2023 Generated for Pablo anguiano/Angela/Gurvinderitting on:?07/15/2024 12:04 PM EDT History and Physical Notes * HPI (History [...]
--- OUTSIDE RECORDS SUMMARY | 2024-07-15 12:05 | XMS_ITS | Data Portability ---
Author Organization MD - [facility], Allergy Address [address] [address] Care Team Providers Care News Operations Manager Name Role Phone JAY MARKANNA Primary Care Provider Assessment Encounter Date Assessment Date Assessment LastModified by Organization Details LastModified Time 07/09/2024 07/09/2024 Patient with occipital and neck pain, due to what appears to be spasm of the trapezius musculature. 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 Physical exam is negative for middle ear infection. I reviewed the CAT scan of the temporal bones personally. There is minimal opacification of the dependent air cells of the right mastoid. This is certainly NOT acute mastoiditis, and in fact no signs of acute infection at all. I have recommended she stop the oral antibiotics that she was provided. I have given her a referral to a physical therapist who can help with her neck pain and stiffness.. She will want to speak with her dentist about her TMJ issues. No further ENT workup or intervention recommended. [email or web address] Not available 07/09/2024 12:01:40 Plan of Treatment Reminders Order Date Submit Date Provider Last Modified By Organization Details Last Modified Time Details Appointments None record ed. Lab None record ed. Referral None record ed. Procedures None record ed. Surgeries None record ed. Imaging None record ed. Medication Orders None record ed. Patient TargetsNo targets recorded. Patient InstructionsNo instructions recorded. Reason for Referral None Reported. Results Created Date Observation Date Name Description Value Unit Range Abnormal Flag Note LastModifiedBy Organization Detail LastModifiedTime 07/10/1907/07/2024 CT, tempo ral bone, w/ contr ast No observ ation record ed. [email or web address] Not Available 08/2024 11:56:55 07/10/19 25 07/07/2024 CT, cervi jose juan spine , w/o contr ast No observ ation record ed. [email or web address] Not Available 08/2024 13:30:25 07/10/19 25 07/07/2024 CT, cervi jose juan spine , w/o contr ast No observ ation record ed. [email or web address] Not Available 08/2024 12:51:06 Result Notes None recorded. Problems Name Problem SNOMED Code Status Onset Date Resolution Date Notes Provider Name and Address Organization Details Recorded Time Neck pain 29167687 Active 2024 ANGELICA DENTON MD [address] [facility],[place] [address], [place], [address], [place] - [facility] 11:50:56 Headache 58504678 Active 2024 ANGELICA DENTON MD [address] [place] [address], [place], [address], [place] - [facility] 11:51:05 Referred otalgia of right ear [id number] 0 Active 2024 ANGELICA DENTON MD [address] [facility],[place] [address], [place], [phone], [place] - [facility] 12:01:07 Problem Notes None recorded. Procedures Surgical History Date Name Laterality Status Provider Name and Address Organization Details Recorded Time hernia repair completed Theresa Witt [place] - [facility] 07/09/2024 11:32:04 oophorectomy completed Theresa Witt [place] - [facility] 07/09/2024 11:32:11 biopsy of breast completed Theresa Witt [place] - [facility] 07/09/2024 11:32:20 section completed Theresa Witt [place] - [facility] 07/09/2024 11:32:25 Imaging Results Imaging Date Name Status LastModified by [facility] Details LastModified Time 07/07/2024 CT, temporal bone, w/ contrast completed [email or web address] Information not available 07/09/2024 11:56:55 07/07/2024 CT, cervical spine, w/o contrast completed [email or web address] Information not available 07/09/2024 13:30:25 07/07/2024 CT, cervical spine, w/o contrast completed [email or web address] Information not available 07/09/2024 12:51:06 Procedure Notes None recorded. Medical Equipment None Reported. Allergies Allergen ID Allergen Name Allergen Category Reaction Reaction Severity Criticality Documentation Date Start Date Code Code System Note Provider Name and Address Organization Details Recorded Time 199879 Substance with sulfonami de structure and antibacte rial mechanism of action (substanc e) medicatio n facial swelling severe Not available 07/09/2024 30092 8003 SNOMED Theresa nichole, [place] - [facility] 5 11:30:11 459101 lisinopri l medicatio n swelling severe Not available 07/09/2024 56628 RxNorm Theresa nichole, [place] - [facility] 11:30:11 703892 codeine medicatio n rash severe Not available 07/09/2024 2670 RxNorm Theresa nichole, [place] - [facility] 11:30:11 175836 benzonata te medicatio n anaphylax is severe Not available 07/09/2024 46502 RxNorm Theresa nichole, [place] - [facility] 5 11:30:11 952364 baclofen medicatio n anaphylax is severe Not available 07/09/2024 1292 RxNorm Theresa nichole, [place] - [facility] 5 11:30:11 193941 doxycycli ne Not available other severe Not available 07/09/2024 3640 RxNorm Theresa nichole, [place] - [facility] 5 11:30:11 409836 Demerol medicatio n confusion severe Not available 07/09/2024 87221 1 RxNorm Theresa nichole, [place] - [facility] 5 11:30:11 639019 losartan medicatio n swelling severe Not available 07/09/2024 27643 RxNorm Theresa nichole, [place] - [facility] 5 11:30:11 782626 dextromet horphan hydrobrom pranay medicatio n itching moderate Not available 07/09/2024 09526 0 RxNorm Theresa nichole [place] - [facility] 5 11:30:11 802741 Trulicity medicatio n itching moderate Not available 07/09/2024 60446 96 RxNorm Theresa nichole [place] - [facility] 5 11:30:11 Medications Name Sig Start Date Stop Date Status Note LastModified by Organization Details LastModified Time metformin 500 mg tablet Take 3 tablets every day by oral route. 07/09 completed Not Available Not Available Not Available prednisone 10 mg tablet TAKE 3 TABLETS BY MOUTH X 3 DAYS, 2 TABS X 3 DAYS, 1 TABLET X 3 DAYS 07/09 completed Not Available Not Available Not Available clindamycin HCl 300 mg capsule 07/09 completed Not Available Not Available Not Available azithromyci n 250 mg tablet TAKE 2 TABLETS BY MOUTH TODAY, THEN TAKE 1 TABLET DAILY FOR 4 DAYS DIRECTED 07/09 completed Not Available Not Available Not Available citalopram 10 mg tablet Take 1 tablet every day by oral route. 07/09 completed Not Available Not Available Not Available FreeStyle Lancets 28 gauge USE TO TEST BLOOD SUGAR ONCE A DAY active Not Available Not Available No t Available prednisone 20 mg tablet TAKE 1 TABLET BY MOUTH DAILY FOR 3 DAYS 07/09 completed Not Available Not Available Not Available clobetasol 0.05 % topical cream APPLY TOPICALLY TWICE A DAY FOR 10 DAYS 07/09 completed Not Available Not Available Not Available Tylenol Arthritis Pain 650 mg tablet,exte nded release 2 tablets twice a day by oral route. active Not Available Not Available No t Available bacitracin 500 unit/gram topical ointment TAKE 1 APPLICATI ON (TOPICAL) 3 TIMES PER DAY FOR 5 DAYS 07/09 completed Not Available Not Available Not Available hydralazine 25 mg tablet TAKE 1 TABLET BY MOUTH TWICE A DAY active Not Available Not Available No t Available triamterene 37.5 mg-hydrochl orothiazide 25 mg capsule TAKE 1 CAPSULE BY MOUTH EVERY DAY active Not Available Not Available No t Available triamcinolo ne acetonide 0.1 % topical cream APPLY TO RASH ON TRUNK AND EXTREMITI ES TWICE A DAY NEEDED 07/09 completed Not Available Not Available Not Available ofloxacin 0.3 % ear drops INSTILL 5 DROPS INTO EAR(S) TWICE A DAY FOR 7 DAYS 07/09 completed Not Available Not Available Not Available citalopram 20 mg tablet 1 tablet every day by oral route. active Not Available Not Available No t Available flaxseed oil 1000 mg capsule 1 capsule every day by oral route. active Not Available Not Available No t Available lorazepam 0.5 mg tablet 1 tablet as needed by oral route. active Not Available Not Available No t Available meclizine 25 mg tablet TAKE 1 TABLET ORALLY 2 TIMES A DAY NEEDED FOR DIZZINESS 07/09 completed Not Available Not Available Not Available baclofen 10 mg tablet TAKE 1 TABLET BY MOUTH EVERYDAY AT BEDTIME 07/09 completed Not Available Not Available Not Available amlodipine 10 mg tablet 1 tablet every day by oral route. active Not Available Not Available No t Available cephalexin 500 mg capsule TAKE 1 CAPSULE BY MOUTH THREE TIMES A DAY FOR 7 DAYS 07/09 completed Not Available Not Available Not Available metformin 1,000 mg tablet TAKE 1 TABLET BY MOUTH TWICE A DAY active Not Available Not Available No t Available lidocaine 5 % topical patch 1 PATCH TOPICALLY DAILY LEAVE ON MOST PAINFUL AREA FOR UP TO 12 HRS 07/09 completed Not Available Not Available Not Available magnesium 500 mg (as magnesium oxide) tablet 1 tablet every day by oral route. active Not Available Not Available No t Available triamterene 37.5 mg-hydrochl orothiazide 25 mg tablet Take 1 tablet every day by oral route. 07/09 completed Not Available Not Available Not Available zinc 50 mg tablet 1 tablet every day by oral route. active Not Available Not Available No t Available hydralazine 50 mg tablet Take 1 tablet 3 times a day by oral route. 07/09 completed Not Available Not Available Not Available pravastatin 20 mg tablet 1 tablet every day by oral route. active Not Available Not Available No t Available nystatin 100,000 unit/gram topical powder APPLY TO AFFECTED AREA TWICE A DAY FOR 30 DAYS 07/09 completed Not Available Not Available Not Available cefuroxime axetil 500 mg tablet active Not Available Not Available No t Available sertraline 50 mg tablet TAKE ONE AND A HALF TABLETS BY MOUTH ONCE DAILY 07/09 completed Not Available Not Available Not Available docusate sodium 100 mg tablet 3 tablets every day by oral route. active Not Available Not Available No t Available loratadine 10 mg tablet 1 tablet every day by oral route. active Not Available Not Available No t Available amoxicillin 875 mg-shirin vance clavulanate 125 mg tablet TAKE 1 TABLET BY MOUTH TWICE A DAY FOR 7 DAYS 07/09 completed Not Available Not Available Not Available Benadryl Allergy 25 mg tablet 2 tablets as needed by oral route. active Not Available Not Available No t Available cyclobenzap rine 5 mg tablet 1 tablet as needed by oral route. active Not Available Not Available No t Available Multivitami n 50 Plus tablet 1 tablet every day by oral route. active Not Available Not Available No t Available pregabalin 150 mg capsule TAKE 1 CAPSULE BY MOUTH EVERYDAY AT BEDTIME 07/09 completed Not Available Not Available Not Available pregabalin 200 mg capsule 1 capsule every day by oral route. active Not Available Not Available No t Available Calcium 600 + D(3) 600 mg-125 unit tablet 1 tablet every day by oral route. active Not Available Not Available No t Available FreeStyle Lite Strips USE 1 STRIP EVERY DAY active Not Available Not Available No t Available Vitamin D3 125 mcg (5,000 unit) tablet 1 tablet every day by oral route. active Not Available Not Available No t Available EpiPen 2-Mejia 0.3 mg/0.3 mL injection, auto-inject or 1 auto as needed by injection route. active Not Available Not Available No t Available Vitals None Recorded Social History None recorded. Functional Status None recorded. Mental Status None recorded. Family History Relationship Description Onset Age of this Age Resolved Age Notes LastModified by Organization Details LastModified Time Mother Malignant neoplastic disease 77 78 [email or web address] Not available 08/2024 11:31:30 Maternal Aunt Malignant neoplastic disease [email or web address] Not available 08/2024 11:31:30 Paternal Aunt Malignant neoplastic disease [email or web address] Not available 08/2024 11:31:30 Son Allergy 4 [email or web address] Not availa ble 07/09/2024 11:31:30 Sister Complication of anesthesia [email or web address] Not available 11:31:30 Sister Vertigo [email or web address] Not availa ble 07/09/2024 11:31:30 Father Malignant neoplastic disease 50 52 [email or web address] Not available 08/2024 11:31:30 Medical History Condition Response Allergies/Hayfever Y Heart Problems Y Anxiety Y Tonsil Infections N Emphysema N Migraines N Thyroid Problems Y Glaucoma N Depression Y COPD N Developmental Delay N Nasal or Sinus Problems Y Anemia Y Immune System Disorder N Anesthesia Complications N Heart Attack ([place]) N Other Skin Condition Y Diabetes Y Rhinitis Y Bleeding Disorder N Food Allergy N Arthritis Y Hearing Loss N Hyperlipidemia N Cancer Y Stroke N Dementia N Nasal polyps N Asthma N High Cholesterol N Sleep Disorder N GERD/Reflux N Liver Disease N Headaches Y Fibromyalgia Y Hypertension Y Speech Delay N Kidney Disease N Gynecological HistoryNo gynecological history recorded. Obstetrics History GPAL:G 0 P 0 0 0 0 Past Encounters Encounter ID Performer Location Encounter Start Date Encounter Closed Date Diagnosis/Indication Diagnosis SNOMED-CT Code Diagnosis ICD10 Code Diagnosis Note [id number] ANGELICA DENTON MD [facility] [address] [address] 07/09/2024 10:21:50 07/09/2024 11:52:29 Neck pain 37188168 M54.2 Headache 88392945 R51.9 Referred o talgia of right ear [id number] 235668 H92.01 M26.621 M79.11 Health Concerns Section Related Observation LastModified by Organization Detai ls LastModified Time None Recorded Concern Status LastModified by Organization Details LastModified Time None Recorded Advance Directives Directive None Recorded Payers Encounter Date Sequence Insurance Name Policy Number Policy Valdivia Covered Member ID Valdivia Member ID Guarantor Name 07/09/2024 1 [id number] Notes Date Note Type Note Provider Name and Address Organization Details Recorded Time 07/09/2024 text/html 53-year-old kristin santos with type 2 diabetes and morbid obesity referred urgently by [facility] emergency room. Patient presented there with occipital pain on the right which referred forward into her periauricular region. This had been present for 5 days prior to presentation. Patient had CT scan of the head yesterday which was concerning for mastoiditis , noting a small amount of fluid present at the base of the right mastoid air cells. Patient was given intravenous antibiotics in the emergency room. They spoke with Dr. Stern yesterday who recommended discharging home on oral antibiotics and follow-up with me today.Patient reports that she presented to urgent care on June 17 and was diagnosed with ear infection following pneumonia. Patient did have muffled and crackling sensation in the right ear at the time of presentation. ANGELICA DENTON MD [address] [place] [address], [place], [address], [place] - [facility] 07/09/2024 12:01:53 OBGyn Episode No OBEpisode recorded.
[2024-07-15 13:00] LABS: Alanine Aminotransferase 33 U/L (0-31); Albumin Level 4.2 g/dL (3.5-5.0); Alkaline Phosphatase 64 U/L (39-117); Anion Gap 13 (12-20); Aspartate Amino Transferase 32 U/L (5-31); Bilirubin Total 0.3 mg/dL (0.0-1.0); Blood Urea Nitrogen 14 mg/dL (9-16); Calcium 9.6 mg/dL (8.4-10.2); Carbon Dioxide 27 mmol/L (22-29); Chloride 105 mmol/L (96-108); Cholesterol 131 mg/dL (<200); Estimated Glomerular Filt Rate > 60; Glucose Fasting 102 mg/dL (60-99); HDL Cholesterol 42 mg/dL (>40); LDL Cholesterol Calculated 63 mg/dL (<100); Potassium 3.5 mmol/L (3.3-5.1); Sodium 141 mmol/L (135-145); Total Protein 7.3 g/dL (6.5-8.0); Triglycerides 133 mg/dL (<150)
== END 2024-07-15 10:42 | disposition home or self-care (01) ==
LOC: HO.LAB 10:41
PROVIDERS: PCP Internal Medicine; Visit Provider Internal Medicine
DX: Z00.00 Encounter for general adult medical examination without abnormal findings (principal); E11.9 Type 2 diabetes mellitus without complications; I10 Essential (primary) hypertension
CPT/HCPCS: 36415; 80053; 80061; 82043; 82570; 83036

== ENCOUNTER 2024-07-16 09:22 | Outpatient (AMB) | payer OTHER, SELFPAY ==
--- NOTE | 2024-07-16 09:32 | MHC.PC.OV ---
Vital Signs 07/16/24 09:43 Height 5 ft 1 in Weight 251 lb 8 oz BMI 47.5 BP 120/68 Blood Pressure Location Lt brachial Position Sitting Respiration 20 Pulse 75 Pulse Source Pulse Oximeter Temp 98.4 F Temp Source Oral Pulse Oximetry (%) 97 Oxygen Delivery Method Room Air Intake Visit Reasons: 3 months f/up Intake Note: Pt is here today for 3 months follow up visit. Allergies doxycycline [DOXYCYCLINE] Allergy (Severe, Verified 07/16/24 09:32) ESOPHAGITIS Sulfa (Sulfonamide Antibiotics) Allergy (Severe, Verified 07/16/24 09:32) FACIAL SWELLING codeine [Codeine] Allergy (Intermediate, Verified 07/16/24 09:32) RASH lisinopril [Lisinopril] Allergy (Intermediate, Verified 07/16/24 09:32) EXTREMITIES SWELLING benzonatate [BENZONATATE] Allergy (Unknown, Verified 07/16/24 09:32) ANAPHYLAXIS meperidine [Demerol] Allergy (Unknown, Verified 07/16/24 09:32) Rash baclofen Adverse Reaction (Severe, Verified 07/16/24 09:32) Anaphylaxis dulaglutide [From Trulicity] Adverse Reaction (Intermediate, Verified 07/16/24 09:32) itchy throat losartan Adverse Reaction (Intermediate, Verified 07/16/24 09:32) swelling of hands, Medication List - Last Reconciled 07/16/24 by Mia North MD acetaminophen ER (Tylenol Arthritis Pain) 650 mg PO Q12H amlodipine 10 mg PO DAILY bisacodyl (Dulcolax (bisacodyl)) 20 mg (4 x 5 mg) PO ONCE 1 day blood sugar diagnostic (FreeStyle Lite Strips) 1 qd blood-glucose meter (FreeStyle Lite Meter kit) As directed cetirizine (Zyrtec) 10 mg PO DAILY cholecalciferol (vitamin D3) 125 mcg PO DAILY citalopram 10 mg PO DAILY citalopram 20 mg PO DAILY cyclobenzaprine 5 mg PO .qhs docusate sodium (Colace) 100 mg PO BID epinephrine 0.3 mg (0.3 mL) IM ONCE PRN fluticasone propionate 50 mcg/actuation 1 spray intranasal DAILY hydralazine 50 mg PO TID Jardiance (empagliflozin) 10 mg PO DAILY NS lancets (FreeStyle Lancets) Test blood sugar once a day lorazepam 0.5 mg PO BEDTIME PRN meclizine 25 mg PO BID PRN metformin 500 mg orally 1 in AM and 2 q PM; multivitamin 1 tab PO DAILY polyethylene glycol 3350 (Miralax) 238 grams PO ONCE PRN 1 day pravastatin 20 mg PO DAILY pregabalin 200 mg PO DAILY triamcinolone acetonide 0.1% 1 appl topical DAILY triamterene-hydrochlorothiazid 37.5-25 mg 1 cap PO DAILY Tobacco use date assessed: 07/16/24 Dental Screening Dental Screen Date: 06/12/24 HPI 3 months f/up HPI Details Patient presents for the follow-up on hypertension hyperlipidemia type 2 diabetes. Patient lost 19 lb in the last 3 months be more physically active and decreasing caloric intake. [facility] Medical History PATRICIA treated with BiPAP Morbid obesity Lumbar and sacral spondyloarthritis Hyperlipemia Depression Thyroid nodule Hx of renal calculi Irritable bowel syndrome GERD (gastroesophageal reflux disease) Arthritis Cancer Surgical History H/O ventral hernia repair Hx of bilateral oophorectomy Hx of breast biopsy Hx of section Hx of colonoscopy Hx of esophagogastroduodenoscopy Family History Mother No problems noted. Father Substance use disorder Esophageal cancer Brother Substance use disorder Sister Substance use disorder History of Mccurdy's esophagus Social History Household Members: Family Household Members Other:: , unemployed, 2 children () Housing: House Do you presently have visiting nurse or other home services: No Unable to assess alcohol history related to: Unable to respond Alcohol intake: current Alcohol intake frequency: holidays/special occasions only Alcohol type: beer Patient Tobacco Use Status: Never used Tobacco e-Cigarette/Vaping Use: Never Used Second Hand Smoke Exposure: No Advance Directives Date on File: 03/18/22 service: No Current occupational status: unemployed Cognitive needs: No Hearing needs: No Vision needs: Yes Questionnaire PHQ-9 Over the last 2 weeks, how often have you been bothered by any of the following problems? 1. Little interest or pleasure in doing things: several days 2. Feeling down, depressed, or hopeless: not at all 3. Trouble falling or staying asleep, or sleeping too much: several days 4. Feeling tired or having little energy: several days 5. Poor appetite or overeating: not at all 6. Feeling bad about yourself - or that you are a failure or have let yourself or your family down: not at all 7. Trouble concentrating on things, such as reading the newspaper or watching television: several days 8. Moving or speaking so slowly that other people could have noticed. Or the opposite - being so fidgety or restless that you have been moving around a lot more than usual: not at all 9. Thoughts that you would be better off or of hurting yourself in some way: not at all Total score: 4 Depression Screening Interpretation: Negative Depression Screening Done: Yes 35005 - PHQ-9 Billing: Yes Source: Developed by Drs. Hitesh Bowden, Vero Owens, Micheal Cedillo and colleagues, with an educational bert from [employer] Thrive Questionnaire Date Thrive assessed: 06/11/24 I am a: Patient What is your living situation today?: I have a steady place to live Within the past 12 months, did the food you bought not last and you didn't have the money to get more?: Never true Within the past 12 months, did you worry whether your food would run out before you got money to buy more?: Never true Do you have trouble paying for medicines?: No Do you have trouble getting transportation to medical appointments?: No Do you have trouble paying your heating and electricity bill?: No Do you have trouble taking care of your child, family member or friend?: No Do you have trouble with day-to-day activities such as bathing, preparing meals, shopping, managing finances, etc.?: I choose not to answer this question Are you currently unemployed and looking for a job?: No Are you interested in more education?: No Please select the resources that you would like help with: None Currently or been in a relationship where the following occur: No concerns reported THRIVE Score: 0 HARRIET-7 AMB Questionnaire HARRIET-7 Date HARRIET - 7 assessed: 06/12/24 Source: Developed by Drs. Hitesh Bowden, Vero Owens, Micheal Cedillo and colleagues, with an educational bert from [employer] Review of Systems Const All systems reviewed & are unremarkable except as noted in HPI and below Eyes Reports no additional complaints ENT Reports no additional complaints Card Reports no additional complaints Resp Reports no additional complaints GI Reports no additional complaints Reports no additional complaints Physical exam (Primary Care) Vital Signs: Last Vital Signs Temp 98.4 F 07/16/24 09:43 Pulse 75 07/16/24 09:43 Resp 20 07/16/24 09:43 BP 120/68 07/16/24 09:43 Pulse Ox 97 07/16/24 09:43 Oxygen Delivery Method Room Air 07/16/24 09:43 BMI result Body Mass Index 47.5 Tobacco/Smoking Status: Tobacco use Status Tobacco use date assessed 07/16/24 07/16/24 09:33 Patient Tobacco Use Status Never used Tobacco 07/16/24 09:33 e-Cigarette/Vaping Use Never Used 07/16/24 09:33 PHQ-9: PHQ-9 Score PHQ-9: Total score 4 07/16/24 09:47 Depression Screening Interpretation: Negative Thrive Assessment: Date of Thrive Assessment Date Thrive assessed 06/11/24 07/16/24 09:33 Currently or been in a relationship where the following occur: No concerns reported Const General: no acute distress HENMT Head: Yes normal to inspection Face and sinus: Yes normal facial exam Neck Neck: Yes supple Resp Effort & Inspection: normal respiratory effort Auscultation: clear to auscultation bilaterally Cardio Rhythm: regular rhythm Heart sounds: S1 normal heart sound present and S2 normal heart sound present GI Inspection: Yes normal to inspection Palpation (GI): Soft to palpation Percussion: Yes normal to percussion Coding Level of Care Code Est Pt Level 4 (67988) Diagnoses DM2 (diabetes mellitus, type 2) E11.9 Essential hypertension I10 Hyperlipemia E78.5 Additional Codes PHQ-9 - 77381 - PHQ-9 Billing: Yes ([id number]) Assessment & Plan Assessment & Plan (1) DM2 (diabetes mellitus, type 2): Comment: A1C 6.2, 2022, diet controlled, intolerant to Trulicity ( throat swelling) Code(s): E11.9 - Type 2 diabetes mellitus without complications Category: Medical Plan: A1c is down to 6.2, ADA diet regular physical activity weight loss discussed with the patient the Jardiance 10 mg daily for microalbuminuria and to improve glycemic control. Follow-up in 3 months (2) Essential hypertension: Comment: Intolerant to ARB or STEVEN inhibitors caused swelling of legs and hands Code(s): I10 - Essential (primary) hypertension Category: Medical Plan: Continue current medications (3) Hyperlipemia: Code(s): E78.5 - Hyperlipidemia, unspecified Category: Medical Plan: Continue statin Orders: Orders Hemoglobin A1c 3 Months E11.9 - Type 2 diabetes mellitus without complications, E78.5 - Hyperlipidemia, unspecified, I10 - Essential (primary) hypertension Comprehensive [place]. Panel Fast 3 Months E11.9 - Type 2 diabetes mellitus without complications, E78.5 - Hyperlipidemia, unspecified, I10 - Essential (primary) hypertension Lipid Panel 3 Months E11.9 - Type 2 diabetes mellitus without complications, E78.5 - Hyperlipidemia, unspecified, I10 - Essential (primary) hypertension Microalbumin, Random (w Creat) 3 Months E11.9 - Type 2 diabetes mellitus without complications, E78.5 - Hyperlipidemia, unspecified, I10 - Essential (primary) hypertension Medications: New Jardiance (empagliflozin) 10 mg PO DAILY 90 tabs 1RF NS
[2024-07-16 09:43] VITALS: BP 120/68; PULSE 75; RESP 20; TEMP 36.9; O2SAT 97; BMI 47.5
--- OUTSIDE RECORDS SUMMARY | 2024-07-16 10:27 | XMS_ITS ---
Author Organization [facility] Address [address] [place] [address] Care Team Providers Care Taffy Puller Name Role Phone Mia North MD Primary Care Provider Dinesh Smith Unavailable [phone] Allergies Allergen (clinical drug ingredient) Drug/Non Drug [...] Osteoarthritis of midtarsal joint of left foot ([id number] ) Osteoarthritis of midtarsal joint of left foot (M19.072) Active confirmed Vital Signs Height 5 ft 2 in in 06/27/2023 Weight 261 lbs 06/27/2023 BMI 47.73 kg/m2 06/27/2023 Encounters Encounter Location Date Provider Diagnosis [facility] [address] [place] [address] 06/27/2023 Dinesh Tom Pain in left foot [...] * Roma ARANDA MDOB:[birth year] (52 yo F)Acc No.[id number]:06/27/2023 Progress Note Patient:?Roma Aranda Provider:?Dinesh Santos DPM :1970???Age:52 Y???Sex:Female D ate:06/27/2023 Address:[address] [place] [address] [place], [id number] Pcp:Mia North MD Subjective: * Chief Complaints: [...] * Hospitalization/Major Diagno stic Procedure:?Patient admitted to [facility] for chest pain and dizziness. 05/2015[facility] - Hypertention 02/28/17[facility]- back pain 07/2020 * Family History:?Mother: [...] ?Exercise: yes, rarely. ?Marital status: . 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 * Medications:?TakingmetFORMIN HCl 500 MG Tablet 1 [...] - M19.072? Plan: * Treatment: * Procedure Codes:?76382 X-RAY EXAM OF LEFT FOOT 3V, Modifiers: [...] exercise to failure, expense, systemic complications, infection, [id number], prolongued postop course. Patient questions re: the various treatment options available, their successes and potential failures, and terminal block assembler effects were discussed and the answers were [...] Santos DPM Date:?2023 Generated for Pablo anguiano/Angela/Gurvinderitting on:?07/16/2024 10:27 AM EDT History and Physical Notes * HPI [...]
--- OUTSIDE RECORDS SUMMARY | 2024-07-16 10:27 | XMS_ITS | Patient Health Record ---
Author Organization [facility] Address [address] [place] [address] Care Team Providers Care Pruner Name Role Phone Mia North MD Primary Care Provider Dinesh Smith Unavailable [phone] Allergies Allergen (clinical drug ingredient) Drug/Non Drug [...] Osteoarthritis of midtarsal joint of left foot ([id number] ) Osteoarthritis of midtarsal joint of left foot (M19.072) Active confirmed Plan Of Treatment Pending Test Test Name Order Date X ray : Foot, left 3V 06/27/2023 X ray : Foot, right 3V 06/23/2021, [id number]/INJECT, JOINT/BURSA 0 07/16/201599817, [id number]/INJECT, JOINT/BURSA 0 10/13/201505434,[id number] TENDON SHEATH/LIGAMENT 0 11/17/201712356,[id number] TENDON SHEATH/LIGAMENT 1 06/21/202010331,[id number] TENDON SHEATH/LIGAMENT 0 06/23/202181729,[id number] TENDON SHEATH/LIGAMENT 0 07/29/2021 Insurance Providers Payer Name Payer Address Payer Phone Subscriber Number Group Number Insured Name Patient Relationship to Insured Coverage Start Date Coverage End Date [facility] [address] [address] [place] [phone] [id number] Roma Urrutia Self - patient is the [...] Hospitalization History Reason Date(Month/Year) Patient admitted to [facility] for chest p ain and dizziness. 05/2015 [facility] - Hypertention 02/28/17 [facility]- back pain 07/2020
--- OUTSIDE RECORDS SUMMARY | 2024-07-16 10:27 | XMS_ITS | Continuity of Care Document ---
Author Organization [place] [facility], [facility] Address [address] [place] [address] Care Team Providers Care Oracle Application Architect Name Role Phone DEEDEE JAYNE Primary Care Provider Assessment Encounter Date Assessment [...] No further ENT workup or intervention recommended. [email or web address] Not available 07/09/2024 12:01:40 Plan of Treatment [...] Abnormal Flag Note LastModifiedBy Organization Detail LastModifiedTime 07/10/19 25 07/07/2024 CT, tempo ral bone, w/ contr ast No observ ation record ed. [email or web address] Not Available 08/2024 11:56:55 07/10/19 25 07/07/2024 CT, cervi jose juan spine , w/o contr ast No observ ation record ed. [email or web address] Not Available 08/2024 13:30:25 07/10/19 25 07/07/2024 CT, cervi jose juan spine , w/o contr ast No observ ation record ed. [email or web address] Not Available 08/2024 12:51:06 Result Notes None recorded. Problems Name Problem SNOMED Code Status Onset Date Resolution Date Notes Provider Name and Address Organization Details Recorded Time Neck pain 14199825 Active 2024 ANGELICA DENTON MD [address] [place] [address], [facility] [place], [address], [place] - [facility] 11:50:56 Headache 40483259 Active 2024 ANGELICA DENTON MD [address] [place] [address], [facility] [place], [address], [place] - [facility] 11:51:05 Referred otalgia of right ear 295677734153918 0 Active 2024 ANGELICA DENTON MD [address] [place] [address], [employer] [place], [address], [place] - [facility] 12:01:07 Problem Notes None recorded. Procedures Surgical History Date Name Laterality Status Provider Name and Address Organization Details Recorded Time hernia repair completed Theresa Witt [place] - [facility] 07/09/2024 11:32:04 oophorectomy completed Theresa Witt [place] - [facility] 07/09/2024 11:32:11 biopsy of breast completed Theresa Witt [place] - [facility] 07/09/2024 11:32:20 section completed Theresa Witt [place] - [facility] 07/09/2024 11:32:25 Imaging Results None recorded. Procedure Notes None recorded. Medical Equipment None Reported. Allergies Allergen ID Allergen Name Allergen Category Reaction Reaction Severity Criticality Documentation Date Start Date Code Code System Note Provider Name and Address Organization Details Recorded Time 983938 Substance with sulfonami de structure and antibacte rial mechanism of action (substanc e) medicatio n facial swelling severe Not available 07/09/2024 48309 8003 SNOMED Theresa Eduar null, [place] - [facility] 5 11:30:11 545980 lisinopri l medicatio n swelling severe Not available 07/09/2024 58170 RxNorm Theresa Eduar null, [place] - [facility] 5 11:30:11 099444 codeine medicatio n rash severe Not available 07/09/2024 2670 RxNorm Theresa Eduar null, [place] - [facility] 5 11:30:11 489809 benzonata te medicatio n anaphylax is severe Not available 07/09/2024 50514 RxNorm Theresa Witt null, [place] - [facility] 5 11:30:11 636484 baclofen medicatio n anaphylax is severe Not available 07/09/2024 1292 RxNorm Theresa Witt null, [place] - [facility] 5 11:30:11 524069 doxycycli ne Not available other severe Not available 07/09/2024 3640 RxNorm Theresa Witt null[place] - [facility] 5 11:30:11 829417 Demerol medicatio n confusion severe Not available 07/09/2024 60173 1 RxNorm Theresa Witt null[place] - [facility] 5 11:30:11 009587 losartan medicatio n swelling severe Not available 07/09/2024 69283 RxNorm Theresa Eduar null, [place] - [facility] 5 11:30:11 924914 dextromet horphan hydrobrom pranay medicatio n itching moderate Not available 07/09/2024 17199 0 RxNorm Theresa Eduar null, [place] - [facility] 5 11:30:11 513008 Trulicity medicatio n itching moderate Not available 07/09/2024 24228 96 RxNorm Theresa Witt null, [place] - [facility] 11:30:11 Medications Name Sig Start Date Stop [...] Not Available No t Available amoxicillin 875 mg-potassiu m clavulanate 125 mg tablet TAKE 1 TABLET [...] Time Mother Malignant neoplastic disease 77 78 [email or web address] Not available 08/2024 11:31:30 Maternal Aunt Malignant neoplastic disease [email or web address] Not available 08/2024 11:31:30 Paternal Aunt Malignant neoplastic disease [email or web address] Not available 08/2024 11:31:30 Son Allergy 4 [email or web address] Not availa ble 07/09/2024 11:31:30 Sister Complication of anesthesia [email or web address] Not available 11:31:30 Sister Vertigo [email or web address] Not availa ble 07/09/2024 11:31:30 Father Malignant neoplastic disease 50 52 [email or web address] Not available 08/2024 11:31:30 Medical History Condition Response Tonsil Infections N Emphysema N Glaucoma N Depression Y COPD N Nasal or Sinus Problems Y Anesthesia Complications N Arthritis Y Hearing Loss N Cancer Y Stroke N High Cholesterol N Liver Disease N Headaches Y Fibromyalgia Y Speech Delay N Kidney Disease N Allergies/Hayfever Y Heart Problems Y Anxiety Y Migraines N Thyroid Problems Y Developmental Delay N Anemia Y Immune System Disorder N Heart Attack (CT) N Other Skin Condition Y Diabetes Y Rhinitis Y Bleeding Disorder N Food Allergy N Hyperlipidemia N Dementia N Nasal polyps N Asthma N Sleep Disorder N GERD/Reflux N Hypertension Y Gynecological HistoryNo gynecological history recorded. Obstetrics History GPAL:G 0 P 0 0 0 0 Past Encounters Encounter ID Performer Location Encounter Start Date Encounter Closed Date Diagnosis/Indication Diagnosis SNOMED-CT Code Diagnosis ICD10 Code Diagnosis Note [id number] ANGELICA DENTON MD [facility] [address] [address] 07/09/2024 10:21:50 07/09/2024 11:52:29 Neck pain 17907097 M54.2 Headache 00187516 R51.9 Referred o talgia of right ear [id number] 426427 H92.01 M26.621 M79.11 Health Concerns Section Related Observation LastModified by Organization Detai ls LastModified Time None Recorded Concern Status LastModified by Organization Details LastModified Time None Recorded Payers Encounter Date Sequence Insurance Name Policy Number Policy Valdivia Covered Member ID Valdivia Member ID Guarantor Name 07/09/2024 1 [facility] [id number] [facility] Notes Date Note Type Note Provider Name and Address Organization Details Recorded Time 07/09/2024 text/html 53-year-old fema le with type 2 diabetes and morbid obesity referred urgently by [facility] emergency room. Patient presented there [...] the time of presentation. ANGELICA DENTON MD [address] [place] [address], [phone], [facility] 07/09/2024 12:01:53 OBGyn Episode No OBEpisode recorded.
--- OUTSIDE RECORDS SUMMARY | 2024-07-16 10:28 | XMS_ITS | Clinical Summary ---
Author Organization [facility] Address [address] [place] [address] Care Team Providers Care Sales Center Associate Name Role Phone Unavailable Primary Care Provider Unavailabl e Social History Tobacco Use Types Packs/Day Years Used Date Smoking Tobacco: Never Assessed Sex and Gender Information Value Date Recorded Sex Assigned at Not on file Gender Identity Not on file Sexual Orientation Not on file Plan of Treatment Upcoming Encounters Date Type Department Care Team ([facility] st Contact Info) Description 08/20/2024 9:45 AM EDT Office Visit [facility] [address], [place] [address] [place] Ricardo MD [address] [place] [address] [phone] Health Maintenance Due Date Last Done Comments [...]
== END 2024-07-16 10:23 | disposition home or self-care (01) ==
LOC: HO.HMCC 09:23
PROVIDERS: PCP Internal Medicine; Visit Provider Internal Medicine
DX: E11.9 Type 2 diabetes mellitus without complications (principal); I10 Essential (primary) hypertension; E78.5 Hyperlipidemia, unspecified

== ENCOUNTER → 2024-07-16 09:22 | Outpatient (BNVA) | payer OTHER, SELFPAY | PROVIDERS: PCP Internal Medicine; Visit Provider Internal Medicine | DX: E11.9 Type 2 diabetes mellitus without complications (principal); I10 Essential (primary) hypertension; E78.5 Hyperlipidemia, unspecified; Z79.899 Other long term (current) drug therapy | CPT/HCPCS: 96127 ==

== ENCOUNTER 2024-09-02 09:51 | Outpatient (AMB) | payer OTHER, SELFPAY ==
[2024-09-02 09:56] VITALS: BP 130/70; PULSE 80; O2SAT 98; BMI 47.0
--- NOTE | 2024-09-02 09:56 | MHC.OFFVIS ---
Vital Signs 09/02/24 09:56 Height 5 ft 1 in Weight 249 lb BMI 47.0 BP 130/70 Blood Pressure Location Lt brachial Position Sitting Pulse 80 Pulse Source Pulse Oximeter Pulse Oximetry (%) 98 Oxygen Delivery Method Room Air Intake Visit Reasons: Obstructive sleep apnea Intake Note: pt is here for follow up of PATRICIA and feels good, the cpap is going okay, Telecommunications Officer Required: No Allergies doxycycline [DOXYCYCLINE] Allergy (Severe, Verified 09/02/24 10:11) ESOPHAGITIS Sulfa (Sulfonamide Antibiotics) Allergy (Severe, Verified 09/02/24 10:11) FACIAL SWELLING codeine [Codeine] Allergy (Intermediate, Verified 09/02/24 10:11) RASH lisinopril [Lisinopril] Allergy (Intermediate, Verified 09/02/24 10:11) EXTREMITIES SWELLING benzonatate [BENZONATATE] Allergy (Unknown, Verified 09/02/24 10:11) ANAPHYLAXIS meperidine [Demerol] Allergy (Unknown, Verified 09/02/24 10:11) Rash baclofen Adverse Reaction (Severe, Verified 09/02/24 10:11) Anaphylaxis dulaglutide [From Trulicity] Adverse Reaction (Intermediate, Verified 09/02/24 10:11) itchy throat losartan Adverse Reaction (Intermediate, Verified 09/02/24 10:11) swelling of hands, Medication List - Last Reconciled 09/02/24 by Carlos Lewis MD acetaminophen ER (Tylenol Arthritis Pain) 650 mg PO Q12H amlodipine 10 mg PO DAILY blood sugar diagnostic (FreeStyle Lite Strips) 1 qd blood-glucose meter (FreeStyle Lite Meter kit) As directed cetirizine (Zyrtec) 10 mg PO DAILY cholecalciferol (vitamin D3) 125 mcg PO DAILY citalopram 10 mg PO DAILY citalopram 20 mg PO DAILY cyclobenzaprine 5 mg PO .qhs docusate sodium (Colace) 100 mg PO BID epinephrine 0.3 mg (0.3 mL) IM ONCE PRN fluticasone propionate 50 mcg/actuation 1 spray intranasal DAILY hydralazine 75 mg PO BID lancets (FreeStyle Lancets) Test blood sugar once a day lorazepam 0.5 mg PO BEDTIME PRN meclizine 25 mg PO BID PRN metformin 500 mg orally 1 in AM and 2 q PM; multivitamin 1 tab PO DAILY pravastatin 20 mg PO DAILY pregabalin 200 mg PO DAILY triamcinolone acetonide 0.1% 1 appl topical DAILY triamterene-hydrochlorothiazid 37.5-25 mg 1 cap PO DAILY Do you need a note to return to daycare/school/sports/work: No HPI HPI Obstructive sleep apnea: Details: THIS 53 YEARS OLD, VERY PLEASANT FEMALE IS A CASE OF MORBID OBESITY AND OBSTRUCTIVE SLEEP APNEA. SHE USES CPAP VERY REGULARLY AND IN FACT WITHOUT THE CPAP SHE IS ON ABLE TO SLEEP. SINCE LAST VISIT SHE HAS SIGNED HERSELF IN A DIETARY PROGRAM, AND HAD LOST ABOUT 20 LB OF WEIGHT. SHE FEELS VERY GOOD. COMPLIANCE IS EXCELLENT. [facility] Medical History PATRICIA treated with BiPAP Morbid obesity Lumbar and sacral spondyloarthritis Hyperlipemia Depression Thyroid nodule Hx of renal calculi Irritable bowel syndrome GERD (gastroesophageal reflux disease) Arthritis Cancer Surgical History H/O ventral hernia repair Hx of bilateral oophorectomy Hx of breast biopsy Hx of section Hx of colonoscopy Hx of esophagogastroduodenoscopy Family History Mother No problems noted. Father Substance use disorder Esophageal cancer Brother Substance use disorder Sister Substance use disorder History of Mccurdy's esophagus Social History Household Members: Family Household Members Other:: , unemployed, 2 children () Housing: House Do you presently have visiting nurse or other home services: No Unable to assess alcohol history related to: Unable to respond Alcohol intake: current Alcohol intake frequency: holidays/special occasions only Alcohol type: beer Patient Tobacco Use Status: Never used Tobacco e-Cigarette/Vaping Use: Never Used Second Hand Smoke Exposure: No Advance Directives Date on File: 03/18/22 service: No Current occupational status: unemployed Cognitive needs: No Hearing needs: No Vision needs: Yes Review of Systems Const All systems reviewed & are unremarkable except as noted in HPI and below Eyes Reports no additional complaints ENT Reports nasal congestion (Mild off and on) Card Denies chest pain, Denies irregular heart rhythm and Denies leg edema Resp Reports as per HPI GI Reports no additional complaints Reports no additional complaints Musc Reports back pain Skin/Breast Reports system reviewed and no additional complaints, except as documented Neuro Reports no additional complaints Psych Reports no additional complaints Physical Exam Vital Signs: Last Vital Signs Pulse 80 09/02/24 09:56 BP 130/70 09/02/24 09:56 Pulse Ox 98 09/02/24 09:56 Oxygen Delivery Method Room Air 09/02/24 09:56 BMI result Body Mass Index 47.0 Const General: healthy appearing (EXCEPT FOR BEING OVERWEIGHT), comfortable, no acute distress, alert and awake Orientation/consciousness: patient oriented x3 HEENT Head: Yes normal to inspection General nose exam: No nasal polyps present and No nasal discharge present Face and sinus: Yes sinuses nontender Mouth: oropharynx normal Throat: Yes posterior oropharynx normal Eyes General: appearance normal, both eyes and all related structures Neck Neck: Yes normal visual inspection, Yes no lymphadenopathy, Yes trachea midline and Yes no JVD Thyroid: Thyroid normal Chest Chest palpation & inspection: normal inspection of the chest, normal palpation of entire chest wall and no tenderness Resp Other: Percussion note resonant in the upper parts of the chest and somewhat dull over the basilar areas. Breath sounds are decreased over the basilar areas but equal on both sides. No wheezes rhonchi or crepitations are heard. Cardio Palpation: normal PMI Rate: regular rate Rhythm: regular rhythm Heart sounds: no gallops and no murmurs GI Palpation (GI): Soft to palpation, nontender, No hepatosplenomegaly present and no masses Auscultation: normal bowel sounds Back/Spine/Pelvis Thoracic/Lumbar Spine: thoracic and lumbar spine normal to inspection and thoraco-lumbar ROM limited Skin General skin exam: no rashes or lesions noted Neuro General: patient oriented x3 and no focal motor deficits Cranial nerves: Yes CN's II-XII intact bilaterally Extrem General: Yes normal to inspection, Yes no clubbing, cyanosis or edema and Yes no calf tenderness Psych Appearance: grossly normal and well kempt Speech and movement: Normal speech and movement present Results Reviewed Results Reviewed: COMPLIANCE FOR THE LAST 30 NIGHTS IS REVIEWED AND SHE HAS USED 100% OF THE NIGHTS. AVERAGE USE IT PER NIGHT 7 HOURS 28 MINUTES. THERE IS A MILD AIR LEAK, RESIDUAL AHI 4.6 Assessment & Plan Assessment & Plan (1) Morbid obesity: Comment: CASE OF CHRONIC MORBID OBESITY. .BMI= 47.0 PATIENT IS AWARE OF BEING MORBIDLY OBESE AND SHE IS TRYING TO RESTRICT DIETARY INTAKE. BUT NOT ABLE TO DO MUCH EXERCISE. SHE IS PARTICIPATING IN A STRICT DIETARY PROGRAM AND HAS LOST ABOUT 20 LB OF WEIGHT SINCE LAST VISIT. Code(s): E66.01 - Morbid (severe) obesity due to excess calories Category: Medical Plan: COMMENDED FOR LOSING WEIGHT. ENCOURAGED TO STAY IN THE DIETARY PROGRAM AND DO REGULAR EXERCISES. (2) PATRICIA treated with BiPAP: Comment: Patient does have longstanding history of obstructive sleep apnea with hypoventilation. Currently on BiPAP therapy with pressure 18/14 cm . Compliance is excellent, and she is actually fully dependent on the use of BiPAP at night. Code(s): G47.33 - Obstructive sleep apnea (adult) (pediatric) Category: Medical Plan: COMMENDED FOR GOOD COMPLIANCE AND ADVISED TO KEEP ON USING THE BILEVEL CPAP REGULARLY EVERY NIGHT. Coding Level of Care Code Est Pt Level 3 (17351) Diagnoses Morbid obesity E66.01 PATRICIA treated with BiPAP G47.33
--- OUTSIDE RECORDS SUMMARY | 2024-09-02 11:13 | XMS_ITS ---
Author Organization [facility] Address [address] [place] [address] Care Team Providers Care Continuity Coordinator Name Role Phone Mia North MD Primary Care Provider Dinesh Smith Unavailable [phone] Allergies Allergen (clinical drug ingredient) Drug/Non Drug [...] Osteoarthritis of midtarsal joint of left foot (4711005921794844 ) Osteoarthritis of midtarsal joint of left foot (M19.072) Active confirmed Vital Signs Height 5 ft 2 in in 06/27/2023 Weight 261 lbs 06/27/2023 BMI 47.73 kg/m2 06/27/2023 Encounters Encounter Location Date Provider Diagnosis [facility] [address] [place] [address] 06/27/2023 Dinesh Tom Pain in left foot [...] * Roma ARANDA MDOB:[birth year] (52 yo F)Acc No.[id number]:06/27/2023 Progress Note Patient:?Roma Aranda Provider:?Dinesh Santos DPM :1970???Age:52 Y???Sex:Female D ate:06/27/2023 Address:[address] [place] [address] [place] Pcp:Mia North MD Subjective: * Chief Complaints: [...] * Hospitalization/Major Diagno stic Procedure:?Patient admitted to [facility] for chest pain and dizziness. [place] [place] * Family History:?Mother: [...] ?Exercise: yes, rarely. ?Marital status: . 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 * Medications:?TakingmetFORMIN HCl 500 MG Tablet 1 [...] - M19.072? Plan: * Treatment: * Procedure Codes:?15624 X-RAY EXAM OF LEFT FOOT 3V, Modifiers: [...] exercise to failure, expense, systemic complications, infection, [id number], prolongued postop course. Patient questions re: the various treatment options available, their successes and potential failures, and termite control service representative effects were discussed and the answers were [...] Santos DPM Date:?2023 Generated for Pablo anguiano/Angela/Gurvinderitting on:?09/02/2024 11:13 AM EDT History and Physical Notes * [...]
--- OUTSIDE RECORDS SUMMARY | 2024-09-02 11:13 | XMS_ITS | Patient Health Record ---
Author Organization [facility] Address [address] [facility] [place] [address] Care Team Providers Care Hand Buffing Wheel Former Name Role Phone Mia North MD Primary Care Provider Dinesh Smith Unavailable [phone] Allergies Allergen (clinical drug ingredient) Drug/Non Drug [...] Osteoarthritis of midtarsal joint of left foot ([id number] ) Osteoarthritis of midtarsal joint of left foot (M19.072) Active confirmed Plan Of Treatment Pending Test Test Name Order Date X ray : Foot, left 3V 06/27/2023 X ray : Foot, right 3V 06/23/2021, [id number]/INJECT, JOINT/BURSA 0 07/16/201596517, [id number]/INJECT, JOINT/BURSA 0 10/13/201565967,[id number] TENDON SHEATH/LIGAMENT 0 11/17/201768839,[id number] TENDON SHEATH/LIGAMENT 1 06/21/202074618,[id number] TENDON SHEATH/LIGAMENT 0 06/23/202129609,X2273-NSL TENDON SHEATH/LIGAMENT 0 07/29/2021 Insurance Providers Payer Name Payer Address Payer Phone Subscriber Number Group Number Insured Name Patient Relationship to Insured Coverage Start Date Coverage End Date [facility] [address] [address] [place] [address] [id number] Roma Urrutia Self - patient is the [...] Hospitalization History Reason Date(Month/Year) Patient admitted to [facility] for chest p ain and dizziness. [place] [facility] [place] [facility] [place]17 [facility] 07/2020
--- OUTSIDE RECORDS SUMMARY | 2024-09-02 11:14 | XMS_ITS | Data Portability ---
Author Organization [place] [facility], [facility] Address [address] [place] [address] Care Team Providers Care Yield Improvement Engineer Name Role Phone JAYNE MARK Primary Care Provider Assessment Encounter Date Assessment [...] No further ENT workup or intervention recommended. [email or web address] Not available 07/09/2024 12:01:40 Plan of Treatment [...] contr ast No observ ation record ed. [email or web address] Not Available 08/2024 11:56:55 07/10/19 25 07/07/2024 CT, cervi jose juan spine , w/o contr ast No observ ation record ed. [email or web address] Not Available 08/2024 13:30:25 07/10/19 25 07/07/2024 CT, cervi jose juan spine , w/o contr ast No observ ation record ed. [email or web address] Not Available 08/2024 12:51:06 Result Notes None recorded. Problems Name Problem SNOMED Code Status Onset Date Resolution Date Notes Provider Name and Address Organization Details Recorded Time Neck pain 63030158 Active 2024 ANGELICA DENTON MD [address] [facility],[place] [address], [place], [address], [place] [facility] 11:50:56 Headache 31617295 Active 2024 ANGELICA DENTON MD [address] [place] [address], [place], [address], [place] - [facility] 11:51:05 Referred otalgia of right ear [id number] 0 Active 2024 ANGELICA DENTON MD [address] [facility],[place] [address], [place], [address], [place] - [facility] 12:01:07 Problem Notes None recorded. Procedures Surgical History Date Name Laterality Status Provider Name and Address Organization Details Recorded Time hernia repair completed Theresa Witt [place] - [facility] 07/09/2024 11:32:04 oophorectomy completed Theresa Witt [place] - [facility] 07/09/2024 11:32:11 biopsy of breast completed Theresa Witt [place] - [facility] 07/09/2024 11:32:20 section completed Theresa Witt [place] - [facility] 07/09/2024 11:32:25 Imaging Results Imaging Date Name Status LastModified by [facility] Details LastModified Time 07/07/2024 CT, temporal bone, w/ contrast completed [email or web address] Information not available 07/09/2024 11:56:55 07/07/2024 CT, cervical spine, w/o contrast completed [email or web address] Information not available 07/09/2024 13:30:25 07/07/2024 CT, cervical spine, w/o contrast completed [email or web address] Information not available 07/09/2024 12:51:06 Procedure Notes None recorded. Medical Equipment None Reported. Allergies Allergen ID Allergen Name Allergen Category Reaction Reaction Severity Criticality Documentation Date Start Date Code Code System Note Provider Name and Address Organization Details Recorded Time 257484 Substance with sulfonami de structure and antibacte rial mechanism of action (substanc e) medicatio n facial swelling severe Not available 07/09/2024 24592 8003 SNOMED Theresa nichole, [place] - [facility] 5 11:30:11 285381 lisinopri l medicatio n swelling severe Not available 07/09/2024 37809 RxNorm Theresa nichole, [place] [facility] 11:30:11 976627 codeine medicatio n rash severe Not available 07/09/2024 2670 RxNorm Theresa nichole, [place] [facility] 11:30:11 178223 [place] medicatio n anaphylax is severe Not available 07/09/2024 53448 RxNorm Theresa nichole, [place] [facility] 5 11:30:11 440140 baclofen medicatio n anaphylax is severe Not available 07/09/2024 1292 RxNorm Theresa nichole, [place] [facility] 5 11:30:11 405055 doxycycli ne Not available other severe Not available 07/09/2024 3640 RxNorm Theresa nichole, [place] - [facility] 5 11:30:11 244498 Demerol medicatio n confusion severe Not available 07/09/2024 55330 1 RxNorm Theresa nichole, [place] [facility] 5 11:30:11 753823 losartan medicatio n swelling severe Not available 07/09/2024 86852 RxNorm Theresa nichole, [place] - [facility] 5 11:30:11 708876 dextromet horphan hydrobrom pranay medicatio n itching moderate Not available 07/09/2024 08347 0 RxNorm Theresa nichole [place] - [facility] 5 11:30:11 490997 Trulicity medicatio n itching moderate Not available 07/09/2024 74970 96 RxNorm Theresa nichole [place] - [facility] 5 11:30:11 Medications Name Sig Start Date [...] Time Mother Malignant neoplastic disease 77 78 [email or web address] Not available 08/2024 11:31:30 Maternal Aunt Malignant neoplastic disease [email or web address] Not available 08/2024 11:31:30 Paternal Aunt Malignant neoplastic disease [email or web address] Not available 08/2024 11:31:30 Son Allergy 4 [email or web address] Not availa ble 07/09/2024 11:31:30 Sister Complication of anesthesia [email or web address] Not available 11:31:30 Sister Vertigo [email or web address] Not availa ble 07/09/2024 11:31:30 Father Malignant neoplastic disease 50 52 [email or web address] Not available 08/2024 11:31:30 Medical History Condition Response Allergies/Hayfever Y Heart Problems Y Anxiety Y Tonsil Infections N Emphysema N Migraines N Thyroid Problems Y Glaucoma N Depression Y COPD N Developmental Delay N Nasal or Sinus Problems Y Anemia Y Immune System Disorder N Anesthesia Complications N Heart Attack ([place]) N Other Skin Condition Y Diabetes Y [...] SNOMED-CT Code Diagnosis ICD10 Code Diagnosis Note [id number] ANGELICA DENTON MD [facility] [address] [address] 07/09/2024 10:21:50 07/09/2024 11:52:29 Neck pain 61282923 M54.2 Headache 40889508 R51.9 Referred o talgia of right ear [id number] 308051 H92.01 M26.621 M79.11 Health Concerns Section Related Observation LastModified by Organization Detai ls LastModified Time None Recorded Concern Status LastModified by Organization Details LastModified Time None Recorded Advance Directives Directive None Recorded Payers Encounter Date Sequence Insurance Name Policy Number Policy Valdivia Covered Member ID Valdivia Member ID Guarantor Name 07/09/2024 [facility] [id number] [facility] Notes Date Note Type Note Provider Name and Address Organization Details Recorded Time 07/09/2024 text/html 53-year-old kristin santos with type 2 diabetes and morbid obesity referred urgently by [facility] emergency room. Patient presented there with [...] the time of presentation. ANGELICA DENTON MD [address] [place] [address], [place], [address], [place] [facility] 07/09/2024 12:01:53 OBGyn Episode No OBEpisode recorded.
--- OUTSIDE RECORDS SUMMARY | 2024-09-02 11:14 | XMS_ITS ---
Author Name [facility] Organization Unknown History of Medication Use Medication Directions Dispensed Refills Start Date End Date Stat us hydrALAZINE (APRESOLINE) 25 MG tablet 1 tablet by Mouth/Oral Cavity route every 12 hours. 05/16/2024 active amLODIPine (NORVASC) 10 MG tablet 1 tablet every day by oral route. active citalopram (CeleXA) 10 MG tablet active metFORMIN (GLUCOPHAGE) 500 MG tablet active pravastatin (PRAVACHOL) 20 MG tablet active pregabalin (LYRICA) 200 MG capsule active triamterene-hydroCHLO ROthiazide (DYAZIDE) 37.5-25 MG per capsule active Problems Problem Status Onset Date Problem Type Date of Resolution Source Enchondroma of bone active 2024-08-14 ProblemAct [facility] Esophagitis, reflux active 2024-08-14 ProblemAct [facility] Neck pain active 2024-07-09 ProblemAct [facility] Depression active 2024-08-14 ProblemAct [facility] Hiatal hernia active 2024-08-20 ProblemAct [facility] Rectal bleeding active 2024-08-20 ProblemAct [facility] Irritable bowel syndrome with diarrhea active 2024-08-20 ProblemAct [facility] Diverticular disease active 2024-08-14 ProblemAct [facility] Impaired glucose tolerance active 2024-08-14 ProblemAct [facility] Hypertension active 2024-08-14 ProblemAct [facility] Anxiety active 2024-08-14 ProblemAct [facility] DCIS (ductal carcinoma in situ) active 2024-08-14 ProblemAct [facility] Allergic contact dermatitis active 2024-08-14 ProblemAct [facility] Esophageal spasm active 2024-08-20 ProblemAct [facility] Chest pain of unknown etiology active 2024-08-14 ProblemAct [facility] Headache active 2024-07-09 ProblemAct [facility] Referred otalgia of right ear active 2024-07-09 ProblemAct [facility] Hematochezia active 2024-08-14 ProblemAct [facility] Gastroesophageal reflux disease active 2024-08-20 ProblemAct [facility] History of adenomatous polyp of colon active 2024-08-20 ProblemAct [facility] Angioedema active 2015-03-03 ProblemAct [facility] Eustachian tube dysfunction, right active EncounterDiagnosisAct [facility] Oropharyngeal dysphagia active 2024-08-20 ProblemAct [facility] Cholangiectasis active 2024-08-14 ProblemAct [facility] Asthma active 2024-08-14 ProblemAct [facility] Allergic rhinitis active 2024-08-14 ProblemAct [facility] Immunizations Vaccine Date Source Lot Number Status Influenza, Unspecified 02/21/2024 [facility] co mpleted Influenza Virus Trivalent Sp lit Vaccine (MDV) IM 03/30/2021 [facility] completed Influenza Whole 03/09/2020 [facility] UNK completed Influenza Virus Trivalent Sp lit Vaccine (MDV) IM 02/19/2020 [facility] completed Influenza Whole 02/05/2019 [facility] [id number] completed DTP / HiB 06/30/2018 [facility] UNK completed Influenza Virus Trivalent Sp lit Vaccine (MDV) IM 02/13/2018 [facility] UNK completed Influenza Virus Trivalent Sp lit Vaccine (MDV) IM 02/10/2017 [facility] [id number] completed Td, Unspecified 12/19/2016 [facility] UNK completed Influenza Virus Trivalent Sp lit Vaccine (MDV) IM 03/02/2016 [facility] UNK completed Pneumococcal Polysaccharide 23-Valent 05/19/2015 [facility] [id number] completed Influenza Virus Trivalent Sp lit Vaccine (MDV) IM 03/31/2015 [facility] [id number] completed Influenza Virus Trivalent Sp lit Vaccine (MDV) IM 01/28/2014 [facility] [id number] completed Influenza Virus Trivalent Sp lit Vaccine (MDV) IM 01/31/2013 [facility] [id number] completed Influenza Whole 02/27/2012 [facility] [id number] completed Influenza Whole 01/21/2011 [facility] [id number] completed Influenza Whole 01/28/2010 [facility] [id number] completed Influenza Virus Trivalent Sp lit Vaccine (MDV) IM 01/28/2009 [facility] [id number] completed Hep B, Unspecified 08/15/2008 [facility] [id number] comple jo Tdap 08/15/2008 [facility] UNK completed Hep B, Unspecified 03/14/2008 [facility] [id number] comple jo Hep B, Unspecified 02/12/2008 [facility] [id number] comple jo Influenza Whole 04/25/2007 [facility] [id number] completed Influenza Whole 03/28/2006 [facility] [id number] completed Pneumococcal Polysaccharide 23-Valent 10/07/1999 [facility] UNK completed Td, Unspecified 02/05/1999 [facility] UNK completed Encounters Encounter Type Encounter Reason [facility] Care Team Organization Name Specialty Phone Email Start Date End Da aba [facility] 08/23/2024 [facility] 08/20/2024 [facility] 07/09/2024
--- OUTSIDE RECORDS SUMMARY | 2024-09-02 11:14 | XMS_ITS | Clinical Summary ---
Author Organization [facility] Address [address] [place] [address] Care Team Providers Care Pick Up Worker Name Role Phone Mia North MD Primary Care Provider [phone] Allergies Active Allergy Reactions Criticality Noted Date Comments Baclofen Anaphylaxis High 08/20/2024 Benzonatate Anaphylaxis High 09/04/2017 Codeine Rash/Dermatitis,Unkn own/Patient and Family Unable to Define Medium 04/18/2011 Converted from Generic Allergy: Codeine RASH Dextromethorphan Itching Medium 08/20/2024 Doxycycline GI Intolerance/Nausea/V omiting Low 10/26/2020 esophagitis Dulaglutide Itching Medium 08/20/2024 Lisinopril Swelling High 09/04/2017 Losartan Swelling Medium 10/26/2020 Meperidine Shortness Of Breath,Other (See Comments),Unknown/Pa tient and Family Unable to Define Medium 04/18/2011 Hallucinations and hyperventilation Converted from Generic Allergy: Meperidine ?? ANXIETY AND HYPERVENTILATION Medications citalopram (CeleXA) 10 MG tablet Active hydrALAZINE (APRESOLINE) 25 MG tablet 1 tablet by Mouth/Oral Cavity route every 12 hours. 05/16/2024 Active metFORMIN (GLUCOPHAGE) 500 MG tablet Active pregabalin (LYRICA) 200 MG capsule Active pravastatin (PRAVACHOL) 20 MG tablet Active triamterene-hydr oCHLOROthiazide (DYAZIDE) 37.5-25 MG per capsule Active amLODIPine (NORVASC) 10 MG tablet 1 tablet every day by oral route. Active Active Problems Problem Noted Date Diagnosed Date Esophageal spasm 08/20/2024 Gastroesophageal reflux disease 08/20/2024 Hiatal hernia 08/20/2024 History of adenomatous polyp of colon 08/20/2024 Irritable bowel syndrome with diarrhea Oropharyngeal dysphagia 08/20/2024 Rectal bleeding 08/20/2024 Allergic contact dermatitis 08/14/2024 Allergic rhinitis 08/14/2024 Overview (08/14/2024): sinusitis Anxiety 08/14/2024 Asthma 08/14/2024 Chest pain of unknown etiology 08/14/2024 Cholangiectasis 08/14/2024 Overview (08/14/2024): mildly dilated by u/s/mri 2010 DCIS (ductal carcinoma in situ) 08/14/2024 Depression 08/14/2024 Diverticular disease 08/14/2024 Overview (08/14/2024): colo 2015 Enchondroma of bone 08/14/2024 Overview (08/14/2024): L humerus head Esophagitis, reflux 08/14/2024 Hematochezia 08/14/2024 Hypertension 08/14/2024 Impaired glucose tolerance 08/14/2024 Headache 07/09/2024 Neck pain 07/09/2024 Referred otalgia of right ear 07/09/2024 Angioedema 03/03/2015 Encounters Date Type Department Care Team Description 08/20/2024 9:45 AM EDT Office Visit [facility] [place] [address] [facility] [place] [address] [place] Ricardo MD Otalgia, right (Primary Dx); Eustachian tube dysfunction, right 07/22/2024 Orders Only [facility] [place] [address] [place] [address] Provider, MD Medardo from Last 3 Months Immunizations Immunization Administration Dates Next Due DTP / HiB 06/30/2018 Hep B, Unspecified 08/15/2008,03/14/2008, 008 Influenza Virus Trivalent Sp lit Vaccine (MDV) IM 03/30/2021,02/19/2020,02/13/2018,02/10,02/10/2017,03/02/2016,03/31/2015 ,01/28/2014,01/31/2013,01/28/2009 Influenza Whole 03/09/2020, 9,02/27/2012,01/21,01/28/2010,04/25/2007,03/28/2006 Influenza, Unspecified 02/21/2024 Pneumococcal Polysaccharide 23-Valent 05/19/2015 ,10/07/1999 Td, Unspecified 12/19/2016,02/05/1999 Tdap 08/15/2008 Social History Tobacco Use Types Packs/Day Years Used Date Smoking Tobacco: Never Assessed Comments Unknown Sex and Gender Information Value Date Recorded Sex Assigned at Female 07/31/2024 10:59 AM EDT Legal Sex Female 3:41 PM EDT Gender Identity Female 07/31/2024 10:59 AM EDT Sexual Orientation Heterosexual (straight) 07/31 10:59 AM EDT Plan of Treatment Health Maintenance Due Date Last Done Comments Hepatitis C Virus Screening 1968 HIV Screening 1981 Pap Smear (Ages 21-65) 1989 Mammogram 2008 Colonoscopy 2013 Pneumococcal Vaccines 50+ (2 of 2 - PCV) 05/19/2016 05/19/2015, 10/07/1999 Zoster (Shingles) Vaccine (1 of 2) 2018 COVID-19 Vaccine (3 - 2023-2 5 season) 2024 06/18/2020, 05/21/2020 DTaP/Tdap/Td Vaccines (3 - T d or Tdap) 12/19/2026 12/19/2016, 08/15/2008, 02/05/1999 Hepatitis B Vaccines Completed 08/15/2008, 03/14/2008, 02/12/2008 Influenza Vaccine Completed 02/21/2024, , 03/09/2020, Additional history exists Procedures Procedure Name Priority Date/Time Associated Diagnosis Comments AMB REFERRAL TO ENT Routine 07/15/2024 1:53 PM EDT from Last 3 Months Results * Amb Referral to ENT (07/15/2024 1:53 PM EDT) us External Provider OUTPATIENT REFERRAL ORDERAB LES Final Result from Last 3 Months Insurance [facility] [place] [id number] Care Teams Pick Up Worker Relationship Specialty Start Date End Date Mia North MD [address] [place] [address] PCP - General 08/20/24
== END 2024-09-02 10:11 | disposition home or self-care (01) ==
LOC: HO.HPS 09:52
PROVIDERS: PCP Internal Medicine; Visit Provider Internal Medicine
DX: E66.01 Morbid (severe) obesity due to excess calories (principal); G47.33 Obstructive sleep apnea (adult) (pediatric)
CPT/HCPCS: 99213

== ENCOUNTER 2024-09-19 14:02 | Outpatient (AMB) | payer OTHER, SELFPAY ==
[2024-09-19 14:10] VITALS: BP 132/60; PULSE 72; BMI 46.1
--- NOTE | 2024-09-19 14:10 | MHC.OFFVIS ---
Vital Signs 09/19/24 14:10 Height 5 ft 1 in Weight 244 lb 0.6 oz BMI 46.1 BP 132/60 Blood Pressure Location Lt brachial Position Sitting Pulse 72 Pulse Source Monitor Intake Visit Reasons: f/u PT request Building Dismantler Required: No Allergies doxycycline [DOXYCYCLINE] Allergy (Severe, Verified 09/19/24 14:12) ESOPHAGITIS Sulfa (Sulfonamide Antibiotics) Allergy (Severe, Verified 09/19/24 14:12) FACIAL SWELLING codeine [Codeine] Allergy (Intermediate, Verified 09/19/24 14:12) RASH lisinopril [Lisinopril] Allergy (Intermediate, Verified 09/19/24 14:12) EXTREMITIES SWELLING benzonatate [BENZONATATE] Allergy (Unknown, Verified 09/19/24 14:12) ANAPHYLAXIS meperidine [Demerol] Allergy (Unknown, Verified 09/19/24 14:12) Rash baclofen Adverse Reaction (Severe, Verified 09/19/24 14:12) Anaphylaxis dulaglutide [From Trulicity] Adverse Reaction (Intermediate, Verified 09/19/24 14:12) itchy throat losartan Adverse Reaction (Intermediate, Verified 09/19/24 14:12) swelling of hands, Medication List - Last Reconciled 09/19/24 by STEVE PardoC acetaminophen ER (Tylenol Arthritis Pain) 650 mg PO Q12H amlodipine 10 mg PO DAILY blood sugar diagnostic (FreeStyle Lite Strips) 1 qd blood-glucose meter (FreeStyle Lite Meter kit) As directed cetirizine (Zyrtec) 10 mg PO DAILY cholecalciferol (vitamin D3) 125 mcg PO DAILY citalopram 10 mg PO DAILY citalopram 20 mg PO DAILY cyclobenzaprine 5 mg PO .qhs docusate sodium (Colace) 100 mg PO BID epinephrine 0.3 mg (0.3 mL) IM ONCE PRN fluticasone propionate 50 mcg/actuation 1 spray intranasal DAILY hydralazine 75 mg PO BID lancets (FreeStyle Lancets) Test blood sugar once a day lorazepam 0.5 mg PO BEDTIME PRN meclizine 25 mg PO BID PRN metformin 500 mg orally 1 in AM and 2 q PM; multivitamin 1 tab PO DAILY pravastatin 20 mg PO DAILY pregabalin 200 mg PO DAILY triamcinolone acetonide 0.1% 1 appl topical DAILY triamterene-hydrochlorothiazid 37.5-25 mg 1 cap PO DAILY HPI HPI f/u PT request: Details: Roma is a 52-year-old female with past medical history of hypertension, hyperlipidemia, obesity, aortic valve sclerosis, obstructive sleep apnea with CPAP use who presents for follow-up. Today she reports that she went to a Pilates class and was in a laying down position and began to not feel well. She developed heart palpitations, lightheadedness, diaphoresis, no syncope. She sat up and it took her some time before her symptoms fully resolved. They had her sitting and drinking water until she felt better Peter she has not gone to recurrent Pilates class since that time. She describes similar episode years ago when she was doing physical therapy in a laying down position. She describes 1 syncopal episode in the past which she feels was related to vertigo. She also says she was walking outside once and her Apple watch told her that her heart rate was low. She was feeling normal at that time. No chest discomfort, shortness of breath, orthopnea, leg edema. She has been actively working on weight loss with diet and exercise. Taking all meds as directed. [facility] Medical History PATRICIA treated with BiPAP Morbid obesity Lumbar and sacral spondyloarthritis Hyperlipemia Depression Thyroid nodule Hx of renal calculi Irritable bowel syndrome GERD (gastroesophageal reflux disease) Arthritis Cancer Surgical History H/O ventral hernia repair Hx of bilateral oophorectomy Hx of breast biopsy Hx of section Hx of colonoscopy Hx of esophagogastroduodenoscopy Family History Mother No problems noted. Father Substance use disorder Esophageal cancer Brother Substance use disorder Sister Substance use disorder History of Mccurdy's esophagus Social History Household Members: Family Household Members Other:: , unemployed, 2 children () Housing: House Do you presently have visiting nurse or other home services: No Unable to assess alcohol history related to: Unable to respond Alcohol intake: current Alcohol intake frequency: holidays/special occasions only Alcohol type: beer Patient Tobacco Use Status: Never used Tobacco e-Cigarette/Vaping Use: Never Used Second Hand Smoke Exposure: No Advance Directives Date on File: 03/18/22 service: No Current occupational status: unemployed Cognitive needs: No Hearing needs: No Vision needs: Yes Review of Systems Const All systems reviewed & are unremarkable except as noted in HPI and below ENT Denies dizziness Card Details: episode of presyncope Denies chest pain, Denies chest pain at rest, Denies chest pain with activity, Reports rapid heart rate, Denies pedal edema, Denies edema, Denies leg edema, Denies lightheadedness, Denies palpitations, Denies dyspnea, Denies dyspnea on exertion and Denies orthopnea Resp Denies cough, Denies dyspnea and Denies dyspnea on exertion GI Denies hematochezia and Denies change in stool character Musc Denies abnormal gait, Denies limited range of motion, Denies muscle cramps, Denies muscle weakness, Denies numbness, Denies radiating pain into limb, Denies stiffness and Denies tingling Neuro Denies abnormal gait, Denies dizziness, Denies numbness and Denies tingling Endo Denies palpitations Physical Exam Vital Signs: Last Vital Signs Pulse 72 09/19/24 14:10 BP 132/60 09/19/24 14:10 BMI result Body Mass Index 46.1 Const Other: Morbidly obese General: cooperative, comfortable and no acute distress Orientation/consciousness: patient oriented x3 Neck Neck: Yes normal visual inspection Resp Effort & Inspection: normal respiratory effort Auscultation: clear to auscultation bilaterally, no crackles, no rales, no rhonchi and no wheezes Cardio Jugular venous distension: no JVD Rate: regular rate Rhythm: regular rhythm Heart sounds: S1 normal heart sound present, S2 normal heart sound present, Murmur heart sound present (Systolic murmur faint) and no rubs Neuro General: patient oriented x3 Extrem General: Yes normal to inspection Psych Appearance: grossly normal Mental Status: mental status grossly normal Speech and movement: Normal speech and movement present Office Procedures EKG Details: Today, read by me, normal sinus rhythm, nonspecific T wave abn, rate 72, Qtc 442ms [id number], Complete Assessment & Plan Assessment & Plan (1) Pre-syncope: Code(s): R55 - Syncope and collapse Category: Medical Plan: Recent episode of presyncope which sounds vasovagal in nature. Will evaluate for other causes with updated echocardiogram to assess for any structural changes. Will check exercise stress test to evaluate for any exercise induced arrhythmia. Will check a Holter monitor to assess for arrhythmia. Reviewed possible diagnosis of vasovagal syncope. Instructed on maintaining good hydration. Avoid exercising in a laying down position as this seems to exacerbate her events. Cardiology follow-up in 4-6 weeks, sooner if needed. (2) Aortic valve sclerosis: Code(s): I35.8 - Other nonrheumatic aortic valve disorders Category: Medical Plan: Last echo 01/12/2023 showing normal EF and fibrocalcific aortic valve changes, mildly elevated gradient. Continue statin. Updating echocardiogram due to presyncope. (3) Essential hypertension: Comment: Intolerant to ARB or STEVEN inhibitors caused swelling of legs and hands Code(s): I10 - Essential (primary) hypertension Category: Medical Plan: Blood pressure goal less than 130/80. Good at present. No med changes made. Continue amlodipine, hydralazine and hydrochlorothiazide/triamterene. Low-salt diet reviewed. Reviewed the ongoing benefits of weight loss and increased physical activity as tolerated. (4) Morbid obesity: Code(s): E66.01 - Morbid (severe) obesity due to excess calories Category: Medical Plan: She is actively working on weight loss. Current BMI 46.1. (5) PATRICIA treated with BiPAP: Code(s): G47.33 - Obstructive sleep apnea (adult) (pediatric) Category: Medical Plan: She reports nightly compliance with her CPAP. Plan Time spent on chart review, documentation, interview and assessment Orders: Orders CA stress test Today R55 - Syncope and collapse CA echo transthoracic complete Today I10 - Essential (primary) hypertension, I35.8 - Other nonrheumatic aortic valve disorders, R55 - Syncope and collapse ECG 3 day holter monitor Today R55 - Syncope and collapse Coding Level of Care Code Est Pt Level 4 (49288) Complex EM visit Add On G2211 Diagnoses Pre-syncope R55 Aortic valve sclerosis I35.8 Essential hypertension I10 Morbid obesity E66.01 PATRICIA treated with BiPAP G47.33 CPT Codes EKG - CPT: 51666-[id number], Complete ([id number]) Time Spent (min) 34
--- OUTSIDE RECORDS SUMMARY | 2024-09-19 14:45 | XMS_ITS | Patient Health Record ---
Author Organization [facility] Address [address] [place] [address] Care Team Providers Care Marketing Sales Manager Name Role Phone Mia North MD Primary Care Provider Hitesh Santiago Unavailable [phone] Allergies Allergen (clinical drug ingredient) Drug/Non Drug [...] Act emily Sulfa Unknown Drug Allergy Active Reason For Referral [...] W/U Status Risk Notes Problem Rectal bleeding (78885064) Rectal bleeding (K62.5) Active confirmed Problem 936782808 History of adenomatous polyp of colon (Z86.010) Active confirmed Problem 778044711 Irritable bowel syndrome with diarrhea (K58.0) Active confirmed Problem Oropharyngeal dysphagia (48477319) Dysphagia, pharyngeal phase (R13.13) Active confirmed Problem 11305040 Blood in stool (K92.1) Active confirmed Problem 599993084 Gastroesophageal reflux disease, esophagitis presence not specified (K21.9) Active confirmed Problem Hiatal hernia (51756765) Hiatal hernia (K44.9) Active confirmed Problem 597207039 Esophageal spasm (K22.4) Active confirmed Problem Gastroesophageal reflux disease (791256195) GERD (gastroesophageal reflux disease) (K21.9) Active confirmed Problem 35125715 Diarrhea, unspecified type (R19.7) Active confirmed Problem Irritable bowel syndrome (22444340) Irritable bowel syndrome with both constipation and diarrhea (K58.0) Active confirmed Plan Of Treatment Pending Test Test Name Order Date CELIAC PANEL #10 03/01/2017 Future Test Test Name Order Date COLONOSCOPY 03/01/2017 UPPER GI ENDOSCOPY 01/30/2020 COLONOSCOPY 01/06/2022 Insurance Providers Payer Name Payer Address Payer Phone Subscriber Number Group Number Insured Name Patient Relationship to Insured Coverage Start Date Coverage End Date [facility] [address] [address] [place] [address] [id number] CAMILLA ARANDA Self - patient is the insured Medical (General) History Medical History History ICD Code Asthma Hypertension Breast cancer Personal history of polyps-1 tubular adenoma and a hyperplastic polyp removed via a colonoscopy with [facility]; Most recent one was in 06/[address] Brooks--but incomplete to the transverse colon due to poor prep--she was noted to have diverticulosis Denies [place],CVA,renal disease Sleep apnea GERD--EGD in 2015--history o [...] pancreatic or biliary disease--this was done at [facility] Neg. colonoscopy in 05/2017--bx neg for m icroscopic colitis, no polyps Kidney stones with infection at [facility] in 2 018 Lichen sclerosus EGD in 02/2020--small hiatal hernia, no esophagitis, no evidence of esophageal stricture nor ring and therefore no dilation was performed, biopsies were negative for Mccurdy's esophagus and negative for eosinophilic esophagitis Thyroid nodules undergoing b iopsies with [facility] endocrinology as of the 07/08/2020 office visit Back pain--receiving cortiso ne injections and treatments as of the 07/08/2020 OV Mild aortic stenosis-Echocardiograms e very 2 years-sees Dr. Blackmon Chronic back pain Surgical History Surgery Date(Month/Year) Lumpectomy x2--DCIS--sees Dr. Jack x 2 [id number] Bilateral oopherectomy 2014 Abdominal wall hernia repair 1976 Partial thyroidectomy 2021 Trigger fingers x 4 on right hand schedu led for 01/11/2022
--- OUTSIDE RECORDS SUMMARY | 2024-09-19 14:45 | XMS_ITS | Patient Health Record ---
Author Organization [facility] Address [address] [facility] [place] [address] Care Team Providers Care Formal Wear Rental Clerk Name Role Phone Mia North MD Primary Care Provider Dinesh Smiht Unavailable [phone] Allergies Allergen (clinical drug ingredient) Drug/Non Drug [...] Osteoarthritis of midtarsal joint of left foot (0515436574753631 ) Osteoarthritis of midtarsal joint of left foot (M19.072) Active confirmed Plan Of Treatment Pending Test Test Name Order Date X ray : Foot, left 3V 06/27/2023 X ray : Foot, right 3V 06/23/2021, [id number]/[id number], JOINT/BURSA 0 07/16/201500917, [id number]/[id number], JOINT/BURSA 0 10/13/201530411,[id number] TENDON SHEATH/LIGAMENT 0 11/17/201719863,[id number] TENDON SHEATH/LIGAMENT 1 06/21/202050206,[id number] TENDON SHEATH/LIGAMENT 0 06/23/202192784,[id number] TENDON SHEATH/LIGAMENT 0 07/29/2021 Insurance Providers Payer Name Payer Address Payer Phone Subscriber Number Group Number Insured Name Patient Relationship to Insured Coverage Start Date Coverage End Date [facility] [id number] [address] [address] [place] [address] [id number] Roma Urrutia Self - patient is the [...] Hospitalization History Reason Date(Month/Year) Patient admitted to [facility] for chest p ain and dizziness. 05/2015 [facility] - Hypertention 02/28/17 [facility]- back pain 07/2020
--- OUTSIDE RECORDS SUMMARY | 2024-09-19 14:45 | XMS_ITS | Data Portability ---
Author Organization [place] [facility], Allergy Address [address] [place] [id number] Care Team Providers Care Computer Architect Name Role Phone JAYNE MARK Primary Care [...] No further ENT workup or intervention recommended. [email or web address] Not available 07/09/2024 12:01:40 Plan of Treatment [...] contr ast No observ ation record ed. [email or web address] Not Available 08/2024 11:56:55 07/10/19 25 07/07/2024 CT, cervi jose juan spine , w/o contr ast No observ ation record ed. Not Available 08/2024 13:30:25 07/10/19 25 07/07/2024 CT, cervi jose juan spine , w/o contr ast No observ ation record ed. [email or web address] Not Available 08/2024 12:51:06 Result Notes None recorded. Problems Name Problem SNOMED Code Status Onset Date Resolution Date Notes Provider Name and Address Organization Details Recorded Time Neck pain 20691116 Active 2024 ANGELICA DENTON MD [address] [facility],[place] [address], [facility] [place], [address], [place] - [facility] 11:50:56 Headache 97310855 Active 2024 ANGELICA DENTON MD [address] [place] [address], [facility] [place], [address], [place] - [facility] 11:51:05 Referred otalgia of right ear 657166018819986 0 Active 2024 ANGELICA DENTON MD [address] [facility],[place] [address], [facility] [place], [address], [place] - [facility] 12:01:07 Problem Notes None recorded. Procedures Surgical History Date Name Laterality Status Provider Name and Address Organization Details Recorded Time hernia repair completed Theresa Witt [place] - [facility] 07/09/2024 11:32:04 oophorectomy completed Theresa Witt [place] - [facility] 07/09/2024 11:32:11 biopsy of breast completed Theresa Witt [place] - [facility] 07/09/2024 11:32:20 section completed Theresa Witt [place] - [facility] 07/09/2024 11:32:25 Imaging Results Imaging Date Name Status LastModified by Organ [facility] Details LastModified Time 07/07/2024 CT, temporal bone, w/ contrast completed [email or web address] Information not available 07/09/2024 11:56:55 07/07/2024 CT, cervical spine, w/o contrast completed [email or web address] Information not available 07/09/2024 13:30:25 07/07/2024 CT, cervical spine, w/o contrast completed [email or web address] Information not available 07/09/2024 12:51:06 Procedure Notes None recorded. Medical Equipment None Reported. Allergies Allergen ID Allergen Name Allergen Category Reaction Reaction Severity Criticality Documentation Date Start Date Code Code System Note Provider Name and Address Organization Details Recorded Time 736610 Substance with sulfonami de structure and antibacte rial mechanism of action (substanc e) medicatio n facial swelling severe Not available 07/09/2024 80679 8003 SNOMED Theresa nichole, [place] - [facility] 5 11:30:11 346063 lisinopri l medicatio n swelling severe Not available 07/09/2024 95308 RxNorm Theresa nichole, [place] - [facility] 11:30:11 418903 codeine medicatio n rash severe Not available 07/09/2024 2670 RxNorm Theresa nichole, [place] - [facility] 11:30:11 044046 benzonata te medicatio n anaphylax is severe Not available 07/09/2024 60896 RxNorm Theresa nichole, [place] - [facility] 5 11:30:11 442040 baclofen medicatio n anaphylax is severe Not available 07/09/2024 1292 RxNorm Theresa nichole, [place] - [facility] 5 11:30:11 334281 doxycycli ne Not available other severe Not available 07/09/2024 3640 RxNorm Theresa nichole, [place] - [facility] 5 11:30:11 202198 Demerol medicatio n confusion severe Not available 07/09/2024 68907 1 RxNorm Theresa nichole, [place] - [facility] 5 11:30:11 744839 losartan medicatio n swelling severe Not available 07/09/2024 46646 RxNorm Theresa nichole, [place] - [facility] 5 11:30:11 874936 dextromet horphan hydrobrom pranay medicatio n itching moderate Not available 07/09/2024 30583 0 RxNorm Theresa nichole [place] - [facility] 5 11:30:11 167341 Trulicity medicatio n itching moderate Not available 07/09/2024 67417 96 RxNorm Theresa nichole [place] - [facility] 5 11:30:11 Medications Name Sig Start [...] Time Mother Malignant neoplastic disease 77 78 [email or web address] Not available 08/2024 11:31:30 Maternal Aunt Malignant neoplastic disease [email or web address] Not available 08/2024 11:31:30 Paternal Aunt Malignant neoplastic disease [email or web address] Not available 08/2024 11:31:30 Son Allergy 4 [email or web address] Not availa ble 07/09/2024 11:31:30 Sister Complication of anesthesia [email or web address] Not available 11:31:30 Sister Vertigo [email or web address] Not availa ble 07/09/2024 11:31:30 Father Malignant neoplastic disease 50 52 [email or web address] Not available 08/2024 11:31:30 Medical History Condition Response Allergies/Hayfever Y Heart Problems Y Anxiety Y Tonsil Infections N Emphysema N Migraines N Thyroid Problems Y Glaucoma N Depression Y COPD N Developmental Delay N Nasal or Sinus Problems Y Anemia Y Immune System Disorder N Anesthesia Complications N Heart Attack (CT) N Other Skin [...] SNOMED-CT Code Diagnosis ICD10 Code Diagnosis Note 52625 ANGELICA DENTON MD [facility] [address] [address] 07/09/2024 10:21:50 07/09/2024 11:52:29 Neck pain 94796597 M54.2 Headache 13756312 R51.9 Referred o talgia of right ear [id number] 745683 H92.01 M26.621 M79.11 Health Concerns Section Related Observation LastModified by Organization Detai ls LastModified Time None Recorded Concern Status LastModified by Organization Details LastModified Time None Recorded Advance Directives Directive None Recorded Payers Insurance Date Sequence Insurance Name Policy Number Policy Valdivia Covered Member ID Valdivia Member ID Guarantor Name 09/02/2024 1 [facility] [id number] Troy Cortez [id number] Roma Cortez Notes Date Note Type Note Provider Name and Address Organization Details Recorded Time 07/09/2024 text/html 53-year-old fema danielle with type 2 diabetes and morbid obesity referred urgently by [facility] emergency room. Patient presented there with occipital [...] the time of presentation. ANGELICA DENTON MD [address] [place] [address], [place], [address], [facility] - [facility] 07/09/2024 12:01:53 OBGyn Episode No OBEpisode recorded.
--- OUTSIDE RECORDS SUMMARY | 2024-09-19 14:45 | XMS_ITS ---
Author Organization [facility] Address [address] [place] [address] Care Team Providers Care Ethnographic Materials Conservator Name Role Phone Mia North MD Primary Care Provider Dinesh Smith Unavailable [phone] Allergies Allergen (clinical drug ingredient) Drug/Non Drug [...] Osteoarthritis of midtarsal joint of left foot ([id number] ) Osteoarthritis of midtarsal joint of left foot (M19.072) Active confirmed Vital Signs Height 5 ft 2 in in 06/27/2023 Weight 261 lbs 06/27/2023 BMI 47.73 kg/m2 06/27/2023 Encounters Encounter Location Date Provider Diagnosis [facility] [place] [address] [place] [address] 06/27/2023 Dinesh Tom Pain in left foot [...] * Roma ARANDA MDOB:[birth year] (52 yo F)Acc No.[id number]:06/27/2023 Progress Note Patient:?EulaliakevinNeldady Sharon Provider:?Dinesh Santos DPM :1970???Age:52 Y???Sex:Female D ate:06/27/2023 Address:[address] [place] [address] Mary Mercado, [id number] Pcp:Mia North MD Subjective: * Chief Complaints: [...] * Hospitalization/Major Diagno stic Procedure:?Patient admitted to [facility] for chest pain and dizziness. [facility] [...] ?Exercise: yes, rarely. ?Marital status: . 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 * Medications:?TakingmetFORMIN HCl 500 MG Tablet 1 [...] - M19.072? Plan: * Treatment: * Procedure Codes:?58083 X-RAY EXAM OF LEFT FOOT 3V, Modifiers: [...] exercise to failure, expense, systemic complications, infection, [id number], prolongued postop course. Patient questions re: the various treatment options available, their successes and potential failures, and penitentiary effects were discussed and the answers were [...] Santos DPM Date:?2023 Generated for Pablo anguiano/Angela/Beatriz on:?09/19/2024 02:45 PM EDT History and Physical Notes * [...]
--- OUTSIDE RECORDS SUMMARY | 2024-09-19 14:45 | XMS_ITS | Clinical Summary ---
Author Organization [facility] Address [address] [place] [address] Care Team Providers Care Crime Victim Specialist Name Role Phone Mia North MD Primary Care Provider [phone] Allergies Active Allergy Reactions Criticality Noted Date [...] Description 08/20/2024 9:45 AM EDT Office Visit [facility] [place] [address] [facility], [place] [address] [place] Ricardo MD Otalgia, right (Primary Dx); Eustachian tube dysfunction, right 07/22/2024 Orders Only [facility] [place] [address] [place] [address] Provider, MD Medardo from Last [...] - 2023-2 5 season) 2024 06/18/2020, 05/21/2020 Influenza Vaccine 12/06/2024 02/21/2024, , 03/09/2020, Additional history exists DTaP/Tdap/Td Vaccines (3 - T d or Tdap) 12/19/2026 12/19/2016, 08/15/2008, 02/05/1999 Hepatitis B Vaccines Completed 08/15/2008, 03/14/2008, 02/12/2008 Procedures Procedure Name Priority Date/Time Associated Diagnosis Comments AMB REFERRAL TO ENT Routine 07/15/2024 1:53 PM EDT from Last 3 Months Results * Amb Referral to ENT (07/15/2024 1:53 PM EDT) us External Provider MD OUTPATIENT REFERRAL ORDERAB LES Final Result from Last 3 Months Insurance [facility] Member Subscriber Plan / Payer (Ef fective 2024-Present) Name:Roma Aranda Relation to Subscriber:Spouse Name:TROY ARANDA Date of :1971 Address: [address] [place] [address] Payer ID:[id number] (NAIC) Type:Not on file Address: [facility] [address] [place] [address] [place] [address] Care Teams Crime Victim Specialist Relationship Specialty Start Date End Date Mia North MD [address] [place] [address] PCP - General 08/20/24
== END 2024-09-19 14:57 | disposition home or self-care (01) ==
LOC: HO.HCS 14:02
PROVIDERS: PCP Internal Medicine; Visit Provider Nurse Practitioner Family
DX: R55 Syncope and collapse (principal); I35.8 Other nonrheumatic aortic valve disorders; I10 Essential (primary) hypertension; E66.01 Morbid (severe) obesity due to excess calories; G47.33 Obstructive sleep apnea (adult) (pediatric)
CPT/HCPCS: 93010; 99214; G2211

== ENCOUNTER → 2024-09-19 14:02 | Outpatient (BNVA) | payer OTHER, SELFPAY | PROVIDERS: PCP Internal Medicine; Visit Provider Nurse Practitioner Family | DX: R55 Syncope and collapse (principal) | CPT/HCPCS: 93005 ==

== ENCOUNTER 2024-10-11 22:56 | Emergency (ER) | payer OTHER, SELFPAY ==
[2024-10-11 23:19] VITALS: BP 158/85; PULSE 77; RESP 18; TEMP 36.6; O2SAT 97; BMI 46.6
[2024-10-12] MEDS: predniSONE 20 MG TABLET 40 MG PO (05:16)
[2024-10-12] MEDS: Doxycycline Monohydrate 100 MG CAPSULE PO (05:16)
[2024-10-12 05:29] VITALS: BP 148/84; PULSE 63; RESP 16; TEMP 36.3; O2SAT 98
[2024-10-12 05:40] VITALS: BP 163/84; PULSE 75
[2024-10-12] MEDS: EPINEPHrine 1 MG/ML VIAL 0.3 MG IM (05:40)
[2024-10-12] MEDS: Albuterol Sulfate (0.083%) 2.5 MG/3 ML VIAL.NEB 5 MG INHALE (05:49)
--- NOTE | 2024-10-12 05:49 | ED.SKABFB ---
HPI - Skin/Abscess/Foreign Bdy General Chief complaint: Skin/Abscess/Foreign Body Stated complaint: big bites Time Seen by Provider: 10/12/24 05:06 Source: patient Mode of arrival: ambulatory Limitations: no limitations History of Present Illness ED Provider: HPI narrative: Patient went out in [facility] last week for dinner got mosquito bites in the lower extremity patient has tried Benadryl and triamcinolone cream without much relief mosquito bites all over the lower extremities increased itching Related Data Home Medications ?Medication ?Instructions ?Recorded ?Confirmed docusate sodium 100 mg capsule 100 mg PO BID 02/14/20 09/19/24 (Colace) cholecalciferol (vitamin D3) 125 125 mcg PO DAILY 03/15/22 09/19/24 mcg (5,000 unit) tablet cetirizine 10 mg tablet (Zyrtec) 10 mg PO DAILY 03/17/22 09/19/24 acetaminophen 650 mg 650 mg PO Q12H 05/23/23 09/19/24 tablet,extended release (Tylenol Arthritis Pain) fluticasone propionate 50 1 spray intranasal DAILY 05/23/23 09/19/24 mcg/actuation nasal spray,suspension multivitamin 1 tab PO DAILY 05/23/23 09/19/24 pregabalin 150 mg capsule 200 mg PO DAILY 12/07/23 09/19/24 hydralazine 50 mg tablet 75 mg PO BID 09/02/24 09/19/24 Previous Rx's ?Medication ?Instructions ?Recorded lorazepam 0.5 mg tablet 0.5 mg PO BEDTIME PRN Anxiety #30 10/08/20 tabs triamcinolone acetonide 0.1 % 1 appl topical DAILY #80 grams 10/05/22 topical cream blood sugar diagnostic (FreeStyle #100 ea 04/14/23 Lite Strips) blood-glucose meter (FreeStyle #1 ea 04/14/23 Lite Meter kit) lancets 28 gauge (FreeStyle #100 ea 10/17/23 Lancets) epinephrine 0.3 mg/0.3 mL 0.3 mg (0.3 mL) IM ONCE PRN 11/21/23 injection, auto-injector Anaphylaxis #2 ea meclizine 25 mg tablet 25 mg PO BID PRN dizziness #30 tabs 12/07/23 metformin 500 mg tablet 500 mg PO .COMPLEX #270 tabs 02/02/24 citalopram 10 mg tablet 10 mg PO DAILY #90 tabs 04/17/24 citalopram 20 mg tablet 20 mg PO DAILY #90 tabs 04/17/24 amlodipine 10 mg tablet 10 mg PO DAILY #90 tabs 05/10/24 pravastatin 20 mg tablet 20 mg PO DAILY #90 tabs 08/05/24 triamterene 37.5 1 cap PO DAILY #90 caps 09/19/24 mg-hydrochlorothiazide 25 mg capsule cyclobenzaprine 5 mg tablet 5 mg PO .qhs #30 tabs 09/26/24 cefuroxime axetil 500 mg tablet 500 mg PO BID 7 days #14 tabs 10/12/24 prednisone 20 mg tablet 40 mg (2 x 20 mg) PO DAILY #10 tabs 10/12/24 Allergies Allergy/AdvReac Type Severity Reaction Status Date / Time Sulfa (Sulfonamide Allergy Severe FACIAL Verified 10/11/24 23:22 Antibiotics) SWELLING codeine [Codeine] Allergy Intermediate RASH Verified 10/11/24 23:22 doxycycline Allergy Intermediate Difficulty Verified 10/12/24 05:38 Breathing lisinopril [Lisinopril] Allergy Intermediate EXTREMITIES Verified 10/11/24 23:22 SWELLING benzonatate [BENZONATATE] Allergy Unknown ANAPHYLAXIS Verified 10/11/24 23:22 meperidine [Demerol] Allergy Unknown Rash Verified 10/11/24 23:22 baclofen AdvReac Severe Anaphylaxis Verified 10/11/24 23:22 dulaglutide [From Trulicity] AdvReac Intermediate itchy Verified 10/11/24 23:22 throat losartan AdvReac Intermediate swelling Verified 10/11/24 23:22 of hands, Review of Systems Review of Systems: Yes all other systems are reviewed and are negative [facility], [facility] Past Medical History Medical History PATRICIA treated with BiPAP Morbid obesity Lumbar and sacral spondyloarthritis Hyperlipemia Depression Thyroid nodule Hx of renal calculi Irritable bowel syndrome GERD (gastroesophageal reflux disease) Arthritis Cancer Surgical History H/O ventral hernia repair Hx of bilateral oophorectomy Hx of breast biopsy Hx of section Hx of colonoscopy Hx of esophagogastroduodenoscopy Family History Family History Mother No problems noted. Father Substance use disorder Esophageal cancer Brother Substance use disorder Sister Substance use disorder History of Mccurdy's esophagus Social History Social History Household Members: Family Household Members Other:: , unemployed, 2 children () Housing: House Do you presently have visiting nurse or other home services: No Unable to assess alcohol history related to: Unable to respond Alcohol intake: current Alcohol intake frequency: a few times a month Alcohol type: beer Patient Tobacco Use Status: Never used Tobacco Smoked in Last 30 Days: No e-Cigarette/Vaping Use: Never Used Second Hand Smoke Exposure: No Use of substances other than those prescribed or required for medical reasons: No Advance Directives: Yes Advance Directives on File: Yes Advance Directives Date on File: 03/18/22 Do you have a plan to hurt others: No Plan Patient : No service: No Current occupational status: unemployed Cognitive needs: No Hearing needs: No Vision needs: Yes Physical Exam Vital Signs: Vital Signs: Last Vital Signs Temp 97.3 F 10/12/24 05:29 Pulse 68 10/12/24 06:12 Resp 20 10/12/24 06:12 BP 163/84 H 10/12/24 05:40 Pulse Ox 98 10/12/24 05:29 O2 Del Method Room Air 10/12/24 05:29 BMI result Body Mass Index 46.6 Appearance: Alert. Oriented X3. No acute distress. Eyes: PERRLA, No Nystagmus ENT: Pharynx normal. Oral Mucosa moist Neck: Normal inspection. Neck supple. CVS: Normal heart rate and rhythm. Pulses normal. Respiratory: No respiratory distress. Equal air entry bilateral, no wheezing/rales/rhonchi Abdomen: Soft and nontender. Bowel sounds are present, no mass palpable, no CVA tenderness Skin: Skin warm and dry. Insect neves on the lower extremity with surrounding erythema Extremities: No lower extremity edema. No calf tenderness Neuro: Oriented X 3. No motor deficit. No sensory deficit.No cerebellar signs , cranial nerves II-XII intact Medications Administered Discontinued Medications Generic Name Dose Route Start Last Admin Trade Name Freq PRN Reason Stop Dose Admin Albuterol Sulfate 5 mg 10/12/24 05:37 10/12/24 05:49 Albuterol Sulfate (0.083%) 2.5 Mg/3 Ml Vial.Neb INHALE 10/12/24 05:38 5 mg ONCE ONE Administration Dexamethasone Sodium Phosphate 10 mg 10/12/24 05:45 10/12/24 05:51 Dexamethasone Sod Phosphate 10 Mg/Ml Vial IVPUSH 10/12/24 05:46 10 mg ONCE ONE Administration Diphenhydramine HCl 25 mg 10/12/24 05:45 10/12/24 05:51 Diphenhydramine Hcl 50 Mg/Ml Vial IVPUSH 10/12/24 05:46 25 mg ONCE ONE Administration Doxycycline Monohydrate 100 mg 10/12/24 05:07 10/12/24 05:16 Doxycycline Monohydrate 100 Mg Capsule PO 10/12/24 05:08 100 mg ONCE ONE Administration Epinephrine 0.3 mg 10/12/24 05:37 10/12/24 05:40 Epinephrine 1 Mg/Ml Vial IM 10/12/24 05:38 0.3 mg STAT STA Administration Prednisone 40 mg 10/12/24 05:07 10/12/24 05:16 Prednisone 20 Mg Tablet PO 10/12/24 05:08 40 mg ONCE ONE Administration Medical Decision Making Medical Decision Making MDM Narrative: 530 am patient clinically with infected insect bite patient's said that she had a reaction to doxycycline when she took the capsule and got stuck in his throat but otherwise never tried it for medicine before patient was given doxycycline in the ER and within 20 minutes of taking doxycycline patient started coughing with wheezing likely patient is allergic to doxycycline will give epinephrine albuterol treatment Discharge Plan Discharge Clinical Impression: Infected insect bite Patient Disposition: Home, Self-Care Instructions: Insect Bite or Sting (ED) Additional Instructions: Antibiotic as prescribed Prednisone for severe inflammation Keep an eye on your blood sugar if blood sugar is elevated you may increase metformin to 1000 mg twice a day Follow the PCP if not better Prescriptions: New prednisone 20 mg tablet 40 mg PO DAILY Qty: 10 0RF cefuroxime axetil 500 mg tablet 500 mg PO BID 7 Days Qty: 14 0RF No Action triamcinolone acetonide 0.1 % cream 1 appl topical DAILY Qty: 80 1RF (DME) FreeStyle Lite Strips Strip See Rx Instructions .Route Qty: 100 3RF Rx Instructions: 1 qd (DME) blood-glucose meter [FreeStyle Lite Meter] Kit See Rx Instructions .Route Qty: 1 0RF Rx Instructions: As directed (DME) lancets [FreeStyle Lancets] 28 gauge misc See Rx Instructions .Route Qty: 100 1RF Rx Instructions: Test blood sugar once a day epinephrine 0.3 mg/0.3 mL auto-injector 0.3 mg IM ONCE PRN (Reason: Anaphylaxis) Qty: 2 1RF citalopram 20 mg tablet 20 mg PO DAILY Qty: 90 3RF Rx Instructions: take with citalopram 10 mg citalopram 10 mg tablet 10 mg PO DAILY Qty: 90 3RF Rx Instructions: take with citalopram 20 mg amlodipine 10 mg tablet 10 mg PO DAILY Qty: 90 3RF pravastatin 20 mg tablet 20 mg PO DAILY Qty: 90 3RF triamterene-hydrochlorothiazid 37.5-25 mg capsule 1 cap PO DAILY Qty: 90 3RF cyclobenzaprine 5 mg tablet 5 mg PO .qhs Qty: 30 0RF docusate sodium [Colace] 100 mg Capsule 100 mg PO BID cholecalciferol (vitamin D3) 125 mcg (5,000 unit) Tablet 125 mcg PO DAILY cetirizine [Zyrtec] 10 mg Tablet 10 mg PO DAILY pregabalin 150 mg capsule 200 mg PO DAILY lorazepam 0.5 mg tablet 0.5 mg PO BEDTIME PRN (Reason: Anxiety) Qty: 30 0RF meclizine 25 mg tablet 25 mg PO BID PRN (Reason: dizziness) Qty: 30 0RF multivitamin Tablet 1 tab PO DAILY fluticasone propionate 50 mcg/actuation spray,suspension 1 spray intranasal DAILY Rx Instructions: administer into each nostril acetaminophen [Tylenol Arthritis Pain] 650 mg tablet extended release 650 mg PO Q12H hydralazine 50 mg tablet 75 mg PO BID Rx Instructions: dose increased metformin 500 mg tablet 500 mg PO .COMPLEX Qty: 270 1RF Rx Instructions: 500 mg orally 1 in AM and 2 q PM; Print Language: Thai
[2024-10-12] MEDS: diphenhydrAMINE HCL 50 MG/ML VIAL 25 MG IVPUSH (05:51)
[2024-10-12] MEDS: dexAMETHasone sod phosphate 10 MG/ML VIAL IVPUSH (05:51)
[2024-10-12 06:12] VITALS: PULSE 68; RESP 20; O2SAT 99
--- NOTE | 2024-10-12 07:27 | PC.NURSE ---
Late entry: 0520 Pt medicated with PO doxycycline. At time of discharge Pt constantly coughing, hoarse voice, reported not feeling like there was something stuck in throat, almost closing , SpO2 97% on RA, airway intact. Provider Aspen made aware. EPI IM given per JUL. IV line placed.
[2024-10-12 07:40] VITALS: BP 122/60; PULSE 91; RESP 14; TEMP 36.7; O2SAT 96
== END 2024-10-12 07:42 | disposition home or self-care (01) ==
PROVIDERS: Emergency Provider Internal Medicine; PCP Internal Medicine
DX: T14.8XXA Other injury of unspecified body region, initial encounter (principal); W57.XXXA Bitten or stung by nonvenomous insect and other nonvenomous arthropods, initial encounter; Y93.9 Activity, unspecified; Y92.9 Unspecified place or not applicable; Y99.9 Unspecified external cause status
CPT/HCPCS: 94640; 96372; 96374; 96375; 99284; J0171; J1100; J1200

== ENCOUNTER 2024-10-14 06:45 | Outpatient (REF) | payer OTHER, SELFPAY ==
[2024-10-14 07:33] LABS: Estimated Average Glucose 123 mg/dL; Hemoglobin A1C 135.5703 umol/L; Hemoglobin A1c % 5.9 % (<6.0)
[2024-10-14 07:51] LABS: Alanine Aminotransferase 30 U/L (0-31); Albumin Level 4.5 g/dL (3.5-5.0); Alkaline Phosphatase 60 U/L (39-117); Anion Gap 12 (12-20); Aspartate Amino Transferase 28 U/L (5-31); Bilirubin Total 0.3 mg/dL (0.0-1.0); Blood Urea Nitrogen 16 mg/dL (9-16); Calcium 9.7 mg/dL (8.4-10.2); Carbon Dioxide 27 mmol/L (22-29); Chloride 104 mmol/L (96-108); Cholesterol 151 mg/dL (<200); Estimated Glomerular Filt Rate > 60; Glucose Fasting 105 mg/dL (60-99); HDL Cholesterol 50 mg/dL (>40); LDL Cholesterol Calculated 79 mg/dL (<100); Potassium 3.9 mmol/L (3.3-5.1); Sodium 139 mmol/L (135-145); Total Protein 7.2 g/dL (6.5-8.0); Triglycerides 114 mg/dL (<150)
[2024-10-14 08:41] LABS: Creatinine Urine 205.24 mg/dL; Microalbum/Creatinine Ratio Ur 68.7 ug/mg cr (<30)
== END 2024-10-14 06:46 | disposition home or self-care (01) ==
LOC: HO.LAB 06:45
PROVIDERS: PCP Internal Medicine; Visit Provider Internal Medicine
DX: E11.9 Type 2 diabetes mellitus without complications (principal); E78.5 Hyperlipidemia, unspecified; I10 Essential (primary) hypertension
CPT/HCPCS: 36415; 80053; 80061; 82043; 82570; 83036

== ENCOUNTER 2024-10-31 09:10 | Outpatient (AMB) | payer OTHER, SELFPAY ==
--- NOTE | 2024-10-31 09:13 | A.OFFPC_ITS ---
Vital Signs 10/31/24 09:14 Height 5 ft 1 in Weight 239 lb BMI 45.2 BP 124/64 Blood Pressure Location Lt brachial Position Sitting Respiration 18 Pulse 67 Pulse Source Pulse Oximeter Temp 98.3 F Temp Source Oral Pulse Oximetry (%) 97 Oxygen Delivery Method Room Air Intake Visit Reasons: 3 months follow up Intake Note: Pt is here today for 3 months follow up visit. Allergies Sulfa (Sulfonamide Antibiotics) Allergy (Severe, Verified 10/31/24 09:20) FACIAL SWELLING codeine (Codeine) Allergy (Intermediate, Verified 10/31/24 09:20) RASH doxycycline Allergy (Intermediate, Verified 10/31/24 09:20) Difficulty Breathing lisinopril (Lisinopril) Allergy (Intermediate, Verified 10/31/24 09:20) EXTREMITIES SWELLING benzonatate (BENZONATATE) Allergy (Unknown, Verified 10/31/24 09:20) ANAPHYLAXIS meperidine (Demerol) Allergy (Unknown, Verified 10/31/24 09:20) Rash baclofen Adverse Reaction (Severe, Verified 10/31/24 09:20) Anaphylaxis dulaglutide (From Trulicity) Adverse Reaction (Intermediate, Verified 10/31/24 09:20) itchy throat losartan Adverse Reaction (Intermediate, Verified 10/31/24 09:20) swelling of hands, Medication List - Last Reconciled 10/31/24 by Mia North MD acetaminophen ER (Tylenol Arthritis Pain) 650 mg PO Q12H amlodipine 10 mg PO DAILY blood sugar diagnostic (FreeStyle Lite Strips) 1 qd blood-glucose meter (FreeStyle Lite Meter kit) As directed cetirizine (Zyrtec) 10 mg PO DAILY cholecalciferol (vitamin D3) 125 mcg PO DAILY citalopram 10 mg PO DAILY citalopram 20 mg PO DAILY cyclobenzaprine 5 mg PO .qhs docusate sodium (Colace) 100 mg PO BID epinephrine 0.3 mg (0.3 mL) IM ONCE PRN fluticasone propionate 50 mcg/actuation 1 spray intranasal DAILY hydralazine 75 mg PO BID lancets (FreeStyle Lancets) Test blood sugar once a day lorazepam 0.5 mg PO BEDTIME PRN meclizine 25 mg PO BID PRN metformin 500 mg orally 1 in AM and 2 q PM; multivitamin 1 tab PO DAILY pravastatin 20 mg PO DAILY prednisone 40 mg (2 x 20 mg) PO DAILY pregabalin 200 mg PO DAILY triamcinolone acetonide 0.1% 1 appl topical DAILY triamterene-hydrochlorothiazid 37.5-25 mg 1 cap PO DAILY Tobacco use date assessed: 10/31/24 Dental Screening Dental Screen Date: 06/12/24 HPI 3 months follow up HPI Details Pt presents for follow-up on hypertension hyperlipidemia type 2 diabetes morbid obesity. Patient has been following weight loss program increasing physical activity and lost 30 lb since May. She has been physically active exercising at least 5 times a week without chest pain shortness or breath or palpitations. [facility] Medical History Microalbuminuria Essential hypertension PATRICIA treated with BiPAP Morbid obesity Lumbar and sacral spondyloarthritis Hyperlipemia Depression Thyroid nodule Hx of renal calculi Irritable bowel syndrome GERD (gastroesophageal reflux disease) Arthritis Cancer Surgical History H/O ventral hernia repair Hx of bilateral oophorectomy Hx of breast biopsy Hx of section Hx of colonoscopy Hx of esophagogastroduodenoscopy Family History Mother No problems noted. Father Substance use disorder Esophageal cancer Brother Substance use disorder Sister Substance use disorder History of Mccurdy's esophagus Social History (Reviewed 10/31/24 @ 09:18 by Faith Rodriguez [facility]) Household Members: Family Household Members Other:: , unemployed, 2 children () Housing: House Do you presently have visiting nurse or other home services: No Unable to assess alcohol history related to: Unable to respond Alcohol intake: current Alcohol intake frequency: a few times a month Alcohol type: beer Patient Tobacco Use Status: Never used Tobacco e-Cigarette/Vaping Use: Never Used Second Hand Smoke Exposure: No Advance Directives Date on File: 03/18/22 service: No Current occupational status: unemployed Cognitive needs: No Hearing needs: No Vision needs: Yes Questionnaire Thrive Questionnaire Date Thrive assessed: 06/11/24 I am a: Patient What is your living situation today?: I have a steady place to live Within the past 12 months, did the food you bought not last and you didn't have the money to get more?: Never true Within the past 12 months, did you worry whether your food would run out before you got money to buy more?: Never true Do you have trouble paying for medicines?: No Do you have trouble getting transportation to medical appointments?: No Do you have trouble paying your heating and electricity bill?: No Do you have trouble taking care of your child, family member or friend?: No Do you have trouble with day-to-day activities such as bathing, preparing meals, shopping, managing finances, etc.?: I choose not to answer this question Are you currently unemployed and looking for a job?: No Are you interested in more education?: No Please select the resources that you would like help with: None Currently or been in a relationship where the following occur: No concerns reported THRIVE Score: 0 HARRIET-7 AMB Questionnaire HARRIET-7 Date HARRIET - 7 assessed: 06/12/24 Source: Developed by Drs. Hitesh Bowden, Vero Owens, Micheal Cedillo and colleagues, with an educational bert from [employer]. Review of Systems Const All systems reviewed & are unremarkable except as noted in HPI and below Eyes Reports no additional complaints ENT Reports no additional complaints Card Reports no additional complaints Resp Reports no additional complaints GI Reports no additional complaints Reports no additional complaints Physical exam (Primary Care) Vital Signs: Last Vital Signs Temp 98.3 F 10/31/24 09:14 Pulse 67 10/31/24 09:14 Resp 18 10/31/24 09:14 BP 124/64 10/31/24 09:14 Pulse Ox 97 10/31/24 09:14 Oxygen Delivery Method Room Air 10/31/24 09:14 BMI result Body Mass Index 45.2 Tobacco/Smoking Status: Tobacco use Status Tobacco use date assessed 10/31/24 10/31/24 09:20 Patient Tobacco Use Status Never used Tobacco 10/31/24 09:16 e-Cigarette/Vaping Use Never Used 10/31/24 09:16 Thrive Assessment: Date of Thrive Assessment Date Thrive assessed 06/11/24 10/31/24 09:16 Currently or been in a relationship where the following occur: No concerns reported Const General: no acute distress HENMT Ears: hearing grossly normal bilaterally Mouth: Normal oral and palatal mucosa present Resp Effort & Inspection: normal respiratory effort Auscultation: clear to auscultation bilaterally Cardio Rhythm: regular rhythm Heart sounds: S1 normal heart sound present and S2 normal heart sound present GI Inspection: Yes normal to inspection Palpation (GI): Soft to palpation Percussion: Yes normal to percussion Coding Level of Care Code Est Pt Level 4 (02380) Complex EM visit Add On G2211 Diagnoses Essential hypertension I10 DM2 (diabetes mellitus, type 2) E11.9 Morbid obesity E66.01 PATRICIA treated with BiPAP G47.33 Assessment & Plan Assessment & Plan (1) Essential hypertension: Comment: Intolerant to ARB or STEVEN inhibitors caused swelling Code(s): I10 - Essential (primary) hypertension Category: Medical Plan: Continue current medications (2) DM2 (diabetes mellitus, type 2): Comment: A1C 6.2, 2022, diet controlled, intolerant to Trulicity ( throat swelling) Code(s): E11.9 - Type 2 diabetes mellitus without complications Category: Medical Plan: A1c is down to 5.9, continue ADA diet decrease caloric intake and weight loss. Continue metformin follow-up in 3 months with a fasting labs before (3) Morbid obesity: Code(s): E66.01 - Morbid (severe) obesity due to excess calories Category: Medical Plan: Continue weight loss program regular physical activity and decreasing caloric intake. (4) PATRICIA treated with BiPAP: Code(s): G47.33 - Obstructive sleep apnea (adult) (pediatric) Category: Medical Plan: Continue BiPAP follow-up with pulmonology Orders: Orders Comprehensive [place]. Panel Fast 3 Months E11.9 - Type 2 diabetes mellitus without complications, E66.01 - Morbid (severe) obesity due to excess calories, I10 - Essential (primary) hypertension, R80.9 - Proteinuria, unspecified Hemoglobin A1c 3 Months E11.9 - Type 2 diabetes mellitus without complications, E66.01 - Morbid (severe) obesity due to excess calories, I10 - Essential (primary) hypertension, R80.9 - Proteinuria, unspecified Lipid Panel 3 Months E11.9 - Type 2 diabetes mellitus without complications, E66.01 - Morbid (severe) obesity due to excess calories, I10 - Essential (ailce nino) hypertension, R80.9 - Proteinuria, unspecified Complete Blood Count Auto Diff 3 Months E11.9 - Type 2 diabetes mellitus without complications, E66.01 - Morbid (severe) obesity due to excess calories, I10 - Essential (primary) hypertension, R80.9 - Proteinuria, unspecified Microalbumin, Random (w Creat) 3 Months E11.9 - Type 2 diabetes mellitus without complications, E66.01 - Morbid (severe) obesity due to excess calories, I10 - Essential (primary) hypertension, R80.9 - Proteinuria, unspecified Medications: New hydralazine take with 50 mg 25 mg PO BID 180 tabs 3RF Changed From hydralazine dose increased 75 mg PO BID To hydralazine 50 mg PO BID Discontinued prednisone Discontinued Reason: Doctor's Order 40 mg (2 x 20 mg) PO DAILY 10 tabs 0RF
[2024-10-31 09:14] VITALS: BP 124/64; PULSE 67; RESP 18; TEMP 36.8; O2SAT 97; BMI 45.2
--- OUTSIDE RECORDS SUMMARY | 2024-10-31 10:02 | XMS_ITS | Patient Health Record ---
Author Organization [facility] Address [address] [place] [address] Care Team Providers Care Metal Burnisher Name Role Phone Mia North MD Primary Care Provider Hitesh Santiago Unavailable [phone] Allergies Allergen (clinical drug ingredient) Drug/Non Drug [...] W/U Status Risk Notes Problem Rectal bleeding (97308982) Rectal bleeding (K62.5) Active confirmed Problem 623439239 History of adenomatous polyp of colon (Z86.010) Active confirmed Problem 779593376 Irritable bowel syndrome with diarrhea (K58.0) Active confirmed Problem Oropharyngeal dysphagia (83795549) Dysphagia, pharyngeal phase (R13.13) Active confirmed Problem 82100250 Blood in stool (K92.1) Active confirmed Problem 340753836 Gastroesophageal reflux disease, esophagitis presence not specified (K21.9) Active confirmed Problem Hiatal hernia (06750972) Hiatal hernia (K44.9) Active confirmed Problem 842457627 Esophageal spasm (K22.4) Active confirmed Problem Gastroesophageal reflux disease (868722590) GERD (gastroesophageal reflux disease) (K21.9) Active confirmed Problem 37359367 Diarrhea, unspecified type (R19.7) Active confirmed Problem Irritable bowel syndrome (82331781) Irritable bowel syndrome with both constipation and diarrhea (K58.0) Active confirmed Plan Of Treatment Pending Test Test Name Order Date CELIAC PANEL #10 03/01/2017 Future Test Test Name Order Date COLONOSCOPY 03/01/2017 UPPER GI ENDOSCOPY 01/30/2020 COLONOSCOPY 01/06/2022 Insurance Providers Payer Name Payer Address Payer Phone Subscriber Number Group Number Insured Name Patient Relationship to Insured Coverage Start Date Coverage End Date [facility] [address] [address] [place] [address] [id number] CAMILLA ARANDA Self - patient is the insured Medical (General) History Medical History History ICD Code Asthma Hypertension Breast cancer Personal history of polyps-1 tubular adenoma and a hyperplastic polyp removed via a colonoscopy with [facility]; Most recent one was in 06/[address] Brooks--but incomplete to the transverse colon due to poor prep--she was noted to have diverticulosis Denies CT,CVA,renal disease Sleep apnea GERD--EGD in 2015--history o [...] pancreatic or biliary disease--this was done at [facility] Neg. colonoscopy in 05/2017--bx neg for m icroscopic colitis, no polyps [place] with [place] [facility] [place] 0[place] Lichen sclerosus EGD in 02/2020--small hiatal hernia, no esophagitis, no evidence of esophageal stricture nor ring and therefore no dilation was performed, biopsies were negative for Mccurdy's esophagus and negative for eosinophilic esophagitis Thyroid nodules undergoing b iopsies with [facility] endocrinology as of the 07/08/2020 office visit Back pain--receiving cortiso ne injections and treatments as of the 07/08/2020 OV Mild aortic stenosis-Echocardiograms e very 2 years-sees Dr. Blackmon Chronic back pain Surgical History Surgery Date(Month/Year) Lumpectomy x2--DCIS--sees Dr. Jack x 2 [id number] Bilateral oopherectomy 2014 Abdominal wall hernia repair 1976 Partial thyroidectomy 2021 Trigger fingers x 4 on right hand schedu led for 01/11/2022
== END 2024-10-31 09:53 | disposition home or self-care (01) ==
PROVIDERS: PCP Internal Medicine; Visit Provider Internal Medicine
DX: E11.9 Type 2 diabetes mellitus without complications (principal); E66.01 Morbid (severe) obesity due to excess calories; Z68.42 Body mass index [BMI] 45.0-49.9, adult; I10 Essential (primary) hypertension; G47.33 Obstructive sleep apnea (adult) (pediatric)

== ENCOUNTER → 2024-10-31 09:10 | Outpatient (BNVA) | payer OTHER, SELFPAY | PROVIDERS: PCP Internal Medicine; Visit Provider Internal Medicine | DX: Z13.89 Encounter for screening for other disorder (principal) ==

== ENCOUNTER → 2024-11-04 07:46 | Outpatient (REF) | payer OTHER, SELFPAY ==
--- NOTE | 2024-11-04 07:49 | CA_ITS ---
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 Normal LV ejection fraction of 60 65% with mild LVH 2. Mildly dilated left atrium 3. Mild calcific aortic stenosis, bicuspid valve can not be entirely ruled out 4. Normal RV systolic pressure 5. No gross pericardial effusion Findings Left Ventricle Normal left ventricular size and systolic function. There is mildly increased left ventricular wall thickness. The visually estimated ejection fraction is between 60-65%. Spectral Doppler is indicative of a normal filling pattern. Right Ventricle Normal right ventricular cavity size and systolic function. Atria The left atrium is mildly dilated. There is no evidence of interatrial shunt. The right atrium is normal in size. Aortic Valve There is moderate calcification of the aortic valve. There is mild aortic valve stenosis. There is no aortic valve regurgitation. can not completely ruled out to bicuspid aortic valve Mitral Valve Normal mitral valve structure and function. There is trace mitral valve regurgitation. There is no mitral valve stenosis. Pulmonic Valve The pulmonic valve is likely normal. Tricuspid Valve Normal tricuspid valve structure. There is trace tricuspid valve regurgitation. The right ventricular systolic pressure is normal. The right ventricular systolic pressure is 18 mmHg. Normal right atrial pressure. There is no evidence of pulmonary hypertension. Great Vessels All visible segments of the aorta are normal in size. The pulmonary artery was not well visualized. There is no dilatation of the ascending aorta measuring 3.20 cm. Venous The inferior vena cava is normal in size and collapses greater than 50% with inspiration. Pericardium/Pleural There is no evidence of pericardial effusion. Prior Study Comparison Changes noted compared to prior study. mild aortic stenosis was noted Measurements 2D Linear Measurements IVSd: 1.20 0.6-0.9/0.6-1.0 cm LVIDd: 5.21 3.9-5.3/4.2-5.9 cm LVIDd Index: 2.55 2.4-3.2/2.2-3.1 cm/m2 LVIDs: 3.15 2.0-3.6 cm LVPWd: 1.22 0.7-1.1 cm Ao Root: 3.00 2.1-3.5 cm LA Diam: 4.20 2.7-3.8/3.0-4.0 cm LAIDs Index: 2.06 1.5-2.3 cm/m2 LV Mass: 314.89 67-162/88-224 g LV Mass Index: 154.36 43-95/49-115 g/m2 LVOT Diam: 2.10 3.0+(-)1.3 cm 2D Systolic Function EF 4C: 61.10 >55% EF 2C: 62.60 >55% EF BiP: 61.50 >55% Mitral Valve MV Pk E: 0.87 MV PK A: 0.80 MV Decel Time: 256.00 E/A: 1.10 E'Lateral: 12.80 E'Medial: 7.62 E/E' Med: 11.40 E/E' Lat: 6.80 PHT: 75.00 MVA PHT: 2.93 Decel [place]: 3.40 Aortic Valve AoV Pk Sagar: 2.19 AoV Mn Sagar: 1.49 AoV VTI: 0.56 AoV Pk Grad: 19.00 Aov Mn Grad: 11.00 HEIDY Cont.VTI: 1.79 LVOT LVOT Pk Sagar: 1.25 LVOT Mn Sagar: 0.81 LVOT VTI: 0.29 LVOT Pk Grad: 6.00 LVOT Mn Grad: 3.00 LVOT Diam: 2.10 LVOT Area: 3.46 Diastolic Function MV Pk E: 0.87 MV Pk A: 0.80 E/A: 1.10 E'Medial: 7.62 E/E' Med: 11.40 E' Laterial: 12.80 E/E' Lat: 6.80 Right Ventricle TAPSE (mm): 34.00 TVS' Sagar: 15.00 Tricuspid Valve TR Pk Sagar: 1.95 TR Pk Grad: 15.00 RA Press: 3.00 RVSP: 18.00 Great Vessels Aorta Ao Root-2D: 3.00 2.0-3.7 cm Ao Asc: 3.20 2.1-3.4 cm Pulmonary Valve PV Pk Sagar: 1.00 Peak PV Grad: 4.00 Updated in Other Vendor System with Status of Final Chandu Nash MD electronically signed on 11/05/2024 12:35:44 PM with status of Final
--- NOTE | 2024-11-04 07:49 | CA_ITS ---
Acquisition Time: 2024-11-04 08:55:10 Total Exercise Time: 00:06:00 Test Indications: Palpitations LIGHTHEADEDNESS Medications: SEE H&P Protocol: MARY Max HR: 139 BPM 84% of Pred: 164 BPM Max BP: 160/88 mmHG Max Work Load: 7.0 METS Exercise stress test with exercise 6 mins of Mary Protocol, achieving 84% MPHR with reports of palpitations, pounding headache and 5/10 central chest tightness, with continuous ventricular bigeminy with exercise at 1 min 45 secs that resolved instantly into recovery, with normotensive response to exercise. With borderline EKG changes in the inferior leads, warranting for further eval with nuclear images. Chest tightness also resolved in earlt recovery. Breathing improved. Test reviewed with Dr. Nash. Referred By: Jennifer Juares Electronically Signed By: Duane Valero
--- NOTE | 2024-11-04 07:49 | HM_ITS ---
* Total monitoring time 3 days. * Underlying rhythm is sinus with an average rate of 72/Min. * Rare supraventricular ectopy. * Rare ventricular ectopy. * No significant pauses or high-grade AV blocks. * Symptoms in patient diary including palpitations, skipped beats, chest pain, shortness of breath, pulsing in head correlates with sinus rhythm, sinus tachycardia, supraventricular ectopy. MTDD
--- OUTSIDE RECORDS SUMMARY | 2024-11-04 07:50 | XMS_ITS | Patient Health Record ---
Author Organization [facility] Address [address] [place] [address] Care Team Providers Care Insurance Plan Specialist Name Role Phone Mia North MD Primary Care Provider Hitesh Santiago Unavailable [phone] Allergies Allergen (clinical drug ingredient) Drug/Non Drug Allergy documented on EMR Reaction Allergy Type Onset Date Status Tessalon Perles Unknown Drug Allergy A ctive Listerine Antiseptic Unknown Drug Allergy Active Lisinopril [...] W/U Status Risk Notes Problem Rectal bleeding (84680434) Rectal bleeding (K62.5) Active confirmed Problem 904310723 History of adenomatous polyp of colon (Z86.010) Active confirmed Problem 989341129 Irritable bowel syndrome with diarrhea (K58.0) Active confirmed Problem Oropharyngeal dysphagia (10735240) Dysphagia, pharyngeal phase (R13.13) Active confirmed Problem 01607860 Blood in stool (K92.1) Active confirmed Problem 984309170 Gastroesophageal reflux disease, esophagitis presence not specified (K21.9) Active confirmed Problem Hiatal hernia (36670477) Hiatal hernia (K44.9) Active confirmed Problem 442348137 Esophageal spasm (K22.4) Active confirmed Problem Gastroesophageal reflux disease (187393860) GERD (gastroesophageal reflux disease) (K21.9) Active confirmed Problem 73279044 Diarrhea, unspecified type (R19.7) Active confirmed Problem Irritable bowel syndrome (18359325) Irritable bowel syndrome with both constipation and diarrhea (K58.0) Active confirmed Plan Of Treatment Pending Test Test Name Order Date CELIAC PANEL #10 03/01/2017 Future Test Test Name Order Date COLONOSCOPY 03/01/2017 UPPER GI ENDOSCOPY 01/30/2020 COLONOSCOPY 01/06/2022 Insurance Providers Payer Name Payer Address Payer Phone Subscriber Number Group Number Insured Name Patient Relationship to Insured Coverage Start Date Coverage End Date [facility] [address] [address] [place] [address] [id number] CAMILLA ARANDA Self - patient is the insured Medical (General) History Medical History History ICD Code Asthma Hypertension Breast cancer Personal history of polyps-1 tubular adenoma and a hyperplastic polyp removed via a colonoscopy with [facility]; Most recent one was in 06/[address] Brooks--but incomplete to the transverse colon due to poor prep--she was noted to have diverticulosis Denies [place],CVA,renal disease Sleep apnea GERD--EGD in 2015--history o [...] pancreatic or biliary disease--this was done at [facility] Neg. colonoscopy in 05/2017--bx neg for [...] esophagitis Thyroid nodules undergoing b iopsies with [facility] endocrinology as of the 07/08/2020 office visit Back pain--receiving cortiso ne injections and treatments as of the 07/08/2020 OV Mild aortic stenosis-Echocardiograms e very 2 years-sees Dr. Blackmon Chronic back pain Surgical History Surgery Date(Month/Year) Lumpectomy x2--DCIS--sees Dr. Jack x 2 [id number] Bilateral oopherectomy 2014 Abdominal wall hernia repair 1976 Partial thyroidectomy 2021 Trigger fingers x 4 on right hand schedu led for 01/11/2022
== END ==
LOC: HO.CARD 07:46
PROVIDERS: PCP Internal Medicine; Visit Provider Nurse Practitioner Family
DX: R55 Syncope and collapse (principal); I35.8 Other nonrheumatic aortic valve disorders; I10 Essential (primary) hypertension
CPT/HCPCS: 93017; 93242; 93306

== ENCOUNTER → 2024-11-04 07:49 | Outpatient (BNV) | payer OTHER, SELFPAY | PROVIDERS: PCP Internal Medicine | DX: I35.0 Nonrheumatic aortic (valve) stenosis (principal); I35.8 Other nonrheumatic aortic valve disorders | CPT/HCPCS: 93016; 93018; 93320; 93325; 93350 ==

== ENCOUNTER → 2024-11-13 07:52 | Outpatient (REF) | payer OTHER, SELFPAY ==
--- NOTE | ~2024-11-13 | NM_ITS ---
EXERCISE MYOCARDIAL PERFUSION STUDY INDICATION: Abnormal stress test evaluate for myocardial ischemia TECHNIQUE: The patient was brought in for an exercise perfusion study on November 06, 2024. Patient performed exercise as per Arden protocol and was injected 25 mCi of sestamibi once target heart rate was achieved. Images were obtained using the SPECT gamma camera interlaced with the gating device. Images were obtained in supine position. Resting perfusion study was performed on November 14, 2024. Patient was administered 25 mCi of sestamibi intravenously at rest. Images were then obtained in supine position. Images obtained without without CT attenuation. Total DLP 61 mGy-cm. Images were processed with the software and compared side to side in short axis, horizontal long axis and vertical long axis views. FINDINGS: Raw images were reviewed The stress perfusion study showed nonattenuated images show mildly reduced uptake in the basal septal, basal lateral, basal anterior as well as basal inferior wall of the LV myocardium. Attenuated corrected images show mildly reduced uptake in the distal anterior and apical wall of the LV myocardium.. The gated study shows normal LV systolic function with calculated LVEF of 58%. LV cavity is normal in size. The gated study shows normal systolic wall thickening and contraction of segments. Resting study shows no change in perfusion compared to stress perfusion study. Gating at rest reveals normal systolic wall motion with ejection fraction at 57%. The findings are consistent with normal myocardial perfusion. NM/NM cardiolite stress test IMPRESSION: 1. Myocardial perfusion imaging study shows normal myocardial perfusion. 2. Gated LVEF is 58%. 3. Transient ischemic dilatation not present. EKG revealed negative for ischemia. Electronically signed by: Chandu Nash MD 11/14/2024 04:37 PM EDT
--- OUTSIDE RECORDS SUMMARY | 2024-11-13 07:55 | XMS_ITS | Patient Health Record ---
Author Organization [facility] Address [address] [place] [address] Care Team Providers Care Basketball Scout Name Role Phone Mia North MD Primary Care Provider Dinesh Smith Unavailable [phone] Allergies Allergen (clinical drug ingredient) Drug/Non Drug [...] tablet with food Orally Four times a day; Duration: 30 day(s) twice a day Active hydroCHLOROthiazide [...] Osteoarthritis of midtarsal joint of left foot (5808231674396380 ) Osteoarthritis of midtarsal joint of left foot (M19.072) Active confirmed Plan Of Treatment Pending Test Test Name Order Date X ray : Foot, left 3V 06/27/2023 X ray : Foot, right 3V 06/23/2021, [id number]/[id number], JOINT/BURSA 0 07/16/[id number], [id number]/INJECT, JOINT/BURSA 0 10/13/[id number] TENDON SHEATH/LIGAMENT 0 11/17/[id number] TENDON SHEATH/LIGAMENT 1 06/21/[id number] TENDON SHEATH/LIGAMENT 0 06/23/[id number] TENDON SHEATH/LIGAMENT 0 07/29/2021 Insurance Providers Payer Name Payer Address Payer Phone Subscriber Number Group Number Insured Name Patient Relationship to Insured Coverage Start Date Coverage End Date [facility] [address] [address] [place] [address] [id number] Roma Urrutia Self - patient is the [...] Hospitalization History Reason Date(Month/Year) Patient admitted to [facility] for chest p ain and dizziness. 05/2015 [facility] [place] [facility] - Hypertention 02/28/17 [facility] [place] [facility]- back pain 07/2020
--- OUTSIDE RECORDS SUMMARY | 2024-11-13 07:55 | XMS_ITS | Data Portability ---
Author Organization [place] - [facility], Allergy Address [address] [address] Care Team Providers Care Corporate Communications Specialist Name Role Phone JAYNE MARK Primary Care [...] No further ENT workup or intervention recommended. [email or web address] Not available 07/09/2024 12:01:40 Plan of Treatment [...] contr ast No observ ation record ed. [email or web address] Not Available 08/2024 11:56:55 07/10/19 25 07/07/2024 CT, cervi jose juan spine , w/o contr ast No observ ation record ed. [email or web address] Not Available 08/2024 13:30:25 07/10/19 25 07/07/2024 CT, cervi jose juan spine , w/o contr ast No observ ation record ed. [email or web address] Not Available 08/2024 12:51:06 Result Notes None recorded. Problems Name Problem SNOMED Code Status Onset Date Resolution Date Notes Provider Name and Address Organization Details Recorded Time Neck pain 62305610 Active 2024 ANGELICA DENTON MD [address] [place] [address], [facility] [place], [address], [place] - [facility] 11:50:56 Headache 87059880 Active 2024 ANGELICA DENTON MD [address] [place] [address], [facility] [place], [address], [place] - [facility] 11:51:05 Referred otalgia of right ear 916659524166269 0 Active 2024 ANGELICA DENTON MD [address] [place] [address], [place], [address], [place] - [facility] 12:01:07 Problem Notes None recorded. Procedures Surgical History Date Name Laterality Status Provider Name and Address Organization Details Recorded Time hernia repair completed Theresa Witt [place] - [facility] 07/09/2024 11:32:04 oophorectomy completed Theresa Witt [place] - [facility] 07/09/2024 11:32:11 biopsy of breast completed Theresa Witt [place] - [facility] 07/09/2024 11:32:20 section completed Theresa Witt [place] - [facility] 07/09/2024 11:32:25 Imaging Results None recorded. Procedure Notes None recorded. Medical Equipment None Reported. Allergies Allergen ID Allergen Name Allergen Category Reaction Reaction Severity Criticality Documentation Date Start Date Code Code System Note Provider Name and Address Organization Details Recorded Time 925681 Substance with sulfonami de structure and antibacte rial mechanism of action (substanc e) medicatio n facial swelling severe Not available 07/09/2024 24437 8003 SNOMED Theresa Eduar null, [place] - [facility] 5 11:30:11 845868 lisinopri l medicatio n swelling severe Not available 07/09/2024 30909 RxNorm Theresa Eduar null, [place] - [facility] 5 11:30:11 266986 codeine medicatio n rash severe Not available 07/09/2024 2670 RxNorm Theresa Eduar null, [place] - [facility] 5 11:30:11 144680 benzonata te medicatio n anaphylax is severe Not available 07/09/2024 25275 RxNorm Theresa Witt null, [place] - [facility] 5 11:30:11 541399 baclofen medicatio n anaphylax is severe Not available 07/09/2024 1292 RxNorm Theresa Witt null, [place] - [facility] 5 11:30:11 066209 doxycycli ne Not available other severe Not available 07/09/2024 3640 RxNorm Theresa Witt null[place] - [facility] 5 11:30:11 823999 Demerol medicatio n confusion severe Not available 07/09/2024 07214 1 RxNorm Theresa Eduar null[place] - [facility] 5 11:30:11 062514 losartan medicatio n swelling severe Not available 07/09/2024 82485 RxNorm Theresa Eduar null, [place] - [facility] 5 11:30:11 420730 dextromet horphan hydrobrom pranay medicatio n itching moderate Not available 07/09/2024 00950 0 RxNorm Theresa Eduar null, [place] - [facility] 5 11:30:11 958176 Trulicity medicatio n itching moderate Not available 07/09/2024 09535 96 RxNorm Theresa Witt null, [place] - [facility] 11:30:11 Medications Name Sig Start Date Stop [...] Time Mother Malignant neoplastic disease 77 78 [email or web address] Not available 08/2024 11:31:30 Maternal Aunt Malignant neoplastic disease [email or web address] Not available 08/2024 11:31:30 Paternal Aunt Malignant neoplastic disease [id number] Not available 08/2024 11:31:30 Son Allergy 4 [email or web address] Not availa ble 07/09/2024 11:31:30 Sister Complication of anesthesia [email or web address] Not available 11:31:30 Sister Vertigo Not availa ble 07/09/2024 11:31:30 Father Malignant neoplastic disease 50 52 [email or web address] Not available 08/2024 11:31:30 Medical History Condition Response Allergies/Hayfever Y Heart Problems Y Anxiety Y Tonsil Infections N Emphysema N Migraines N Thyroid Problems Y Glaucoma N Developmental Delay N Depression Y COPD N Nasal or Sinus Problems Y Anemia Y Immune System Disorder N Anesthesia Complications N Heart Attack ([place]) N Other Skin Condition Y Diabetes Y Rhinitis Y Bleeding Disorder N Food Allergy N Hearing Loss N Arthritis Y Hyperlipidemia N Cancer Y Stroke N Dementia N Nasal polyps N Asthma N Sleep Disorder N High Cholesterol N GERD/Reflux N Liver Disease N Headaches Y Fibromyalgia Y Hypertension Y Speech Delay N Kidney Disease N Gynecological HistoryNo gynecological history recorded. Obstetrics History GPAL:G 0 P 0 0 0 0 Past Encounters Encounter ID Performer Location Encounter Start Date Encounter Closed Date Diagnosis/Indication Diagnosis SNOMED-CT Code Diagnosis ICD10 Code Diagnosis Note [id number] ANGELICA DENTON MD [facility] [address] [address] 07/09/2024 10:21:50 07/09/2024 11:52:29 Neck pain 37795530 M54.2 Headache 46710662 R51.9 Referred o talgia of right ear 3778660321 702168 H92.01 M26.621 M79.11 Health Concerns Section Related Observation LastModified by Organization Detai ls LastModified Time None Recorded Concern Status LastModified by Organization Details LastModified Time None Recorded Advance Directives Directive None Recorded Payers Insurance Date Sequence Insurance Name Policy Number Policy Valdivia Covered Member ID Valdivia Member ID Guarantor Name 09/02/2024 1 [facility] [id number] Troy Cortez [id number] Roma Cortez Notes Date Note Type Note [...] the time of presentation. ANGELICA DENTON MD [address] [place] [address], [place], [address], [facility] 07/09/2024 12:01:53 OBGyn Episode No OBEpisode recorded.
--- OUTSIDE RECORDS SUMMARY | 2024-11-13 07:55 | XMS_ITS | Clinical Summary ---
Author Organization [facility] Address [address] [place] [address] Care Team Providers Care Student Career Development Specialist Name Role Phone Mia North MD Primary Care Provider [phone] Allergies Active Allergy Reactions Criticality Noted Date [...] and hyperventilation Converted from Generic Allergy: Meperidine ANXIETY AND HYPERVENTILATION Medications citalopram (CeleXA) 10 [...] Description 08/20/2024 9:45 AM EDT Office Visit [facility] [address] [place] [address] [place] Ricardo MD Otalgia, right (Primary Dx); Eustachian tube dysfunction, right from Last 3 Months Immunizations Immunization Administration [...] Hepatitis B Vaccines Completed 08/15/2008, 03/14/2008, 02/12/2008 Insurance [facility] [place] [id number] Care Teams Student Career Development Specialist Relationship Specialty Start Date End Date Mia North MD [address] [place] [address] PCP - General 08/20/24
--- OUTSIDE RECORDS SUMMARY | 2024-11-13 07:55 | XMS_ITS | Patient Health Record ---
Author Organization [facility] Address [address] [place] [address] Care Team Providers Care Road Oiling Truck Driver Name Role Phone Mia North MD Primary Care Provider Hitesh Santiago Unavailable [phone] Allergies Allergen (clinical drug ingredient) Drug/Non Drug [...] W/U Status Risk Notes Problem Rectal bleeding (66414543) Rectal bleeding (K62.5) Active confirmed Problem 239939090 History of adenomatous polyp of colon (Z86.010) Active confirmed Problem 733137757 Irritable bowel syndrome with diarrhea (K58.0) Active confirmed Problem Oropharyngeal dysphagia (95970038) Dysphagia, pharyngeal phase (R13.13) Active confirmed Problem 57214402 Blood in stool (K92.1) Active confirmed Problem 937300298 Gastroesophageal reflux disease, esophagitis presence not specified (K21.9) Active confirmed Problem Hiatal hernia (21333111) Hiatal hernia (K44.9) Active confirmed Problem 638868082 Esophageal spasm (K22.4) Active confirmed Problem Gastroesophageal reflux disease (425330638) GERD (gastroesophageal reflux disease) (K21.9) Active confirmed Problem 83087706 Diarrhea, unspecified type (R19.7) Active confirmed Problem Irritable bowel syndrome (64756839) Irritable bowel syndrome with both constipation and diarrhea (K58.0) Active confirmed Plan Of Treatment Pending Test Test Name Order Date CELIAC PANEL #10 03/01/2017 Future Test Test Name Order Date COLONOSCOPY 03/01/2017 UPPER GI ENDOSCOPY 01/30/2020 COLONOSCOPY 01/06/2022 Insurance Providers Payer Name Payer Address Payer Phone Subscriber Number Group Number Insured Name Patient Relationship to Insured Coverage Start Date Coverage End Date [facility] [address] [address] [place] [address] [id number] CAMILLA ARANDA Self - patient is the insured Medical (General) History Medical History History ICD Code Asthma Hypertension Breast cancer Personal history of polyps-1 tubular adenoma and a hyperplastic polyp removed via a colonoscopy with [facility]; Most recent one was in 06/2016 [...] or biliary disease--this was done at [facility] Neg. colonoscopy in 05/2017--bx neg for m icroscopic colitis, no polyps Kidney stones with infection at [facility] in 2 018 Lichen sclerosus EGD in 02/2020--small hiatal hernia, no esophagitis, no evidence of esophageal stricture nor ring and therefore no dilation was performed, biopsies were negative for Mccurdy's esophagus and negative for eosinophilic esophagitis Thyroid nodules undergoing b iopsies with [facility] endocrinology as of the 07/08/2020 office visit Back pain--receiving cortiso ne injections and treatments as of the 07/08/2020 OV Mild aortic stenosis-Echocardiograms e very 2 years-sees Dr. Blackmon Chronic back pain Surgical History Surgery Date(Month/Year) Lumpectomy x2--DCIS--sees Dr. Jack x 2 [phone] Bilateral oopherectomy 2014 Abdominal wall hernia repair 1976 Partial thyroidectomy 2021 Trigger fingers x 4 on right hand schedu led for 01/11/2022
--- NOTE | 2024-11-13 08:02 | CA_ITS ---
Acquisition Time: 2024-11-13 08:00:56 Total Exercise Time: 00:06:00 Test Indications: CP,Dyspnea ABN EKG FREQ PVC'S Medications: SEE H&P Protocol: MARY Max HR: 141 BPM 85% of Pred: 164 BPM Max BP: 168/70 mmHG Max Work Load: 7.0 METS Exercise stresss test with exercise 6 mins of Mary Protocol, achieving 84% MPHR, with reports of palpitations and SOB, 5/10 chest tightness, with ventricular bigeminy that started with exercise and resolved at rest, with normotensive response to exercise. With borderline ST changes possibly meeting criteria for ischemia. In recovery, chest tightness resolved and breathing returned to baseline. ST segment improved. Nuclear images pending. Test reviewed with Dr. Mcguire. Referred By: Duane Valero Electronically Signed By: Duane Valero
== END ==
LOC: HO.CARD 07:52
PROVIDERS: PCP Internal Medicine
DX: R94.39 Abnormal result of other cardiovascular function study (principal)
CPT/HCPCS: 78452; 93017; A9500

== ENCOUNTER → 2024-11-13 08:02 | Outpatient (BNV) | payer OTHER, SELFPAY | PROVIDERS: PCP Internal Medicine | DX: R06.02 Shortness of breath (principal); R94.31 Abnormal electrocardiogram [ECG] [EKG] | CPT/HCPCS: 78452; 93016; 93018 ==

== ENCOUNTER 2024-11-19 08:47 | Outpatient (AMB) | payer OTHER, SELFPAY ==
--- NOTE | 2024-11-19 08:56 | A.OFFVIS_ITS ---
Vital Signs 11/19/24 08:57 Height 5 ft 1 in Weight 237 lb BMI 44.8 BP 124/62 Blood Pressure Location Lt brachial Position Sitting Pulse 80 Pulse Source Pulse Oximeter Intake Visit Reasons: 4-6 week f/up echo holter ett Utility Technician Required: No Lobbyist: Lobbyist Present Allergies Sulfa (Sulfonamide Antibiotics) Allergy (Severe, Verified 11/19/24 08:59) FACIAL SWELLING codeine (Codeine) Allergy (Intermediate, Verified 11/19/24 08:59) RASH doxycycline Allergy (Intermediate, Verified 11/19/24 08:59) Difficulty Breathing lisinopril (Lisinopril) Allergy (Intermediate, Verified 11/19/24 08:59) EXTREMITIES SWELLING benzonatate (BENZONATATE) Allergy (Unknown, Verified 11/19/24 08:59) ANAPHYLAXIS meperidine (Demerol) Allergy (Unknown, Verified 11/19/24 08:59) Rash baclofen Adverse Reaction (Severe, Verified 11/19/24 08:59) Anaphylaxis dulaglutide (From Trulicity) Adverse Reaction (Intermediate, Verified 11/19/24 08:59) itchy throat losartan Adverse Reaction (Intermediate, Verified 11/19/24 08:59) swelling of hands, Medication List - Last Reconciled 11/19/24 by STEVE PardoC acetaminophen ER (Tylenol Arthritis Pain) 650 mg PO Q12H amlodipine 10 mg PO DAILY blood sugar diagnostic (FreeStyle Lite Strips) 1 qd blood-glucose meter (FreeStyle Lite Meter kit) As directed cetirizine (Zyrtec) 10 mg PO DAILY cholecalciferol (vitamin D3) 125 mcg PO DAILY citalopram 10 mg PO DAILY citalopram 20 mg PO DAILY cyclobenzaprine 5 mg PO .qhs docusate sodium (Colace) 100 mg PO BID epinephrine 0.3 mg (0.3 mL) IM ONCE PRN fluticasone propionate 50 mcg/actuation 1 spray intranasal DAILY hydralazine 25 mg PO BID hydralazine 50 mg PO BID lancets (FreeStyle Lancets) Test blood sugar once a day lorazepam 0.5 mg PO BEDTIME PRN meclizine 25 mg PO BID PRN metformin 500 mg orally 1 in AM and 2 q PM; metoprolol succinate ER 25 mg PO DAILY multivitamin 1 tab PO DAILY pravastatin 20 mg PO DAILY pregabalin 200 mg PO DAILY triamcinolone acetonide 0.1% 1 appl topical DAILY triamterene-hydrochlorothiazid 37.5-25 mg 1 cap PO DAILY HPI HPI 4-6 week f/up echo holter ett: Details: Roma is a 52-year-old female with past medical history of hypertension, hyperlipidemia, obesity, aortic valve sclerosis, obstructive sleep apnea with CPAP use who presents for follow-up after recent cardiac testing. Today she reports that she has been doing well since her last visit in September. She has not had any recurrent presyncopal or syncopal events. She has no chest discomfort at rest or with activity. She will get some shortness of breath with exertion. She notices heart palpitations at times during activity. No lightheadedness, falls. No PND, orthopnea or edema. She has been trying to increase her activity level. She is now following an exercise program. She is compliant with her CPAP. is present. [facility] Medical History Microalbuminuria Essential hypertension PATRICIA treated with BiPAP Morbid obesity Lumbar and sacral spondyloarthritis Hyperlipemia Depression Thyroid nodule Hx of renal calculi Irritable bowel syndrome GERD (gastroesophageal reflux disease) Arthritis Cancer Surgical History H/O ventral hernia repair Hx of bilateral oophorectomy Hx of breast biopsy Hx of section Hx of colonoscopy Hx of esophagogastroduodenoscopy Family History Mother No problems noted. Father Substance use disorder Esophageal cancer Brother Substance use disorder Sister Substance use disorder History of Mccurdy's esophagus Social History Household Members: Family Household Members Other:: , unemployed, 2 children () Housing: House Do you presently have visiting nurse or other home services: No Unable to assess alcohol history related to: Unable to respond Alcohol intake: current Alcohol intake frequency: a few times a month Alcohol type: beer Patient Tobacco Use Status: Never used Tobacco e-Cigarette/Vaping Use: Never Used Second Hand Smoke Exposure: No Advance Directives Date on File: 03/18/22 service: No Current occupational status: unemployed Cognitive needs: No Hearing needs: No Vision needs: Yes Review of Systems Const All systems reviewed & are unremarkable except as noted in HPI and below ENT Denies dizziness Card Details: heart palpitations when exercising Denies chest pain, Denies chest pain at rest, Denies chest pain with activity, Denies rapid heart rate, Denies pedal edema, Denies edema, Denies leg edema, Denies lightheadedness, Denies palpitations, Denies dyspnea, Reports dyspnea on exertion and Denies orthopnea Resp Denies cough, Denies dyspnea and Reports dyspnea on exertion GI Denies hematochezia and Denies change in stool character Musc Denies abnormal gait, Denies limited range of motion, Denies muscle cramps, Denies muscle weakness, Denies numbness, Denies radiating pain into limb, Denies stiffness and Denies tingling Neuro Denies abnormal gait, Denies dizziness, Denies numbness and Denies tingling Endo Denies palpitations Physical Exam Vital Signs: Last Vital Signs Pulse 80 11/19/24 08:57 BP 124/62 11/19/24 08:57 BMI result Body Mass Index 44.8 Const Other: Morbidly obese General: cooperative, comfortable and no acute distress Orientation/consciousness: patient oriented x3 Neck Neck: Yes normal visual inspection Resp Effort & Inspection: normal respiratory effort Auscultation: clear to auscultation bilaterally, no crackles, no rales, no rhonchi and no wheezes Cardio Jugular venous distension: no JVD Rate: regular rate Rhythm: regular rhythm Heart sounds: S1 normal heart sound present, S2 normal heart sound present, Murmur heart sound present (Systolic murmur faint) and no rubs Neuro General: patient oriented x3 Extrem General: Yes normal to inspection Psych Appearance: grossly normal Mental Status: mental status grossly normal Speech and movement: Normal speech and movement present Assessment & Plan Assessment & Plan (1) Pre-syncope: Code(s): R55 - Syncope and collapse Category: Medical Plan: Prior reports of presyncopal event which sounded vasovagal in nature. Echocardiogram done 11/04/2024 showed EF 60-65%, mild LVH, mild calcific aortic stenosis, unable to exclude bicuspid valve. Exercise stress test 11/04/2024 showed exercise 6 minutes, chest tightness, ventricular bigeminy, borderline EKG changes. Exercise nuclear stress test done on 11/13/2024 with same chest tightness and ventricular bigeminy with normal myocardial perfusion imaging. A Holter monitor on 10/08/2024 for 3 days shows sinus rhythm with average heart rate 72 beats per minute, rare SVE and ve. Test results reviewed with her in detail. Following stress test she was started on metoprolol XL 25 mg daily. Discuss finding of PVCs but no NSVT runs which is reassuring. Will have her continue on metoprolol, reduce caffeinated beverage intake, continue exercise as tolerated, continue pursuit of weight loss. I do not feel that her presyncope was related to PVCs. If she does have recurrent presyncope or syncope will have her do a tilt-table test. (2) Aortic valve sclerosis: Code(s): I35.8 - Other nonrheumatic aortic valve disorders Category: Medical Plan: Last echo 01/12/2023 showing normal EF and fibrocalcific aortic valve changes, mildly elevated gradient. Recent echo is showing mild aortic stenosis. Continue statin. Will follow with periodic echoes. (3) Essential hypertension: Comment: Intolerant to ARB or STEVEN inhibitors caused swelling Code(s): I10 - Essential (primary) hypertension Category: Medical Plan: Blood pressure goal less than 130/80. Good at present. No med changes made. Continue amlodipine, hydralazine and hydrochlorothiazide/triamterene. Low-salt diet reviewed. Reviewed the ongoing benefits of weight loss and increased physical activity as tolerated. (4) Morbid obesity: Code(s): E66.01 - Morbid (severe) obesity due to excess calories Category: Medical Plan: She is actively working on weight loss. Current BMI 44.8. (5) PATRICIA treated with BiPAP: Code(s): G47.33 - Obstructive sleep apnea (adult) (pediatric) Category: Medical Plan: She reports nightly compliance with her CPAP. (6) PVC (premature ventricular contraction): Code(s): I49.3 - Ventricular premature depolarization Category: Medical Plan I discussed with the patient the nature of her PVCs and ventricular bigeminy, explaining that while they are not harmful, they can cause discomfort. We reviewed her stress test and Holter monitor results, which showed no significant abnormalities. I advised her to continue metoprolol for a month to see if it helps with her symptoms and to maintain hydration and limit caffeine intake. We also discussed avoiding positions that trigger vasovagal syncope until she is more conditioned. A follow-up was recommended in six months or sooner if symptoms persist. Patient Instructions: - Continue taking metoprolol for one month, may stop if feels no improvement in symptoms. - Stay hydrated and limit caffeine intake. - Avoid positions that trigger lightheadedness, nausea until more conditioned. - Follow up in six months or sooner if symptoms persist or worsen. Patient was informed and verbally consented to the use of an ambient scribe for clinic note documentation during this visit. Visit time spent on chart review, interview, assessment, orders, documentation. Coding Level of Care Code Est Pt Level 4 (02496) Complex EM visit Add On G2211 Diagnoses Pre-syncope R55 Aortic valve sclerosis I35.8 Essential hypertension I10 Morbid obesity E66.01 PATRICIA treated with BiPAP G47.33 PVC (premature ventricular contraction) I49.3 Time Spent (min) 30
--- OUTSIDE RECORDS SUMMARY | 2024-11-19 08:56 | XMS_ITS | Patient Health Record ---
Author Organization [facility] Address [address] [place] [address] Care Team Providers Care Fruit Sprayer Name Role Phone Mia North MD Primary Care Provider Hitesh Santiago Unavailable [phone] Allergies Allergen (clinical drug ingredient) Drug/Non Drug Allergy documented on EMR Reaction Allergy Type Onset Date Status Listerine Antiseptic Unknown Drug Allergy Active lisinopril [...] W/U Status Risk Notes Problem Rectal bleeding (42575377) Rectal bleeding (K62.5) Active confirmed Problem 418919950 History of adenomatous polyp of colon (Z86.010) Active confirmed Problem 429375327 Irritable bowel syndrome with diarrhea (K58.0) Active confirmed Problem Oropharyngeal dysphagia (69996446) Dysphagia, pharyngeal phase (R13.13) Active confirmed Problem 71717190 Blood in stool (K92.1) Active confirmed Problem 194849740 Gastroesophageal reflux disease, esophagitis presence not specified (K21.9) Active confirmed Problem Hiatal hernia (32347857) Hiatal hernia (K44.9) Active confirmed Problem 002743089 Esophageal spasm (K22.4) Active confirmed Problem Gastroesophageal reflux disease (943848239) GERD (gastroesophageal reflux disease) (K21.9) Active confirmed Problem 45631980 Diarrhea, unspecified type (R19.7) Active confirmed Problem Irritable bowel syndrome (74635011) Irritable bowel syndrome with both constipation and diarrhea (K58.0) Active confirmed Plan Of Treatment Pending Test Test Name Order Date CELIAC PANEL #10 03/01/2017 Future Test Test Name Order Date COLONOSCOPY 03/01/2017 UPPER GI ENDOSCOPY 01/30/2020 COLONOSCOPY 01/06/2022 Insurance Providers Payer Name Payer Address Payer Phone Subscriber Number Group Number Insured Name Patient Relationship to Insured Coverage Start Date Coverage End Date [facility] [address] [address] [place] [address] [id number] CAMILLA ARANDA Self - patient is the insured Medical (General) History Medical History History ICD Code Asthma Hypertension Breast cancer Personal history of polyps-1 tubular adenoma and a hyperplastic polyp removed via a colonoscopy with [facility] GI; Most recent one was in 06/[address] Brooks--but incomplete to the transverse colon due to poor prep--she was noted to have diverticulosis Denies PR,CVA,renal disease Sleep apnea GERD--EGD in 2015--history o [...] pancreatic or biliary disease--this was done at [facility] Neg. colonoscopy in 05/2017--bx neg for m icroscopic colitis, no polyps Kidney stones with infection at [facility] in 2 018 Lichen sclerosus EGD in 02/2020--small hiatal hernia, no esophagitis, no evidence of esophageal stricture nor ring and therefore no dilation was performed, biopsies were negative for Mccurdy's esophagus and negative for eosinophilic esophagitis Thyroid nodules undergoing b iopsies with [facility] endocrinology as of the 07/08/2020 office visit Back pain--receiving cortiso ne injections and treatments as of the 07/08/2020 OV Mild aortic stenosis-Echocardiograms e very 2 years-sees Dr. Blackmon Chronic back pain Surgical History Surgery Date(Month/Year) Lumpectomy x2--DCIS--sees Dr. Jack x 2 [id number] Bilateral oopherectomy 2014 Abdominal wall hernia repair 1976 Partial thyroidectomy 2021 Trigger fingers x 4 on right hand schedu led for 01/11/2022
--- OUTSIDE RECORDS SUMMARY | 2024-11-19 08:56 | XMS_ITS | Patient Health Record ---
Author Organization [facility] Address [address] [place] [address] Care Team Providers Care Manager Underwriting Name Role Phone Mia North MD Primary Care Provider Dinesh Smith Unavailable [phone] Allergies Allergen (clinical drug ingredient) Drug/Non Drug [...] DULoxetine HCl Not-T aking cloNIDine HCl Not-Ta Vitamin D Active Singulair 10 MG 1 [...] Osteoarthritis of midtarsal joint of left foot (6076098954364373 ) Osteoarthritis of midtarsal joint of left foot (M19.072) Active confirmed Plan Of Treatment Pending Test Test Name Order Date X ray : Foot, left 3V 06/27/2023 X ray : Foot, right 3V 06/23/2021, [id number]/[id number], JOINT/BURSA 0 07/16/2015, [id number]/INJECT, JOINT/BURSA 0 10/13/201542256,[id number] TENDON SHEATH/LIGAMENT 0 11/17/201742124,[id number] TENDON SHEATH/LIGAMENT 1 06/21/202084065,[id number]-REM TENDON SHEATH/LIGAMENT 0 06/23/202106564,[id number] TENDON SHEATH/LIGAMENT 0 07/29/2021 Insurance Providers Payer Name Payer Address Payer Phone Subscriber Number Group Number Insured Name Patient Relationship to Insured Coverage Start Date Coverage End Date [facility] [id number] [address] [address] [place] [address] [id number] Roma Urrutia Self - patient is the [...] Hospitalization History Reason Date(Month/Year) Patient admitted to [facility] for chest p ain and dizziness. 05/2015 [facility] - Hypertention 02/28/17 [facility] ER- back pain 07/2020
[2024-11-19 08:57] VITALS: BP 124/62; PULSE 80; BMI 44.8
--- OUTSIDE RECORDS SUMMARY | 2024-11-19 08:57 | XMS_ITS | Data Portability ---
Author Organization [place] [facility] Address [address] [address] Care Team Providers Care Hvac Services Professional Name Role Phone JAY MARKANNA Primary Care Provider [phone] Assessment Encounter Date Assessment Date Assessment LastModified [...] No further ENT workup or intervention recommended. [email or web address] Not available 07/09/2024 12:01:40 Plan of Treatment [...] contr ast No observ ation record ed. [email or web address] Not Available 08/2024 11:56:55 07/10/19 25 07/07/2024 CT, cervi jose juan spine , w/o contr ast No observ ation record ed. [email or web address] Not Available 08/2024 13:30:25 07/10/19 25 07/07/2024 CT, cervi jose juan spine , w/o contr ast No observ ation record ed. [email or web address] Not Available 08/2024 12:51:06 Result Notes None recorded. Problems Name Problem SNOMED Code Status Onset Date Resolution Date Notes Provider Name and Address Organization Details Recorded Time Neck pain 52347214 Active 2024 ANGELICA DENTON MD [address] [place] [address], [facility] [place], [address], [place] - [facility] 11:50:56 Headache 95784633 Active 2024 ANGELICA DENTON MD [address] [place] [address], [facility] [place], [address], [place] - [facility] 11:51:05 Referred otalgia of right ear 197852626432788 0 Active 2024 ANGELICA DENTON MD [address] [place] [address], [place], [address], [place] - [facility] 12:01:07 Problem Notes None recorded. Procedures Surgical History Date Name Laterality Status Provider Name and Address Organization Details Recorded Time hernia repair completed Theresa Witt [place] - [facility] 07/09/2024 11:32:04 oophorectomy completed Theresa Witt [place] - [facility] 07/09/2024 11:32:11 biopsy of breast completed Theresa Witt [place] - [facility] 07/09/2024 11:32:20 section completed Theresa Witt [place] - [facility] 07/09/2024 11:32:25 Imaging Results None recorded. Procedure Notes None recorded. Medical Equipment None Reported. Allergies Allergen ID Allergen Name Allergen Category Reaction Reaction Severity Criticality Documentation Date Start Date Code Code System Note Provider Name and Address Organization Details Recorded Time 056176 Substance with sulfonami de structure and antibacte rial mechanism of action (substanc e) medicatio n facial swelling severe Not available 07/09/2024 89109 8003 SNOMED Theresa Eduar null, [place] - [facility] 5 11:30:11 926740 lisinopri l medicatio n swelling severe Not available 07/09/2024 72264 RxNorm Theresa Eduar null, [place] - [facility] 5 11:30:11 534175 codeine medicatio n rash severe Not available 07/09/2024 2670 RxNorm Theresa Eduar null, [place] - [facility] 5 11:30:11 532867 benzonata te medicatio n anaphylax is severe Not available 07/09/2024 93969 RxNorm Theresa Witt null, [place] - [facility] 5 11:30:11 010625 baclofen medicatio n anaphylax is severe Not available 07/09/2024 1292 RxNorm Theresa Witt null, [place] - [facility] 5 11:30:11 551874 doxycycli ne Not available other severe Not available 07/09/2024 3640 RxNorm Theresa Witt null, [place] - [facility] 5 11:30:11 128270 Demerol medicatio n confusion severe Not available 07/09/2024 79572 1 RxNorm Theresa Eduar null, [place] - [facility] 5 11:30:11 241289 losartan medicatio n swelling severe Not available 07/09/2024 47386 RxNorm Theresa Eduar null, [place] - [facility] 5 11:30:11 710767 dextromet horphan hydrobrom pranay medicatio n itching moderate Not available 07/09/2024 22807 0 RxNorm Theresa Eduar null, [place] - [facility] 5 11:30:11 655942 Trulicity medicatio n itching moderate Not available 07/09/2024 32760 96 RxNorm Theresa Witt null, [place] - [facility] 11:30:11 Medications Name Sig Start Date Stop [...] Time Mother Malignant neoplastic disease 77 78 [email or web address] Not available 08/2024 11:31:30 Maternal Aunt Malignant neoplastic disease [email or web address] Not available 08/2024 11:31:30 Paternal Aunt Malignant neoplastic disease [email or web address] Not available 08/2024 11:31:30 Son Allergy 4 [email or web address] Not availa ble 07/09/2024 11:31:30 Sister Complication of anesthesia [email or web address] Not available 11:31:30 Sister Vertigo [email or web address] Not availa ble 07/09/2024 11:31:30 Father Malignant neoplastic disease 50 52 [email or web address] Not available 08/2024 11:31:30 Medical History Condition Response Allergies/Hayfever Y Heart Problems Y Anxiety Y Tonsil Infections N Emphysema N Migraines N Thyroid Problems Y Glaucoma N Depression Y COPD N Developmental Delay N Nasal or Sinus Problems Y Anemia Y Immune System Disorder N Anesthesia Complications N Heart Attack (DE) N Other Skin Condition Y Diabetes Y [...] SNOMED-CT Code Diagnosis ICD10 Code Diagnosis Note [id number] ANGELICA DENTON MD [facility] [address] [address] 07/09/2024 10:21:50 07/09/2024 11:52:29 Neck pain 93310912 M54.2 Headache 69332305 R51.9 Referred o talgia of right ear 7098187225 838448 H92.01 M26.621 M79.11 Health Concerns Section Related Observation LastModified by Organization Detai ls LastModified Time None Recorded Concern Status LastModified by Organization Details LastModified Time None Recorded Advance Directives Directive None Recorded Payers Insurance Date Sequence Insurance Name Policy Number Policy Valdivia Covered Member ID Valdivia Member ID Guarantor Name 09/02/2024 1 [facility] [id number] Troy Cortez [id number] Roma Cortez Notes Date Note Type Note Provider Name and Address Organization Details Recorded Time 07/09/2024 text/html 53-year-old fema le with type 2 diabetes and morbid obesity referred urgently by [facility] emergency room. Patient presented there with [...] the time of presentation. ANGELICA DENTON MD [address] [place] [address], [place], [address], [facility] 07/09/2024 12:01:53 OBGyn Episode No OBEpisode recorded.
--- OUTSIDE RECORDS SUMMARY | 2024-11-19 08:57 | XMS_ITS | Clinical Summary ---
Author Organization [facility] Address [address] [place] [address] Care Team Providers Care Precast Concrete Ironworker Name Role Phone Mia North MD Primary Care Provider [phone] Allergies Active Allergy Reactions Criticality Noted Date [...] Description 08/20/2024 9:45 AM EDT Office Visit [facility] [address] [place] [address] [place] Ricardo MD Otalgia, right [...] B Vaccines Completed 08/15/2008, 03/14/2008, 02/12/2008 Insurance [facility] [place] [id number] Care Teams Precast Concrete Ironworker Relationship Specialty Start Date End Date Mia North MD [address] [place] [address] PCP - General 08/20/24
== END 2024-11-19 09:33 | disposition home or self-care (01) ==
LOC: HO.HCS 08:48
PROVIDERS: PCP Internal Medicine; Visit Provider Nurse Practitioner Family
DX: R55 Syncope and collapse (principal); I35.8 Other nonrheumatic aortic valve disorders; I10 Essential (primary) hypertension; E66.01 Morbid (severe) obesity due to excess calories; G47.33 Obstructive sleep apnea (adult) (pediatric); I49.3 Ventricular premature depolarization
CPT/HCPCS: 99214

== ENCOUNTER 2025-04-16 08:11 | Outpatient (REF) | payer OTHER, SELFPAY ==
[2025-04-16 08:47] LABS: MANUAL DIFF FLAG NO
[2025-04-16 09:22] LABS: Hematocrit 38.1 % (37.0-47.0); Hemoglobin 12.5 g/dl (12.0-16.0); Imm Gran Abs Auto 0.02 X10*3/uL (0.00-0.03); Imm Gran Pct Auto 0.3 % (0.0-0.4); Lymphocytes Absolute Auto 2.5 X10*3/uL (1.2-4.9); Mean Corpuscular HGB Conc 32.8 g/dl (31.0-35.0); Mean Corpuscular Hemoglobin 29.5 pg (27.0-33.0); Mean Corpuscular Volume 89.9 fL (80.0-98.0); NRBC Abs Auto 0.000 X10*3/uL (0.0-0.012); NRBC Pct Auto 0.0 /100WBC (0.0-0.2); Platelet Count 244 X10*3/uL (160-400); Red Blood Count 4.24 X10*6/uL (4.20-5.50); White Blood Count 6.9 X10*3/uL (4.8-10.8)
[2025-04-16 10:15] LABS: Albumin Level 4.5 g/dL (3.5-5.0); Alkaline Phosphatase 75 U/L (39-117); Anion Gap 11 (12-20); Aspartate Amino Transferase 34 U/L (5-31); Blood Urea Nitrogen 10 mg/dL (9-16); Calcium 9.6 mg/dL (8.4-10.2); Carbon Dioxide 28 mmol/L (22-29); Chloride 105 mmol/L (96-108); Cholesterol 183 mg/dL (<200); Estimated Glomerular Filt Rate > 60; HDL Cholesterol 60 mg/dL (>40); Potassium 3.5 mmol/L (3.3-5.1); Sodium 140 mmol/L (135-145); Total Protein 7.2 g/dL (6.5-8.0); Triglycerides 118 mg/dL (<150)
[2025-04-16 10:29] LABS: Alanine Aminotransferase 32 U/L (0-31)
[2025-04-16 10:54] LABS: Microalbum/Creatinine Ratio Ur 49.5 ug/mg cr (<30)
== END 2025-04-16 08:12 ==
LOC: HO.LAB 08:11
PROVIDERS: PCP Internal Medicine; Visit Provider Internal Medicine
DX: E11.9 Type 2 diabetes mellitus without complications (principal); I10 Essential (primary) hypertension; E66.01 Morbid (severe) obesity due to excess calories; R80.9 Proteinuria, unspecified
CPT/HCPCS: 36415; 80053; 80061; 82043; 82570; 83036; 85025

== ENCOUNTER 2025-04-18 07:52 | Outpatient (AMB) | payer OTHER, SELFPAY ==
--- OUTSIDE RECORDS SUMMARY | 2025-04-18 08:10 | XMS_ITS | Clinical Summary ---
Author Organization [facility] Address [address] [place] [address] Care Team Providers Care Emergency Room Registered Nurse Name Role Phone Mia North MD Primary Care Provider [phone] Allergies Active Allergy Reactions Criticality Noted Date [...] otalgia of right ear 07/09/2024 Angioedema 03/03/2015 Immunizations Immunization Administration Dates Next Due DTP [...] of 2 - PCV) 05/19/2016 05/19/2015, 10/07/1999 RSV Vaccine 50 years and old er and Patients (1 - Risk 50-74 years 1-dose series) 2018 Zoster (Shingles) Vaccine (1 of 2) 2018 Influenza Vaccine 12/06/2024 02/21/2024, , 03/09/2020, Additional history exists COVID-19 Vaccine (3 - 2024-2 6 season) 2025 06/18/2020, 05/21/2020 DTaP/Tdap/Td Vaccines (3 - T d or Tdap) 12/19/2026 12/19/2016, 08/15/2008, 02/05/1999 Hepatitis B Vaccines Completed 08/15/2008, 03/14/2008, 02/12/2008 Insurance [facility] [place] [id number] Care Teams Emergency Room Registered Nurse Relationship Specialty Start Date End Date Mia North MD [address] [place] [address] PCP - General 08/20/24
--- OUTSIDE RECORDS SUMMARY | 2025-04-18 08:10 | XMS_ITS | Clinical Summary ---
Author Organization [facility] Address [address] [place] [address] Phone Care Team Providers Care Health Outcomes Liaison Name Role Phone Justin Lawler MD Primary Care Provider [phone] Allergies Active Allergy Reactions Criticality Noted Date Comments Benzonatate Anaphylaxis High 09/04/2017 Codeine Unknown 04/18/2011 Converted from Generic Allergy: Codeine RASH Lisinopril Swelling High 09/04/2017 Meperidine Unknown 04/18/2011 Converted from Generic Allergy: Meperidine ANXIETY AND HYPERVENTILATION Opioids - Morphine Analogues Unknown 04/18/2011 Converted from Drug Class Allergy: Opiate Agonists Sulfa (Sulfonamide Antibiotics) Unknown 04/18/2011 Converted from Generic Allergy: Sulfa SWELLING Converted from Drug Class Allergy: Sulfonamides (Systemic) Medications citalopram hydrobromide (CITALOPRAM ORAL) Ac tive cloNIDine HCl (CATAPRES) 0.3 MG tablet Active amLODIPine (NORVASC) 10 MG tablet Active hydroCHLOROthiazi de (HYDRODIURIL) 25 MG tablet Active montelukast sodium (SINGULAIR ORAL) Active loratadine (CLARITIN) 10 mg tablet Active metFORMIN (GLUCOPHAGE) 500 MG tablet 2 (two) times a day with meals. Active Social History Tobacco Use Types Packs/Day Years Used Date Smoking Tobacco: Never Smokeless Tobacco: Never Alcohol Use Standard Drinks/Week Comments Yes 0 (1 standard drink = 0.6 oz pur e alcohol) Education Answer Date Recorded Are you interested in more education? Not on italia e 09/02/2022 Are you concerned about learning? Not on file 09/02/2022 No 09/02/2022 No 09/02/2022 Digital Access Answer Date Recorded No 10/01/2022 No 10/01/2022 No 10/01/2022 Reliable internet access at home? Not on file 10/01/2022 Device with a working camera? Not on file Comments Unknown Sex and Gender Information Value Date Recorded Sex Assigned at Not on file Legal Sex Female 3:10 PM EDT Gender Identity Not on file Sexual Orientation Not on file Last Filed Vital Signs Vital Sign Reading Time Taken Comments Blood Pressure 126/70 11/05/2018 12:08 PM EDT Pulse 77 11/05/2018 12:08 PM EDT Temperature 37.2 C (98.9 F) 11/05/2018 12:08 PM EDT Respiratory Rate - - Oxygen Saturation 97% 11/05/2018 12:08 PM EDT Inhaled Oxygen Concentration - - Weight 95.3 kg (210 lb) 11/05/2018 12:08 PM EDT Height 154.9 cm (5' 1 ) 11/05/2018 12:08 PM EDT Body Mass Index 39.68 11/05/2018 12:08 PM EDT Plan of Treatment Health Maintenance Due Date Last Done Comments CREATININE LEVEL 1968 LIPID PANEL 1968 POTASSIUM LEVEL 1968 DEPRESSION SCREENING 1980 HEPATITIS C SCREENING 1986 HIV ONE-TIME SCREENING (18-65 YEARS) 1986 PAP SMEAR 1989 MAMMOGRAM 2008 COLOGUARD 2013 COLONOSCOPY 2013 COLORECTAL CANCER SCREENING 2013 FIT TEST 2013 FOBT 2013 SIGMOIDOSCOPY 2013 VIRTUAL COLONOSCOPY 2013 PNEUMOCOCCAL VACCINES (50+ years) (1 of 1 - PCV) 2018 ZOSTER VACCINES (1 of 2) 2018 INFLUENZA VACCINE (#1) 2024 , 02/05/2019, 02/27/2018, Additional history exists COVID-19 VACCINE (3 - 2024- season) 2025 06/18/2020, 05/21/2020 Adult Td,Tdap Booster 06/30/2028 06/30/2018 RSV VACCINE (1 - 1-dose 75+ series) 09/22/2043 SMOKING STATUS SCREENING (Once After 26 Yrs) Completed 09/04/2017 HEPATITIS A VACCINES Aged Out No long er eligible based on patient's age to complete this topic HIB VACCINES Aged Out No longer eligi ble based on patient's age to complete this topic MENINGOCOCCAL VACCINES (ACWY) Aged Out No longer eligible based on patient's age to complete this topic MENINGOCOCCAL VACCINES (B) Aged Out N o longer eligible based on patient's age to complete this topic Medical Devices Not on file Insurance [place] [employer] [place] PPO UNITED PPO [place] PPO [place] [employer] Care Teams Health Outcomes Liaison Relationship Specialty Start Date End Date Justin Lawler MD [address] [place] [phone] PCP - General Internal Medicine 09/04/17 Additional Source Comments The information contained in this document represents components of the legal health record. It is not the complete legal health record.[facility]
--- OUTSIDE RECORDS SUMMARY | 2025-04-18 08:10 | XMS_ITS ---
Author Name [facility] Organization Unknown History of Medication Use Medication [...] ROthiazide (DYAZIDE) 37.5-25 MG per capsule active Allergies Allergen Reaction Severity Comment Documented Date Source Status DULAGLUTIDE ITCHING 08/20/2024 [facility] active LOSARTAN SWELLING 10/26/2020 [facility] active LISINOPRIL SWELLING 09/04/2017 [facility] active MEPERIDINE UNKNOWN/PATIEN T AND FAMILY UNABLE TO DEFINE Hallucinations and hyperventilation ,Converted from Generic Allergy: Meperidine ANXIETY AND HYPERVENTILATION 04/18/2011 [facility] active BACLOFEN ANAPHYLAXIS [facility] DEXTROMETHORPHAN ITCHING [facility] DOXYCYCLINE GI INTOLERANCE/NA USEA/VOMITING esophagitis [facility] BENZONATATE ANAPHYLAXIS CCT CODEINE UNKNOWN/PATIEN T AND FAMILY UNABLE TO DEFINE Converted from Generic Allergy: Codeine RASH [facility] Problems Problem Status Onset Date Problem Type Date of Resolution Source Enchondroma of bone active 2024-08-14 ProblemAct [facility] Esophagitis, reflux active 2024-08-14 ProblemAct [facility] Neck pain active 2024-07-09 ProblemAct [facility] Depression active 2024-08-14 ProblemAct [facility] Hiatal hernia active 2024-08-20 ProblemAct [facility] T Rectal bleeding active 2024-08-20 ProblemAct HH [...] otalgia of right ear active 2024-07-09 ProblemAct [facility] Hematochezia active 2024-08-14 ProblemAct [facility] Gastroesophageal reflux disease active 2024-08-20 ProblemAct [facility] History of adenomatous polyp of colon active 2024-08-20 ProblemAct [facility] Angioedema active 2015-03-03 ProblemAct [facility] Eustachian tube dysfunction, right active EncounterDiagnosisAct [facility] Oropharyngeal dysphagia active 2024-08-20 ProblemAct [facility] Cholangiectasis active 2024-08-14 ProblemAct [facility] Asthma active 2024-08-14 ProblemAct [facility] Allergic rhinitis active 2024-08-14 ProblemAct [facility] Immunizations Vaccine Date Source Lot Number Status Influenza, Unspecified 02/21/2024 [facility] co mpleted Influenza Virus Trivalent Sp lit Vaccine (MDV) IM 03/30/2021 [facility] completed Influenza Whole 03/09/2020 [facility] UNK completed Influenza Virus Trivalent Sp lit Vaccine (MDV) IM 02/19/2020 [facility] completed Influenza Whole 02/05/2019 [facility] [id number] completed DTP / HiB 06/30/2018 [facility] UNK completed Influenza Virus Trivalent Sp lit Vaccine (MDV) IM 02/13/2018 [facility] UNK completed Influenza Virus Trivalent Sp lit Vaccine (MDV) IM 02/10/2017 [facility] [id number] completed Td, Unspecified 12/19/2016 [facility] UNK completed Influenza Virus Trivalent Sp lit Vaccine (MDV) IM 03/02/2016 [facility] UNK completed Pneumococcal Polysaccharide 23-Valent 05/19/2015 [facility] [id number] completed Influenza Virus Trivalent Sp lit Vaccine (MDV) IM 03/31/2015 [facility] [id number] completed Influenza Virus Trivalent Sp lit Vaccine (MDV) IM 01/28/2014 [facility] [id number] completed Influenza Virus Trivalent Sp lit Vaccine (MDV) IM 01/31/2013 [facility] [id number] completed Influenza Whole 02/27/2012 [facility] [id number] completed Influenza Whole 01/21/2011 [facility] [id number] completed Influenza Whole 01/28/2010 [facility] [id number] completed Influenza Virus Trivalent Sp lit Vaccine (MDV) IM 01/28/2009 [facility] [id number] completed Hep B, Unspecified 08/15/2008 CCT [id number] comple jo Tdap 08/15/2008 [facility] UNK completed Hep B, Unspecified 03/14/2008 CCT [id number] comple jo Hep B, Unspecified 02/12/2008 CCT [id number] comple jo Influenza Whole 04/25/2007 [facility] [id number] completed Influenza Whole 03/28/2006 [facility] [id number] completed Pneumococcal Polysaccharide 23-Valent 10/07/1999 [facility] UNK completed Td, Unspecified 02/05/1999 [facility] UNK completed Encounters Encounter Type Encounter Reason Primary Diagnosis Location Date Ambulatory [facility] 08/20/2024 Care Team Organization Name Specialty Phone Email Start Date End Da aba PalDelivery Agent 08/23/2024 2024 AndrewsDelivery Agent Mia North Primary Care 08/20/2024 AndrewsDelivery Agent 07/09/2024
--- OUTSIDE RECORDS SUMMARY | 2025-04-18 08:10 | XMS_ITS | Data Portability ---
Author Organization [place] - [facility], Allergy Address [address] [address] Care Team Providers Care Commercial Loan Administrator Name Role Phone JAYNE MARK Primary Care Provider [phone] Assessment Encounter Date Assessment Date Assessment LastModified [...] No further ENT workup or intervention recommended. Not available 07/09/2024 12:01:40 Plan of Treatment [...] observ ation record ed. Not Available 08/2024 11:56:55 07/10/19 25 07/07/2024 CT, cervi jose juan spine , w/o contr ast No observ ation record ed. [email or web address] Not Available 08/2024 13:30:25 07/10/19 25 07/07/2024 CT, cervi jose juan spine , w/o contr ast No observ ation record ed. [email or web address] Not Available 08/2024 12:51:06 Result Notes None recorded. Problems Name Problem SNOMED Code Status Onset Date Resolution Date Notes Provider Name and Address Organization Details Recorded Time Neck pain 35876474 Active 2024 ANGELICA DENTON MD [address] [place] [address], [facility] [place], [address], [place] - [facility] 11:50:56 Headache 32432758 Active 2024 ANGELICA DENTON MD [address] [place] [address], [facility] [place], [address], [place] - [facility] 11:51:05 Referred otalgia of right ear 341096760503825 0 Active 2024 ANGELICA DENTON MD [address] [place] [address], [place], [address], [place] - [facility] 12:01:07 Problem Notes None recorded. Procedures Surgical History Date Name Laterality Status Provider Name and Address Organization Details Recorded Time hernia repair completed Theresa Witt [place] - [facility] 07/09/2024 11:32:04 oophorectomy completed Theresa Witt [place] - [facility] 07/09/2024 11:32:11 biopsy of breast completed Theresa Witt [place] - [facility] 07/09/2024 11:32:20 section completed Theresa Witt [place] - [facility] 07/09/2024 11:32:25 Imaging Results None recorded. Procedure Notes None recorded. Medical Equipment None Reported. Allergies Allergen ID Allergen Name Allergen Category Reaction Reaction Severity Criticality Documentation Date Start Date Code Code System Note Provider Name and Address Organization Details Recorded Time [id number] Substance with sulfonami de structure and antibacte rial mechanism of action (substanc e) medicatio n facial swelling severe Not available 07/09/2024 06036 8003 SNOMED Theresa Eduar null, [place] - [facility] 5 11:30:11 997205 lisinopri l medicatio n swelling severe Not available 07/09/2024 39137 RxNorm Theresa Eduar null[place] - [facility] 5 11:30:11 611899 codeine medicatio n rash severe Not available 07/09/2024 2670 RxNorm Theresa Eduar null[place] - [facility] 5 11:30:11 132628 benzonata te medicatio n anaphylax is severe Not available 07/09/2024 69045 RxNorm Theresa Witt null, [place] - [facility] 5 11:30:11 920636 baclofen medicatio n anaphylax is severe Not available 07/09/2024 1292 RxNorm Theresa Witt null[place] - [facility] 5 11:30:11 009276 doxycycli ne Not available other severe Not available 07/09/2024 3640 RxNorm Theresa Witt null[place] - [facility] 5 11:30:11 321768 Demerol medicatio n confusion severe Not available 07/09/2024 69336 1 RxNorm Theresa Eduar null[place] - [facility] 5 11:30:11 578737 losartan medicatio n swelling severe Not available 07/09/2024 88697 RxNorm Theresa Eduar null[place] - [facility] 5 11:30:11 709807 dextromet horphan hydrobrom pranay medicatio n itching moderate Not available 07/09/2024 70634 0 RxNorm Theresa Eduar null[place] - [facility] 5 11:30:11 177360 Trulicity medicatio n itching moderate Not available 07/09/2024 60425 96 RxNorm Theresa Witt null, [place] - [facility] 11:30:11 Medications Name Sig Start Date Stop [...] Time Mother Malignant neoplastic disease 77 78 [email or web address] Not available 08/2024 11:31:30 Maternal Aunt Malignant neoplastic disease [email or web address] Not available 08/2024 11:31:30 Paternal Aunt Malignant neoplastic disease [email or web address] Not available 08/2024 11:31:30 Son Allergy 4 [email or web address] Not availa ble 07/09/2024 11:31:30 Sister Complication of anesthesia [email or web address] Not available 11:31:30 Sister Vertigo [email or web address] Not availa ble 07/09/2024 11:31:30 Father Malignant neoplastic disease 50 52 [email or web address] Not available 08/2024 11:31:30 Medical History Condition Response Allergies/Hayfever Y Heart Problems Y Anxiety Y Tonsil Infections N Emphysema N Migraines N Thyroid Problems Y COPD N Depression Y Developmental Delay N Glaucoma N Nasal or Sinus Problems Y Anemia Y Immune System Disorder N Anesthesia Complications N Heart Attack (SD) N Other Skin Condition Y Diabetes Y [...] Diagnosis SNOMED-CT Code Diagnosis ICD10 Code Diagnosis IMO Codes Diagnosis Note [id number] ANGELICA DENTON MD [facility] [address] [address] 07/09/2024 10:21:50 07/09/2024 11:52:29 Neck pain 50599685 M54.2 Headache 62293665 R51.9 Referred o talgia of right ear 9704297627 235004 H92.01 M26.621 M79.11 Health Concerns Section Related Observation LastModified by Organization Detai ls LastModified Time None Recorded Concern Status LastModified by Organization Details LastModified Time None Recorded Advance Directives Directive None Recorded Payers Insurance Date Sequence Insurance Name Policy Number Policy Valdivia Covered Member ID Valdivia Member ID Guarantor Name 09/02/2024 1 [facility] [id number] Troy Mcdonald [id number] Roma Cortez Notes Date Note Type Note Provider Name and Address Organization Details Recorded Time 07/09/2024 text/html 53-year-old female with type 2 diabetes and morbid obesity referred urgently by [facility] emergency room. Patient presented there with [...] the time of presentation. ANGELICA DENTON MD [address] [place] [address], [address], [place] - [facility] 07/09/2024 12:01:53 OBGyn Episode No OBEpisode recorded.
[2025-04-18 08:12] VITALS: BP 134/76; PULSE 78; RESP 16; TEMP 36.7; O2SAT 96; BMI 47.8
--- NOTE | 2025-04-18 08:12 | A.OFFPC_ITS ---
Vital Signs 04/18/25 08:12 Height 5 ft 1 in Weight 253 lb BMI 47.8 BP 134/76 Blood Pressure Location Lt brachial Position Sitting Respiration 16 Pulse 78 Pulse Source Pulse Oximeter Temp 98.1 F Temp Source Oral Pulse Oximetry (%) 96 Oxygen Delivery Method Room Air Intake Visit Reasons: PE Intake Note: Pt is here today for PE. Allergies Sulfa (Sulfonamide Antibiotics) Allergy (Severe, Verified 04/18/25 08:13) FACIAL SWELLING codeine (Codeine) Allergy (Intermediate, Verified 04/18/25 08:13) RASH doxycycline Allergy (Intermediate, Verified 04/18/25 08:13) Difficulty Breathing lisinopril (Lisinopril) Allergy (Intermediate, Verified 04/18/25 08:13) EXTREMITIES SWELLING benzonatate (BENZONATATE) Allergy (Unknown, Verified 04/18/25 08:13) ANAPHYLAXIS meperidine (Demerol) Allergy (Unknown, Verified 04/18/25 08:13) Rash baclofen Adverse Reaction (Severe, Verified 04/18/25 08:13) Anaphylaxis dulaglutide (From Trulicity) Adverse Reaction (Intermediate, Verified 04/18/25 08:13) itchy throat losartan Adverse Reaction (Intermediate, Verified 04/18/25 08:13) swelling of hands, Tobacco use date assessed: 10/31/24 Dental Screening Dental Screen Date: 06/12/24 HPI PE HPI Details Pt presents for PE. Pt will have a R knee surgery for meniscus tear and arthritis by [facility]. [facility] Medical History (Updated 04/18/25 @ 08:57 by Mia North MD) Tear of meniscus of right knee Annual physical exam DM2 (diabetes mellitus, type 2) Nonrheumatic aortic (valve) stenosis Microalbuminuria Essential hypertension PATRICIA treated with BiPAP Morbid obesity Lumbar and sacral spondyloarthritis Hyperlipemia Depression Thyroid nodule Hx of renal calculi Irritable bowel syndrome GERD (gastroesophageal reflux disease) Arthritis Cancer Surgical History (Updated 04/18/25 @ 08:16 by EMILIANO Huitron) History of carpal tunnel surgery H/O ventral hernia repair Hx of bilateral oophorectomy Hx of breast biopsy Hx of section Hx of colonoscopy Hx of esophagogastroduodenoscopy Family History Mother No problems noted. Father Substance use disorder Esophageal cancer Brother Substance use disorder Sister Substance use disorder History of Mccurdy's esophagus Social History Household Members: Family Household Members Other:: , unemployed, 2 children () Housing: House Do you presently have visiting nurse or other home services: No Alcohol intake: current Alcohol intake frequency: a few times a month Alcohol type: beer Patient Tobacco Use Status: Never used Tobacco e-Cigarette/Vaping Use: Never Used Second Hand Smoke Exposure: No Advance Directives Date on File: 03/18/22 service: No Current occupational status: unemployed Cognitive needs: No Hearing needs: No Vision needs: Yes Questionnaire Thrive Questionnaire Date Thrive assessed: 06/11/24 I am a: Patient What is your living situation today?: I have a steady place to live Within the past 12 months, did the food you bought not last and you didn't have the money to get more?: Never true Within the past 12 months, did you worry whether your food would run out before you got money to buy more?: Never true Do you have trouble paying for medicines?: No Do you have trouble getting transportation to medical appointments?: No Do you have trouble paying your heating and electricity bill?: No Do you have trouble taking care of your child, family member or friend?: No Do you have trouble with day-to-day activities such as bathing, preparing meals, shopping, managing finances, etc.?: I choose not to answer this question Are you currently unemployed and looking for a job?: No Are you interested in more education?: No Please select the resources that you would like help with: None Currently or been in a relationship where the following occur: No concerns reported THRIVE Score: 0 HARRIET-7 AMB Questionnaire HARRIET-7 Date HARRIET - 7 assessed: 06/12/24 Source: Developed by Drs. Hitesh Bowden, Vero Owens, Micheal Cedillo and colleagues, with an educational bert from [employer] Review of Systems Const All systems reviewed & are unremarkable except as noted in HPI and below Eyes Reports no additional complaints ENT Reports no additional complaints Card Reports no additional complaints Resp Reports no additional complaints GI Reports no additional complaints Reports no additional complaints Physical exam (Primary Care) Vital Signs: Last Vital Signs Temp 98.1 F 04/18/25 08:12 Pulse 78 04/18/25 08:12 Resp 16 04/18/25 08:12 BP 134/76 04/18/25 08:12 Pulse Ox 96 04/18/25 08:12 Oxygen Delivery Method Room Air 04/18/25 08:12 BMI result Body Mass Index 47.8 Tobacco/Smoking Status: Tobacco use Status Tobacco use date assessed 10/31/24 04/18/25 08:18 Patient Tobacco Use Status Never used Tobacco 04/18/25 08:18 e-Cigarette/Vaping Use Never Used 04/18/25 08:18 Thrive Assessment: Date of Thrive Assessment Date Thrive assessed 06/11/24 04/18/25 08:18 Currently or been in a relationship where the following occur: No concerns reported Const General: no acute distress HENMT Head: Yes normal to inspection Face and sinus: Yes normal facial exam Eyes General: appearance normal, both eyes and all related structures Neck Neck: Yes no lymphadenopathy and Yes supple Resp Effort & Inspection: normal respiratory effort Auscultation: clear to auscultation bilaterally Cardio Rhythm: regular rhythm Heart sounds: S1 normal heart sound present and S2 normal heart sound present GI Inspection: Yes normal to inspection Palpation (GI): Soft to palpation Percussion: Yes normal to percussion Auscultation: normal bowel sounds Coding Level of Care Code New Pt Prev Care 40-64y(32743) Diagnoses Hyperlipemia E78.5 DM2 (diabetes mellitus, type 2) E11.9 Tear of meniscus of right knee S83.206A Depression F32.9 Annual physical exam Z00.00 Assessment & Plan Assessment & Plan (1) Hyperlipemia: Code(s): E78.5 - Hyperlipidemia, unspecified Category: Medical Plan: LDL cholesterol is 100. Patient declined increasing dose of pravastatin. Continue low-cholesterol diet increase physical activity weight loss discussed with the patient (2) DM2 (diabetes mellitus, type 2): Comment: A1C 6.2, 2022, diet controlled, intolerant to Trulicity ( throat swelling), patient refused to take SGLT 2 inhibitor Code(s): E11.9 - Type 2 diabetes mellitus without complications Category: Medical Plan: A1c is 6.2. ADA diet increase physical activity weight loss discussed with the patient. Follow-up in 4 months with a fasting labs before (3) Tear of meniscus of right knee: Comment: Patient will have surgery with [facility] 04/2025 Code(s): S83.206A - Unspecified tear of unspecified meniscus, current injury, right knee, initial encounter Category: Medical Plan: Follow-up with orthopedic (4) Depression: Comment: Follows up with psychiatrist and counselor Code(s): F32.9 - Major depressive disorder, single episode, unspecified Category: Medical Plan: Continue current medications follow-up with psychiatry (5) Annual physical exam: Code(s): Z00.00 - Encounter for general adult medical examination without abnormal findings Category: Medical Plan: Well-balanced diet regular physical activity weight loss discussed with the patient she is up-to-date with the mammogram at [facility] and had colonoscopy in 2023 Orders: Orders Complete Blood Count Auto Diff 4 Months E11.9 - Type 2 diabetes mellitus without complications, E78.5 - Hyperlipidemia, unspecified, S83.206A - Unspecified tear of unspecified meniscus, current injury, right knee, initial encounter Hemoglobin A1c 4 Months E11.9 - Type 2 diabetes mellitus without complications, E78.5 - Hyperlipidemia, unspecified, S83.206A - Unspecified tear of unspecified meniscus, current injury, right knee, initial encounter TSH reflex Free T4 4 Months E11.9 - Type 2 diabetes mellitus without complications, E78.5 - Hyperlipidemia, unspecified, S83.206A - Unspecified tear of unspecified meniscus, current injury, right knee, initial encounter Microalbumin, Random (w Creat) 4 Months E11.9 - Type 2 diabetes mellitus without complications, E78.5 - Hyperlipidemia, unspecified, S83.206A - Unspecified tear of unspecified meniscus, current injury, right knee, initial encounter Comprehensive [place]. Panel Fast 4 Months E11.9 - Type 2 diabetes mellitus without complications, E78.5 - Hyperlipidemia, unspecified, S83.206A - Unspecified tear of unspecified meniscus, current injury, right knee, initial encounter Vitamin D 25-OH Total 4 Months E11.9 - Type 2 diabetes mellitus without complications, E78.5 - Hyperlipidemia, unspecified, S83.206A - Unspecified tear of unspecified meniscus, current injury, right knee, initial encounter Medications: Changed From hydralazine 50 mg PO TID 270 tabs 1RF To hydralazine 50 mg PO BID 180 tabs 1RF
== END 2025-04-18 10:04 | disposition home or self-care (01) ==
LOC: HO.HMCC 07:53
PROVIDERS: PCP Internal Medicine; Visit Provider Internal Medicine
DX: Z00.00 Encounter for general adult medical examination without abnormal findings (principal); E78.5 Hyperlipidemia, unspecified; E11.69 Type 2 diabetes mellitus with other specified complication; S83.206A Unspecified tear of unspecified meniscus, current injury, right knee, initial encounter; F32.9 Major depressive disorder, single episode, unspecified

== ENCOUNTER 2025-04-30 09:47 | Outpatient (AMB) | payer OTHER, SELFPAY ==
--- NOTE | 2025-04-30 09:49 | AM.OFFWIN_ITS ---
Intake Vital Signs 04/30/25 09:55 Height 5 ft 1 in Weight 254 lb BMI 48.0 BMI Reason not done Patient refused/unable BP 144/86 H Blood Pressure Location Rt brachial Pulse 102 H Pulse Source Pulse Oximeter Temp 97.7 F Temp Source Oral Pulse Oximetry (%) 98 Oxygen Delivery Method Room Air Intake Visit Reasons: EP-sinus infection Intake Note: Patient presents c/o sinus congestion/pressure, post nasal drip, face hurts x4 days. Patient Tobacco Use Status: Never used Tobacco Allergies Sulfa (Sulfonamide Antibiotics) Allergy (Severe, Verified 04/30/25 09:58) FACIAL SWELLING codeine (Codeine) Allergy (Intermediate, Verified 04/30/25 09:58) RASH doxycycline Allergy (Intermediate, Verified 04/30/25 09:58) Difficulty Breathing lisinopril (Lisinopril) Allergy (Intermediate, Verified 04/30/25 09:58) EXTREMITIES SWELLING benzonatate (BENZONATATE) Allergy (Unknown, Verified 04/30/25 09:58) ANAPHYLAXIS meperidine (Demerol) Allergy (Unknown, Verified 04/30/25 09:58) Rash baclofen Adverse Reaction (Severe, Verified 04/30/25 09:58) Anaphylaxis dulaglutide (From Trulicity) Adverse Reaction (Intermediate, Verified 04/30/25 09:58) itchy throat losartan Adverse Reaction (Intermediate, Verified 04/30/25 09:58) swelling of hands, HPI HPI Comments History of Present Illness Details History of Present Illness - The patient is a 54-year-old female wh o presents with a suspected sinus infection. - Her symptoms began over the weekend af ter being exposed to a Febreze [place] tree scent, to which she is allergic. - She first developed a headache, follow ed by facial puffiness and fullness. - She reports waking up this morning wit h a postnasal drip. - She denies any fever, body aches, coug h, or sore throat. - The patient has a history of sinus inf ections, occurring a couple of times a year. - She is concerned because if left untre ated, her postnasal drip can progress to a reactive airway issue and sometimes bronchitis. - She takes Zyrtec for allergies. - Regarding previous treatments, she has used Z-Mejia, amoxicillin, and Augmentin. - She states that the Z-Mejia works most e ffectively and quickly for her. - She reports that for her last sinus in fection, amoxicillin or Augmentin was tried first and was not fully effective, requiring a subsequent course of a Z- Mejia. - She denies nausea, vomiting, diarrhea or abd pain. Physical Exam General: Cooperative, healthy appearing, comfortable, no acute distress and well developed Head: Normal to inspection Ears: Hearing grossly normal bilaterally. No tragus or mastoid tenderness noted. Auditory canals clear bilaterally. TM's normal, not bulging. No fluid noted. Nose: Normal external nose present. Moist mucosa. Turbinates normal bilaterally, not boggy. Face and sinus: Tenderness to palpation of the frontal and maxillary sinuses bilaterally. Neck: Normal visual inspection and Yes full ROM. No lymphadenopathy noted. Respiratory: Normal respiratory effort and able to speak in complete sentences. Clear to auscultation bilaterally. No w/r/r noted. Cardiovascular: Regular rate and rhythm. Normal S1 and S2 GI: Normal to inspection. Soft to palpation and nontender, nondistended. No guarding noted. Skin: No rashes or lesions noted [facility] Medical History (Updated 04/18/25 @ 08:57 by Mia North MD) Tear of meniscus of right knee Annual physical exam DM2 (diabetes mellitus, type 2) Nonrheumatic aortic (valve) stenosis Microalbuminuria Essential hypertension PATRICIA treated with BiPAP Morbid obesity Lumbar and sacral spondyloarthritis Hyperlipemia Depression Thyroid nodule Hx of renal calculi Irritable bowel syndrome GERD (gastroesophageal reflux disease) Arthritis Cancer Surgical History (Updated 04/18/25 @ 08:16 by EMILIANO Huitron) History of carpal tunnel surgery H/O ventral hernia repair Hx of bilateral oophorectomy Hx of breast biopsy Hx of section Hx of colonoscopy Hx of esophagogastroduodenoscopy Family History Mother No problems noted. Father Substance use disorder Esophageal cancer Brother Substance use disorder Sister Substance use disorder History of Mccurdy's esophagus Social History Household Members: Family Household Members Other:: , unemployed, 2 children () Housing: House Do you presently have visiting nurse or other home services: No Alcohol intake: current Alcohol intake frequency: a few times a month Alcohol type: beer Patient Tobacco Use Status: Never used Tobacco e-Cigarette/Vaping Use: Never Used Second Hand Smoke Exposure: No Advance Directives Date on File: 03/18/22 service: No Current occupational status: unemployed Cognitive needs: No Hearing needs: No Vision needs: Yes Review of Systems Const All systems reviewed & are unremarkable except as noted in HPI and below Physical Exam Vital Signs: Last Vital Signs Temp 97.7 F 04/30/25 09:55 Pulse 102 H 04/30/25 09:55 BP 144/86 H 04/30/25 09:55 Pulse Ox 98 04/30/25 09:55 Oxygen Delivery Method Room Air 04/30/25 09:55 BMI result Body Mass Index 48.0 Assessment & Plan Assessment & Plan (1) Sinusitis: Code(s): J32.9 - Chronic sinusitis, unspecified Qualifiers: Sinusitis location: frontal Chronicity: acute Recurrence: recurrent Qualified Code(s): J01.11 - Acute recurrent frontal sinusitis Plan Most likely sinusitis vs URI vs allergies vs viral illness plan - tylenol or motrin as needed for pain - steam showers - prednisone burst for 5 days - z-mejia as directed - continue with OTC medications - follow up with PCP Medications: New prednisone 40 mg (2 x 20 mg) PO DAILY 10 tabs 0RF 5 days azithromycin For 250 mg dose pack: take 500 mg today (day 1), then 250 mg for 4 days (days 2-5) PO 6 tabs 0RF Coding Level of Care Code Est Pt Level 3 (53369) Diagnoses Acute recurrent frontal sinusitis J01.11 Sinusitis location: frontal Chronicity: acute Recurrence: recurrent
--- OUTSIDE RECORDS SUMMARY | 2025-04-30 09:53 | XMS_ITS | Clinical Summary ---
Author Organization [facility] Address [address] [place] [address] Care Team Providers Care Self Sealing Fuel Tank Repairer Name Role Phone Mia North MD Primary Care Provider [phone] Allergies Active Allergy Reactions Criticality Noted Date [...] B Vaccines Completed 08/15/2008, 03/14/2008, 02/12/2008 Insurance [facility] [place] [address] Care Teams Self Sealing Fuel Tank Repairer Relationship Specialty Start Date End Date Mia North MD [address] [place] [address] PCP - General 08/20/24
--- OUTSIDE RECORDS SUMMARY | 2025-04-30 09:53 | XMS_ITS | Patient Health Record ---
Author Organization [facility] Address [address] [place] [address] Care Team Providers Care Programmer Name Role Phone Mia North MD Primary Care Provider Dinesh Smith Unavailable [phone] Allergies Allergen (clinical drug ingredient) Drug/Non Drug [...] Administration Date Status Comme nts Influenza Unknown 02/19/2015 Administered Influenza Unknown 02/15/2021 Administered Pneumococcal Unknown 05/20/2015 Administered COVID-19 Moderna Vaccine Unknown 03/22/2021 Administere d 1st 05/21/2020 2nd 06/18/2020 Social History Tobacco Use: Social History Observation [...] Osteoarthritis of midtarsal joint of left foot ([id number] ) Osteoarthritis of midtarsal joint of left foot (M19.072) Active confirmed Plan Of Treatment Pending Test Test Name Order Date X ray : Foot, left 3V 06/27/2023 X ray : Foot, right 3V 06/23/2021, [id number]/[id number], JOINT/BURSA 0 07/16/2015, [id number]/INJECT, JOINT/BURSA 0 10/13/[id number] TENDON SHEATH/LIGAMENT 0 11/17/[id number] TENDON SHEATH/LIGAMENT 1 06/21/202088152,[id number] TENDON SHEATH/LIGAMENT 0 06/23/202117514,[id number] TENDON SHEATH/LIGAMENT 0 07/29/2021 Insurance Providers Payer Name Payer Address Payer Phone Subscriber Number Group Number Insured Name Patient Relationship to Insured Coverage Start Date Coverage End Date [id number] [id number] [address] [address] [place] [address] [id number] Roma Urrutia Self - patient is the [...] Hospitalization History Reason Date(Month/Year) Patient admitted to [facility] for chest p ain and dizziness. 05/2015 [facility] - Hypertention 02/28/17 [facility]- back pain 07/2020
--- OUTSIDE RECORDS SUMMARY | 2025-04-30 09:53 | XMS_ITS | Patient Health Record ---
Author Organization [facility] Address [address] [place] [address] Care Team Providers Care Personal Attendant Name Role Phone Mia North MD Primary Care Provider Hitesh Santiago Unavailable [phone] Allergies Allergen (clinical drug ingredient) Drug/Non Drug Allergy documented on EMR Reaction Allergy Type Onset Date Status codeine Codeine Sulfate Unknown Drug Allergy A ctive meperidine Demerol Unknown Drug Allergy Active lisinopril Lisinopril Unknown Drug Allergy Activ e Listerine Antiseptic Unknown Drug Allergy Active Tessalon Perles Unknown Drug Allergy A ctive Sulfa Unknown Drug Allergy Active doxycycline Doxycycline Unknown Drug Allergy Act emily losartan Losartan Unknown Drug Allergy Active Reason For Referral No Information Medications Medication SIG (Take, Route, Frequency, Duration) Notes Start Date End Date Status Citalopram Hydrobromide 20 MG Tablet 0.5 tablet Orally Once a day Active Multivitamin Active Singulair 10 MG Tablet 1 tablet in the e vening Orally Once a day Active Calcium 500 MG Tablet Orally Active Vitamin D 1000 UNIT Tablet 1 tablet Oral ly Once a day Active Triamterene-HCTZ 37.5-25 MG Tablet 1 tablet in the morning Orally Once a day; Duration: 30 day(s) Active hydrALAZINE HCl 25 MG Tablet 1 tablet with food Orally Three times a day; Duration: 30 day(s) Active amLODIPine Besylate 10 MG Tablet 1 tablet Orally Once a day Active Ibuprofen 800 MG Tablet Orally rarely Active Stool Softener 100 MG Capsule 1 capsule as needed Orally Once a day Active Magnesium 500 MG Capsule Orally Active Claritin 10 MG Tablet 1 tablet Orally On ce a day Active Zinc 50 MG Tablet Orally Ac tive Pregabalin 150 MG Capsule 1 capsule Oral ly Once a day Active Tylenol Arthritis Pain Active Pravastatin Sodium 20 MG Tablet 1 tablet Orally Once a day; Duration: 30 day(s) Active Lorazepam as needed Active Vitamin D 25 MCG (1000 UT) Tablet Orally 4x a day Active Immunizations Vaccine Route Administration Date Status Comme nts Influenza Unknown 02/19/2020 Administered Influenza Unknown 03/30/2021 Administered Social History Tobacco Use: Social History Observation Description Date Details (start date - stop date) Never Smoker NA - NA Social History Drugs/Alcohol: Social Info Question Answer Notes Alcohol Screen Did you have a drink containing alcohol in the past year? Yes How often did you have a drink containing alcohol in the past year? Monthly or less (1 point) How many drinks did you have on a typical day when you were drinking in the past year? 1 or 2 drinks (0 point) How often did you have 6 or more drinks on one occasion in the past year? 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 [employer] Notes: Nonsmoker; no sig alcohol Nonsmoker; no sig alcohol Nonsmoker; no sig alcohol Problems Problem Type SNOMED Code ICD Code Onset Dates Problem Status W/U Status Risk Notes Problem Rectal bleeding (25486020) Rectal bleeding (K62.5) Active confirmed Problem History of adenomatous polyp of colon (340583727) History of adenomatous polyp of colon (Z86.010) Active confirmed Problem Irritable bowel syndrome with diarrhea (263273782) Irritable bowel syndrome with diarrhea (K58.0) Active confirmed Problem Oropharyngeal dysphagia (33803008) Dysphagia, pharyngeal phase (R13.13) Active confirmed Problem Blood in stool (423606632) Blood in stool (K92.1) Active confirmed Problem Gastroesophageal reflux disease (212046347) Gastroesophageal reflux disease, esophagitis presence not specified (K21.9) Active confirmed Problem Hiatal hernia (48177524) Hiatal hernia (K44.9) Active confirmed Problem Esophageal spasm (77330380) Esophageal spasm (K22.4) Active confirmed Problem Gastroesophageal reflux disease (463900898) GERD (gastroesophageal reflux disease) (K21.9) Active confirmed Problem Diarrhea (82966519) Diarrhea, unspecified type (R19.7) Active confirmed Problem Irritable bowel syndrome (18868345) Irritable bowel syndrome with both constipation and diarrhea (K58.0) Active confirmed Plan Of Treatment Pending Test Test Name Order Date CELIAC PANEL #10 03/01/2017 Future Test Test Name Order Date COLONOSCOPY 03/01/2017 UPPER GI ENDOSCOPY 01/30/2020 COLONOSCOPY 01/06/2022 Insurance Providers Payer Name Payer Address Payer Phone Subscriber Number Group Number Insured Name Patient Relationship to Insured Coverage Start Date Coverage End Date [facility] [address] [address] [place] [address] [id number] CAMILLA ARANDA Self - patient is the insured Medical (General) History Medical History History ICD Code Asthma Hypertension Breast cancer Personal history of polyps-1 tubular adenoma and a hyperplastic polyp removed via a colonoscopy with [facility]; Most recent one was in 06/[address] Brooks--but incomplete to the transverse colon due to poor prep--she was noted to have diverticulosis Denies OH,CVA,renal disease Sleep apnea GERD--EGD in 2015--history o [...] pancreatic or biliary disease--this was done at [facility] Neg. colonoscopy in 05/2017--bx neg for m icroscopic colitis, no polyps Kidney stones with infection at [facility] [facility] in 2 018 Lichen sclerosus EGD in 02/2020--small hiatal hernia, no esophagitis, no evidence of esophageal stricture nor ring and therefore no dilation was performed, biopsies were negative for Mccurdy's esophagus and negative for eosinophilic esophagitis Thyroid nodules undergoing b iopsies with [facility] endocrinology as of the 07/08/2020 office visit Back pain--receiving cortiso ne injections and treatments as of the 07/08/2020 OV Mild aortic stenosis-Echocardiograms e very 2 years-sees Dr. Blackmon Chronic back pain Surgical History Surgery Date(Month/Year) Lumpectomy x2--DCIS--sees Dr. Jack x 2 [id number] Bilateral oopherectomy 2014 Abdominal wall hernia repair 1976 Partial thyroidectomy 2021 Trigger fingers x 4 on right hand schedu led for 01/11/2022
--- OUTSIDE RECORDS SUMMARY | 2025-04-30 09:53 | XMS_ITS | Data Portability ---
Author Organization [place] - [facility], Allergy Address [address] [address] Care Team Providers Care Fund Controller Name Role Phone JAYNE MARK Primary Care Provider [phone] Assessment Encounter Date Assessment Date Assessment LastModified [...] No further ENT workup or intervention recommended. [email or web address] Not available 07/09/2024 12:01:40 Plan of Treatment [...] contr ast No observ ation record ed. [email or web address] Not Available 08/2024 11:56:55 07/10/19 25 07/07/2024 CT, cervi jose juan spine , w/o contr ast No observ ation record ed. [email or web address] Not Available 08/2024 13:30:25 07/10/19 25 07/07/2024 CT, cervi jose juan spine , w/o contr ast No observ ation record ed. [email or web address] Not Available 08/2024 12:51:06 Result Notes None recorded. Problems Name Problem SNOMED Code Status Onset Date Resolution Date Notes Provider Name and Address Organization Details Recorded Time Neck pain 86575852 Active 2024 ANGELICA DENTON MD [address] [place] [address], [facility] [phone], [place] - [facility] 11:50:56 Headache 17101295 Active 2024 ANGELICA DENTON MD [address] [place] [address], [place], [phone], [place] - [facility] 11:51:05 Referred otalgia of right ear 064208212888315 0 Active 2024 ANGELICA DENTON MD [address] [place] [address], [place], [phone], [place] - [facility] 12:01:07 Problem Notes None recorded. Procedures Surgical History Date Name Laterality Status Provider Name and Address Organization Details Recorded Time hernia repair completed Theresa Witt [place] - [facility] 07/09/2024 11:32:04 oophorectomy completed Theresa Witt [place] - [facility] 07/09/2024 11:32:11 biopsy of breast completed Theresa Witt [place] - [facility] 07/09/2024 11:32:20 section completed Theresa Witt [place] - [facility] 07/09/2024 11:32:25 Imaging Results None recorded. Procedure Notes None recorded. Medical Equipment None Reported. Allergies Allergen ID Allergen Name Allergen Category Reaction Reaction Severity Criticality Documentation Date Start Date Code Code System Note Provider Name and Address Organization Details Recorded Time 039877 Substance with sulfonami de structure and antibacte rial mechanism of action (substanc e) medicatio n facial swelling severe Not available 07/09/2024 25038 8003 SNOMED Theresa Eduar null, [place] - [facility] 5 11:30:11 282163 lisinopri l medicatio n swelling severe Not available 07/09/2024 21834 RxNorm Theresa Eduar null, [place] - [facility] 5 11:30:11 041487 codeine medicatio n rash severe Not available 07/09/2024 2670 RxNorm Theresa Eduar null, [place] - [facility] 5 11:30:11 409638 benzonata te medicatio n anaphylax is severe Not available 07/09/2024 53642 RxNorm Theresa Witt null, [place] - [facility] 5 11:30:11 328079 baclofen medicatio n anaphylax is severe Not available 07/09/2024 1292 RxNorm Theresa Witt null, [place] - [facility] 5 11:30:11 291111 doxycycli ne Not available other severe Not available 07/09/2024 3640 RxNorm Theresa Witt null, [place] - [facility] 5 11:30:11 738767 Demerol medicatio n confusion severe Not available 07/09/2024 32583 1 RxNorm Theresa Eduar null[place] [facility] 5 11:30:11 136699 losartan medicatio n swelling severe Not available 07/09/2024 72932 RxNorm Theresa Eduar null, [place] [facility] 5 11:30:11 624559 dextromet horphan hydrobrom pranay medicatio n itching moderate Not available 07/09/2024 85698 0 RxNorm Theresa Eduar null, [place] - [facility] 5 11:30:11 147233 Trulicity medicatio n itching moderate Not available 07/09/2024 32771 96 RxNorm Theresa Witt null, [place] - [facility] 11:30:11 Medications Name Sig Start Date Stop [...] Time Mother Malignant neoplastic disease 77 78 [id number] Not available 08/2024 11:31:30 Maternal Aunt Malignant neoplastic disease [email or web address] Not available 08/2024 11:31:30 Paternal Aunt Malignant neoplastic disease [email or web address] Not available 08/2024 11:31:30 Son Allergy 4 [email or web address] Not availa ble 07/09/2024 11:31:30 Sister Complication of anesthesia [email or web address] Not available 11:31:30 Sister Vertigo [email or web address] Not availa ble 07/09/2024 11:31:30 Father Malignant neoplastic disease 50 52 [id number] Not available 08/2024 11:31:30 Medical History Condition Response Allergies/Hayfever Y Heart Problems Y Anxiety Y Tonsil Infections N Emphysema N Migraines N Thyroid Problems Y Glaucoma N Depression Y COPD N Developmental Delay N Nasal or Sinus Problems Y Anemia Y Immune System Disorder N Anesthesia Complications N Heart Attack ([place]) N Other Skin Condition Y Diabetes Y [...] ICD10 Code Diagnosis IMO Codes Diagnosis Note [id number] ANGELICA DENTON MD [facility] [address] [address] 07/09/2024 10:21:50 07/09/2024 11:52:29 Neck pain 39659656 M54.2 Headache 47829321 R51.9 Referred o talgia of right ear [id number] 730794 H92.01 M26.621 M79.11 Health Concerns Section Related Observation LastModified by Organization Detai ls LastModified Time None Recorded Concern Status LastModified by Organization Details LastModified Time None Recorded Advance Directives Directive None Recorded Payers Insurance Date Sequence Insurance Name Policy Number Policy Valdivia Covered Member ID Valdivia Member ID Guarantor Name 09/02/2024 1 [facility] [id number] [facility]cd[id number] Roma Cortez Notes Date Note Type Note Provider Name and Address Organization Details Recorded Time 07/09/2024 text/html 53-year-old female with type 2 diabetes and morbid obesity referred urgently by [facility] emergency room. Patient presented there with [...] the time of presentation. ANGELICA DENTON MD [address] [place] [address], [phone], [place] [facility] 07/09/2024 12:01:53 OBGyn Episode No OBEpisode recorded.
--- OUTSIDE RECORDS SUMMARY | 2025-04-30 09:53 | XMS_ITS | Clinical Summary ---
Author Organization [facility] Address [address] [place] [address] Phone Care Team Providers Care Compressed [employer] Worker Name Role Phone Justin Lawler MD Primary Care Provider [phone] Allergies Active Allergy Reactions Criticality Noted Date [...] topic Medical Devices Not on file [place] Care Teams Comp[employer] Worker Relationship Specialty Start Date End Date Justin Lawler MD [address] [place] [address] [phone] PCP - General Internal Medicine 09/04/17 Additional Source Comments The information contained in this document represents components of the legal health record. It is not the complete legal health record.[facility]
[2025-04-30 09:55] VITALS: BP 144/86; PULSE 102; TEMP 36.5; O2SAT 98; BMI 48.0
== END 2025-04-30 10:24 | disposition home or self-care (01) ==
PROVIDERS: PCP Internal Medicine; Visit Provider Physician Assistant Medical
DX: J01.11 Acute recurrent frontal sinusitis (principal)